=== PATIENT | male | born 1955 | race Caucasian/White ===

== ENCOUNTER → 2020-03-10 12:11 | Outpatient (CLI) | payer MEDICARE, SELFPAY ==
--- NOTE | 2020-03-10 12:17 | CT_ITS ---
STUDY: CT SCAN HIP RIGHT REASON FOR EXAM: Male, 64 years old. R/O BONE LESION, H/O ARTHRITIS RADIATION DOSAGE (If Supplied By Facility): CTDIvol = ( 36.54 ) mGy, DLP = ( 1536.13 ) mGycm. Individualized dose optimization techniques were used for this CT.? TECHNIQUE: Multiple axial tomographic images of the right hip joint were obtained. Coronal and sagittal reconstruction was obtained. 3-D reconstruction was obtained as well. COMPARISON: None. FINDINGS: There is a marked degree of a osteoarthritis involving the right hip joint with the subchondral geodes on the acetabular and femoral head regions. The largest geode is seen in the superior lateral aspect of the acetabulum measuring up 1.4 cm. A subchondral geode is seen along the superior lateral aspect of the femoral head measuring 1.[address]/Extremity Lower without Contra IMPRESSION: Marked degree of osteoarthritis of the right hip joint with the subchondral geodes in the acetabulum as well as in the femoral head. Electronically Signed: Shekhar Mccall, at 13:08 EDT , Service support ,
== END ==
LOC: CT 12:15
PROVIDERS: PCP Internal Medicine; Referring Provider Orthopaedic Surgery; Visit Provider Orthopaedic Surgery
DX: M16.11 Unilateral primary osteoarthritis, right hip (principal)
CPT/HCPCS: 73700; 76377

== ENCOUNTER 2022-12-03 11:32 | Inpatient (IN) | payer MEDICARE, SELFPAY ==
[2022-12-03] VITALS (8 sets, daily range): BP systolic 110–124; BP diastolic 67–79; PULSE 75–91; RESP 16–18; TEMP 36.4; O2SAT 92–96; BMI 38.4; BMI 38.1
--- NOTE | 2022-12-03 11:48 | EKG12_ITS ---
Test Reason : SOB Blood Pressure : / mmHG Vent. Rate : 084 BPM Atrial Rate : 000 BPM P-R Int : 000 ms QRS Dur : 154 ms QT Int : 430 ms P-R-T Axes : 000 133 -24 degrees QTc Int : 508 ms Atrial fibrillation Right bundle branch block Abnormal ECG Confirmed by DENAE LUCERO, LINETTE ([id number]), rewrite editor NOEL NAVAS ([id number]) on 12/04/2022 2:02:29 PM Referred By: Confirmed By:LINETTE PHILIPPE MD
--- NOTE | 2022-12-03 11:54 | NURSING ---
NO OLD EKGS
[2022-12-03 12:08] LABS: Absolute Lymphocyte Count 0.47 X10^3/uL (0.83-4.51); Basophil# 0.02 X10^3/uL; Basophil% 0.5 % (0-1); Eosinophils% 2.5 % (0-5); Hemoglobin 8.9 g/dL (13.0-16.5); Lymphocyte # 0.47 X10^3/ul (0.83-4.51); Lymphocyte % 11.9 % (19-41); Mean Corp Hgb Conc 28.7 g/dL (32-36); Mean Corpuscular Hgb 24.8 pg (27.0-32.0); Mean Corpuscular Volume 86.4 fL (80-94); Monocyte# 0.37 X10^3/uL; Monocyte% 9.3 % (0-10); NRBC Flagged by Analyzer 0 % (0-5); Neutrophil # 2.99 X10^3/uL (2.7-7.7); Neutrophil % 75.5 % (47-70); POSITIVE DIFFERENTIAL YES; POSITIVE MORPHOLOGY YES; Platelet Count 118 K/mm3 (150-450); RBC Distribution Width CV 24.4 % (11.6-14.6); RBC Distribution Width SD 76.5 fl (35.1-43.9); Red Blood Count 3.59 M/mm3 (4.6-6.2)
--- NOTE | 2022-12-03 12:11 | RAD_ITS ---
STUDY: X-RAY CHEST REASON FOR EXAM: Male, 67 years old. Worsening dyspnea and fluid retention. TECHNIQUE: PA and lateral views of the chest. COMPARISON: None. FINDINGS: EKG electrode are seen. Vascular congestion and mild degree of CHF. Small left pleural effusion with left basilar atelectasis and/or infiltrate. Sternal cerclage wires are present from a prior sternotomy. Metallic atrial clip is seen on the left side. A left-sided unipolar pacemaker is present. Normal mediastinum and lorena. Normal visualized pulmonary arteries. Normal visualized aortic arch and descending thoracic aorta. There are degenerative changes of the visualized thoracic spine. Normal visualized ribs, clavicles, and shoulders. There is no demonstrated abnormality of the visualized soft tissue structures of the upper abdomen. RAD/Chest PA and Lateral IMPRESSION: Vessel congestion with small left pleural effusion and left basilar atelectasis and/or infiltrate. Cardiomegaly. Electronically Signed: Shekhar Mccall MD at 12:41 EST ,
[2022-12-03 12:14] LABS: Differential Indicated SCAN CRITERIA MET
[2022-12-03 12:17] LABS: International Normalized Ratio 2.7; Prothrombin Time (Protime)PT. 28.6 SECONDS (11.7-14.9)
[2022-12-03 12:21] LABS: Anion Gap 7 (5-15); BUN 54 mg/dL (7-18); BUN/Creat Ratio 22.2 RATIO (10-20); Calcium,Total 8.8 mg/dL (8.5-10.1); Chloride 106 mmol/L (98-107); Creatinine, Serum 2.43 mg/dL (0.70-1.30); EST Glomerular Filtration Rate 28 mL/min (>60); Est Glom Filt Rate - Afr Amer 34 mL/min (>60); Estimated Creatinine Clearance 29.09 ml/min; Glucose 139 mg/dL (74-106); Potassium 4.3 mmol/L (3.5-5.1); Sodium Level 141 mmol/L (136-145)
[2022-12-03 12:27] LABS: Anisocytosis 1+
[2022-12-03 12:30] LABS: BNP,B-Type NATRIURETIC PEPTIDE 588.2 pg/mL (0-100)
[2022-12-03] MEDS: Furosemide 40 MG/4 ML Vial IV ×2 (12:38→17:18)
--- NOTE | 2022-12-03 13:25 | EDS_ITS ---
HPI History of Present Illness Chief Complaint: Shortness of Breath Informant: patient Narrative Narrative: Patient is a 67-year-old male with history of coronary artery disease, heart failure with preserved ejection fraction, CABG, CKD, diabetes mellitus, chronic atrial fibrillation (on Coumadin therapy) and hypertension presenting from cardiology office for worsening heart failure. Patient was admitted to [facility] in August 2022 where he was diuresed and discharged home. He has been following up outpatient and recently switched to [facility] with Dr. Yang for second opinion because he feels like he is continuing to worsen. He does not feel that he is urinating adequately with his Lasix. He is having worsening edema is now having scrotal edema. He can even walk 5 feet without getting chest pressure and short of breath/dizzy. He does not wear home oxygen. His last INR check was a month ago and he was supposed to go a week or 2 ago but states it so hard for him to get out of the house because of his symptoms. He feels like he is drowning if he tries to lay flat and has been sleeping in the recliner for the past few months. He currently denies any chest pain. He did run out of his metoprolol about a month ago. He saw cardiology today and was recommended come to the ER for admission for IV diuresis secondary to his poor kidney function and functional class IV congestive heart failure. Patient does note for the past month he has been having dark bowel movements but thought it might be from his iron. Denies any known history of GI bleeding. [facility] Medical History (Updated 12/03/22 @ 17:[address] Isabelle Antonio, ) (HFpEF) heart failure with preserved ejection fraction Anxiety Atherosclerosis of coronary artery bypass graft of [place] heart without angina pectoris Atherosclerosis of coronary artery of [place] heart without angina pectoris BPH with obstruction/lower urinary tract symptoms Chronic anemia Chronic atrial fibrillation Chronic GERD Chronic shortness of breath CKD (chronic kidney disease) Dysphagia Essential (primary) hypertension Insomnia Long-term (current) use of anticoagulants, INR goal 2.0-3.0 Lung nodule, solitary RODRIGUEZ (nonalcoholic steatohepatitis) Pulmonary hypertension Type 2 diabetes mellitus with other diabetic kidney complication Home Medications allopurinol 100 mg tablet 100 mg PO DAILY 11/29/22 [History Last Taken 12/03/22] aspirin 81 mg tablet,delayed release 81 mg PO DAILY 11/29/22 [History Last Taken 12/03/22] atorvastatin 40 mg tablet 40 mg PO QHS 11/29/22 [History Last Taken 12/02/22] ferrous gluconate 324 mg (38 mg iron) tablet 324 mg PO DAILY 11/29/22 [History Last Taken 12/03/22] gabapentin 100 mg capsule 100 mg PO QHS 11/29/22 [History Last Taken 12/01/22] glipizide 5 mg tablet, extended release 24 hr 10 mg PO BID 11/29/22 [History Last Taken 12/03/22] nitroglycerin 0.4 mg sublingual tablet 0.4 mg sublingual Q5-15M PRN Chest Pain 11/29/22 [History Last Taken Unknown] tamsulosin 0.4 mg capsule 0.4 mg PO QHS 11/29/22 [History Last Taken 12/02/22] trazodone 50 mg tablet 50 mg PO QHS PRN Insomnia 11/29/22 [History Last Taken 12/01/22] warfarin 2.5 mg tablet 2.5 mg PO SUTH 11/29/22 [History Last Taken 12/01/22] warfarin 5 mg tablet 5 mg PO MOTUWEFRSA Check with primary doctor 11/29/22 [History Last Taken 12/02/22] albuterol sulfate 90 mcg/actuation aerosol inhaler (Ventolin HFA) 2 puff inhalation Q6H PRN Wheezing 12/03/22 [History Last Taken 12/03/22] amlodipine 2.5 mg tablet 2.5 mg PO DAILY 12/03/22 [History Last Taken 12/03/22] bumetanide 2 mg tablet 2 mg PO DAILY FLUID 12/03/22 [History Last Taken 12/03/22] omeprazole 20 mg capsule,delayed release 20 mg PO DAILY GERD 12/03/22 [History Last Taken 12/03/22] pantoprazole 40 mg tablet,delayed release 40 mg PO DAILY GERD 12/03/22 [History Last Taken 12/03/22] Allergy/AdvReac Type Severity Reaction Status Date / Time hydromorphone [From Dilaudid] Allergy Intermediate Vomiting Verified 12/03/22 10:33 metformin AdvReac Intermediate Other Verified 12/03/22 10:33 Family History Mother CHF (congestive heart failure) Surgical History History of bilateral knee replacement History of coronary artery stent placement (~12/10/10) Hx of bilateral hip replacements Hx of cardiac catheterization (~12/04/21) Hx of cardiac pacemaker (~06/30/19) Hx of gastric bypass (~2011) Hx of shoulder surgery S/P CABG x 3 (~12/23/18) Social History Smoking Status: Never smoker alcohol intake: never substance use type: does not use caffeine: Yes (2/wk) Type: coffee ROS ROS ED Constitutional Constitutional ED: Denies chills or fever(s) Eyes Eyes: Denies change in vision ENT ENT ED: Denies sore throat Cardiovascular Cardiovascular: Reports orthopnea and paroxysmal nocturnal dyspnea; Denies chest pain or palpitations Respiratory/Chest Respiratory/Chest: Reports dyspnea, dyspnea on exertion, orthopnea and paroxysmal nocturnal dyspnea; Denies cough Gastrointestinal Gastrointestinal: Reports melena; Denies abdominal pain, nausea or vomiting Genitourinary Genitourinary ED: Reports other Details: Scrotal swelling ; Denies dysuria or urinary frequency Musculoskeletal Musculoskeletal: Denies arthralgias or myalgias Integumentary Denies rash Neurologic Neurologic: Reports weakness; Denies headache(s) Psychiatric Psychiatric: Denies anxiety Hematologic/Lymphatic Hematologic/Lymphatic: Reports easy bleeding and easy bruising EXAM Physical Exam Const Vital Signs: 12/03/22 11:33 12/03/22 12:04 12/03/22 12:43 Temperature 97.6 F L Temperature Source Temporal Pulse Rate 81 78 Respiratory Rate 18 18 Respiratory Effort Normal Non-Labored Respiratory Depth Normal Respiratory Pattern Normal Blood Pressure 118/67 110/69 Blood Pressure Mean 84 82 Pulse Ox 92 93 Oxygen Delivery Method Room Air Room Air Positive well nourished and well developed Constitutional Narrative: Chronically ill-appearing General Appearance ED: well developed and pallor HEENT Reports moist mucous membranes atraumatic Eyes PERRL and EOMs intact bilaterally General Eye ED: Yes pale conjunctiva Neck supple Neck Narrative: Positive JVD Resp Resp Narrative: Diminished breath sounds at the bases, left worse than right. Mild conversational dyspnea present Auscultation: Negative for rhonchi or wheezes Cardio regular rate Rhythm: abnormal rhythm irregularly irregular GI non-tender and non-distended Narrative: Significant scrotal edema present Back/Spine no CVA tenderness Extremity Extremity Narrative: 2+ pitting edema up to the proximal thighs, some seeping on the left martines p resent General Extremety ED: Yes edema General Extremity: edema Neuro oriented x3 Sensorium / Orientation: alert Motor Exam: general weakness Psych mental status grossly normal Skin General Skin Exam: pallor Lesions: no lesions Rashes: no rashes MDM MDM MDM Narrative Medical decision making narrative: Patient is evaluated for increased exertional edema. He was evaluated earlier today by cardiology who thought that he would benefit from admission for close fluid and electrolyte monitoring associate with diuresing. Clinically patient appears to be decompensated, symptomatic fluid overload. Patient is able in the ER and desaturates to 87%. His INR is therapeutic. He had reported having black stools intermittently for the past month and his hemoglobin is 8.9 however do not have a comparison. He does not have a significantly elevated BUN compared to his creatinine and has a chronically elevated creatinine with no acute change today. Of his occult stool is positive and its possible he could have an occult GI bleed. Patient's hemoglobin can be monitored in case he is symptomatic anemia which is exacerbating his heart failure. He is given a dose of IV Lasix in the ER. He does have an elevated BNP. He will be admitted for further diuresis and is agreeable this plan of care Lab Data Attestation: I reviewed the patient's lab results. Labs: Laboratory Results - last 24 hr 12/03/22 12/03/22 12/03/22 12:00 12:00 12:00 WBC 4.0 L RBC 3.59 L Hgb 8.9 L Hct 31.0 L MCV 86.4 MCH 24.8 L MCHC 28.7 L RDW Std Deviation 76.5 H RDW Coeff of Anders 24.4 H Plt Count 118 L MPV 10.0 Immature Gran % (Auto) 0.300 Neut % (Auto) 75.5 H Lymph % (Auto) 11.9 L Bacon % (Auto) 9.3 Eos % (Auto) 2.5 Baso % (Auto) 0.5 Absolute Neuts (auto) 3.0 Absolute Lymphs (auto) 0.47 L Nucleated RBC % 0 Differential Comment COMMENT Diff Path Review May foll Anisocytosis 1+ PT 28.6 H INR 2.7 Sodium 141 Potassium 4.3 Chloride 106 Carbon Dioxide 28.0 Anion Gap 7 BUN 54 H Creatinine 2.43 H Estim Creat Clear Calc 29.09 Est GFR (MDRD) Af Amer 34 L Est GFR (MDRD) Non-Af 28 L BUN/Creatinine Ratio 22.2 H Glucose 139 H Calcium 8.8 Troponin I High Sens B-Natriuretic Peptide 12/03/22 12/03/22 12:00 12:00 WBC RBC Hgb Hct MCV MCH MCHC RDW Std Deviation RDW Coeff of Anders Plt Count MPV Immature Gran % (Auto) Neut % (Auto) Lymph % (Auto) Bacon % (Auto) Eos % (Auto) Baso % (Auto) Absolute Neuts (auto) Absolute Lymphs (auto) Nucleated RBC % Differential Comment Diff Path Review Anisocytosis PT INR Sodium Potassium Chloride Carbon Dioxide Anion Gap BUN Creatinine Estim Creat Clear Calc Est GFR (MDRD) Af Amer Est GFR (MDRD) Non-Af BUN/Creatinine Ratio Glucose Calcium Troponin I High Sens 16 B-Natriuretic Peptide 588.2 H Radiography Chest X-Ray - ED: 2 View, Read by ED Physician, Read by Radiologist, CHF and Left Effusion Diagnostic Testing: Clinical Impression(s) from Imaging Studies Chest X-Ray 12/03/22 12:11 IMPRESSION: Vessel congestion with small left pleural effusion and left basilar atelectasis and/or infiltrate. Cardiomegaly. Electronically Signed: Shekhar Mccall MD at 12:41 EST Reading Location ID and State: [facility] / [place] , Service support , Rhythm Strip Rhythm Strip: A-fib Rate: 84 Ectopy: None EKG Initial EKG: Attestation: I personally reviewed and interpreted this EKG as follows: Interpretation: Atrial Fibrillation Comments: Atrial fibrillation with rate of 84 bpm Right axis deviation Right bundle branch block Nonspecific T wave changes No prior EKG available for comparison Discharge Plan Dx/Rx/DC Orders Clinical Impression: (HFpEF) heart failure with preserved ejection fraction, Long-term (current) use of anticoagulants, INR goal 2.0-3.0, SOB (shortness of breath), Coronary artery disease, Chronic kidney disease (CKD), Debility, Anemia Disposition Disposition: Acute Care Hospital [facility] Discharge Date/Time: 12/03/22 15:09
--- NOTE | 2022-12-03 14:15 | PCM.HP.STD ---
[facility] - General General Date of Service: 12/03/22 Chief Complaint: dyspnea. edema HPI Narrative LINDA CARLOS, is a 67 M who presents to [facility] with increased lower extremity edema despite taking Bumex, 40 pound weight gain over the past 4 months and dyspnea on exertion. Patient was seen by Dr. Yang and sent to the emergency room. Chest x-ray showed pulmonary vascular congestion. Patient received 40 mg of IV furosemide. The Hospital service was contacted for admission. Patient has never had a situation such as this in the past. [facility] Medical History (Updated 12/03/22 @ 14:[address] Arnold Saini, DO) (HFpEF) heart failure with preserved ejection fraction Anxiety Atherosclerosis of coronary artery bypass graft of [place] heart without angina pectoris Atherosclerosis of coronary artery of [place] heart without angina pectoris BPH with obstruction/lower urinary tract symptoms Chronic anemia Chronic atrial fibrillation Chronic GERD Chronic shortness of breath CKD (chronic kidney disease) Dysphagia Essential (primary) hypertension Insomnia Long-term (current) use of anticoagulants, INR goal 2.0-3.0 Lung nodule, solitary RODRIGUEZ (nonalcoholic steatohepatitis) Pulmonary hypertension Type 2 diabetes mellitus with other diabetic kidney complication Home Medications allopurinol 100 mg tablet 100 mg PO DAILY 11/29/22 [History Last Taken 12/03/22] aspirin 81 mg tablet,delayed release 81 mg PO DAILY 11/29/22 [History Last Taken 12/03/22] atorvastatin 40 mg tablet 40 mg PO QHS 11/29/22 [History Last Taken 12/02/22] ferrous gluconate 324 mg (38 mg iron) tablet 324 mg PO DAILY 11/29/22 [History Last Taken 12/03/22] gabapentin 100 mg capsule 100 mg PO QHS 11/29/22 [History Last Taken 12/01/22] glipizide 5 mg tablet, extended release 24 hr 10 mg PO BID 11/29/22 [History Last Taken 12/03/22] nitroglycerin 0.4 mg sublingual tablet 0.4 mg sublingual Q5-15M PRN Chest Pain 11/29/22 [History Last Taken Unknown] tamsulosin 0.4 mg capsule 0.4 mg PO QHS 11/29/22 [History Last Taken 12/02/22] trazodone 50 mg tablet 50 mg PO QHS PRN Insomnia 11/29/22 [History Last Taken 12/01/22] warfarin 2.5 mg tablet 2.5 mg PO SUTH 11/29/22 [History Last Taken 12/01/22] warfarin 5 mg tablet 5 mg PO MOTUWEFRSA 11/29/22 [History Last Taken 12/02/22] albuterol sulfate 90 mcg/actuation aerosol inhaler (Ventolin HFA) 2 puff inhalation Q6H PRN Wheezing 12/03/22 [History Last Taken 12/03/22] amlodipine 2.5 mg tablet 2.5 mg PO DAILY 12/03/22 [History Last Taken 12/03/22] bumetanide 2 mg tablet 2 mg PO DAILY FLUID 12/03/22 [History Last Taken 12/03/22] omeprazole 20 mg capsule,delayed release 20 mg PO DAILY GERD 12/03/22 [History Last Taken 12/03/22] pantoprazole 40 mg tablet,delayed release 40 mg PO DAILY GERD 12/03/22 [History Last Taken 12/03/22] Allergy/AdvReac Type Severity Reaction Status Date / Time hydromorphone [From Dilaudid] Allergy Intermediate Vomiting Verified 12/03/22 10:33 metformin AdvReac Intermediate Other Verified 12/03/22 10:33 Family History Mother CHF (congestive heart failure) Surgical History History of bilateral knee replacement History of coronary artery stent placement (~12/10/10) Hx of bilateral hip replacements Hx of cardiac catheterization (~12/04/21) Hx of cardiac pacemaker (~06/30/19) Hx of gastric bypass (~2011) Hx of shoulder surgery S/P CABG x 3 (~12/23/18) Social History Smoking Status: Never smoker alcohol intake: never substance use type: does not use caffeine: Yes (2/wk) Type: coffee ROS ROS Narrative Does have difficulty swallowing and occasionally has to vomit up food that he cannot swallow down. Patient has had an EGD and colonoscopy that have been ported as normal. Those were performed at [facility]. When asked specifically about that he denies that he had any kind of strictures or endocrine abnormalities in his esophagus. Patient does have difficulty negotiating stairs but also does drop things at times. All review of systems were negative except as mentioned above in the history of present illness and the other review of systems. Vital Signs Vital Signs Vital Signs: 12/03/22 11:33 12/03/22 12:04 12/03/22 12:43 Temperature 36.4 C L Temperature Source Temporal Pulse Rate 81 78 Respiratory Rate 18 18 Respiratory Effort Normal Non-Labored Respiratory Depth Normal Respiratory Pattern Normal Blood Pressure 118/67 110/69 Blood Pressure Mean 84 82 Pulse Ox 92 93 Oxygen Delivery Method Room Air Room Air 12/03/22 14:09 Temperature Temperature Source Pulse Rate 89 Respiratory Rate 18 Respiratory Effort Respiratory Depth Respiratory Pattern Blood Pressure 117/72 Blood Pressure Mean 87 Pulse Ox 93 Oxygen Delivery Method Room Air Weight Weight: 117.934 kg Body Mass Index (BMI) 38.4 Physical Exam Const alert and no apparent distress HEENT normocephalic and head/scalp atraumatic Eyes EOMs intact bilaterally Eyes Narrative: No icterus Neck no lymphadenopathy and no JVD Resp normal respiratory effort, no retractions, no use of accessory muscles and clear to auscultation bilaterally Cardio regular rate, regular rhythm, S1 normal heart sound and S2 normal heart sound GI normal to inspection, nondistended, normoactive bowel sounds, soft to palpation, non-tender and non-distended Extremity Extremity Narrative: Bilateral tot lower extremity edema Skin Skin Narrative: Venous stasis changes to the lower extremities bilaterally Neuro moves all extremities and no focal motor deficits Sensorium / Orientation: awake and alert Psych affect normal Results Lab / Micro Data Attestation: I reviewed the patient's lab results. Result Diagrams: 12/03/22 12:00 12/03/22 12:00 Labs: Laboratory Results - last 24 hr 12/03/22 12:00: WBC 4.0 L, RBC 3.59 L, Hgb 8.9 L, Hct 31.0 L, MCV 86.4, MCH 24.8 L, MCHC 28.7 L, RDW Std Deviation 76.5 H, RDW Coeff of Anders 24.4 H, Plt Count 118 L, MPV 10.0, Immature Gran % (Auto) 0.300, Neut % (Auto) 75.5 H, Lymph % (Auto) 11.9 L, [place] % (Auto) 9.3, Eos % (Auto) 2.5, Baso % (Auto) 0.5, Absolute Neuts (auto) 3.0, Absolute Lymphs (auto) 0.47 L, Nucleated RBC % 0, Differential Comment COMMENT, Diff Path Review May foll, Anisocytosis 1+ 12/03/22 12:00: PT 28.6 H, INR 2.7 12/03/22 12:00: Sodium 141, Potassium 4.3, Chloride 106, Carbon Dioxide 28.0, Anion Gap 7, BUN 54 H, Creatinine 2.43 H, Estim Creat Clear Calc 29.09, Est GFR (MDRD) Af Amer 34 L, Est GFR (MDRD) Non-Af 28 L, BUN/Creatinine Ratio 22.2 H, Glucose 139 H, Calcium 8.8 12/03/22 12:00: B-Natriuretic Peptide 588.2 H Micro: Microbiology 12/03/22 12:45 Stool Stool Occult Blood (SARIAH) - Final Occult Blood Positive Rhythm Strip Rhythm Strip: A-fib Rate: 84 Ectopy: None EKG Initial EKG: Attestation: I personally reviewed and interpreted this EKG as follows: Prior EKG tracings: available for review EKG Rhythm Intrepretation: Atrial Fibrillation (Right bundle branch block) Radiology Impression Chest X-Ray 12/03/22 12:11 IMPRESSION: Vessel congestion with small left pleural effusion and left basilar atelectasis and/or infiltrate. Cardiomegaly. Electronically Signed: Shekhar Mccall MD at 12:41 EST , Assessment & Plan Assessment/Plan (1) (HFpEF) heart failure with preserved ejection fraction: PLAN: Presumed No baseline echo in our EMR Patient received IV furosemide 40 mg in the emergency room and will continue with 40 mg twice daily. No KOSTA inhibitor is given the patient's CKD Check echocardiogram (2) Dysphagia: PLAN: Chronic patient has had an EGD performed [facility], we will request records Consult speech therapy (3) Debility: PLAN: PTOT evaluate and treat Concern patient has some underlying neurologic disorder. Unclear what that may be but this is chronic process and I would recommend outpatient neurology follow-up (4) Chronic kidney disease (CKD): QUALIFIERS: Chronic kidney disease stage: stage 4 (severe) Qualified Code(s): N18.4 - Chronic kidney disease, stage 4 (severe) PLAN: Monitor closely We will hold off on nephrology consultation at this time but it does get worse considerably, may need to consult Patient will certainly need nephrology follow-up on an outpatient. PLAN: Plan Chronic condition Chronic A. fib: Continue with warfarin Diabetes mellitus type 2: Continuous in his home meds plus sliding scale Coronary artery disease: Status post CABG. Continue with aspirin Hypertension: Hold amlodipine given his low normal blood pressure at this time Anemia: Probably stable. Monitor for now. Continue with ferrous gluconate VTE prophylaxis: Not indicated as patient is already anticoagulated CODE STATUS: Dressed with the patient. Patient wished to be full code. Charges/Coding Visit Charges Inpatient E&M: 76823 Init Hosp L3
--- NOTE | 2022-12-03 14:36 | NURSING ---
MICHELLE PARKER CHF EXAC, HYPOXIA
[2022-12-03 16:02] LABS: Troponin-I HS 16 pg/mL (3.0-78.0)
[2022-12-03 16:34] LABS: Troponin-I HS 18 pg/mL (3.0-78.0)
--- NOTE | 2022-12-03 16:42 | EKG12_ITS ---
Test Reason : CP Blood Pressure : / mmHG Vent. Rate : 083 BPM Atrial Rate : 000 BPM P-R Int : 000 ms QRS Dur : 154 ms QT Int : 440 ms P-R-T Axes : 000 133 -05 degrees QTc Int : 517 ms Atrial fibrillation Right bundle branch block Abnormal ECG When compared with ECG of 03-DEC-2022 12:01, MANUAL COMPARISON REQUIRED, DATA IS UNCONFIRMED Confirmed by VAUGHN LUCERO, FRANCISCO ([id number]), international editorial producer BEVERLEY CHIN ([id number]) on 12/06/2022 9:05:45 AM Referred By: KEITH Confirmed By:CL MENDES MD
[2022-12-03] MEDS: glipiZIDE XL 5 MG Tablet 10 MG PO (17:18)
[2022-12-03] MEDS: 0.9% Saline Lock 10 ML Syringe IV (17:21)
[2022-12-03] MEDS: Insulin Lispro 100 UNIT/ML INSULN.PEN SC (17:25)
[2022-12-03 17:50] LABS: Bedside Glucose 253 mg/dL (74-106)
--- NOTE | 2022-12-03 19:00 | NURSING ---
emergency documentation effective now 12/03/2022, 1900
[2022-12-03 19:47] LABS: Troponin-I HS 16 pg/mL (3.0-78.0)
[2022-12-03] MEDS: traZODone 50 MG Tablet PO (22:06)
[2022-12-03] MEDS: Tamsulosin HCl 0.4 MG Capsule PO (22:07)
[2022-12-03] MEDS: Atorvastatin Calcium 40 MG Tablet PO (22:07)
[2022-12-03] MEDS: Gabapentin 100 MG Capsule PO (22:07)
[2022-12-04] VITALS (11 sets, daily range): BP systolic 91–104; BP diastolic 62–82; PULSE 79–87; RESP 16–25; TEMP 36.5–36.8; O2SAT 86–100
[2022-12-04 01:16] LABS: Bedside Glucose 108 mg/dL (74-106)
[2022-12-04 04:52] LABS: Absolute Lymphocyte Count 0.47 X10^3/uL (0.83-4.51); Absolute Neutrophil Count 2.2 X10^3/uL (2.0-7.7); Basophil# 0.03 X10^3/uL; Basophil% 0.9 % (0-1); Eosinophil# 0.12 X10^3/uL; Eosinophils% 3.8 % (0-5); Hemoglobin 8.3 g/dL (13.0-16.5); Lymphocyte # 0.47 X10^3/ul (0.83-4.51); Lymphocyte % 14.7 % (19-41); Mean Corp Hgb Conc 28.6 g/dL (32-36); Mean Corpuscular Hgb 24.9 pg (27.0-32.0); Mean Corpuscular Volume 87.1 fL (80-94); Mean Platelet Vol. 10.9 fl (6.2-12.0); Monocyte# 0.41 X10^3/uL; Monocyte% 12.8 % (0-10); NRBC Flagged by Analyzer 0 % (0-5); Neutrophil # 2.16 X10^3/uL (2.7-7.7); Neutrophil % 67.5 % (47-70); POSITIVE DIFFERENTIAL YES; POSITIVE MORPHOLOGY YES; Platelet Count 104 K/mm3 (150-450); RBC Distribution Width CV 24.4 % (11.6-14.6); Red Blood Count 3.33 M/mm3 (4.6-6.2); White Blood Count 3.2 K/mm3 (4.4-11.0)
[2022-12-04 04:57] LABS: Differential Indicated SCAN CRITERIA MET
[2022-12-04 04:58] LABS: International Normalized Ratio 2.8; Prothrombin Time (Protime)PT. 29.4 SECONDS (11.7-14.9)
[2022-12-04 05:26] LABS: Anion Gap 6 (5-15); BUN 57 mg/dL (7-18); BUN/Creat Ratio 21.5 RATIO (10-20); Calcium,Total 8.2 mg/dL (8.5-10.1); Chloride 104 mmol/L (98-107); Cholesterol 70 mg/dL (200); Creatinine, Serum 2.65 mg/dL (0.70-1.30); EST Glomerular Filtration Rate 26 mL/min (>60); Est Glom Filt Rate - Afr Amer 31 mL/min (>60); Estimated Creatinine Clearance 26.68 ml/min; Glucose 62 mg/dL (74-106); High Density Lipoprotein 59 mg/dL; Potassium 4.4 mmol/L (3.5-5.1); Sodium Level 140 mmol/L (136-145); Thyroid Stim Hormone (TSH) 5.32 uIU/mL (0.358-3.74); Triglycerides 29 mg/dL; Very Low Density Lipoprotein 6 mg/dL (5-40)
[2022-12-04 05:52] LABS: Anisocytosis 1+; Differential Comment SCANNED; Hypochromasia 1+; Microcytosis 1+
[2022-12-04 07:20] LABS: Bedside Glucose 59 mg/dL (74-106)
[2022-12-04 07:50] LABS: Bedside Glucose 107 mg/dL (74-106)
[2022-12-04 08:11] LABS: Hemoglobin A1c 6.6 % (3.8-5.6)
[2022-12-04] MEDS: glipiZIDE XL 5 MG Tablet 10 MG PO ×2 (09:18→15:47)
[2022-12-04] MEDS: Aspirin E.C. 81 MG Tablet PO (09:18)
[2022-12-04] MEDS: Allopurinol 100 MG Tablet PO (09:18)
[2022-12-04] MEDS: Pantoprazole Sodium 40 MG Tablet PO (09:18)
[2022-12-04] MEDS: Furosemide 40 MG/4 ML Vial IV (09:18)
[2022-12-04 09:26] LABS: Bedside Glucose 114 mg/dL (74-106)
[2022-12-04] MEDS: Ferrous Gluconate 324 MG Tablet PO (11:06)
[2022-12-04 11:35] LABS: Bedside Glucose 106 mg/dL (74-106)
--- NOTE | 2022-12-04 11:35 | CASEMGMT ---
Addendum entered by Almiat Keith 12/04/22 16:35: Pt qualifies for a Palliative referral per the [facility] palliative screening tool at this time. ?? Asmita made aware and that is agreeable to referral. Order received. ??Palliative updated at this time via e-mail. ? Original Note: RN?CM?COMMUNITY SERVICES MANAGER?CM?to room to meet with patient for initial transition planning/care coordination?assessment.? @ bedside. RN?CM?introduced self and role at [facility].?Pt resting in bed in no distress at this time, sleeping. He did open his eyes briefly, but then fell back asleep right away. Care providers, pharmacy, and demographics verified with at this time. PCP: Dr Mely Lazar Specialists: Dr Cheema. Pt was going to [facility] for cardiology, nephrology, and pulmonology, but they want to switch to local specialists. provided w/local physician directory. Palliative: discussed palliative care w/ and she is agreeable to a referral. Preferred Pharmacy: [facility] Retail Insurance: [employer] Prescription Benefit:?Yes LNOK: Mery Living Arrangements: Lives w/ in one-story home w/3 steps to enter w/railing on one side. Pt able to navigate the stairs but goes very slowly. Pt able to bath and dress self and manages his own medications. does home mgt tasks. states pt sleeps for a large part of the day and is more awake at night. She states he can barely walk 5 ft w/out feeling he is going to pass out. She states he has not left his house since . Transportation:? does most of the driving. DME: ?States has the following DME:?built-in shower seat, nebulizer, RTS, pulse ox, and glucometer ( does he does not use it, though). Pt does not use DME to ambulate, but does have a cane and walker. Also has a BSC. Pt does not have home O2. Verbal review of local DME co's and made aware [facility] is affiliated w/[facility]. She chooses [employer], should pt qualify for Home O2. Discussed home O2 set-up process and questions answered. states no need for further DME at this time.? HHC/SNF: No hx of SNF. thinks pt had HHC after either hip or knee surgery. Discussed discharge planning. states, if therapy recommends SNF, she would be agreeable and thinks pt would be also. If pt able to return home, then she thinks he would be agreeable to HHC as well. PT/OT evals pending. ?CM?to follow for home oxygen needs and any further discharge planning/needs.? voices no further concerns/needs at this time.? Advised her to ask for?CM?if any further questions/concerns/needs arise.? She voices understanding. PLAN:??TBD. SNF vs Home w/HHC. If discharges home, follow for possible home O2. Anthony BSN?RN?CM
--- NOTE | 2022-12-04 11:42 | ST.MBS ---
Modified Barium Swallow - Patient Information Study Date: 12/04/22 Study Time: 12:00 Direct Billable Minutes: 81 Total Minutes procedure & reportin Diagnosis: Dysphagia, unspecified (R13.10) Referring Physician: Tate Díaz Reason for Referral: Objectively assess swallow function, assess risk for aspiration, and determine recommendations for least restrictive diet textures and compensatory strategies to improve safety of swallow. Medical History: Emeka Parikh is a 67 M who [facility] with increased lower extremity edema despite taking Bumex, 40 pound weight gain over the past 4 months and dyspnea on exertion. Patient was seen by Dr. Yang and sent to the emergency room. Chest x-ray showed pulmonary vascular congestion. Pt was admitted to PCU. PMH includes: HFpEF, anxiety, chronic atrial fibrillation, chronic GERD, chronic SOB, CKD, dysphagia, HTN, pulmonary hypertension, Type 2 diabetes mellitus with other diabetic kidney complication (SEE H&P for full PMH). He was referred for ST consult for concerns for swallowing difficulty. During BSE, pt felt frequent sensation of pharyngeal retention, especially with applesauce. He also reported retention and sensation of water coming back up into throat prior to clearing. In addition, pt experienced intermittent s/s of aspiration with trials. He was recommended Regular textures / Thin liquids and referred for MBSS to objectively assess concerns for pharyngeal retention, retrograde flow of liquids, and aspiration risk. Current Diet Ordered: Regular textures / Thin liquids Dentition: Natural Teeth Mental Status: WNL Respiratory Status: Oxygenating on 2L/M nasal cannula - Penetration-Aspiration Scale Penetration-Aspiration Scale: OBJECTIVE ASSESSMENT OF SWALLOW FUNCTION (QUANTITATIVE ? PER TRIAL): PENETRATION / ASPIRATION SCALE (RAYA): 1 = does not enter airway 2 = enters airway/above vocal folds/ejected 3 = enters airway/above vocal folds/not ejected 4 = enters airway/contacts vocal folds/ejected 5 = enters airway/contacts vocal folds/not ejected 6 = enters airway/below vocal folds/ejected 7 = enters airway/below vocal folds/not ejected despite effort 8 = enters airway/below vocal folds/no effort VIDEOFLOROSCOPIC SCALE SCORE (RAYA): Grade I = aspiration of material that has penetrated into the laryngeal vestibule, intact cough reflex Grade II = aspiration < 10 % of the bolus, intact cough reflex Grade III = aspiration of < 10 % of the bolus, reduced cough reflex or aspiration of > 10 % of the bolus, intact cough reflex Grade IV = aspiration of > 10 % of the bolus, reduced cough reflex - Penetration-Aspiration Scale Score Thin Liquid via teaspoon Result: 1= does not enter airway Thin Liquid via teaspoon Trial 2 Result: 1= does not enter airway Thin Liquid via small single sip from cup Result: 1= does not enter airway [place] Thick Liquid via small single sip from cup Result: 2= enter airway/above vocal folds/ejected Pudding via teaspoon esophageal screen Result: 1= does not enter airway 1/2 Cookie Result: 1= does not enter airway Thin Liquid via large single sip from cup Result: 2= enter airway/above vocal folds/ejected Thin Liquid via small single sip from cup Trial 2 Result: 2= enter airway/above vocal folds/ejected Thin Liquid via sequential sips from straw Result: 3= enters airways/above vocal folds/not ejected - Oral Phase Labial Seal: Interlabial escape, no progression to anterior lip Tongue Control During Bolus Hold: Posterior escape of greater than half of bolus Bolus Preparation/Mastication: Slow prolonged chewing/mashing with complete recollection Bolus Transport/Lingual Motion: Delayed initiation of tongue motion Oral Residue: Residue collection on oral structures - Pharyngeal Phase Initiation of Pharyngeal Swallow: Bolus head in pyriforms Soft Palate Elevation: No bolus between soft palate and pharyngeal wall Laryngeal Elevation: Partial superior movement thyroid cart/partial apprx aryt-epig petiole Anterior Hyoid Excursion: Partial anterior movement Epiglottic Movement: Partial inversion Laryngeal Vestibule Closure at Height of Swallow: Incomplete; narrow column of air/contrast in laryngeal vestibule Pharyngeal Stripping Wave: Present - diminished Pharyngoesophageal Segment Opening: Parital distension and partial duration; parital obstruction of flow Tongue Base Retraction: Narrow column of contrast between tongue base & post. pharyngeal wall Pharyngeal Residue: Collection of residue within or on pharyngeal structures - Esophageal Phase Esophageal Clearance: Esophageal retention w/ retrograde flow below pharyngoesophageal seg. - Diagnosis/Impression Diagnosis: Mild oropharyngeal phase dysphagia (R13.12) Impression: The oral phase is primarily marked by... -Decreased bolus control with >1/2 of the bolus spilling posteriorly to the pharynx prior to swallow onset observed with thin liquids and pudding especially. -Mild oral residue after the swallow with large sips. -Prolonged, but adequate mastication of cookie trial. The pharyngeal phase is primarily marked by... -Decreased airway closure during the swallow due to mildly decreased anterior hyoid excursion, partial epiglottic inversion at times, and mildly decreased laryngeal elevation. -Mildly-moderately decreased tongue base retraction, mildly decreased UES opening/duration, and mildly decreased pharyngeal stripping wave with resulting mild-moderate pharyngeal residues after the swallow. -No aspiration observed during the study. Laryngeal penetration with large thin by cup, sequential thin by straw, and nectar thick liquid by cup consistencies. Sequential thin liquid trial did not fully eject from the laryngeal vestibule after the swallow with trace residues remaining. - Recommendations Diet: Regular Textures, Thin Liquids Compensatory Strategies: Small Bites, Small Sips, Slow Rate - sips one at a time, Alternate bites/solids and sips/liquids, Sitting upright, Remain sitting upright for 30 minutes after PO intake Supervision: Distant Supervision Recommend Repeat Modified Barium Swallow: No Need for Skilled Speech Therapy Services: Yes Comment: Will recommend the patient for continued dysphagia therapy to address mild deficits in oropharyngeal swallow function. Will recommend the patient for oropharyngeal strengthening to improve lingual control, hyolaryngeal elevation/excursion, pharyngeal contraction, and tongue base retraction ([place], [place], effortful, and lingual resistance). The patient would benefit from thorough education regarding diet recommendations and recommended compensatory strategies. Education Completed: 1. Described result of evaluation., 2. Pt understands evaluation & agrees with goals and treatment plan., 4. Family/caregivers understand evaluation & agree w/ goals & tx plan. - Status Active ST Patient: Active - Contact Information [facility] Speech Therapy:: Alina Beckwith M.A. [facility]-[employer] EXTENSION WORKER Speech-Language Pathologist [facility] [address] [place] [address] [email or web address] [phone] 12/04/22 11:48
[2022-12-04 12:30] LABS: Pathologist Review Reviewed
[2022-12-04 12:30] LABS: Pathologist Review Reviewed
--- NOTE | 2022-12-04 14:22 | PCM.PN.HOSP ---
Subjective Subjective Patient was seen and examined today, I obtained a copy of his echocardiogram that was done last September and he has a normal EF with severe pulmonary hypertension. Patient went down for swallowing eval and he was cleared to eat a regular diet with supervision. Objective Data Objective Data Vital Signs: Vital Signs Temp Pulse Resp BP Pulse Ox O2 Del Method O2 Flow Rate 97.9 F 81 18 104/74 100 Nasal Cannula 2 12/04/22 11:09 12/04/22 11:09 12/04/22 11:09 12/04/22 11:09 12/04/22 11:09 12/04/22 13:00 12/04/22 13:00 Oxygen Flow Rate (L/min) 2 Oxygen Delivery Method Nasal Cannula Weight: 117.2 kg Body Mass Index (BMI) 38.1 Intake & Output: Intake and Output for Last 24 Hours 12/02/22 12/03/22 12/04/22 23:59 23:59 23:59 Intake Total 460 / 460 360 / 360 Output Total 1450 / 1450 1050 / 1050 Balance -990 / -990 -690 / -690 Lab / Micro Data Result Diagrams: 12/04/22 04:05 12/04/22 04:05 Labs: Laboratory Results - last 24 hr 12/03/22 12:00: Diff Path Review Reviewed 12/03/22 12:00: Troponin I High Sens 16 12/03/22 15:30: Troponin I High Sens 18 12/03/22 17:25: POC Glucose 253 H 12/03/22 18:10: Troponin I High Sens 16 12/03/22 22:05: POC Glucose 108 H 12/04/22 04:05: WBC 3.2 L, RBC 3.33 L, Hgb 8.3 L, Hct 29.0 L, MCV 87.1, MCH 24.9 L, MCHC 28.6 L, RDW Std Deviation 77.0 H, RDW Coeff of Anders 24.4 H, Plt Count 104 L, MPV 10.9, Immature Gran % (Auto) 0.300, Neut % (Auto) 67.5, Lymph % (Auto) 14.7 L, [place] % (Auto) 12.8 H, Eos % (Auto) 3.8, Baso % (Auto) 0.9, Absolute Neuts (auto) 2.2, Absolute Lymphs (auto) 0.47 L, Nucleated RBC % 0, Differential Comment SCANNED, Diff Path Review Reviewed, Hypochromasia 1+, Anisocytosis 1+, Microcytosis 1+ 12/04/22 04:05: PT 29.4 H, INR 2.8 12/04/22 04:05: Sodium 140, Potassium 4.4, Chloride 104, Carbon Dioxide 30.0, Anion Gap 6, BUN 57 H, Creatinine 2.65 H, Estim Creat Clear Calc 26.68, Est GFR (MDRD) Af Amer 31 L, Est GFR (MDRD) Non-Af 26 L, BUN/Creatinine Ratio 21.5 H, Glucose 62 L, Calcium 8.2 L, Triglycerides 29, Cholesterol 70, LDL Cholesterol 5, VLDL Cholesterol 6, HDL Cholesterol 59, TSH 5.32 H 12/04/22 04:05: Hemoglobin A1c 6.6 H 12/04/22 06:46: POC Glucose 59 L 12/04/22 07:31: POC Glucose 107 H 12/04/22 09:06: POC Glucose 114 H 12/04/22 10:54: POC Glucose 106 Micro: Microbiology 12/03/22 12:45 Stool Stool Occult Blood (SARIAH) - Final Occult Blood Positive Rhythm Strip Rhythm Strip: A-fib Rate: 84 Ectopy: None Physical Exam Const alert, oriented x3 and no apparent distress Constitutional Narrative: Patient appears older than his stated age General Appearance: cooperative and well developed Orientation / Consciousness: awake, oriented to person, oriented to place and oriented to time HEENT normocephalic and moist oral mucous membranes Eyes PERRL, EOMs intact bilaterally and conjunctivae normal Neck supple, no JVD, thyroid normal and no carotid bruits General: trachea midline Resp normal respiratory effort, no retractions, no use of accessory muscles and clear to auscultation bilaterally Auscultation: Negative for rales, rhonchi or wheezes Cardio S1 normal heart sound, S2 normal heart sound, no murmurs, no rub and no gallops Cardio Narrative: Heart rate and rhythm is irregular GI normal to inspection, nondistended, normoactive bowel sounds, soft to palpation, non-tender and non-distended Extremity Extremity Narrative: Lower leg edema is noted bilaterally Skin no rashes or lesions noted General Skin Exam: no breakdown Neuro oriented x3, CN's II-XII intact bilaterally, moves all extremities, no focal motor deficits and no sensory deficits noted Sensorium / Orientation: awake, alert, oriented to person, oriented to place and oriented to time Speech: speech normal Psych affect normal Assessment & Plan Assessment/Plan (1) (HFpEF) heart failure with preserved ejection fraction: PLAN: Plan 1. Acute on chronic congestive heart failure with preserved ejection fraction-I have decided to switch the patient to an IV Lasix drip, weight and urine output will be monitored #2 severe pulmonary hypertension-complicates care, medical course, recovery, and prognosis #3 coronary artery disease-patient will remain on his present medications, patient was seen by a hand former (Dr. William) in [place] #4 chronic atrial fibrillation-patient is on warfarin, INR will be monitored #5 hypercoagulable state secondary to chronic atrial fibrillation-patient is on warfarin #6 essential hypertension-patient will remain on his present medications #7 type 2 diabetes-patient's blood sugars will be monitored, sliding scale insulin will be administered as needed #8 chronic kidney disease stage IV-secondary to type 2 diabetes, labs will be monitored, I spoke to his PCPs office and his creatinine in September of last year was 2.43, he does see a cylinder block hole reliner and I will be receiving records via fax from the cylinder block hole reliner through his PCPs office. Total clinical time spent by myself addressing the patient's medical problems, reviewing all of his data, and collaborating with patient's care team: 50-minutes Charges/Coding Visit Charges Inpatient E&M: 12025 Subs Hosp L2
[2022-12-04 15:00] LABS: T4 Total, Thyroxin 6.9 ug/dL (4.5-12.1)
[2022-12-04 15:27] LABS: T3 Total - Triiodothyronine 0.61 ng/mL (0.6-1.81)
[2022-12-04] MEDS: Furosemide 500 MG in Empty Viaflex 50 mL 1 EACH CONT INF (15:41)
[2022-12-04 16:06] LABS: Bedside Glucose 134 mg/dL (74-106)
[2022-12-04] MEDS: Tamsulosin HCl 0.4 MG Capsule PO (21:07)
[2022-12-04] MEDS: Atorvastatin Calcium 40 MG Tablet PO (21:07)
[2022-12-04] MEDS: Gabapentin 100 MG Capsule PO (21:07)
[2022-12-04 23:55] LABS: Bedside Glucose 118 mg/dL (74-106)
[2022-12-05] VITALS (12 sets, daily range): BP systolic 91–107; BP diastolic 55–70; PULSE 71–87; RESP 16–18; TEMP 36.4–36.8; O2SAT 87–100
[2022-12-05] MEDS: traZODone 50 MG Tablet PO (01:50)
[2022-12-05 05:15] LABS: Absolute Neutrophil Count 2.8 X10^3/uL (2.0-7.7); Basophil# 0.02 X10^3/uL; Basophil% 0.5 % (0-1); Eosinophil# 0.13 X10^3/uL; Eosinophils% 3.3 % (0-5); Hematocrit 28.7 % (40-54); Hemoglobin 8.2 g/dL (13.0-16.5); Lymphocyte % 15.2 % (19-41); Mean Corp Hgb Conc 28.6 g/dL (32-36); Mean Corpuscular Volume 87.5 fL (80-94); Mean Platelet Vol. 10.7 fl (6.2-12.0); Monocyte% 10.2 % (0-10); NRBC Flagged by Analyzer 0 % (0-5); Neutrophil # 2.78 X10^3/uL (2.7-7.7); Neutrophil % 70.5 % (47-70); POSITIVE DIFFERENTIAL YES; POSITIVE MORPHOLOGY YES; Platelet Count 105 K/mm3 (150-450); RBC Distribution Width CV 24.3 % (11.6-14.6); Red Blood Count 3.28 M/mm3 (4.6-6.2); White Blood Count 3.9 K/mm3 (4.4-11.0)
[2022-12-05 05:16] LABS: Differential Indicated SCAN CRITERIA MET
--- NOTE | 2022-12-05 05:55 | RAD_ITS ---
STUDY: X-RAY CHEST REASON FOR EXAM: Male, 67 years old. CHF TECHNIQUE: AP and lateral views of the chest. COMPARISON: Comparison is made with prior study dated 12/03/2022. FINDINGS: EKG electrodes are seen. The CHF has improved. Residual pleural parenchymal changes at the left lung base although there has been improvement. Sternal cerclage wires are present from a prior sternotomy. Metallic intraocular clip is seen on the left side of the heart. A left-sided unipolar pacemaker is present. Moderate cardiomegaly. Normal mediastinum and lorena. Normal visualized pulmonary arteries. Normal visualized aortic arch and descending thoracic aorta. Normal visualized thoracic spine. Normal visualized ribs, clavicles, and shoulders. There is no demonstrated abnormality of the visualized soft tissue structures of the upper abdomen. RAD/Chest PA and Lateral IMPRESSION: Improvement in the CHF with residual pleural parenchymal changes at the left lung base. Cardiomegaly. Electronically Signed: Shekhar Mccall MD at 15:18 EST ,
[2022-12-05 05:58] LABS: Anion Gap 6 (5-15); BUN 61 mg/dL (7-18); BUN/Creat Ratio 21.4 RATIO (10-20); Calcium,Total 8.3 mg/dL (8.5-10.1); Chloride 105 mmol/L (98-107); Creatinine, Serum 2.85 mg/dL (0.70-1.30); EST Glomerular Filtration Rate 24 mL/min (>60); Est Glom Filt Rate - Afr Amer 29 mL/min (>60); Estimated Creatinine Clearance 24.81 ml/min; Glucose 116 mg/dL (74-106); Potassium 4.9 mmol/L (3.5-5.1); Sodium Level 140 mmol/L (136-145)
[2022-12-05 06:09] LABS: Anisocytosis 1+; Differential Comment SCANNED; Hypochromasia 1+; Microcytosis 1+
[2022-12-05 07:05] LABS: Bedside Glucose 134 mg/dL (74-106)
[2022-12-05] MEDS: glipiZIDE XL 5 MG Tablet 10 MG PO ×2 (09:58→16:08)
[2022-12-05] MEDS: Allopurinol 100 MG Tablet PO (09:58)
[2022-12-05] MEDS: Aspirin E.C. 81 MG Tablet PO (09:58)
[2022-12-05] MEDS: Pantoprazole Sodium 40 MG Tablet PO (09:58)
[2022-12-05] MEDS: Ferrous Gluconate 324 MG Tablet PO (11:37)
[2022-12-05] MEDS: Insulin Lispro 100 UNIT/ML INSULN.PEN SC (11:37)
[2022-12-05 11:41] LABS: Bedside Glucose 199 mg/dL (74-106)
--- NOTE | 2022-12-05 16:17 | PN.HOSP_ITS ---
Subjective Subjective Was seen and examined today, his blood pressures been running slightly low, complained that at times he appears tremorous-I have not seen this however on my examination. Creatinine is slightly increased today. Patient still remains on supplemental oxygen although he does not complain of any shortness of breath or chest discomfort. Objective Data Objective Data Vital Signs: Vital Signs Temp Pulse Resp BP Pulse Ox O2 Del Method O2 Flow Rate 97.6 F L 71 16 94/66 99 Nasal Cannula 2 12/05/22 14:47 12/05/22 14:47 12/05/22 14:47 12/05/22 14:47 12/05/22 14:47 12/05/22 14:47 12/05/22 14:47 Oxygen Flow Rate (L/min) 2 Oxygen Delivery Method Nasal Cannula Weight: 118.5 kg Body Mass Index (BMI) 38.1 Intake & Output: Intake and Output for Last 24 Hours 12/03/22 12/04/22 12/05/22 23:59 23:59 23:59 Intake Total 460 / 460 820 / 820 560 / 560 Output Total 1450 / 1450 1950 / 1950 1450 / 1450 Balance -990 / -990 -1130 / -1130 -890 / -890 Lab / Micro Data Result Diagrams: 12/05/22 04:28 12/05/22 04:28 Labs: Laboratory Results - last 24 hr 12/04/22 21:04: POC Glucose 118 H 12/05/22 04:28: WBC 3.9 L, RBC 3.28 L, Hgb 8.2 L, Hct 28.7 L, MCV 87.5, MCH 25.0 L, MCHC 28.6 L, RDW Std Deviation 77.0 H, RDW Coeff of Anders 24.3 H, Plt Count 105 L, MPV 10.7, Immature Gran % (Auto) 0.300, Neut % (Auto) 70.5 H, Lymph % (Auto) 15.2 L, [place] % (Auto) 10.2 H, Eos % (Auto) 3.3, Baso % (Auto) 0.5, Absolute Neuts (auto) 2.8, Absolute Lymphs (auto) 0.60 L, Nucleated RBC % 0, Differential Comment SCANNED, Diff Path Review May foll, Hypochromasia 1+, Anisocytosis 1+, Microcytosis 1+ 02/02/23 04:28: Sodium 140, Potassium 4.9, Chloride 105, Carbon Dioxide 29.0, Anion Gap 6, BUN 61 H, Creatinine 2.85 H, Estim Creat Clear Calc 24.81, Est GFR (MDRD) Af Amer 29 L, Est GFR (MDRD) Non-Af 24 L, BUN/Creatinine Ratio 21.4 H, Glucose 116 H, Calcium 8.3 L 12/05/22 06:17: POC Glucose 134 H 12/05/22 11:20: POC Glucose 199 H Micro: Microbiology 12/03/22 12:45 Stool Stool Occult Blood (SARIAH) - Final Occult Blood Positive Radiography Diagnostic Testing: Radiology Impression Chest X-Ray 12/05/22 05:55 IMPRESSION: Improvement in the CHF with residual pleural parenchymal changes at the left lung base. Cardiomegaly. Electronically Signed: Shekhar Mccall MD at 15:18 EST , Rhythm Strip Rhythm Strip: A-fib Rate: 84 Ectopy: None Physical Exam Const alert, oriented x3, no apparent distress and healthy appearing General Appearance: cooperative, well kempt and well developed Orientation / Consciousness: awake, oriented to person, oriented to place and oriented to time HEENT normocephalic, head/scalp atraumatic and moist oral mucous membranes Eyes PERRL, EOMs intact bilaterally and conjunctivae normal Neck supple, no JVD, thyroid normal and no carotid bruits General: trachea midline Resp normal respiratory effort, no retractions, no use of accessory muscles and clear to auscultation bilaterally Auscultation: Negative for rales, rhonchi or wheezes Cardio S1 normal heart sound, S2 normal heart sound, no murmurs, no rub and no gallops Cardio Narrative: Heart rate and rhythm is irregular GI normal to inspection, nondistended, normoactive bowel sounds, soft to palpation, non-tender and non-distended Extremity Extremity Narrative: There is noted to be +2 mm pitting edema with stasis changes of the skin over both lower legs Skin no rashes or lesions noted General Skin Exam: no breakdown Neuro oriented x3, CN's II-XII intact bilaterally, moves all extremities, no focal motor deficits and no sensory deficits noted Sensorium / Orientation: awake, alert, oriented to person, oriented to place and oriented to time Speech: speech normal Psych affect normal Assessment & Plan Assessment/Plan (1) (HFpEF) heart failure with preserved ejection fraction: PLAN: Plan 1. Acute on chronic congestive heart failure with preserved ejection fraction- patient remains on IV Lasix drip #2 severe pulmonary hypertension-complicates care, medical course, recovery, and prognosis #3 coronary artery disease-patient will remain on his present medications, patient was seen by a public welfare worker (Dr. William) in [place] #4 chronic atrial fibrillation-patient is on warfarin, INR will be monitored as needed #5 hypercoagulable state secondary to chronic atrial fibrillation-patient is on warfarin, INR will be evaluated as needed #6 essential hypertension-patient will remain on his present medications #7 type 2 diabetes-patient's blood sugars will be monitored, sliding scale insulin will be administered as needed #8 chronic kidney disease stage IV-secondary to type 2 diabetes, labs will be monitored Total clinical time spent by myself addressing the patient's medical problems, reviewing all of his data, and collaborating with patient's care team: [id number] kwaku Charges/Coding Visit Charges Inpatient E&M: 18296 Subs Hosp L2
[2022-12-05 16:40] LABS: Bedside Glucose 113 mg/dL (74-106)
[2022-12-05] MEDS: Gabapentin 100 MG Capsule PO (21:34)
[2022-12-05] MEDS: Tamsulosin HCl 0.4 MG Capsule PO (21:35)
[2022-12-05] MEDS: Atorvastatin Calcium 40 MG Tablet PO (21:35)
[2022-12-05 22:25] LABS: Bedside Glucose 128 mg/dL (74-106)
[2022-12-06] VITALS (9 sets, daily range): BP systolic 103–121; BP diastolic 64–72; PULSE 83–91; RESP 18–20; TEMP 36.4–36.6; O2SAT 85–100
[2022-12-06 05:59] LABS: Hematocrit 28.8 % (40-54); Hemoglobin 8.4 g/dL (13.0-16.5)
[2022-12-06 06:22] LABS: Anion Gap 7 (5-15); BUN 67 mg/dL (7-18); BUN/Creat Ratio 23.7 RATIO (10-20); Calcium,Total 8.4 mg/dL (8.5-10.1); Chloride 101 mmol/L (98-107); Creatinine, Serum 2.83 mg/dL (0.70-1.30); EST Glomerular Filtration Rate 24 mL/min (>60); Est Glom Filt Rate - Afr Amer 29 mL/min (>60); Estimated Creatinine Clearance 24.98 ml/min; Glucose 91 mg/dL (74-106); Potassium 4.7 mmol/L (3.5-5.1); Sodium Level 139 mmol/L (136-145)
[2022-12-06 06:46] LABS: Bedside Glucose 92 mg/dL (74-106)
[2022-12-06] MEDS: Furosemide 500 MG in Empty Viaflex 50 mL 1 EACH CONT INF (06:53)
[2022-12-06 09:57] LABS: Pathologist Review Reviewed
[2022-12-06] MEDS: Pantoprazole Sodium 40 MG Tablet PO (10:16)
[2022-12-06] MEDS: Aspirin E.C. 81 MG Tablet PO (10:16)
[2022-12-06] MEDS: Allopurinol 100 MG Tablet PO (10:16)
[2022-12-06] MEDS: glipiZIDE XL 5 MG Tablet 10 MG PO ×2 (10:16→16:50)
[2022-12-06] MEDS: Ferrous Gluconate 324 MG Tablet PO (11:57)
[2022-12-06 12:35] LABS: Bedside Glucose 129 mg/dL (74-106)
--- NOTE | 2022-12-06 15:15 | CASEMGMT ---
Social Work Consult: alf placement Referral source: [facility] This oncology social worker met with patient in room. Introduced self and oncology social worker role. Patient agreeable to speak with this oncology social worker. This oncology social worker broached conversation with patient about long term placement. Patient agreeable to long term placement. This oncology social worker provided patient with list of in-network nursing facilities that are local to patient geographical region. Patient plans to look over list and discuss with spouse. Patient request for this oncology social worker to contact patient spouse in regards to long term placement. Telephone call to patient spouse, Mery. This oncology social worker communicated above information. Mery agreeable to long term placement and request for list to be e-mailed to Mery. List generated in [employer] and e-mailed to Mery, [email or web address] Per Dr. Díaz patient will be here through the weekend. PLAN: alf placement, pending patient medical clearance and choices. Karyn NORRIS, SVEN-S
--- NOTE | 2022-12-06 16:31 | PN.HOSP_ITS ---
Subjective Subjective Patient was seen and examined today, his creatinine has risen somewhat from yesterday. Patient is still requiring 2 L of nasal cannula O2 to maintain his pulse ox. Patient is still diuresing. Objective Data Objective Data Vital Signs: Vital Signs Temp Pulse Resp BP Pulse Ox O2 Del Method O2 Flow Rate 97.9 F 83 18 105/67 100 Nasal Cannula 2 12/06/22 15:19 12/06/22 15:19 12/06/22 15:19 12/06/22 15:19 12/06/22 15:19 12/06/22 15:19 12/06/22 15:19 Oxygen Flow Rate (L/min) [At 2 REST with Oxygen] Oxygen Flow Rate (L/min) [ 4 AMBULATING with Oxygen #2] Oxygen Flow Rate (L/min) [ 2 AMBULATING with Oxygen #1] Oxygen Flow Rate (L/min) [At 0 REST on Room Air] Oxygen Flow Rate (L/min) 2 Oxygen Delivery Method Nasal Cannula Weight: 118.1 kg Body Mass Index (BMI) 38.1 Intake & Output: Intake and Output for Last 24 Hours 12/04/22 12/05/22 12/06/22 23:59 23:59 23:59 Intake Total 820 / 820 1140 / 1140 159.18 / 159.18 Output Total 1950 / 1950 2950 / 2950 1801 / 1801 Balance -1130 / -1130 -1810 / -1810 -1641.82 / -1641.82 Lab / Micro Data Result Diagrams: 12/06/22 05:25 12/06/22 05:25 Labs: Laboratory Results - last 24 hr 12/05/22 04:28: Diff Path Review Reviewed 12/05/22 16:02: POC Glucose 113 H 12/05/22 21:34: POC Glucose 128 H 12/06/22 05:25: Hgb 8.4 L, Hct 28.8 L 12/06/22 05:25: Sodium 139, Potassium 4.7, Chloride 101, Carbon Dioxide 31.0, Anion Gap 7, BUN 67 H, Creatinine 2.83 H, Estim Creat Clear Calc 24.98, Est GFR (MDRD) Af Amer 29 L, Est GFR (MDRD) Non-Af 24 L, BUN/Creatinine Ratio 23.7 H, Glucose 91, Calcium 8.4 L 12/06/22 06:20: POC Glucose 92 12/06/22 11:56: POC Glucose 129 H Micro: Microbiology 12/03/22 12:45 Stool Stool Occult Blood (SARIAH) - Final Occult Blood Positive Rhythm Strip Rhythm Strip: A-fib Rate: 84 Ectopy: None Physical Exam Narrative alert, oriented x3, no apparent distress and healthy appearing General Appearance: cooperative, well kempt and well developed Orientation / Consciousness: awake, oriented to person, oriented to place and oriented to time HEENT normocephalic, head/scalp atraumatic and moist oral mucous membranes Eyes PERRL, EOMs intact bilaterally and conjunctivae normal Neck supple, no JVD, thyroid normal and no carotid bruits General: trachea midline Resp normal respiratory effort, no retractions, no use of accessory muscles and clear to auscultation bilaterally Auscultation: Negative for rales, rhonchi or wheezes Cardio S1 normal heart sound, S2 normal heart sound, no murmurs, no rub and no gallops Cardio Narrative: Heart rate and rhythm is irregular GI normal to inspection, nondistended, normoactive bowel sounds, soft to palpation, non-tender and non-distended Extremity Extremity Narrative: There is noted to be +2 mm pitting edema with stasis changes of the skin over both lower legs Skin no rashes or lesions noted General Skin Exam: no breakdown Neuro oriented x3, CN's II-XII intact bilaterally, moves all extremities, no focal motor deficits and no sensory deficits noted Sensorium / Orientation: awake, alert, oriented to person, oriented to place and oriented to time Speech: speech normal Psych affect normal Assessment & Plan Assessment/Plan (1) History of coronary artery bypass graft x 3: (2) (HFpEF) heart failure with preserved ejection fraction: PLAN: Plan 1. Acute on chronic congestive heart failure with preserved ejection fraction- patient remains on IV Lasix drip, I have decided to repeat the patient's echocardiogram which was performed last year to see if anything is changed as far as his ejection fraction and pulmonary hypertension is concerned. #2 severe pulmonary hypertension-complicates care, medical course, recovery, and prognosis #3 coronary artery disease-patient will remain on his present medications, patient was seen by a cotton baler (Dr. William) in [place] #4 chronic atrial fibrillation-patient is on warfarin, INR will be monitored as needed-I will get another INR tomorrow #5 hypercoagulable state secondary to chronic atrial fibrillation-patient is on warfarin, INR will be evaluated as needed #6 essential hypertension-patient will remain on his present medications #7 type 2 diabetes-patient's blood sugars will be monitored, sliding scale insulin will be administered as needed #8 chronic kidney disease stage IV-secondary to type 2 diabetes, labs will be monitored Total clinical time spent by myself addressing the patient's medical problems, reviewing all of his data, and collaborating with patient's care team: 39- minutes Charges/Coding Visit Charges Inpatient E&M: 43086 Subs Hosp L2
--- NOTE | 2022-12-06 16:34 | ECHOD_ITS ---
Reason For Study: CHF Procedure This was a 2D Doppler, Color Flow transthoracic echocardiogram. Exam performed portable in patient room. Left Ventricle Normal LV size. The estimated ejection fraction is 65 %. Unable to assess diastolic dysfunction. No regional wall motion abnormalities noted. Right Ventricle Severely dilated right ventricle. There is a pacemaker lead in the right ventricle. Normal systolic function. Atria The left atrium is moderately enlarged. The right atrium is severely enlarged. ICD or pacer leads identified within the right atrium. No doppler evidence for ASD. Mitral Valve There is moderate mitral annular calcification. There is no mitral valve stenosis. Trivial mitral valve insufficiency. Tricuspid Valve There is no tricuspid stenosis. Moderate (2+) tricuspid valve insufficiency. Pulmonary artery systolic pressure is 80 mmHg. Aortic Valve Trisinus/trileaflet aortic valve. There is no aortic stenosis. Trivial aortic valve insufficiency. Pulmonic Valve There is no pulmonic valvular stenosis. Trivial pulmonic valve insufficiency. Great Vessels Mildly dilated aortic root. Pericardium/Pleural No pericardial effusion. MMode/2D Measurements & Calculations LVIDd: 4.5 cm IVSd: 1.1 cm Ao root diam: 4.1 cm LVIDs: 3.1 cm LVPWd: 1.1 cm RVDd: 5.5 cm FS: 31.7 % LAV(MOD-bp): 89.5 ml LVAd ap4: 25.0 cm2 SV(MOD-sp4): 41.2 ml LAV(MOD-bp) Indexed: 38.8 ml/m2 LVLd ap4: 7.3 cm LAV(MOD-sp2): 84.4 ml EDV(MOD-sp4): 70.7 ml LAV(MOD-sp4): 93.7 ml EDV(sp4-el): 72.3 ml LVAs ap4: 14.7 cm2 LVLs ap4: 6.3 cm ESV(MOD-sp4): 29.5 ml ESV(sp4-el): 29.1 ml EF(MOD-sp4): 58.2 % EF(sp4-el): 59.7 % SV(sp4-el): 43.2 ml LA A4 area: 26.6 cm2 LA dimension(2D): 4.9 cm RA A4 area: 24.0 cm2 Doppler Measurements & Calculations MV E max jose: 132.2 cm/sec MV V2 max: 137.8 cm/sec Ao V2 max: 121.9 cm/sec MV max P.6 mmHg Ao max P.0 mmHg MV V2 mean: 72.1 cm/sec Ao V2 mean: 85.1 cm/sec MV mean P.7 mmHg Ao mean P.2 mmHg MV V2 VTI: 29.0 cm Ao V2 VTI: 22.8 cm AI max jose: 331.4 cm/sec LV V1 max: 104.3 cm/sec PA V2 max: 85.9 cm/sec AI max P.9 mmHg LV V1 max P.4 mmHg AI dec slope: 158.0 cm/sec2 AI P1/2t: 614.2 msec PI end-d jose: 95.6 cm/sec TR max jose: 440.8 cm/sec TR max P.7 mmHg ECHO/Echo Complete Interpretation Summary The estimated ejection fraction is 65 %. Unable to assess diastolic dysfunction. Severely dilated right ventricle. The right atrium is severely enlarged. The left atrium is moderately enlarged. Trivial mitral valve insufficiency. Moderate (2+) tricuspid valve insufficiency. Trivial aortic valve insufficiency. Mildly dilated aortic root. Ordering Physician: Tate Díaz Referring Physician: Mely Lazar Performed By: Nissa Constantino, RDCS, RVT
[2022-12-06 17:20] LABS: Bedside Glucose 79 mg/dL (74-106)
[2022-12-06] MEDS: 0.9% Saline Lock 10 ML Syringe IV (21:46)
[2022-12-06] MEDS: Tamsulosin HCl 0.4 MG Capsule PO (21:46)
[2022-12-06] MEDS: Atorvastatin Calcium 40 MG Tablet PO (21:46)
[2022-12-06] MEDS: Gabapentin 100 MG Capsule PO (21:46)
[2022-12-07] VITALS (9 sets, daily range): BP systolic 110–119; BP diastolic 68–79; PULSE 80–89; RESP 12–36; TEMP 36.6–36.8; O2SAT 86–100
[2022-12-07 00:36] LABS: Bedside Glucose 120 mg/dL (74-106)
[2022-12-07 06:01] LABS: Prothrombin Time (Protime)PT. 31.1 SECONDS (11.7-14.9)
[2022-12-07 06:07] LABS: Anion Gap 7 (5-15); BUN 72 mg/dL (7-18); BUN/Creat Ratio 25.7 RATIO (10-20); Calcium,Total 8.1 mg/dL (8.5-10.1); Chloride 101 mmol/L (98-107); EST Glomerular Filtration Rate 24 mL/min (>60); Est Glom Filt Rate - Afr Amer 29 mL/min (>60); Estimated Creatinine Clearance 25.25 ml/min; Glucose 73 mg/dL (74-106); Potassium 4.3 mmol/L (3.5-5.1); Sodium Level 139 mmol/L (136-145)
[2022-12-07 07:25] LABS: Bedside Glucose 65 mg/dL (74-106)
[2022-12-07 07:25] LABS: Bedside Glucose 89 mg/dL (74-106)
--- NOTE | 2022-12-07 09:23 | PCM.PN.HOSP ---
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 He was seen by his optical engineering manager and then sent to the emergency department. Chest x-ray on admission showed pulmonary vascular congestion and he received IV Lasix in the emergency department. Patient denies any history of this. He is evidently had other hospitalizations at outside facilities however. He does have history of coronary artery disease, chronic atrial fibrillation with sick sinus syndrome and per cardiology documentation he has been having issues with recurrent congestive heart failure with recent admission to [facility]. He was not satisfied with his treatment there so he presented here. He was admitted on 12/03/2022 and started on a Lasix drip on 12/04/2022. Thus far for his hospitalization he is down approximately 8 L and approximately 3 kg. He is currently on 2 L nasal cannula with oxygen saturations at 97%. He evidently was having some difficulty swallowing and a modified barium swallow was performed and demonstrated esophageal retention with retrograde flow below the pharyngeal esophageal segment with mild oropharyngeal phase dysphagia recommending a regular diet with thin liquids. Per his swelling seems to be improving slowly. She is worried that his mental status is worse today so we did assess an ABG where he was found to be hypercapnic. He has a history of ROSSANA but they stopped his CPAP after his gastric bypass surgery. He weighed 400 pounds at that time and is down to about 250 pounds at this time. She states that he does not snore at home but he does stop breathing at times. I suspect he still has obstructive sleep apnea. No other issues at this time. Per his his quality of life has been fairly poor since about May. His swelling has significantly worsened since that point in time. She has had discussions with him both about palliative care and hospice and he is resistant to both at this time. Objective Data Objective Data Vital Signs: Vital Signs Temp Pulse Resp BP Pulse Ox O2 Del Method O2 Flow Rate 97.8 F 82 18 110/72 97 Nasal Cannula 2 12/07/22 03:18 12/07/22 03:18 12/07/22 03:18 12/07/22 03:18 12/07/22 07:49 12/07/22 08:45 12/07/22 08:45 Oxygen Flow Rate (L/min) [At 2 REST with Oxygen] Oxygen Flow Rate (L/min) [ 4 AMBULATING with Oxygen #2] Oxygen Flow Rate (L/min) [ 2 AMBULATING with Oxygen #1] Oxygen Flow Rate (L/min) [At 0 REST on Room Air] Oxygen Flow Rate (L/min) 2 Oxygen Delivery Method Nasal Cannula Weight: 116.664 kg Body Mass Index (BMI) 38.1 Intake & Output: Intake and Output for Last 24 Hours 12/05/22 12/06/22 12/07/22 23:59 23:59 23:59 Intake Total 1140 / 1140 279.18 / 279.18 258 / 258 Output Total 2950 / 2950 3501 / 3501 1000 / 1000 Balance -1810 / -1810 -3221.82 / -3221.82 -742 / -742 Lab / Micro Data Result Diagrams: 12/06/22 05:25 12/07/22 05:10 Labs: Laboratory Results - last 24 hr 12/05/22 04:28: Diff Path Review Reviewed 12/06/22 11:56: POC Glucose 129 H 12/06/22 16:47: POC Glucose 79 12/06/22 21:45: POC Glucose 120 H 12/07/22 05:10: PT 31.1 H, INR 3.0 12/07/22 05:10: Sodium 139, Potassium 4.3, Chloride 101, Carbon Dioxide 31.0, Anion Gap 7, BUN 72 H, Creatinine 2.80 H, Estim Creat Clear Calc 25.25, Est GFR (MDRD) Af Amer 29 L, Est GFR (MDRD) Non-Af 24 L, BUN/Creatinine Ratio 25.7 H, Glucose 73 L, Calcium 8.1 L 12/07/22 06:43: POC Glucose 65 L 12/07/22 07:04: POC Glucose 89 Micro: Microbiology 12/03/22 12:45 Stool Stool Occult Blood (SARIAH) - Final Occult Blood Positive Rhythm Strip Rhythm Strip: A-fib Rate: 84 Ectopy: None Physical Exam Const no apparent distress Constitutional Narrative: Obese, somnolent, upper middle-aged, white male, appears much older than stated age, at bedside, patient is very sleepy and awakens and follows commands consistently however falls right back to sleep HEENT head/scalp atraumatic and moist oral mucous membranes HEENT Narrative: Mallampati 3, no thrush Head and Scalp: normocephalic Eyes PERRL, EOMs intact bilaterally and conjunctivae normal Eyes Narrative: No scleral icterus Neck no lymphadenopathy and supple Neck Narrative: Trachea midline, no thyroid Resp no retractions and no use of accessory muscles Resp Narrative: Crackles at bases bilaterally, mild tachypnea Auscultation: crackles; Negative for rhonchi or wheezes Cardio S1 normal heart sound, S2 normal heart sound, no murmurs, no rub and no gallops Cardio Narrative: Irregular irregular rhythm with normal rate GI normal to inspection, nondistended, normoactive bowel sounds, soft to palpation, non-tender and non-distended Extremity Extremity Narrative: Marked pitting edema bilateral lower extremities up into dependent by regions of his abdomen and low back, no erythema, cyanosis, or clubbing Skin Skin Narrative: Scattered bilateral extremity wounds that appear noninfected Neuro moves all extremities and no focal motor deficits Neuro Narrative: Extremely somnolent, does spontaneously move all extremities with no focal deficits, follows commands but falls back to sleep easily Psych Psych Narrative: Difficult to assess secondary to somnolence Assessment & Plan Assessment/Plan (1) Anemia: (2) Dysphagia: (3) (HFpEF) heart failure with preserved ejection fraction: (4) Hypoxia: (5) Acute hypercapnic respiratory failure: (6) Metabolic encephalopathy: PLAN: Plan Hypoxia secondary to HFpEF/RV dysfunction-severe -Patient is diuresing well and for his stay is approximately 8 L negative -Now on 2 L nasal cannula -Trial off oxygen with home O2 eval -Echo pending -Continue IV diuretics--> but transition to Bumex at higher dose -Serum creatinine is stable -Continue fluid restricted/sodium restricted diet -Continue daily weights -BNP was markedly elevated at 588 on admission -Patient is only on 2 mg of oral Bumex at home Acute hypercapnic respiratory failure -Mental status worsened today and ABG obtained -ABG with pH 7.31/PO2 was 111 with a sat of 98% on 2 L/PCO2 was 57.7 -BiPAP initiated -Suspect this is likely related to chronic retention with obstructive sleep apnea and possible obesity hypoventilation syndrome -Patient may qualify for trilogy at discharge--> will pursue further on Friday Metabolic encephalopathy -Related to his hypercapnia -Improved once hypercapnia had resolved Dysphagia -MBS showed esophageal retention with retrograde flow below the pharyngeal esophageal segment -Check esophagram--> to be done on Friday -If esophagram is abnormal may need to consider GI consultation as I would worry about stricture -Recurrent aspiration could be the cause for his hypoxia as well despite no infiltrate on chest x-ray -Continue speech therapy -Continue strategies recommended by speech therapy with current diet of regular thin liquids CAD/HTN/HPL -CABG with BRAY to the LAD, SVG to the obtuse marginal and SVG to the right PDA in 2019 -last coronary angiography was in December 2021 which showed patent BRAY graft and a patent SVG to the right PDA, SVG graft to the obtuse marginal was noted to be totally occluded -Continue atorvastatin -Continue amlodipine 2.5 mg daily Chronic atrial fibrillation/sick sinus syndrome -Status post pacemaker -Continue Coumadin 2.5 mg on Friday and and 5 mg on the other days of the week -Current INR is 3.0 -Recheck in a.m. CKD stage IV -We will need nephrology referral at discharge -Stable with diuresis -Transition to Bumex drip as patient is still has marked anasarca -BMP in a.m. DM-2 -Hemoglobin A1c 6.6 on admission -Patient is on glipizide 10 twice daily at home--> will hold for now -May need to change with renal dysfunction as this could precipitate hypoglycemic episodes -Sliding scale insulin -Accu-Cheks as ordered -Cardiac/carb controlled diet Diabetic neuropathy -Continue gabapentin 100 mg at at bedtime Insomnia -Continue trazodone GERD -Continue Protonix Chronic anemia -Hemoglobin is stable with a baseline of 8-9 -Continue home iron supplementation History of gout -Continue home allopurinol 100 mg daily Obesity -BMI 38.0 -Complicates treatment, prognosis, outcomes DVT prophylaxis -Patient is fully anticoagulated with Coumadin and INR is therapeutic at 3.0 CODE STATUS -Full code Charges/Coding Visit Charges Inpatient E&M: 21226 Subs Hosp L3
[2022-12-07] MEDS: 0.9% Saline Lock 10 ML Syringe IV (10:20)
[2022-12-07] MEDS: Furosemide 500 MG in Empty Viaflex 50 mL 1 EACH CONT INF (10:21)
[2022-12-07] MEDS: Pantoprazole Sodium 40 MG Tablet PO (10:22)
[2022-12-07] MEDS: Aspirin E.C. 81 MG Tablet PO (10:22)
[2022-12-07] MEDS: Ondansetron 4 MG/2 ML Vial IV (10:23)
[2022-12-07] MEDS: Allopurinol 100 MG Tablet PO (10:23)
[2022-12-07] MEDS: Ferrous Gluconate 324 MG Tablet PO (11:26)
[2022-12-07 12:00] LABS: Bedside Glucose 120 mg/dL (74-106)
[2022-12-07 12:15] LABS: Base Excess 3 mmol/L (-2 to +2); Bicarbonate 29.2 mmol/L (22-26); Blood Gas Specimen Type ART; O2 Delivery Device Cannula; PO2 110 mmHG (75-100); SITE L Radial; SO2 98 % (95-99); Total Carbon Dioxide 31 mmol/L; pCO2 57.7 mmHg (35-45); pH 7.31 (7.35-7.45)
--- NOTE | 2022-12-07 16:05 | CASEMGMT ---
Social Work Note SW met with patient and introduced herself and role as [facility] [employer] Tender. Patient was laying in bed and agreed to speak with SW. SW inquired about patient's ability to review the SNF list previously provided; patient stated he didn't and was closing his eyes. SW inquired if she could contact patient's to review the list, patient provided permission. No other concerns voiced. SW contacted patient's , Mery, and introduced herself and role as [facility] Sl[employer] Control Tender. SW inquired about their SNF choices since reviewing the list. Patient's identified [facility] as their first choice and [facility] as their second choice. SW informed patient's she would reach out to [facility] admissions staff regarding patient and send referral to second choice, patient's voiced understanding. TORY contacted Sophia, [facility] admissions staff, to inquire about TCU. Sophia reports no bed availability until at least 12/10/22. TORY sent referral to [facility] via [facility]. Plan: [facility] pending acceptance and precert when medically ready Stephanie NORRIS, SVEN
[2022-12-07] MEDS: Bumetanide 25 MG in CONTAINER,EMPTY 1 BAG 4 MG CONT INF (16:15)
[2022-12-07 16:50] LABS: Bedside Glucose 102 mg/dL (74-106)
[2022-12-07] MEDS: traZODone 50 MG Tablet PO (20:41)
[2022-12-07] MEDS: Gabapentin 100 MG Capsule PO (20:41)
[2022-12-07] MEDS: Tamsulosin HCl 0.4 MG Capsule PO (20:41)
[2022-12-07] MEDS: Atorvastatin Calcium 40 MG Tablet PO (20:41)
[2022-12-07 22:15] LABS: Bedside Glucose 167 mg/dL (74-106)
[2022-12-08] VITALS (8 sets, daily range): BP systolic 103–128; BP diastolic 66–77; PULSE 77–94; RESP 12–18; TEMP 36.4–36.8; O2SAT 94–99
[2022-12-08 06:19] LABS: Absolute Lymphocyte Count 0.48 X10^3/uL (0.83-4.51); Absolute Neutrophil Count 2.5 X10^3/uL (2.0-7.7); Basophil# 0.03 X10^3/uL; Basophil% 0.8 % (0-1); Eosinophil# 0.15 X10^3/uL; Eosinophils% 4.2 % (0-5); Hematocrit 30.2 % (40-54); Hemoglobin 8.9 g/dL (13.0-16.5); Lymphocyte # 0.48 X10^3/ul (0.83-4.51); Lymphocyte % 13.4 % (19-41); Mean Corp Hgb Conc 29.5 g/dL (32-36); Mean Corpuscular Volume 88.3 fL (80-94); Monocyte# 0.38 X10^3/uL; Monocyte% 10.6 % (0-10); NRBC Flagged by Analyzer 0 % (0-5); Neutrophil # 2.54 X10^3/uL (2.7-7.7); Neutrophil % 70.7 % (47-70); POSITIVE COUNT YES; POSITIVE DIFFERENTIAL YES; POSITIVE MORPHOLOGY YES; Platelet Count 98 K/mm3 (150-450); RBC Distribution Width CV 23.9 % (11.6-14.6); RBC Distribution Width SD 77.9 fl (35.1-43.9); Red Blood Count 3.42 M/mm3 (4.6-6.2); White Blood Count 3.6 K/mm3 (4.4-11.0)
[2022-12-08 06:32] LABS: Differential Indicated SCAN CRITERIA MET
[2022-12-08 06:52] LABS: Anisocytosis 2+; Platelet Estimate MOD DEC (ADEQ)
[2022-12-08 06:53] LABS: Hypochromasia 1+
[2022-12-08 06:55] LABS: Bedside Glucose 108 mg/dL (74-106)
[2022-12-08 07:09] LABS: ALB/GLOB Ratio 0.7 RATIO (0.9-2.4); AST(SGOT) 11 U/L (15-37); Alanine Aminotransfer ALT/SGPT 13 U/L (16-61); Albumin, Serum 2.8 g/dL (3.2-5.0); Alkaline Phosphatase 208 U/L (45-117); Anion Gap 7 (5-15); BUN 76 mg/dL (7-18); BUN/Creat Ratio 24.4 RATIO (10-20); Calcium,Total 8.5 mg/dL (8.5-10.1); Chloride 101 mmol/L (98-107); Creatinine, Serum 3.11 mg/dL (0.70-1.30); EST Glomerular Filtration Rate 21 mL/min (>60); Est Glom Filt Rate - Afr Amer 26 mL/min (>60); Estimated Creatinine Clearance 22.73 ml/min; Glucose 120 mg/dL (74-106); Magnesium 2.7 mg/dL (1.6-2.6); Phosphorus 5.9 mg/dL (2.5-4.9); Potassium 4.8 mmol/L (3.5-5.1); Protein, Total 6.8 g/dL (6.4-8.2); Sodium Level 137 mmol/L (136-145)
--- NOTE | 2022-12-08 09:25 | EX.PCM.CONCC ---
Assessment & Plan Assessment/Plan (1) Acute hypercapnic respiratory failure: (2) Pulmonary hypertension: PLAN: Plan RECOMMENDATIONS: 1. Volume optimization per primary service 2. Improved compliance with supplemental oxygen 3. Eventual right heart catheterization for quantification clarification of pulmonary artery pressures 4. Potential AVAPS at discharge if possible 5. Walking oximetry prior to discharge 6. Okay to continue baseline medications IMPRESSIONS: 1. Acute hypoxic respiratory insufficiency secondary to cor pulmonale Patient reportedly significantly volume overloaded and still has signs of right-sided congestion despite 10 L of diuresis. Pulmonary artery pressures are significantly elevated. Clinical suspicion for type II and type III pulmonary hypertension. It is unclear if patient does have supplemental oxygen at home. However, with these pressures 1 would expect patient would require supplemental oxygen at least with exertion at baseline. Patient would likely benefit from BiPAP versus AVAPS with sleep. Sleep apnea will have to be explored given pulmonary artery pressures. 2. Acute hypercarbic respiratory failure Unclear etiology. Clinical suspicion for an element of ROSSANA and possible obesity hypoventilation. Will need a room air ABG to clarify obesity hypoventilation. Patient would benefit from AVAPS at discharge given CO2 retention. Low clinical suspicion for concomitant COPD as patient has never been a smoker 3. CAD/hypertension/hyperlipidemia/chronic A. fib/sick sinus syndrome Patient currently anticoagulated with appropriate INR. A. fib does complicate patient's cor pulmonale. Aggressive rate control will be necessary for optimization of right ventricular delivery. 4. Diabetes mellitus type 2/CKD stage IV/diabetic neuropathy/chronic anemia/obesity/poor compliance Complicates care, management, recovery and prognosis. Okay to continue with baseline medications. Could consider a stool guaiac with work-up as an outpatient if positive. Blood sugars appear to be relatively controlled at this time. Patient may ultimately require evaluation for dialysis for fluid optimization, but this could be completed as an outpatient HPI Consult Data Date of Consult: 12/08/22 HPI Narrative Reason for Consultation: Pulmonary hypertension HPI Narrative: LINDA CARLOS is a 67 M, with past medical history listed below, who presents to [facility] 12/03/2022 secondary to worsening heart failure. Patient reportedly had been hospitalized multiple times at an outside facility secondary to congestive heart failure. Patient reportedly had been diuresed and discharged home. Patient was on Lasix and reportedly was compliant, but was still having significant lower extremity edema. Patient did report some orthopnea. 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 In the ER, patient was afebrile, normotensive and saturating well on room air. Laboratory data at that time showed a white blood cell count of 4, hemoglobin of 8.9 and platelets of 118. INR was elevated at 2.7 and creatinine was 2.4. Bicarbonate was elevated at 28. BNP was elevated at 588 and troponin was negative. Chest x-ray showed a small left pleural effusion with atelectasis and cardiomegaly. EKG confirmed A. fib. The patient was admitted to the hospital and placed on a Lasix drip. Over the course of patient's hospitalization he has been diuresed almost 10 L of fluid. Patient reportedly had pitting edema up through his waist on presentation. Patient did have an ABG showing CO2 retention. Yesterday patient was transitioned over to Bumex to see if continued diuresis could be obtained. An ABG was obtained showing CO2 retention at 57.7 with a pH of 7.31. Echocardiogram showed a pulmonary artery pressure of 80, so pulmonary was consulted. On my evaluation, patient was essentially refusing to communicate. Patient would not tell me if he uses supplemental oxygen at home. Patient was asked if he had seen a territory development manager or had PFTs previously and he did not answer. Patient stated that he just needed to sleep. Patient reportedly used BiPAP for 2-1/2 hours overnight. Most of the history was obtained by discussing with the hospitalist. COUNT INCLUDES THE [facility] Medical History (Updated 12/08/22 @ 09:[address] Emery Story MD) (HFpEF) heart failure with preserved ejection fraction Anxiety Atherosclerosis of coronary artery bypass graft of [place] heart without angina pectoris Atherosclerosis of coronary artery of [place] heart without angina pectoris BPH with obstruction/lower urinary tract symptoms Chronic anemia Chronic atrial fibrillation Chronic GERD Chronic shortness of breath CKD (chronic kidney disease) Dysphagia Essential (primary) hypertension Insomnia Long-term (current) use of anticoagulants, INR goal 2.0-3.0 Lung nodule, solitary RODRIGUEZ (nonalcoholic steatohepatitis) Pulmonary hypertension Type 2 diabetes mellitus with other diabetic kidney complication Home Medications allopurinol 100 mg tablet 100 mg PO DAILY 11/29/22 [History Last Taken 12/03/22] aspirin 81 mg tablet,delayed release 81 mg PO DAILY 11/29/22 [History Last Taken 12/03/22] atorvastatin 40 mg tablet 40 mg PO QHS 11/29/22 [History Last Taken 12/02/22] ferrous gluconate 324 mg (38 mg iron) tablet 324 mg PO DAILY 11/29/22 [History Last Taken 12/03/22] gabapentin 100 mg capsule 100 mg PO QHS 11/29/22 [History Last Taken 12/01/22] glipizide 5 mg tablet, extended release 24 hr 10 mg PO BID 11/29/22 [History Last Taken 12/03/22] nitroglycerin 0.4 mg sublingual tablet 0.4 mg sublingual Q5-15M PRN Chest Pain 11/29/22 [History Last Taken Unknown] tamsulosin 0.4 mg capsule 0.4 mg PO QHS 11/29/22 [History Last Taken 12/02/22] trazodone 50 mg tablet 50 mg PO QHS PRN Insomnia 11/29/22 [History Last Taken 12/01/22] warfarin 2.5 mg tablet 2.5 mg PO SUTH 11/29/22 [History Last Taken 12/01/22] warfarin 5 mg tablet 5 mg PO MOTUWEFRSA Check with primary doctor 11/29/22 [History Last Taken 12/02/22] albuterol sulfate 90 mcg/actuation aerosol inhaler (Ventolin HFA) 2 puff inhalation Q6H PRN Wheezing 12/03/22 [History Last Taken 12/03/22] amlodipine 2.5 mg tablet 2.5 mg PO DAILY 12/03/22 [History Last Taken 12/03/22] bumetanide 2 mg tablet 2 mg PO DAILY FLUID 12/03/22 [History Last Taken 12/03/22] omeprazole 20 mg capsule,delayed release 20 mg PO DAILY GERD 12/03/22 [History Last Taken 12/03/22] pantoprazole 40 mg tablet,delayed release 40 mg PO DAILY GERD 12/03/22 [History Last Taken 12/03/22] Allergy/AdvReac Type Severity Reaction Status Date / Time hydromorphone [From Dilaudid] Allergy Intermediate Vomiting Verified 12/03/22 10:33 metformin AdvReac Intermediate Other Verified 12/03/22 10:33 Family History Mother CHF (congestive heart failure) Surgical History History of bilateral knee replacement History of coronary artery stent placement (~12/10/10) Hx of bilateral hip replacements Hx of cardiac catheterization (~12/04/21) Hx of cardiac pacemaker (~06/30/19) Hx of gastric bypass (~2011) Hx of shoulder surgery S/P CABG x 3 (~12/23/18) Social History Smoking Status: Never smoker alcohol intake: never substance use type: does not use caffeine: Yes (2/wk) Type: coffee ROS ROS Narrative Unable to obtain review of systems secondary to patient cooperation. Physical Exam Const no apparent distress Constitutional Narrative: Appears older than stated age. Patient tends to act like he is sleeping, but readily wakes up to voice. Not cooperative with questioning HEENT head/scalp atraumatic and moist oral mucous membranes HEENT Narrative: Mallampati 3. Head and Scalp: normocephalic Eyes PERRL, EOMs intact bilaterally, conjunctivae normal and no scleral icterus Neck full ROM, no lymphadenopathy and supple General: trachea midline Resp no retractions and no use of accessory muscles Auscultation: rales bilateral base; Negative for rhonchi or wheezes Cardio S1 normal heart sound, S2 normal heart sound, no rub and no gallops Cardio Narrative: Irregular irregular rhythm with normal rate Heart Sounds: murmur systolic II/ crescendo-decrescendo mid left sternal border GI normal to inspection, nondistended, normoactive bowel sounds, soft to palpation, non-tender and non-distended Extremity General Extremity: edema; Negative for clubbing Skin Skin Narrative: Scattered bilateral extremity wounds that appear noninfected. Stasis dermatitis noted Neuro moves all extremities and no focal motor deficits Neuro Narrative: Extremely somnolent, does spontaneously move all extremities with no focal deficits, follows commands but falls back to sleep easily Psych Psych Narrative: Difficult to assess secondary to cooperation Medical Records Data Attestation: I reviewed the patient's medical records Lab / Micro Data Attestation: I reviewed the patient's lab results. Result Diagrams: 12/08/22 04:25 12/08/22 04:25 Labs: Laboratory Results - last 24 hr 12/07/22 11:25: POC Glucose 120 H 12/07/22 16:20: POC Glucose 102 12/07/22 20:40: POC Glucose 167 H 12/08/22 04:25: WBC 3.6 L, RBC 3.42 L, Hgb 8.9 L, Hct 30.2 L, MCV 88.3, MCH 26.0 L, MCHC 29.5 L, RDW Std Deviation 77.9 H, RDW Coeff of Anders 23.9 H, Plt Count 98 L, Immature Gran % (Auto) 0.300, Neut % (Auto) 70.7 H, Lymph % (Auto) 13.4 L, [place] % (Auto) 10.6 H, Eos % (Auto) 4.2, Baso % (Auto) 0.8, Absolute Neuts (auto) 2.5, Absolute Lymphs (auto) 0.48 L, Nucleated RBC % 0, Diff Path Review March, Platelet Estimate MOD DEC, Hypochromasia 1+, Anisocytosis 2+ 12/08/22 04:25: Sodium 137, Potassium 4.8, Chloride 101, Carbon Dioxide 29.0, Anion Gap 7, BUN 76 H, Creatinine 3.11 H, Estim Creat Clear Calc 22.73, Est GFR (MDRD) Af Amer 26 L, Est GFR (MDRD) Non-Af 21 L, BUN/Creatinine Ratio 24.4 H, Glucose 120 H, Calcium 8.5, Phosphorus 5.9 H, Magnesium 2.7 H, Total Bilirubin 0.60, AST 11 L, ALT 13 L, Alkaline Phosphatase 208 H, Total Protein 6.8, Albumin 2.8 L, Globulin 4.0, Albumin/Globulin Ratio 0.7 L 12/08/22 06:17: POC Glucose 108 H ABG Data ABG results: ABG 12/07/22 12:09 Specimen Type ART Sample Site L Radial pH 7.31 L Bicarbonate Actual 29.2 H Total CO2 31 Base Excess 3 H O2 Saturation 98 ABG pCO2 57.7 H ABG pO2 110 H O2 Delivery Device Cannula Liter Flow 2.0 Attestation: I personally reviewed and interpreted this ABG as follows: (Partially compensated acute on chronic hypercarbic respiratory failure with adequate oxygenation) Rhythm Strip Rhythm Strip: A-fib Rate: 90 Ectopy: None Radiology Impression Echocardiogram 12/06/22 16:34 Interpretation Summary The estimated ejection fraction is 65 %. Unable to assess diastolic dysfunction. Severely dilated right ventricle. The right atrium is severely enlarged. The left atrium is moderately enlarged. Trivial mitral valve insufficiency. Moderate (2+) tricuspid valve insufficiency. Trivial aortic valve insufficiency. Mildly dilated aortic root. Ordering Physician: Tate Díaz Referring Physician: Mely Lazar Performed By: Nissa Constantino, CORINNA, RVT Charges/Coding Visit Charges Inpatient E&M: 40083 Init Hosp L3
[2022-12-08] MEDS: Bumetanide 1 MG/4 ML Vial 4 MG IV ×2 (10:38→16:37)
[2022-12-08] MEDS: Pantoprazole Sodium 40 MG Tablet PO (10:40)
[2022-12-08] MEDS: Aspirin E.C. 81 MG Tablet PO (10:40)
[2022-12-08] MEDS: Allopurinol 100 MG Tablet PO (10:40)
[2022-12-08] MEDS: Ferrous Gluconate 324 MG Tablet PO (10:41)
[2022-12-08] MEDS: 0.9% Saline Lock 10 ML Syringe IV ×2 (10:44→16:37)
[2022-12-08 13:50] LABS: Bedside Glucose 104 mg/dL (74-106)
--- NOTE | 2022-12-08 15:41 | PCM.PN.HOSP ---
Subjective Subjective Patient only wore his BiPAP for 2 hours overnight. He was sleepy at the time of my evaluation of this morning however he was more responsive than on the fourth. Unfortunately his was not at bedside. I discussed with him extensively that I feel that his heart failure is predominantly related to right-sided heart failure and severe pulmonary artery hypertension which would strongly benefit from his compliance with BiPAP. He did indicate that he would try to use it more frequently and was agreeable to using it temporarily until he was more awake. I told him he needed to use this with naps and at night to help decrease the stress on his right heart and he did voiced understanding and stated he would try to comply. The patient is over 10 L negative for his hospitalization. He still does show some anasarca however overall improving. I did discuss with him the need for discontinuation of his Bumex drip with a bump in his creatinine today. Objective Data Objective Data Vital Signs: Vital Signs Temp Pulse Resp BP Pulse Ox O2 Del Method O2 Flow Rate 98.3 F 88 18 113/73 95 Nasal Cannula 1 12/08/22 10:35 12/08/22 10:35 12/08/22 10:35 12/08/22 10:35 12/08/22 10:35 12/08/22 13:33 12/08/22 13:33 FiO2 35 12/07/22 23:25 Oxygen Flow Rate (L/min) [At 2 REST with Oxygen] Oxygen Flow Rate (L/min) [ 2 AMBULATING with Oxygen #2] Oxygen Flow Rate (L/min) [ 3 AMBULATING with Oxygen #1] Oxygen Flow Rate (L/min) [At 0 REST on Room Air] Oxygen Flow Rate (L/min) 1 Oxygen Delivery Method Nasal Cannula Weight: 117.1 kg Body Mass Index (BMI) 38.1 Intake & Output: Intake and Output for Last 24 Hours 12/06/22 12/07/22 12/08/22 23:59 23:59 23:59 Intake Total 279.18 / 279.18 651.37 / 651.37 184.6 / 184.6 Output Total 3501 / 3501 3100 / 3100 1200 / 1200 Balance -3221.82 / -3221.82 -2448.63 / -2448.63 -1015.4 / -1015.4 Lab / Micro Data Result Diagrams: 12/08/22 04:25 12/08/22 04:25 Labs: Laboratory Results - last 24 hr 12/07/22 16:20: POC Glucose 102 12/07/22 20:40: POC Glucose 167 H 12/08/22 04:25: WBC 3.6 L, RBC 3.42 L, Hgb 8.9 L, Hct 30.2 L, MCV 88.3, MCH 26.0 L, MCHC 29.5 L, RDW Std Deviation 77.9 H, RDW Coeff of Anders 23.9 H, Plt Count 98 L, Immature Gran % (Auto) 0.300, Neut % (Auto) 70.7 H, Lymph % (Auto) 13.4 L, Thomas % (Auto) 10.6 H, Eos % (Auto) 4.2, Baso % (Auto) 0.8, Absolute Neuts (auto) 2.5, Absolute Lymphs (auto) 0.48 L, Nucleated RBC % 0, Diff Path Review March, Platelet Estimate MOD DEC, Hypochromasia 1+, Anisocytosis 2+ 12/08/22 04:25: Sodium 137, Potassium 4.8, Chloride 101, Carbon Dioxide 29.0, Anion Gap 7, BUN 76 H, Creatinine 3.11 H, Estim Creat Clear Calc 22.73, Est GFR (MDRD) Af Amer 26 L, Est GFR (MDRD) Non-Af 21 L, BUN/Creatinine Ratio 24.4 H, Glucose 120 H, Calcium 8.5, Phosphorus 5.9 H, Magnesium 2.7 H, Total Bilirubin 0.60, AST 11 L, ALT 13 L, Alkaline Phosphatase 208 H, Total Protein 6.8, Albumin 2.8 L, Globulin 4.0, Albumin/Globulin Ratio 0.7 L 12/08/22 06:17: POC Glucose 108 H 12/08/22 12:59: POC Glucose 104 Micro: Microbiology 12/03/22 12:45 Stool Stool Occult Blood (SARIAH) - Final Occult Blood Positive Rhythm Strip Rhythm Strip: A-fib Rate: 90 Ectopy: None Physical Exam Const alert, oriented x3 and no apparent distress Constitutional Narrative: Obese, somnolent but less so than yesterday, upper middle-aged, white male, appears much older than stated age, nursing at bedside, patient is sleepy but more interactive than yesterday and awakens and follows commands consistently, was able to repeat back conversation but does not remember seeing the assistant portfolio manager this morning HEENT normocephalic, head/scalp atraumatic and moist oral mucous membranes HEENT Narrative: No thrush, Mallampati 3-4 Eyes PERRL, EOMs intact bilaterally and conjunctivae normal Eyes Narrative: No scleral icterus Neck no lymphadenopathy, supple, no JVD, thyroid normal and no carotid bruits Neck Narrative: Trachea midline, no thyroid General: trachea midline Resp normal respiratory effort, no retractions, no use of accessory muscles and clear to auscultation bilaterally Resp Narrative: Crackles at bases bilaterally Auscultation: crackles; Negative for rales, rhonchi or wheezes Cardio regular rate, S1 normal heart sound, S2 normal heart sound, no murmurs, no rub, no gallops and no clicks Cardio Narrative: Irregular irregular rhythm with normal rate GI normal to inspection, nondistended, normoactive bowel sounds, soft to palpation and non-tender GI Narrative: Large protuberant abdomen, anasarca noted in bilateral flank and dependent areas of back/buttocks with improving Extremity no clubbing, cyanosis or edema Extremity Narrative: Marked pitting edema bilateral lower extremities up into dependent by regions of his abdomen and low back, no erythema, cyanosis, or clubbing, scrotum is still enlarged and about the size of a grapefruit Skin no jaundice, no petechiae and no mottling Skin Narrative: Scattered bilateral extremity wounds that appear noninfected Neuro oriented x3, moves all extremities and no focal motor deficits Neuro Narrative: Still some point this morning but less somnolent than yesterday does spontaneously move all extremities with no focal deficits, follows commands consistently Speech: speech normal Psych affect normal Psych Narrative: Seems somewhat agitated with conversation today Assessment & Plan Assessment/Plan (1) Anemia: (2) Dysphagia: (3) (HFpEF) heart failure with preserved ejection fraction: (4) Hypoxia: (5) Acute hypercapnic respiratory failure: (6) Metabolic encephalopathy: PLAN: Plan Hypoxia secondary to HFpEF/RV dysfunction-severe -Patient is diuresing well and for his stay is approximately 8 L negative -Now on 1 L nasal cannula with oxygen saturations at 95 to 96% -Trial off oxygen with home O2 eval -Do expect patient will likely need oxygen at least with exertion at the time of discharge -Echo shows normal LV with diastolic dysfunction and severe pulmonary artery hypertension with pulmonary artery pressures at 80 mmHg -Continue IV diuretics--> but discontinue Bumex drip and start Bumex 4 mg IV push twice daily with elevating creatinine levels -Continue fluid restricted/sodium restricted diet -Continue daily weights -BNP was markedly elevated at 588 on admission -Patient is only on 2 mg of oral Bumex at home--> anticipate discharge with higher dosing Severe pulmonary hypertension -Suspect who group 2/3 -Once optimized will need outpatient right heart catheterization -Continue diuresis as able -Recommend outpatient pulmonary follow-up after discharge Acute hypercapnic respiratory failure -Mental status worsened today and ABG obtained -ABG with pH 7.31/PO2 was 111 with a sat of 98% on 2 L/PCO2 was 57.7 -Suspect this is likely related to chronic retention with obstructive sleep apnea and possible obesity hypoventilation syndrome -Will need further investigation as an outpatient -Patient may qualify for trilogy at discharge--> will pursue further on Friday -Strongly encouraged patient to continue AVAPS nocturnally and with naps as he only wore it 2 hours overnight--> patient voiced understanding and stated he would try to be more compliant Metabolic encephalopathy -Resolved Dysphagia -MBS showed esophageal retention with retrograde flow below the pharyngeal esophageal segment -Check esophagram--> to be done on Friday -If esophagram is abnormal may need to consider GI consultation as I would worry about stricture -Recurrent aspiration could be the cause for his hypoxia as well despite no infiltrate on chest x-ray -Continue speech therapy -Continue strategies recommended by speech therapy with current diet of regular thin liquids CAD/HTN/HPL -CABG with BRAY to the LAD, SVG to the obtuse marginal and SVG to the right PDA in 2019 -last coronary angiography was in December 2021 which showed patent BRAY graft and a patent SVG to the right PDA, SVG graft to the obtuse marginal was noted to be totally occluded -Continue atorvastatin -Continue amlodipine 2.5 mg daily Chronic atrial fibrillation/sick sinus syndrome -Status post pacemaker -Continue Coumadin 2.5 mg on Friday and and 5 mg on the other days of the week -Recheck in a.m. CKD stage IV -We will need nephrology referral at discharge -Slight trend up today to 3.11 -Discontinue Bumex drip and transition to IV push Bumex 4 mg twice daily -BMP in a.m. DM-2 -Hemoglobin A1c 6.6 on admission -Patient is on glipizide 10 twice daily at home--> will hold for now -May need to change with renal dysfunction as this could precipitate hypoglycemic episodes -Sliding scale insulin -Accu-Cheks as ordered -Cardiac/carb controlled diet Diabetic neuropathy -Continue gabapentin 100 mg at at bedtime Insomnia -Continue trazodone GERD -Continue Protonix Chronic anemia -Hemoglobin is stable with a baseline of 8-9 -Continue home iron supplementation History of gout -Continue home allopurinol 100 mg daily Obesity -BMI 38.0 -Complicates treatment, prognosis, outcomes DVT prophylaxis -Patient is fully anticoagulated with Coumadin CODE STATUS -Full code Charges/Coding Visit Charges Inpatient E&M: 08317 Subs Hosp L3
[2022-12-08] MEDS: Insulin Lispro 100 UNIT/ML INSULN.PEN SC (16:37)
[2022-12-08 17:30] LABS: Bedside Glucose 182 mg/dL (74-106)
[2022-12-08] MEDS: Gabapentin 100 MG Capsule PO (21:56)
[2022-12-08] MEDS: Atorvastatin Calcium 40 MG Tablet PO (21:56)
[2022-12-08] MEDS: traZODone 50 MG Tablet PO (21:56)
[2022-12-08] MEDS: Tamsulosin HCl 0.4 MG Capsule PO (21:56)
[2022-12-08 22:46] LABS: Bedside Glucose 121 mg/dL (74-106)
[2022-12-09] VITALS (8 sets, daily range): BP systolic 100–109; BP diastolic 59–71; PULSE 68–84; RESP 16–18; TEMP 36.3–36.7; O2SAT 92–100
--- NOTE | 2022-12-09 00:52 | NURSING ---
Pt took bipap off at this time. Refuses to wear it anymore. Stated I can't breathe with it on.
[2022-12-09 06:39] LABS: Absolute Lymphocyte Count 0.51 X10^3/uL (0.83-4.51); Absolute Neutrophil Count 2.5 X10^3/uL (2.0-7.7); Basophil# 0.03 X10^3/uL; Basophil% 0.8 % (0-1); Eosinophil# 0.16 X10^3/uL; Eosinophils% 4.5 % (0-5); Hematocrit 28.5 % (40-54); Hemoglobin 8.4 g/dL (13.0-16.5); Lymphocyte # 0.51 X10^3/ul (0.83-4.51); Lymphocyte % 14.4 % (19-41); Mean Corp Hgb Conc 29.5 g/dL (32-36); Mean Corpuscular Hgb 25.6 pg (27.0-32.0); Mean Corpuscular Volume 86.9 fL (80-94); Mean Platelet Vol. 10.9 fl (6.2-12.0); Monocyte# 0.35 X10^3/uL; Monocyte% 9.9 % (0-10); NRBC Flagged by Analyzer 0 % (0-5); Neutrophil # 2.48 X10^3/uL (2.7-7.7); Neutrophil % 70.1 % (47-70); POSITIVE DIFFERENTIAL YES; POSITIVE MORPHOLOGY YES; Platelet Count 106 K/mm3 (150-450); RBC Distribution Width CV 23.6 % (11.6-14.6); RBC Distribution Width SD 74.5 fl (35.1-43.9); Red Blood Count 3.28 M/mm3 (4.6-6.2); White Blood Count 3.5 K/mm3 (4.4-11.0)
[2022-12-09 06:50] LABS: Bedside Glucose 106 mg/dL (74-106)
[2022-12-09 07:24] LABS: Anion Gap 8 (5-15); BUN 80 mg/dL (7-18); BUN/Creat Ratio 26.1 RATIO (10-20); Calcium,Total 8.2 mg/dL (8.5-10.1); Chloride 100 mmol/L (98-107); Creatinine, Serum 3.06 mg/dL (0.70-1.30); EST Glomerular Filtration Rate 22 mL/min (>60); Est Glom Filt Rate - Afr Amer 26 mL/min (>60); Glucose 107 mg/dL (74-106); Potassium 4.2 mmol/L (3.5-5.1); Sodium Level 139 mmol/L (136-145)
[2022-12-09 07:30] LABS: International Normalized Ratio 3.2; Prothrombin Time (Protime)PT. 32.6 SECONDS (11.7-14.9)
[2022-12-09 07:35] LABS: Differential Indicated SCAN CRITERIA MET
[2022-12-09 07:40] LABS: Anisocytosis 3+; Platelet Estimate MOD DEC (ADEQ)
[2022-12-09 07:41] LABS: Hypochromasia 1+
--- NOTE | 2022-12-09 09:00 | RAD_ITS ---
STUDY: X-RAY - ESOPHAGUS (BARIUM SWALLOW) WITH FLUOROSCOPY REASON FOR EXAM: Male, 67 years old. Abn MBS with retrograde flow TECHNIQUE: 12 view(s) of the esophagus were obtained following swallowing of barium. FLUOROSCOPY TIME (if supplied): (62 seconds) minutes/seconds. Limited examination due to the patient''s medical condition. COMPARISON: None. FINDINGS: There is no demonstrated esophageal foreign body. There is no demonstrated stricture or mucosal abnormality. Normal gastroesophageal junction, without a demonstrated hiatal hernia. RAD/Esophagus Single Contrast IMPRESSION: Limited study. No evidence of obstruction. No evidence of gastroesophageal reflux. Electronically Signed: Shekhar Mccall MD at 13:13 EST ,
--- NOTE | 2022-12-09 13:14 | PN.CC_ITS ---
Assessment & Plan Assessment/Plan (1) Pulmonary hypertension: PLAN: Plan RECOMMENDATIONS: 1. Ongoing diuresis as tolerated by hemodynamics and renal function. 2. Wean supplemental oxygen to maintain saturations at or above 90%. 3. Continue systemic anticoagulation with Coumadin. 4. Perform walking oximetry study prior to consideration for discharge home. 5. Close outpatient pulmonary follow-up is warranted within 2 weeks. IMPRESSIONS: 1. Shortness of breath and hypoxemia Likely secondary to underlying cor pulmonale. The patient appears to be slowly improving with ongoing diuresis. The patient likely has multifactorial pulmonary hypertension contributing to his presentation. I do anticipate that the patient will require supplemental oxygen upon discharge. He would benefit from further outpatient pulmonary work-up for his secondary PH. In the interim, I agree with ongoing diuresis as tolerated by hemodynamics and renal function. Supplemental oxygen can be weaned to maintain saturations at or above 90%. Enc ourage incentive spirometer use and mobilize patient as tolerated. 2. History of coronary artery disease/chronic atrial fibrillation/chronic kidney disease/anemia/obesity Complicates care, management, recovery and prognosis. Continue home medications as indicated. Continue systemic anticoagulation and monitor INR daily. This note was generated with [employer] dictation software. It may contain incorrect words, spelling, and punctuation that were not noted in checking the note before signing. Subjective Subjective The patient was seen and examined at the bedside this morning. Events from the last 24 hours have been reviewed. The patient is currently afebrile, hemodynamically stable and maintaining appropriate oxygen saturations on 2 L/min via nasal cannula. The patient is documented to be overall net negative for the hospitalization. Creatinine is stable at 3.06. Objective Data Objective Data The patient's most recent lab work, culture data and imaging studies have all been personally reviewed. Surface echocardiogram demonstrated normal LV size and function with an ejection fraction of 65%. Pulmonary artery systolic pressure was estimated to be 80 mmHg. Vital Signs: Vital Signs Temp Pulse Resp BP Pulse Ox O2 Del Method O2 Flow Rate 97.4 F L 68 18 103/71 99 Nasal Cannula 2 12/09/22 10:45 12/09/22 10:45 12/09/22 10:45 12/09/22 10:45 12/09/22 10:45 12/09/22 10:45 12/09/22 10:45 FiO2 30 12/08/22 22:55 Oxygen Flow Rate (L/min) [At 2 REST with Oxygen] Oxygen Flow Rate (L/min) [ 2 AMBULATING with Oxygen #2] Oxygen Flow Rate (L/min) [ 3 AMBULATING with Oxygen #1] Oxygen Flow Rate (L/min) [At 0 REST on Room Air] Oxygen Flow Rate (L/min) 2 Oxygen Delivery Method Nasal Cannula Weight: 258 lb 6.108 oz Body Mass Index (BMI) 38.1 Intake & Output: Intake and Output for Last 24 Hours 12/07/22 12/08/22 12/09/22 23:59 23:59 23:59 Intake Total 651.37 / 651.37 544.6 / 544.6 120 / 120 Output Total 3100 / 3100 1999 / 1999 200 / 200 Balance -2448.63 / -2448.63 -1455.4 / -1455.4 -80 / -80 Lab / Micro Data Attestation: I reviewed the patient's lab results. Result Diagrams: 12/09/22 05:12 12/09/22 05:12 Labs: Laboratory Results - last 24 hr 12/08/22 12:59: POC Glucose 104 12/08/22 16:28: POC Glucose 182 H 12/08/22 21:59: POC Glucose 121 H 12/09/22 05:12: WBC 3.5 L, RBC 3.28 L, Hgb 8.4 L, Hct 28.5 L, MCV 86.9, MCH 25.6 L, MCHC 29.5 L, RDW Std Deviation 74.5 H, RDW Coeff of Anders 23.6 H, Plt Count 106 L, MPV 10.9, Immature Gran % (Auto) 0.300, Neut % (Auto) 70.1 H, Lymph % (Auto) 14.4 L, [place] % (Auto) 9.9, Eos % (Auto) 4.5, Baso % (Auto) 0.8, Absolute Neuts (auto) 2.5, Absolute Lymphs (auto) 0.51 L, Nucleated RBC % 0, Diff Path Review March, Platelet Estimate MOD DEC, Hypochromasia 1+, Anisocytosis 3+ 12/09/22 05:12: Sodium 139, Potassium 4.2, Chloride 100, Carbon Dioxide 31.0, Anion Gap 8, BUN 80 H, Creatinine 3.06 H, Estim Creat Clear Calc 23.10, Est GFR (MDRD) Af Amer 26 L, Est GFR (MDRD) Non-Af 22 L, BUN/Creatinine Ratio 26.1 H, Glucose 107 H, Calcium 8.2 L 12/09/22 05:12: PT 32.6 H, INR 3.2 12/09/22 06:28: POC Glucose 106 Micro: Microbiology 12/03/22 12:45 Stool Stool Occult Blood (SARIAH) - Final Occult Blood Positive Rhythm Strip Rhythm Strip: A-fib Rate: 90 Ectopy: None Physical Exam Const alert and no apparent distress Constitutional Narrative: Sitting in bedside recliner. General Appearance: cooperative HEENT normocephalic and head/scalp atraumatic Eyes PERRL, EOMs intact bilaterally and conjunctivae normal Neck supple General: trachea midline Chest inspection of chest normal Resp normal respiratory effort Resp Narrative: Faint basilar crackles. Cardio S1 normal heart sound and S2 normal heart sound Rhythm: abnormal rhythm GI normal to inspection, nondistended, normoactive bowel sounds Extremity General Extremity: edema Skin no rashes or lesions noted Neuro CN's II-XII intact bilaterally and no focal motor deficits Psych cooperative and affect normal Charges/Coding Visit Charges Inpatient E&M: 09695 Subs Hosp L2
--- NOTE | 2022-12-09 14:20 | CASEMGMT ---
Addendum entered by Anne-Marie Mcnair 12/09/22 15:40: Social Work SW spoke with pt and informed that both facilities are able to accept. Pt choosing [facility] TCU. Referral to [place] [facility] cancelled. Precert has not yet been started as pt is not medically ready. Plan: TCU, pending JANAY Millan Original Note: Social Work Per weekend SW, pt and agreeable to SNF placement with first choice [facility] and second choice [facility]. SW spoke with both facilities and they are both able to accept pt. SW met with pt and updated. Pt requesting pt make decision. VM left with pt to inquire about choice. SW will await return call. Plan: TCU vs. [place], pending JANAY Millan
[2022-12-09] MEDS: Allopurinol 100 MG Tablet PO (15:12)
[2022-12-09] MEDS: Pantoprazole Sodium 40 MG Tablet PO (15:12)
[2022-12-09] MEDS: Ferrous Gluconate 324 MG Tablet PO (15:12)
[2022-12-09] MEDS: Bumetanide 1 MG/4 ML Vial 4 MG IV ×2 (15:13→23:13)
[2022-12-09] MEDS: Aspirin E.C. 81 MG Tablet PO (15:13)
--- NOTE | 2022-12-09 15:24 | PCM.PN.HOSP ---
Subjective Subjective Patient already has BiPAP for about 3 hours last night. He is slowly uptitrating his time. I did discuss with him again today the importance of compliance and treatment of his pulmonary hypertension. is at bedside and voiced understanding and stated she would work with him on his compliance. I would like to get him at home trilogy unit but we do need to demonstrate compliance while he is in the hospital. This will not need to be ascertained prior to discharge as he will need to go to TCU prior to going home. I did discuss this with case management. No significant overnight issues or complaints. Objective Data Objective Data Vital Signs: Vital Signs Temp Pulse Resp BP Pulse Ox O2 Del Method O2 Flow Rate 97.4 F L 68 18 103/71 94 Nasal Cannula 1 12/09/22 10:45 12/09/22 10:45 12/09/22 10:45 12/09/22 10:45 12/09/22 15:00 12/09/22 15:00 12/09/22 15:00 FiO2 30 12/08/22 22:55 Oxygen Flow Rate (L/min) [At 2 REST with Oxygen] Oxygen Flow Rate (L/min) [ 2 AMBULATING with Oxygen #2] Oxygen Flow Rate (L/min) [ 3 AMBULATING with Oxygen #1] Oxygen Flow Rate (L/min) [At 0 REST on Room Air] Oxygen Flow Rate (L/min) 1 Oxygen Delivery Method Nasal Cannula Weight: 117.2 kg Body Mass Index (BMI) 38.1 Intake & Output: Intake and Output for Last 24 Hours 12/07/22 12/08/22 12/09/22 23:59 23:59 23:59 Intake Total 651.37 / 651.37 544.6 / 544.6 480 / 480 Output Total 3100 / 3100 1999 / 1999 600 / 600 Balance -2448.63 / -2448.63 -1455.4 / -1455.4 -120 / -120 Lab / Micro Data Result Diagrams: 12/09/22 05:12 12/09/22 05:12 Labs: Laboratory Results - last 24 hr 12/08/22 16:28: POC Glucose 182 H 12/08/22 21:59: POC Glucose 121 H 12/09/22 05:12: WBC 3.5 L, RBC 3.28 L, Hgb 8.4 L, Hct 28.5 L, MCV 86.9, MCH 25.6 L, MCHC 29.5 L, RDW Std Deviation 74.5 H, RDW Coeff of Anders 23.6 H, Plt Count 106 L, MPV 10.9, Immature Gran % (Auto) 0.300, Neut % (Auto) 70.1 H, Lymph % (Auto) 14.4 L, [place] % (Auto) 9.9, Eos % (Auto) 4.5, Baso % (Auto) 0.8, Absolute Neuts (auto) 2.5, Absolute Lymphs (auto) 0.51 L, Nucleated RBC % 0, Diff Path Review March, Platelet Estimate MOD DEC, Hypochromasia 1+, Anisocytosis 3+ 12/09/22 05:12: Sodium 139, Potassium 4.2, Chloride 100, Carbon Dioxide 31.0, Anion Gap 8, BUN 80 H, Creatinine 3.06 H, Estim Creat Clear Calc 23.10, Est GFR (MDRD) Af Amer 26 L, Est GFR (MDRD) Non-Af 22 L, BUN/Creatinine Ratio 26.1 H, Glucose 107 H, Calcium 8.2 L 12/09/22 05:12: PT 32.6 H, INR 3.2 12/09/22 06:28: POC Glucose 106 Micro: Microbiology 12/03/22 12:45 Stool Stool Occult Blood (SARIAH) - Final Occult Blood Positive Radiography Diagnostic Testing: Radiology Impression Barium Swallow X-Ray 12/09/22 09:00 IMPRESSION: Limited study. No evidence of obstruction. No evidence of gastroesophageal reflux. Electronically Signed: Shekhar Mccall MD at 13:13 EST , Rhythm Strip Rhythm Strip: A-fib Rate: 90 Ectopy: None Physical Exam Const alert, oriented x3, no apparent distress and healthy appearing Constitutional Narrative: Obese, upper middle-aged, white male, appears much older than stated age, at bedside, patient is awake and more alert throughout our entire conversation today, able to participate more HEENT normocephalic, head/scalp atraumatic and moist oral mucous membranes HEENT Narrative: Mallampati 3, no thrush Resp normal respiratory effort, no retractions, no use of accessory muscles and clear to auscultation bilaterally Resp Narrative: Crackles at bases bilaterally-improving Auscultation: crackles; Negative for rales, rhonchi or wheezes Cardio regular rate, regular rhythm, S1 normal heart sound, S2 normal heart sound, no murmurs, no rub, no gallops and no clicks Cardio Narrative: Irregular irregular rhythm with normal rate GI normal to inspection, nondistended, normoactive bowel sounds, soft to palpation, non-tender and non-distended GI Narrative: Large protuberant abdomen, anasarca noted in bilateral flank and dependent areas of back/buttocks but continues to improve with ongoing diuresis Extremity no clubbing, cyanosis or edema Extremity Narrative: Marked pitting edema bilateral lower extremities up into dependent by regions of his abdomen and low back, no erythema, cyanosis, or clubbing, scrotum is still enlarged and about the size of a grapefruit Neuro oriented x3, moves all extremities and no focal motor deficits Speech: speech normal Psych affect normal Psych Narrative: Pleasant today Assessment & Plan Assessment/Plan (1) Anemia: (2) Dysphagia: (3) (HFpEF) heart failure with preserved ejection fraction: (4) Hypoxia: (5) Acute hypercapnic respiratory failure: (6) Metabolic encephalopathy: PLAN: Plan Hypoxia secondary to HFpEF/RV dysfunction-severe -Patient is diuresing well and for his stay is approximately 8 L negative -Remains on 1 L nasal cannula with oxygen saturations at 94 percent at rest -Trial off oxygen with home O2 eval -Do expect patient will likely need oxygen at least with exertion at the time of discharge -Echo shows normal LV with diastolic dysfunction and severe pulmonary artery hypertension with pulmonary artery pressures at 80 mmHg -Continue Bumex 4 mg IV push twice daily -Serum creatinine is somewhat better today -Continue fluid restricted/sodium restricted diet -Continue daily weights -BNP was markedly elevated at 588 on admission -Patient is only on 2 mg of oral Bumex at home--> anticipate discharge with higher dosing Severe pulmonary hypertension -Suspect who group 2/3 -Once optimized will need outpatient right heart catheterization -Continue diuresis as able -Recommend outpatient pulmonary follow-up after discharge Acute hypercapnic respiratory failure -Mental status worsened today and ABG obtained -ABG with pH 7.31/PO2 was 111 with a sat of 98% on 2 L/PCO2 was 57.7 -Suspect this is likely related to chronic retention with obstructive sleep apnea and possible obesity hypoventilation syndrome -Will need further investigation as an outpatient -Patient may qualify for trilogy at discharge--> discussed need for trilogy when patient discharged from TCU with case management today and then will start this process -Again, strongly encouraged patient to continue AVAPS nocturnally and with naps as he only wore it 3 hours overnight--> is at bedside today and stated that she would encourage this as well Dysphagia -MBS showed esophageal retention with retrograde flow below the pharyngeal esophageal segment -Esophagram was unremarkable -Continue speech therapy -Continue strategies recommended by speech therapy with current diet of regular thin liquids -We will need ongoing speech therapy after discharge to TCU CAD/HTN/HPL -CABG with BRAY to the LAD, SVG to the obtuse marginal and SVG to the right PDA in 2018 -last coronary angiography was in December 2021 which showed patent BRAY graft and a patent SVG to the right PDA, SVG graft to the obtuse marginal was noted to be totally occluded -Continue atorvastatin -Continue amlodipine 2.5 mg daily Chronic atrial fibrillation/sick sinus syndrome -Status post pacemaker -Continue Coumadin 2.5 mg on Friday and but decreased to 4.5 mg on the other days of the week as INR was 3.2 and slightly trending up -INR 3.2 today from 3.0 on Friday -Recheck in a.m. CKD stage IV -We will need nephrology referral at discharge -Serum creatinine down today from 3.11-3.06 -Continue IV Bumex 4 mg IV push twice daily -BMP in a.m. DM-2 -Hemoglobin A1c 6.6 on admission -Patient is on glipizide 10 twice daily at home--> continue will hold for now -May need to change with renal dysfunction as this could precipitate hypoglycemic episodes -Sliding scale insulin -Accu-Cheks as ordered -Cardiac/carb controlled diet Diabetic neuropathy -Continue gabapentin 100 mg at at bedtime Insomnia -Continue trazodone we will schedule as it is currently as needed and patient is forgetting to ask for GERD -Continue Protonix Chronic anemia -Hemoglobin is stable with a baseline of 8-9 -Continue home iron supplementation History of gout -Continue home allopurinol 100 mg daily Obesity -BMI 38.0 -Complicates treatment, prognosis, outcomes DVT prophylaxis -Patient is fully anticoagulated with Coumadin and INR is therapeutic 3.2 CODE STATUS -Full code Charges/Coding Visit Charges Inpatient E&M: 24123 Subs Hosp L2 Reason for Visit Reason for Visit: Diagnoses Pulmonary hypertension, unspecified (12/03/22) Unspecified diastolic (congestive) heart failure (12/03/22) Acute respiratory failure with hypercapnia (12/03/22) Chronic kidney disease, stage 4 (severe) (12/03/22) Hypoxemia (12/03/22)
[2022-12-09] MEDS: Acetaminophen 325 MG Tablet 650 MG PO (15:47)
[2022-12-09] MEDS: Ondansetron 4 MG/2 ML Vial IV (15:48)
[2022-12-09] MEDS: 0.9% Saline Lock 10 ML Syringe IV ×2 (15:50→23:20)
[2022-12-09] MEDS: Jantoven 2 MG Tablet PO (18:15)
[2022-12-09] MEDS: Insulin Lispro 100 UNIT/ML INSULN.PEN SC (18:16)
[2022-12-09 18:40] LABS: Bedside Glucose 275 mg/dL (74-106)
[2022-12-09] MEDS: Tamsulosin HCl 0.4 MG Capsule PO (23:12)
[2022-12-09] MEDS: Atorvastatin Calcium 40 MG Tablet PO (23:13)
[2022-12-09] MEDS: traZODone 50 MG Tablet PO (23:18)
[2022-12-09] MEDS: Gabapentin 100 MG Capsule PO (23:18)
--- NOTE | 2022-12-09 23:25 | CPS ---
Pt not ready for bipap at this time.
[2022-12-10] VITALS (11 sets, daily range): BP systolic 98–117; BP diastolic 60–80; PULSE 75–94; RESP 14–18; TEMP 36.3–36.9; O2SAT 79–100
[2022-12-10 06:36] LABS: International Normalized Ratio 3.1; Prothrombin Time (Protime)PT. 31.6 SECONDS (11.7-14.9)
[2022-12-10 06:56] LABS: Anion Gap 5 (5-15); BUN 85 mg/dL (7-18); BUN/Creat Ratio 26.1 RATIO (10-20); Calcium,Total 8.6 mg/dL (8.5-10.1); Chloride 100 mmol/L (98-107); Creatinine, Serum 3.26 mg/dL (0.70-1.30); EST Glomerular Filtration Rate 20 mL/min (>60); Est Glom Filt Rate - Afr Amer 24 mL/min (>60); Estimated Creatinine Clearance 21.69 ml/min; Glucose 108 mg/dL (74-106); Potassium 4.6 mmol/L (3.5-5.1); Sodium Level 139 mmol/L (136-145)
[2022-12-10 07:15] LABS: Bedside Glucose 104 mg/dL (74-106)
[2022-12-10 09:39] LABS: Pathologist Review Reviewed
[2022-12-10] MEDS: Aspirin E.C. 81 MG Tablet PO (09:59)
[2022-12-10] MEDS: Pantoprazole Sodium 40 MG Tablet PO (09:59)
[2022-12-10] MEDS: Allopurinol 100 MG Tablet PO (10:05)
[2022-12-10] MEDS: Bumetanide 2 MG Tablet 4 MG PO ×2 (10:05→22:09)
--- NOTE | 2022-12-10 11:04 | CASEMGMT ---
Physician said pre-cert can be started. SW requested Sophia start pre-cert for patient. Plan: d/c to [facility] TCU pending pre-cert. Julee MACHUCA
[2022-12-10] MEDS: Insulin Lispro 100 UNIT/ML INSULN.PEN SC ×2 (11:51→16:00)
[2022-12-10 12:06] LABS: Pathologist Review Reviewed
[2022-12-10 12:15] LABS: Bedside Glucose 186 mg/dL (74-106)
[2022-12-10] MEDS: Ferrous Gluconate 324 MG Tablet PO (14:10)
[2022-12-10] MEDS: Jantoven 2 MG Tablet PO (16:02)
--- NOTE | 2022-12-10 17:05 | PCM.PN.HOSP ---
Reason for Visit Reason for Visit: Diagnoses Anemia, unspecified (12/03/22) Metabolic encephalopathy (12/03/22) Pulmonary hypertension, unspecified (12/03/22) Unspecified diastolic (congestive) heart failure (12/03/22) Acute respiratory failure with hypercapnia (12/03/22) Chronic kidney disease, stage 4 (severe) (12/03/22) Hypoxemia (12/03/22) Dysphagia, unspecified (12/03/22) Other malaise (12/03/22) Presence of aortocoronary bypass graft (12/03/22) Subjective Subjective Patient states he slept very well last night. He is unclear if he wore his mask last night or not. I discussed with the charge nurse on the floor that we have to get his BiPAP on him nocturnally. He does state that he feels overall much better than when he presented. Swelling has improved dramatically. He does still have scrotal edema and some anasarca however he is clinically much improved. Objective Data Objective Data Vital Signs: Vital Signs Temp Pulse Resp BP Pulse Ox O2 Del Method O2 Flow Rate 97.8 F 85 14 98/60 98 Nasal Cannula 2 12/10/22 15:34 12/10/22 15:34 12/10/22 15:34 12/10/22 15:34 12/10/22 15:34 12/10/22 15:34 12/10/22 15:34 FiO2 30 12/08/22 22:55 Oxygen Flow Rate (L/min) [ 0 AMBULATING on Room Air] Oxygen Flow Rate (L/min) [At 2 REST with Oxygen] Oxygen Flow Rate (L/min) [ 3 AMBULATING with Oxygen #2] Oxygen Flow Rate (L/min) [ 2 AMBULATING with Oxygen #1] Oxygen Flow Rate (L/min) [At 0 REST on Room Air] Oxygen Flow Rate (L/min) 2 Oxygen Delivery Method Nasal Cannula Weight: 115.5 kg Body Mass Index (BMI) 38.1 Intake & Output: Intake and Output for Last 24 Hours 12/08/22 12/09/22 12/10/22 23:59 23:59 23:59 Intake Total 544.6 / 544.6 720 / 720 120 / 120 Output Total 1999 850 / 1350 1550 / 1550 Balance -1455.4 / -1455.4 -130 / -630 -1430 / -1430 Lab / Micro Data Result Diagrams: 12/09/22 05:12 12/10/22 05:20 Labs: Laboratory Results - last 24 hr 12/08/22 04:25: Diff Path Review Reviewed 12/09/22 05:12: Diff Path Review Reviewed 12/09/22 18:11: POC Glucose 275 H 12/10/22 05:20: PT 31.6 H, INR 3.1 12/10/22 05:20: Sodium 139, Potassium 4.6, Chloride 100, Carbon Dioxide 34.0 H, Anion Gap 5, BUN 85 H, Creatinine 3.26 H, Estim Creat Clear Calc 21.69, Est GFR (MDRD) Af Amer 24 L, Est GFR (MDRD) Non-Af 20 L, BUN/Creatinine Ratio 26.1 H, Glucose 108 H, Calcium 8.6 12/10/22 06:11: POC Glucose 104 12/10/22 11:49: POC Glucose 186 H Micro: Microbiology 12/03/22 12:45 Stool Stool Occult Blood (SARIAH) - Final Occult Blood Positive Rhythm Strip Rhythm Strip: A-fib Rate: 90 Ectopy: None Physical Exam Const alert, oriented x3, no apparent distress and healthy appearing Constitutional Narrative: Obese, upper middle-aged, white male, appears much older than stated age, sitting up in a chair, appears comfortable, much more awake HEENT normocephalic, head/scalp atraumatic and moist oral mucous membranes HEENT Narrative: Mallampati 3, no thrush Resp normal respiratory effort, no retractions, no use of accessory muscles and clear to auscultation bilaterally Auscultation: Negative for crackles, rales, rhonchi or wheezes Cardio regular rate, S1 normal heart sound, S2 normal heart sound, no murmurs, no rub, no gallops and no clicks Cardio Narrative: Irregular irregular rhythm with normal rate GI normal to inspection, nondistended, normoactive bowel sounds, soft to palpation, non-tender and non-distended GI Narrative: Large protuberant abdomen, anasarca noted in bilateral flank and dependent areas of back/buttocks but continues to improve with ongoing diuresis Extremity Extremity Narrative: Still with about 1+ pitting edema bilateral lower extremities into the thighs and back, no cyanosis or clubbing, edema has significantly improved since admission Neuro oriented x3, moves all extremities, no focal motor deficits and no sensory deficits noted Neuro Narrative: Very awake, most interactive he has been since I have been following him Speech: speech normal Psych affect normal Psych Narrative: Pleasant today Assessment & Plan Assessment/Plan (1) Anemia: (2) Dysphagia: (3) (HFpEF) heart failure with preserved ejection fraction: (4) Hypoxia: (5) Acute hypercapnic respiratory failure: (6) Metabolic encephalopathy: PLAN: Plan Hypoxia secondary to HFpEF/RV dysfunction-severe -Patient is diuresing well and for his stay is approximately 12.6 L negative for his hospital stay -Remains on 1 L nasal cannula with oxygen saturations at 94 percent at rest -Trial off oxygen with home O2 eval -Do expect patient will likely need oxygen at least with exertion at the time of discharge -Echo shows normal LV with diastolic dysfunction and severe pulmonary artery hypertension with pulmonary artery pressures at 80 mmHg -Discontinue IV Bumex and transition to oral Bumex 4 mg p.o. twice daily -Continue fluid restricted/sodium restricted diet -Continue daily weights -BNP was markedly elevated at 588 on admission -Patient is only on 2 mg of oral Bumex at home--> anticipate discharge with higher dosing -Patient is getting close to readiness for discharge and will start pre-CERT today Severe pulmonary hypertension -Suspect who group 2/3 -Once optimized will need outpatient right heart catheterization -Continue diuresis as able -Recommend outpatient pulmonary follow-up after discharge Acute hypercapnic respiratory failure -Resolved -Suspect this is likely related to chronic retention with obstructive sleep apnea and possible obesity hypoventilation syndrome -Will need further investigation as an outpatient -Patient may qualify for trilogy at discharge--> discussed need for trilogy when patient discharged from TCU with case management today and then will start this process -Continue nocturnal AVAPS Dysphagia -MBS showed esophageal retention with retrograde flow below the pharyngeal esophageal segment -Esophagram was unremarkable -Continue speech therapy -Continue strategies recommended by speech therapy with current diet of regular thin liquids -We will need ongoing speech therapy after discharge to TCU CAD/HTN/HPL -CABG with BRAY to the LAD, SVG to the obtuse marginal and SVG to the right PDA in 2019 -last coronary angiography was in December 2021 which showed patent BRAY graft and a patent SVG to the right PDA, SVG graft to the obtuse marginal was noted to be totally occluded -Continue atorvastatin -Continue amlodipine 2.5 mg daily Chronic atrial fibrillation/sick sinus syndrome -Status post pacemaker -Continue Coumadin 2.5 mg on Friday and and 4.5 on other days of the week -INR 3.1 today -Recheck in a.m. CKD stage IV -We will need nephrology referral at discharge -Serum creatinine back up today at 3.26 -IV Bumex discontinued and transition to oral -BMP in a.m. DM-2 -Hemoglobin A1c 6.6 on admission -Patient is on glipizide 10 twice daily at home--> continue will hold for now -May need to change with renal dysfunction as this could precipitate hypoglycemic episodes -Sliding scale insulin -Accu-Cheks as ordered -Cardiac/carb controlled diet Diabetic neuropathy -Continue gabapentin 100 mg at at bedtime Insomnia -Continue trazodone we will schedule as it is currently as needed and patient is forgetting to ask for GERD -Continue Protonix Chronic anemia -Hemoglobin is stable with a baseline of 8-9 -Continue home iron supplementation History of gout -Continue home allopurinol 100 mg daily Obesity -BMI 38.0 -Complicates treatment, prognosis, outcomes DVT prophylaxis -Patient is fully anticoagulated with Coumadin and INR is therapeutic 3.1 CODE STATUS -Full code Charges/Coding Visit Charges Inpatient E&M: 57513 Subs Hosp L2
[2022-12-10 17:35] LABS: Bedside Glucose 167 mg/dL (74-106)
[2022-12-10] MEDS: Atorvastatin Calcium 40 MG Tablet PO (22:09)
[2022-12-10] MEDS: traZODone 50 MG Tablet PO (22:09)
[2022-12-10] MEDS: Tamsulosin HCl 0.4 MG Capsule PO (22:09)
[2022-12-10] MEDS: Gabapentin 100 MG Capsule PO (22:09)
[2022-12-10 22:40] LABS: Bedside Glucose 150 mg/dL (74-106)
[2022-12-11] VITALS (12 sets, daily range): BP systolic 105–116; BP diastolic 64–88; PULSE 80–101; RESP 12–25; TEMP 36.3–36.7; O2SAT 83–100
[2022-12-11 06:25] LABS: Absolute Lymphocyte Count 0.53 X10^3/uL (0.83-4.51); Absolute Neutrophil Count 2.9 X10^3/uL (2.0-7.7); Basophil# 0.02 X10^3/uL; Basophil% 0.5 % (0-1); Eosinophil# 0.18 X10^3/uL; Eosinophils% 4.5 % (0-5); Hematocrit 30.1 % (40-54); Hemoglobin 8.6 g/dL (13.0-16.5); Lymphocyte # 0.53 X10^3/ul (0.83-4.51); Lymphocyte % 13.4 % (19-41); Mean Corp Hgb Conc 28.6 g/dL (32-36); Mean Corpuscular Hgb 25.6 pg (27.0-32.0); Mean Corpuscular Volume 89.6 fL (80-94); Mean Platelet Vol. 10.8 fl (6.2-12.0); Monocyte# 0.35 X10^3/uL; Monocyte% 8.8 % (0-10); NRBC Flagged by Analyzer 0 % (0-5); Neutrophil # 2.87 X10^3/uL (2.7-7.7); Neutrophil % 72.5 % (47-70); POSITIVE DIFFERENTIAL YES; POSITIVE MORPHOLOGY YES; Platelet Count 101 K/mm3 (150-450); RBC Distribution Width CV 23.6 % (11.6-14.6); Red Blood Count 3.36 M/mm3 (4.6-6.2)
[2022-12-11 06:27] LABS: Differential Indicated SCAN CRITERIA MET
[2022-12-11 06:32] LABS: International Normalized Ratio 3.3; Prothrombin Time (Protime)PT. 33.4 SECONDS (11.7-14.9)
[2022-12-11 06:52] LABS: Anion Gap 4 (5-15); BUN 90 mg/dL (7-18); BUN/Creat Ratio 27.7 RATIO (10-20); Calcium,Total 8.5 mg/dL (8.5-10.1); Chloride 101 mmol/L (98-107); Creatinine, Serum 3.25 mg/dL (0.70-1.30); EST Glomerular Filtration Rate 20 mL/min (>60); Est Glom Filt Rate - Afr Amer 25 mL/min (>60); Estimated Creatinine Clearance 21.75 ml/min; Glucose 116 mg/dL (74-106); Potassium 5.1 mmol/L (3.5-5.1); Sodium Level 140 mmol/L (136-145)
[2022-12-11 07:02] LABS: Anisocytosis 2+; Platelet Estimate SLT DEC (ADEQ)
[2022-12-11 07:03] LABS: Hypochromasia 1+
[2022-12-11 07:05] LABS: Bedside Glucose 124 mg/dL (74-106)
[2022-12-11] MEDS: Allopurinol 100 MG Tablet PO (10:12)
[2022-12-11] MEDS: Pantoprazole Sodium 40 MG Tablet PO (10:12)
[2022-12-11] MEDS: Bumetanide 2 MG Tablet 4 MG PO (10:12)
[2022-12-11] MEDS: Aspirin E.C. 81 MG Tablet PO (10:12)
--- NOTE | 2022-12-11 11:33 | CASEMGMT ---
Patient was approved to go to TCU, but he is not ready today. SW notified physician and Sophia in TCU. Plan: d/c to [facility] TCU under skilled level of care. Julee MACHUCA
[2022-12-11] MEDS: Insulin Lispro 100 UNIT/ML INSULN.PEN SC (11:38)
[2022-12-11] MEDS: Ferrous Gluconate 324 MG Tablet PO (11:38)
[2022-12-11 11:50] LABS: Bedside Glucose 180 mg/dL (74-106)
[2022-12-11] MEDS: 0.9% Saline Lock 10 ML Syringe IV ×2 (16:00→22:01)
[2022-12-11] MEDS: Ondansetron 4 MG/2 ML Vial IV (16:00)
[2022-12-11] MEDS: Menthol/Lanolin/Calamine/Znox 113 GM Tube 1 APPLIC TOPICAL ×2 (16:00→22:02)
--- NOTE | 2022-12-11 16:25 | PCM.PN.HOSP ---
Reason for Visit Reason for Visit: Diagnoses Anemia, unspecified (12/03/22) Metabolic encephalopathy (12/03/22) Pulmonary hypertension, unspecified (12/03/22) Unspecified diastolic (congestive) heart failure (12/03/22) Acute respiratory failure with hypercapnia (12/03/22) Chronic kidney disease, stage 4 (severe) (12/03/22) Hypoxemia (12/03/22) Dysphagia, unspecified (12/03/22) Other malaise (12/03/22) Presence of aortocoronary bypass graft (12/03/22) Subjective Subjective Patient did not wear his BiPAP again last night. He states he slept very well however his BiPAP was not placed on him. His is evidently concerned about some twitching on his right side however I have not observed this. She also is concerned because his mood is somewhat labile when she is there. He has been fine with me and I have had no issues with any agitation. We have received pre-CERT for TCU and anticipate discharge tomorrow as long as he remains clinically stable. Objective Data Objective Data Vital Signs: Vital Signs Temp Pulse Resp BP Pulse Ox O2 Del Method O2 Flow Rate 98.0 F 88 18 105/64 97 Nasal Cannula 2 12/11/22 16:00 12/11/22 16:00 12/11/22 16:00 12/11/22 16:00 12/11/22 16:14 12/11/22 16:14 12/11/22 16:14 FiO2 30 12/08/22 22:55 Oxygen Flow Rate (L/min) [ 0 AMBULATING on Room Air] Oxygen Flow Rate (L/min) [At 2 REST with Oxygen] Oxygen Flow Rate (L/min) [ 3 AMBULATING with Oxygen #2] Oxygen Flow Rate (L/min) [ 2 AMBULATING with Oxygen #1] Oxygen Flow Rate (L/min) [At 0 REST on Room Air] Oxygen Flow Rate (L/min) 2 Oxygen Delivery Method Nasal Cannula Weight: 113.9 kg Body Mass Index (BMI) 38.1 Intake & Output: Intake and Output for Last 24 Hours 12/09/22 12/10/22 12/11/22 23:59 23:59 23:59 Intake Total 720 / 720 360 / 360 240 / 240 Output Total 850 / 1350 2650 / 2650 Balance -130 / -630 -2290 / -2290 240 / 240 Lab / Micro Data Result Diagrams: 12/11/22 05:35 12/11/22 05:35 Labs: Laboratory Results - last 24 hr 12/10/22 16:00: POC Glucose 167 H 12/10/22 22:07: POC Glucose 150 H 12/11/22 05:35: PT 33.4 H, INR 3.3 12/11/22 05:35: WBC 4.0 L, RBC 3.36 L, Hgb 8.6 L, Hct 30.1 L, MCV 89.6, MCH 25.6 L, MCHC 28.6 L, RDW Std Deviation 77.0 H, RDW Coeff of Anders 23.6 H, Plt Count 101 L, MPV 10.8, Immature Gran % (Auto) 0.300, Neut % (Auto) 72.5 H, Lymph % (Auto) 13.4 L, [place] % (Auto) 8.8, Eos % (Auto) 4.5, Baso % (Auto) 0.5, Absolute Neuts (auto) 2.9, Absolute Lymphs (auto) 0.53 L, Nucleated RBC % 0, Diff Path Review March, Platelet Estimate SLT DEC, Hypochromasia 1+, Anisocytosis 2+ 12/11/22 05:35: Sodium 140, Potassium 5.1, Chloride 101, Carbon Dioxide 35.0 H, Anion Gap 4 L, BUN 90 H, Creatinine 3.25 H, Estim Creat Clear Calc 21.75, Est GFR (MDRD) Af Amer 25 L, Est GFR (MDRD) Non-Af 20 L, BUN/Creatinine Ratio 27.7 H, Glucose 116 H, Calcium 8.5 12/11/22 06:45: POC Glucose 124 H 12/11/22 11:27: POC Glucose 180 H Micro: Microbiology 12/03/22 12:45 Stool Stool Occult Blood (SARIAH) - Final Occult Blood Positive Rhythm Strip Rhythm Strip: A-fib Rate: 90 Ectopy: None Physical Exam Const alert, oriented x3, no apparent distress and healthy appearing Constitutional Narrative: Obese, upper middle-aged, white male, appears much older than stated age, sitting up in a chair, appears comfortable, appropriately interactive, at bedside General Appearance: cooperative and well developed HEENT normocephalic, head/scalp atraumatic and moist oral mucous membranes Resp normal respiratory effort, no retractions, no use of accessory muscles and clear to auscultation bilaterally Resp Narrative: Crackles resolved Auscultation: Negative for crackles, rales, rhonchi or wheezes Cardio regular rate, S1 normal heart sound, S2 normal heart sound, no murmurs, no rub, no gallops and no clicks Cardio Narrative: Irregular irregular rhythm with normal rate GI normal to inspection, nondistended, normoactive bowel sounds, soft to palpation, non-tender and non-distended GI Narrative: Large protuberant abdomen, anasarca noted in bilateral flank and dependent areas of back/buttocks but continues to improve with ongoing diuresis Extremity no clubbing, cyanosis or edema Extremity Narrative: Still with about 1+ pitting edema bilateral lower extremities into the thighs and back, no cyanosis or clubbing, edema has significantly improved since admission Skin Skin Narrative: Scattered bilateral extremity wounds that appear noninfected Neuro oriented x3, moves all extremities and no focal motor deficits Speech: speech normal Psych affect normal Psych Narrative: Pleasant Assessment & Plan Assessment/Plan (1) Anemia: (2) Dysphagia: (3) (HFpEF) heart failure with preserved ejection fraction: (4) Hypoxia: (5) Acute hypercapnic respiratory failure: (6) Metabolic encephalopathy: PLAN: Plan Hypoxia secondary to HFpEF/RV dysfunction-severe -Patient is diuresing well and for his stay is approximately 12.6 L negative for his hospital stay -Requires 1 to 2 L of supplemental oxygen at rest -Did desat to 85 on room air -Plan will be to discharge patient on 2 L at rest and will need to assess oxygen with ambulation prior to discharge -Echo shows normal LV with diastolic dysfunction and severe pulmonary artery hypertension with pulmonary artery pressures at 80 mmHg -Continue oral Bumex -Continue fluid restricted/sodium restricted diet -Continue daily weights -BNP was markedly elevated at 588 on admission -Anticipate discharge tomorrow as long as patient remains medically stable--> TCU Severe pulmonary hypertension -Suspect who group 2/3 -Once optimized will need outpatient right heart catheterization -Continue diuresis as able -Recommend outpatient pulmonary follow-up after discharge Acute hypercapnic respiratory failure -Resolved -Suspect this is likely related to chronic retention with obstructive sleep apnea and possible obesity hypoventilation syndrome -Will need further investigation as an outpatient -Patient may qualify for trilogy at discharge--> discussed need for trilogy when patient discharged from TCU with case management today and then will start this process -Continue nocturnal AVAPS Dysphagia -MBS showed esophageal retention with retrograde flow below the pharyngeal esophageal segment -Esophagram was unremarkable -Continue speech therapy--> will need at discharge -Continue strategies recommended by speech therapy with current diet of regular thin liquids -We will need ongoing speech therapy after discharge to TCU CAD/HTN/HPL -CABG with BRAY to the LAD, SVG to the obtuse marginal and SVG to the right PDA in 2019 -last coronary angiography was in December 2021 which showed patent BRAY graft and a patent SVG to the right PDA, SVG graft to the obtuse marginal was noted to be totally occluded -Continue atorvastatin -Continue amlodipine 2.5 mg daily Chronic atrial fibrillation/sick sinus syndrome -Status post pacemaker -Continue Coumadin 2.5 mg on Friday and and decreased to 4 milligrams on other days of the week with INR 3.3 today -INR 3.3 today -Recheck in a.m. CKD stage IV -We will need nephrology referral at discharge -Serum creatinine stabilizing 3.25 -Continue oral Bumex at same dose for now -BMP in a.m. DM-2 -Hemoglobin A1c 6.6 on admission -Patient is on glipizide 10 twice daily at home--> continue will hold for now--> will likely discontinue at discharge -May need to change with renal dysfunction as this could precipitate hypoglycemic episodes -Sliding scale insulin -Accu-Cheks as ordered -Cardiac/carb controlled diet Diabetic neuropathy -Continue gabapentin 100 mg at at bedtime Insomnia -Continue trazodone we will schedule as it is currently as needed and patient is forgetting to ask for GERD -Continue Protonix Chronic anemia -Hemoglobin is stable with a baseline of 8-9 -Continue home iron supplementation Chronic thrombocytopenia -Platelet counts are stable History of gout -Continue home allopurinol 100 mg daily Obesity -BMI 38.0 -Complicates treatment, prognosis, outcomes DVT prophylaxis -Patient is fully anticoagulated with Coumadin and INR is therapeutic 3.1 CODE STATUS -Full code Charges/Coding Visit Charges Inpatient E&M: 35378 Subs Hosp L2
[2022-12-11 16:31] LABS: Bedside Glucose 131 mg/dL (74-106)
[2022-12-11 22:30] LABS: Bedside Glucose 150 mg/dL (74-106)
[2022-12-12] VITALS (10 sets, daily range): BP systolic 90–114; BP diastolic 54–92; PULSE 73–90; RESP 12–24; TEMP 36.5–36.6; O2SAT 89–100
--- NOTE | 2022-12-12 01:54 | NURSING ---
Patient non complaint with bipap keeps removing it off his face. Educated patient on the importance of wearing the bipap but patient is refusing to wear. Made nurse aware.
--- NOTE | 2022-12-12 02:22 | NURSING ---
pt ripped off bipap, refusing to keep it on. Attempted to educate pt on importance, but still refusing.
--- NOTE | 2022-12-12 04:41 | EKG12_ITS ---
Test Reason : morning EKG Blood Pressure : / mmHG Vent. Rate : 081 BPM Atrial Rate : 000 BPM P-R Int : 000 ms QRS Dur : 142 ms QT Int : 408 ms P-R-T Axes : 000 133 -25 degrees QTc Int : 473 ms Atrial fibrillation with premature ventricular or aberrantly conducted complexes Right bundle branch block Septal infarct , age undetermined Abnormal ECG When compared with ECG of 03-DEC-2022 16:31, Septal infarct is now Present Confirmed by VAUGHN LUCERO, FRANCISCO ([id number]), graphics editor BEVERLEY CHIN ([id number]) on 12/13/2022 12:56:49 P M Referred By: Yeny Confirmed By:CL MENDES MD
--- NOTE | 2022-12-12 05:21 | CPS ---
PATIENT TOOK BIPAP OFF, STATES HE DOES NOT WANT TO WEAR BIPAP ANYMORE TONIGHT.
[2022-12-12 06:41] LABS: International Normalized Ratio 3.4; Prothrombin Time (Protime)PT. 34.3 SECONDS (11.7-14.9)
[2022-12-12 06:45] LABS: Bedside Glucose 142 mg/dL (74-106)
[2022-12-12 07:03] LABS: ALB/GLOB Ratio 0.7 RATIO (0.9-2.4); AST(SGOT) 11 U/L (15-37); Alanine Aminotransfer ALT/SGPT 11 U/L (16-61); Albumin, Serum 2.8 g/dL (3.2-5.0); Alkaline Phosphatase 186 U/L (45-117); Anion Gap 5 (5-15); BUN 97 mg/dL (7-18); BUN/Creat Ratio 29.2 RATIO (10-20); Calcium,Total 8.4 mg/dL (8.5-10.1); Chloride 100 mmol/L (98-107); Creatinine, Serum 3.32 mg/dL (0.70-1.30); EST Glomerular Filtration Rate 20 mL/min (>60); Est Glom Filt Rate - Afr Amer 24 mL/min (>60); Glucose 135 mg/dL (74-106); Magnesium 2.7 mg/dL (1.6-2.6); Potassium 4.7 mmol/L (3.5-5.1); Protein, Total 6.8 g/dL (6.4-8.2); Sodium Level 139 mmol/L (136-145)
[2022-12-12] MEDS: Pantoprazole Sodium 40 MG Tablet PO (09:25)
[2022-12-12] MEDS: Bumetanide 2 MG Tablet PO (09:25)
[2022-12-12] MEDS: Aspirin E.C. 81 MG Tablet PO (09:26)
[2022-12-12] MEDS: Allopurinol 100 MG Tablet PO (09:26)
[2022-12-12] MEDS: Menthol/Lanolin/Calamine/Znox 113 GM Tube 1 APPLIC TOPICAL (09:26)
--- NOTE | 2022-12-12 10:27 | PN.CC_ITS ---
Assessment & Plan Assessment/Plan (1) Pulmonary hypertension: PLAN: Plan RECOMMENDATIONS: 1. Ongoing diuresis as tolerated by hemodynamics and renal function. 2. Wean supplemental oxygen to maintain saturations at or above 90%. 3. Continue systemic anticoagulation with Coumadin. 4. Perform walking oximetry study prior to consideration for discharge home. 5. Close outpatient pulmonary follow-up is warranted within 2 weeks. IMPRESSIONS: 1. Shortness of breath and hypoxemia Likely secondary to underlying cor pulmonale. The patient appears to be slowly improving with ongoing diuresis. The patient likely has multifactorial pulmonary hypertension contributing to his presentation. I do anticipate that the patient will require supplemental oxygen upon discharge. He would benefit from further outpatient pulmonary work-up for his secondary PH. In the interim, I agree with ongoing diuresis as tolerated by hemodynamics and renal function. Supplemental oxygen can be weaned to maintain saturations at or above 90%. Enc ourage incentive spirometer use and mobilize patient as tolerated. 2. History of coronary artery disease/chronic atrial fibrillation/chronic kidney disease/anemia/obesity Complicates care, management, recovery and prognosis. Continue home medications as indicated. Continue systemic anticoagulation and monitor INR daily. This note was generated with [employer] dictation software. It may contain incorrect words, spelling, and punctuation that were not noted in checking the note before signing. Subjective Subjective The patient was seen and examined at the bedside this morning. Events from the last 24 hours have been reviewed. The patient is currently afebrile, hemodynamically stable and maintaining appropriate oxygen saturations on 2 L/min via nasal cannula. The patient is currently documented to be overall net -13 L for the hospitalization. Creatinine is relatively stable at 3.32. Objective Data Objective Data The patient's most recent lab work, culture data and imaging studies have all been personally reviewed. Surface echocardiogram demonstrated normal LV size and function with an ejection fraction of 65%. Pulmonary artery systolic pressure was estimated to be 80 mmHg. Vital Signs: Vital Signs Temp Pulse Resp BP Pulse Ox O2 Del Method O2 Flow Rate 98 F 80 17 114/92 H 96 Nasal Cannula 2 12/12/22 09:18 12/12/22 09:18 12/12/22 09:18 12/12/22 09:18 12/12/22 09:18 12/12/22 09:18 12/12/22 09:18 FiO2 30 02/09/23 03:48 Oxygen Flow Rate (L/min) [ 0 AMBULATING on Room Air] Oxygen Flow Rate (L/min) [At 2 REST with Oxygen] Oxygen Flow Rate (L/min) [ 3 AMBULATING with Oxygen #2] Oxygen Flow Rate (L/min) [ 2 AMBULATING with Oxygen #1] Oxygen Flow Rate (L/min) [At 0 REST on Room Air] Oxygen Flow Rate (L/min) 2 Oxygen Delivery Method Nasal Cannula Weight: 249 lb 9.012 oz Body Mass Index (BMI) 38.1 Intake & Output: Intake and Output for Last 24 Hours 12/10/22 12/11/22 12/12/22 23:59 23:59 23:59 Intake Total 360 / 360 600 / 600 Output Total 2650 / 2650 800 / 800 150 / 150 Balance -2290 / -2290 -200 / -200 -150 / -150 Lab / Micro Data Attestation: I reviewed the patient's lab results. Result Diagrams: 12/11/22 05:35 12/12/22 05:27 Labs: Laboratory Results - last 24 hr 12/11/22 11:27: POC Glucose 180 H 12/11/22 15:59: POC Glucose 131 H 12/11/22 21:59: POC Glucose 150 H 12/12/22 05:27: PT 34.3 H, INR 3.4 12/12/22 05:27: Sodium 139, Potassium 4.7, Chloride 100, Carbon Dioxide 34.0 H, Anion Gap 5, BUN 97 H, Creatinine 3.32 H, Estim Creat Clear Calc 21.30, Est GFR (MDRD) Af Amer 24 L, Est GFR (MDRD) Non-Af 20 L, BUN/Creatinine Ratio 29.2 H, Glucose 135 H, Calcium 8.4 L, Phosphorus 5.0 H, Magnesium 2.7 H, Total Bilirubin 0.60, AST 11 L, ALT 11 L, Alkaline Phosphatase 186 H, Total Protein 6.8, Albumin 2.8 L, Globulin 4.0, Albumin/Globulin Ratio 0.7 L 12/12/22 06:25: POC Glucose 142 H Micro: Microbiology 12/03/22 12:45 Stool Stool Occult Blood (SARIAH) - Final Occult Blood Positive Rhythm Strip Rhythm Strip: A-fib Rate: 90 Ectopy: None Physical Exam Const alert and no apparent distress Constitutional Narrative: Sitting in bedside recliner. General Appearance: cooperative HEENT normocephalic and head/scalp atraumatic Eyes PERRL, EOMs intact bilaterally and conjunctivae normal Neck supple General: trachea midline Chest inspection of chest normal Resp normal respiratory effort Auscultation: diminished lung sounds Cardio S1 normal heart sound and S2 normal heart sound Rhythm: abnormal rhythm GI normal to inspection, nondistended, normoactive bowel sounds Extremity General Extremity: edema Skin no rashes or lesions noted Neuro CN's II-XII intact bilaterally and no focal motor deficits Psych cooperative and affect normal Charges/Coding Visit Charges Inpatient E&M: 12484 Subs Hosp L2
[2022-12-12] MEDS: Ferrous Gluconate 324 MG Tablet PO (11:39)
[2022-12-12] MEDS: Insulin Lispro 100 UNIT/ML INSULN.PEN SC (11:40)
[2022-12-12 12:01] LABS: Bedside Glucose 152 mg/dL (74-106)
--- NOTE | 2022-12-12 12:17 | TREXTCAR_ITS ---
Diet Diet Order/Speech Therapy: 12/03/22 15:10 Diet: Cardiac: Calorie-Controlled Food consistency:: Regular Liquid Consistency:: Regular/Thin Dietary Modifications:: Consistent Carbohydrate Sodium Restricted Fluid restriction:: 1500 mL Diet Comments: Distant supervision, alternate bites/sips, sips one at a time How many daily calories?: 2000 calorie Routine Orders/Code Status Suppository Frequency: Daily PRN O2 Liters per Minute: 2 O2 Frequency: Continuous Routine Lab Work: CBC (In 1 week), BMP (Repeat a.m. 12/13/2022) and INR (Daily) Code Status: Full Code Wound(s) BLE: Wound Type: scabbing Therapies Weight Bearing: Full weight bearing Physical Therapy: Eval and Treat Occupational Therapy: Eval and Treat Speech Therapy: Eval and Treat Problem/Diagnosis (1) Anemia: Status: Acute Code(s): D64.9 - Anemia, unspecified (2) Dysphagia: Status: Acute Code(s): R13.10 - Dysphagia, unspecified (3) (HFpEF) heart failure with preserved ejection fraction: Status: Chronic Code(s): I50.30 - Unspecified diastolic (congestive) heart failure (4) Hypoxia: Status: Acute Code(s): R09.02 - Hypoxemia (5) Acute hypercapnic respiratory failure: Status: Acute Code(s): J96.02 - Acute respiratory failure with hypercapnia (6) Metabolic encephalopathy: Status: Acute Code(s): G93.41 - Metabolic encephalopathy Allergies/Procedures Done in Hospital Allergies hydromorphone [From Dilaudid] Allergy (Intermediate, Verified 12/03/22 10:33) Vomiting metformin Adverse Reaction (Intermediate, Verified 12/03/22 10:33) Other Procedures: 2-D Echocardiogram, EKG and - (Chest x-ray/modified barium swallow/esophagram) Type of Care/Length of Stay Estimated LOS: Convalescent Care Less Than 30 days Type of Care Needed: Skilled Rehab Potential: Fair Prognosis: Fair Additional Orders/Day of Discharge Day of Discharge: 12/12/22 Dietary and Speech Recommendations Dietitian Recommendations/Changes: Will continue 2000 calorie/consistent carbohydrate; cardiac/sodium-restricted diet with 1500ml/day fluid restriction. Consistency/texture as per DIESEL MECH[employer]IC APPRENTICE on consult given pt's reported hx of swallowing difficulty. Eating well at meals/ONS not warranted at this time; limit ONS due to high BUN/creat and not exceeding protein needs. Follow Up Care Please follow up with your Primary Care Physician in: 2 to 4 weeks Please Follow Up With: Luis Herrera MD When: 2 to 4 weeks Please Follow Up With: Kar Kent MD When: 2 to 4 weeks Please Follow Up With: Maurice Marquez DO When: 2 to 4 weeks Discharge Plan Admission Admit Date/Time: 12/03/22 14:08 Attending Provider: Crystal Acuña Primary Care Provider: Mely Lazar Consulting Providers: Arnold Saini ; Tate Díaz ; Emery Story ; Maurice Marquez ; Domenico Alba ; Orion Patterson ; Justina Brady [employer] Discharge Orders/Prescriptions Prescriptions: No Action glipizide 5 mg tablet extended release 24hr 10 mg PO BID aspirin 81 mg tablet,delayed release (DR/EC) 81 mg PO DAILY atorvastatin 40 mg tablet 40 mg PO QHS tamsulosin 0.4 mg capsule 0.4 mg PO QHS gabapentin 100 mg capsule 100 mg PO QHS warfarin 5 mg tablet 5 mg PO MOTUWEFRSA warfarin 2.5 mg tablet 2.5 mg PO SUTH Rx Instructions: Friday and ferrous gluconate 324 mg (38 mg iron) tablet 324 mg PO DAILY allopurinol 100 mg tablet 100 mg PO DAILY trazodone 50 mg tablet 50 mg PO QHS PRN (Reason: Insomnia) nitroglycerin 0.4 mg tablet, sublingual 0.4 mg sublingual Q5-15M PRN (Reason: Chest Pain) Rx Instructions: do not exceed 3 doses per episode amlodipine 2.5 mg tablet 2.5 mg PO DAILY bumetanide 2 mg tablet 2 mg PO DAILY omeprazole 20 mg capsule,delayed release(DR/EC) 20 mg PO DAILY albuterol sulfate [Ventolin HFA] 90 mcg/actuation HFA aerosol inhaler 2 puff inhalation Q6H PRN (Reason: Wheezing) pantoprazole 40 mg tablet,delayed release (DR/EC) 40 mg PO DAILY Referrals / Follow Up: Mely Lazar MD [Primary Care Provider] -
--- NOTE | 2022-12-12 12:20 | DS.PCM_ITS ---
Providers Date of Admission: 12/03/22 Date of Discharge: 12/12/22 Primary Care Physician: Dr. 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 Routine Consulting Provider: Pulmonary Medicine beth [place] Reason for Consult: PAH Who group 3 EMERGENT Consult: No MD Notified: Yes Date Notified: 12/08/22 Time Notified: 07:44 Method of Notification: Verbal Reason For Visit: CHF Diagnosis Discharge Diagnosis (1) Anemia: Status: Acute Code(s): D64.9 - Anemia, unspecified (2) Dysphagia: Status: Acute Code(s): R13.10 - Dysphagia, unspecified (3) (HFpEF) heart failure with preserved ejection fraction: Status: Chronic Code(s): I50.30 - Unspecified diastolic (congestive) heart failure (4) Hypoxia: Status: Acute Code(s): R09.02 - Hypoxemia (5) Acute hypercapnic respiratory failure: Status: Acute Code(s): J96.02 - Acute respiratory failure with hypercapnia (6) Metabolic encephalopathy: Status: Acute Code(s): G93.41 - Metabolic encephalopathy Medications at Discharge Home Medications allopurinol 100 mg tablet 100 mg PO DAILY 11/29/22 aspirin 81 mg tablet,delayed release 81 mg PO DAILY 11/29/22 atorvastatin 40 mg tablet 40 mg PO QHS 11/29/22 ferrous gluconate 324 mg (38 mg iron) tablet 324 mg PO DAILY 11/29/22 gabapentin 100 mg capsule 100 mg PO QHS 11/29/22 nitroglycerin 0.4 mg sublingual tablet 0.4 mg sublingual Q5-15M PRN Chest Pain 11/29/22 tamsulosin 0.4 mg capsule 0.4 mg PO QHS 11/29/22 trazodone 50 mg tablet 50 mg PO QHS PRN Insomnia 11/29/22 albuterol sulfate 90 mcg/actuation aerosol inhaler (Ventolin HFA) 2 puff inhalation Q6H PRN Wheezing 12/03/22 omeprazole 20 mg capsule,delayed release 20 mg PO DAILY GERD 12/03/22 pantoprazole 40 mg tablet,delayed release 40 mg PO DAILY GERD 12/03/22 acetaminophen 325 mg tablet (Tylenol) 650 mg PO Q6H PRN PRN Pain 1-10 Or Fever >100.7 #0 tabs 12/12/22 bumetanide 2 mg tablet 2 mg PO BIDLX #0 tabs 12/12/22 insulin lispro 100 unit/mL subcutaneous pen (Humalog KwikPen (U-100) Insulin) See Protocol subcut TIDAC #0 mL 12/12/22 menthol 0.44 %-zinc oxide 20.6 % topical ointment (Calmoseptine) 1 applic topi elizabeth BID #0 grams 12/12/22 warfarin 4 mg tablet (Jantoven) 4 mg PO [id number]@1700 #0 tabs 12/12/22 Hospital Course Procedures 2-D Echocardiogram, EKG and - (Modified barium swallow/esophagram) Summary of Care Provided Minutes Spent on Discharge: 42 Hospital Course: Mr. Parikh is a 67-year-old white male who presented to his transplant registered nurse office as an outpatient with increased lower extremity edema and anasarca despite taking Bumex, 40 pound weight gain over 4 months, and dyspnea with exertion. He was sent to the emergency department at that time. Chest x-ray showed pulmonary vascular congestion and he received IV Lasix in the emergency department. Family reported he had an hospitalization for in May and August for similar issues and that he has been following in the transplant registered nurse office every month however they have really done nothing to his medications. They would like to switch transplant registered nurse after discharge. His last admission in August was at [facility] and he was not satisfied with his care there so he presented here. He was admitted on 12/03/2022 and started on a Lasix drip on 12/24/2022 after being placed on bolus Lasix initially. I transitioned him from a Lasix drip to a Bumex drip as he has significantly low albumin for ongoing diuresis. He was evidently having some difficulty swallowing as well and a modified barium swallow was performed and demonstrated some esophageal retention with retrograde flow below the pharyngeal esophageal segment with mild oropharyngeal dysphagia recommending a regular diet with thin liquids. I did obtain an esophagram with the above abnormalities and this was found to be normal. He has a history of ROSSANA but he stopped using his CPAP after gastric bypass surgery. He weighed 400 pounds previously and in May had his weight had been down to 225 pounds however he is gone back up with his significant fluid retention. For his entire hospital stay he was 13.825 L negative. My first day of service which was this past Friday he was significantly somnolent in the morning so we did obtain an ABG at which time he had a pH of 7.31/PCO2 of 57.7 and PO2 of 110 on 2 L nasal cannula. At that time we placed him on continuous BiPAP until his mental status improved which I did later in the day. His nocturnal sleep improved when she placed him on his scheduled trazodone at night and he was wearing BiPAP intermittently. Based on his blood gas and overall condition he would qualify for trilogy at home and this information has been related to TCU Case management/social work to be set up at home. He will need ongoing BiPAP at night and with naps. We have strongly encouraged him to be compliant with this as possible however compliance during his hospital course was somewhat fluctuating. We were able to transition him from IV drip to IV push Bumex on 12/08/2022 and then transition from IV push Bumex to oral Bumex on 12/11/2022. We did decrease his Bumex dose from 4 mg p.o. twice daily to 2 mg p.o. twice daily on 12/12/2022 with his increasing creatinine to 3.32 which is only slightly elevated from previous day however his baseline serum creatinine looks to be between (2.4 and 2.8). His Bumex dose prior to admission was 2 mg daily. Nephrology was consulted as he does have CKD and has never followed with nephrology before realizing he would need ongoing outpatient therapy. They evaluated him and will set up outpatient appointment after discharge. His echocardiogram showed preserved EF with a an ejection fraction of 65%, a severely dilated RV, a severely dilated RV and a moderately enlarged LV, 2+ tricuspid valve insufficiency and trivial mitral valve and aortic valve insufficiency, his aortic root was mildly dilated. We suspect his heart failure is predominantly diastolic and right heart failure related to probable chronic hypoxia, untreated ROSSANA and possibly previous obesity hypoventilation syndrome. The patient required 2 L of nasal cannula during his hospital course and will need this [id number] at discharge. He may need up titrated some with increased exertion. We did discuss palliative care and hospice with the patient and his family. His indicated she had brought this up previously however the patient is resistant and remains resistant to this. He does remain edematous despite being negative almost 14 L for his hospital course however I do not anticipate will ever be able to completely resolve his anasarca entirely. He may be a future candidate for dialysis and ultrafiltration depending on nephrology's input. On the day of discharge she complained of left breast pain and a lump that was noted about a month ago. This was not brought up until the day of discharge. I did obtain a breast ultrasound which was performed and documented as moderate suspicion for malignancy and a palpable abnormality that corresponded to a 2.2 cm x 3.4 cm x 1 cm irregularly lobulated hypoechoic mass with increased vascularity was noted under the nipple of his left breast. Patient has no family history of breast disease or any other cancers. He will need a biopsy. We did confirmed with the transitional care unit that they would be able to obtain this after discharge. We will hold his Coumadin at discharge in preparation for this. He was seen by physical and Occupational Therapy throughout his hospital course and deemed in need of ongoing therapy. Patient family preferred going to the transitional care unit at discharge and they were able to accept him with bed availability and pre-CERT being obtained on . The patient be discharged there for ongoing medical care, physical, occupational, and speech therapy. He is to follow-up with Dr. Herrera from nephrology, Dr. Kent from cardiology, Dr. Marquez from pulmonology, and his primary care physician within the next 2 to 6 weeks. I did encourage the patient's to call and make appointments after the day of discharge to get everything on the books so it was ready when he was being discharged from TCU. He is on Coumadin chronically and his INR on discharge was 3.3. I would recommend a BMP tomorrow and a CBC within the next week. Patient was discharged to TCU in stable condition on 12/12/2022. Discharge diagnoses: Acute hypoxic and hypercapnic respiratory failure Anasarca Decompensated HFpEF secondary to diastolic dysfunction and severe RV dysfunction Severe pulmonary hypertension Left breast mass--> biopsy will need to be arranged after discharge to TCU Dysphagia CKD stage IV CAD Hypertension Hyperlipidemia Chronic atrial fibrillation Sick sinus syndrome Chronic anticoagulation DM-2 Diabetic neuropathy Insomnia GERD Chronic anemia Chronic thrombocytopenia History of gout Obesity status post gastric bypass surgery in 2006 Physical Exam Const alert, oriented x3, no apparent distress and healthy appearing Constitutional Narrative: Obese, upper middle-aged, white male, appears much older than stated age, sitting up in a chair, appears comfortable, appropriately interactive, at bedside General Appearance: cooperative, comfortable, well kempt and well developed Orientation / Consciousness: awake, oriented to person, oriented to place and oriented to time Exam Limitations: no limitations Nutritional Appearance: obese HEENT normocephalic, head/scalp atraumatic and moist oral mucous membranes HEENT Narrative: Moderate hearing loss, dentures in place, Mallampati 3, no thrush Eyes PERRL and EOMs intact bilaterally Eyes Narrative: No scleral icterus, conjunctiva are mildly pale bilaterally Neck no lymphadenopathy, supple and no JVD Neck Narrative: Trachea midline, no thyroid enlargement General: trachea midline Resp normal respiratory effort, no retractions, no use of accessory muscles and clear to auscultation bilaterally Auscultation: Negative for crackles, rhonchi or wheezes Cardio regular rate, S1 normal heart sound, S2 normal heart sound, no murmurs, no rub, no gallops and no clicks Cardio Narrative: Irregular irregular rhythm with normal rate GI normal to inspection, nondistended, normoactive bowel sounds, soft to palpation and non-tender GI Narrative: Large protuberant abdomen, anasarca noted in bilateral flank and dependent areas of back/buttocks but continues to improve with ongoing diuresis Extremity no clubbing, cyanosis or edema Extremity Narrative: Still with about 1+ pitting edema bilateral lower extremities into the thighs and back, no cyanosis or clubbing, edema has significantly improved since admission Skin no rashes or lesions noted, no jaundice, no petechiae and no mottling Skin Narrative: Scattered bilateral extremity wounds that appear noninfected, scrotal edema with the scrotum being the size of General Skin Exam: no breakdown Neuro oriented x3, CN's II-XII intact bilaterally, moves all extremities, no focal motor deficits and no sensory deficits noted Sensorium / Orientation: awake, alert, oriented to person, oriented to place and oriented to time Speech: speech normal Psych affect normal Psych Narrative: Pleasant Weight / BMI Weight Weight: 113.2 kg Body Mass Index (BMI) 38.1 ABG / Lab / Microbiology Data Result Diagrams: 12/11/22 05:35 12/12/22 05:27 Laboratory: Laboratory Results - last 24 hr 02/08/23 15:59: POC Glucose 131 H 12/11/22 21:59: POC Glucose 150 H 12/12/22 05:27: PT 34.3 H, INR 3.4 12/12/22 05:27: Sodium 139, Potassium 4.7, Chloride 100, Carbon Dioxide 34.0 H, Anion Gap 5, BUN 97 H, Creatinine 3.32 H, Estim Creat Clear Calc 21.30, Est GFR (MDRD) Af Amer 24 L, Est GFR (MDRD) Non-Af 20 L, BUN/Creatinine Ratio 29.2 H, Glucose 135 H, Calcium 8.4 L, Phosphorus 5.0 H, Magnesium 2.7 H, Total Bilirubin 0.60, AST 11 L, ALT 11 L, Alkaline Phosphatase 186 H, Total Protein 6.8, Albumin 2.8 L, Globulin 4.0, Albumin/Globulin Ratio 0.7 L 12/12/22 06:25: POC Glucose 142 H 12/12/22 11:37: POC Glucose 152 H Microbiology: Microbiology 12/03/22 12:45 Stool Stool Occult Blood (SARIAH) - Final Occult Blood Positive D/C Instructions Discharge Diet: Low fat / Low cholesterol, 1800 Calorie Control Diet, 8 Cup Fluid Restriction and 2000 mg Sodium Diet Please Follow Up With: Luis Herrera MD Meaningful Use Info Meaningful Use Diagnoses (Choose all that apply): None applicable Discharge Plan Admission Admit Date/Time: 12/03/22 14:08 Primary Reason for Your Visit: Shortness of breath and swelling Attending Provider: Crystal Acuña Primary Care Provider: Mely Lazar Consulting Providers: Arnold Saini ; Tate Díaz ; Emery Story ; Maurice Marquez ; Domenico Alba ; Orion Patterson ; Justina Brady NP Discharge Orders/Prescriptions Prescriptions: New warfarin [Jantoven] 4 mg Tablet 4 mg PO MoTuWeFrSa@1700 Qty: 0 0RF menthol-zinc oxide [Calmoseptine] 0.44-20.6 % Ointment 1 applic topical BID Qty: 0 0RF Protocol: *Topical Application Instructions APPLICATION INSTRUCTIONS: Scrotum bumetanide 2 mg Tablet 2 mg PO BIDLX Qty: 0 0RF insulin lispro [Humalog KwikPen Insulin] 100 unit/mL Insulin Pen See Protocol subcut TIDAC Qty: 0 0RF Protocol: 4. Sliding Scale Insulin High-Med Dosing Condition: 150-199 mg/dl = 2 units Condition: 200-259 mg/dl = 4 units Condition: 260-324 mg/dl = 6 units Condition: 325-374 mg/dl = 8 units Condition: 375-409 mg/dl = 10 units Condition: 410-449 mg/dl = 11 units Condition: Greater than 449 call physician Protocol Text: - Use for Total Daily Dose of Insulin 56-80 units - Patient who are insulin resistant or septic HIGH MEDIUM DOSING ALGORITHM acetaminophen [Tylenol] 325 mg Tablet 650 mg PO Q6H PRN PRN (Reason: Pain 1-10 Or Fever >100.7) Qty: 0 0RF Continued aspirin 81 mg tablet,delayed release (DR/EC) 81 mg PO DAILY atorvastatin 40 mg tablet 40 mg PO QHS tamsulosin 0.4 mg capsule 0.4 mg PO QHS gabapentin 100 mg capsule 100 mg PO QHS ferrous gluconate 324 mg (38 mg iron) tablet 324 mg PO DAILY allopurinol 100 mg tablet 100 mg PO DAILY trazodone 50 mg tablet 50 mg PO QHS PRN (Reason: Insomnia) nitroglycerin 0.4 mg tablet, sublingual 0.4 mg sublingual Q5-15M PRN (Reason: Chest Pain) Rx Instructions: do not exceed 3 doses per episode omeprazole 20 mg capsule,delayed release(DR/EC) 20 mg PO DAILY albuterol sulfate [Ventolin HFA] 90 mcg/actuation HFA aerosol inhaler 2 puff inhalation Q6H PRN (Reason: Wheezing) pantoprazole 40 mg tablet,delayed release (DR/EC) 40 mg PO DAILY Discontinued glipizide 5 mg tablet extended release 24hr 10 mg PO BID warfarin 5 mg tablet 5 mg PO MOTUWEFRSA warfarin 2.5 mg tablet 2.5 mg PO SUTH Rx Instructions: Friday and amlodipine 2.5 mg tablet 2.5 mg PO DAILY bumetanide 2 mg tablet 2 mg PO DAILY Referrals / Follow Up: Maurice Marquez DO [Med Staff - Active Staff] - See Referral Note (Call tomorrow to set up an appointment to be seen in the next 2 to 4 weeks for hospital follow- up) Luis Herrera MD [Med Staff - Consulting] - Within 1 Month (Call to make appointment to be seen in the next 2 weeks for hospital follow-up) Mely Lazar MD [Primary Care Provider] - Within 1 Month Kar Kent MD [Med Staff - Active Staff] - See Referral Note (Call tomorrow to make a hospital follow-up for the next 4 to 6 weeks) Disposition Disposition (needs filled in before D/C Order can be placed): Half-Way Facility Charges/Coding Visit Charges Inpatient E&M: 61811 SNF Disch >30 Min
--- NOTE | 2022-12-12 12:49 | US_ITS ---
STUDY: ULTRASOUND BREAST - LEFT REASON FOR EXAM: Male, 67 years old. Palpable lump left breast. TECHNIQUE: Axial and longitudinal images of the LEFT breast were performed with a high resolution ultrasound transducer. # OF IMAGES: 41 COMPARISON: None. FINDINGS: LEFT Breast: The palpable abnormality corresponds to a 2.2 cm x 3.4 cm x 1 cm irregular lobulated hypoechoic mass. Increased vascularity is seen. Biopsy is recommended. US/Breast Limited Unilateral IMPRESSION: The palpable abnormality corresponds to a 2.2 cm by 3.4 cm x 1 cm irregular lobulated hypoechoic mass with increased vascularity. Biopsy recommended. ASSESSMENT CATEGORY: BIRADS Category 4B: Moderate suspicion for malignancy. A letter regarding these results will be sent to the patient by the facility within 30 days. Electronically Signed: Shekhar Mccall MD at 14:20 EST ,
--- NOTE | 2022-12-12 14:02 | CON.PCM.RE_ITS ---
Assessment & Plan Assessment/Plan (1) Chronic kidney disease (CKD): QUALIFIERS: Chronic kidney disease stage: stage 4 (severe) Qualified Code(s): N18.4 - Chronic kidney disease, stage 4 (severe) (2) (HFpEF) heart failure with preserved ejection fraction: (3) Pulmonary hypertension: (4) EVELYN (acute kidney injury): PLAN: Plan baseline cr is around 2.0 prior to admission. Came in with massive fluid overload. Was on Lasix drip. he lost about 14 kg. Breathing is better. Still has significant lower extremity edema. Echocardiogram with predominantly right- sided heart failure. Continue oral Bumex for now. HPI Consult Data Date of Consult: 12/12/22 HPI Narrative Reason for Consultation: Acute renal failure HPI Narrative: LINDA CARLOS, is a 67 M who presents to the hospital with significant edema. Nephrology on consultation due to acute on chronic renal failure. He has known history of CKD stage IIIb/IV, baseline creatinine seems to be around 2.0. He does see a practice office associate in [facility], Dr. Warren. Recently had massive fluid overload, was placed on Lasix drip. Weight is down by about 14 kg since admission. Still has significant lower extremity edema. Currently has an external urinary catheter. Breathing is better. Being transferred to TCU today. [facility] Medical History (Updated 12/12/22 @ 14:[address] Luis Herrera MD) (HFpEF) heart failure with preserved ejection fraction Anxiety Atherosclerosis of coronary artery bypass graft of [place] heart without angina pectoris Atherosclerosis of coronary artery of [place] heart without angina pectoris BPH with obstruction/lower urinary tract symptoms Chronic anemia Chronic atrial fibrillation Chronic GERD Chronic shortness of breath CKD (chronic kidney disease) Dysphagia Essential (primary) hypertension Insomnia Long-term (current) use of anticoagulants, INR goal 2.0-3.0 Lung nodule, solitary RODRIGUEZ (nonalcoholic steatohepatitis) Pulmonary hypertension Type 2 diabetes mellitus with other diabetic kidney complication Home Medications allopurinol 100 mg tablet 100 mg PO DAILY 11/29/22 [History Last Taken 12/03/22] aspirin 81 mg tablet,delayed release 81 mg PO DAILY 11/29/22 [History Last Taken 12/03/22] atorvastatin 40 mg tablet 40 mg PO QHS 11/29/22 [History Last Taken 12/02/22] ferrous gluconate 324 mg (38 mg iron) tablet 324 mg PO DAILY 11/29/22 [History Last Taken 12/03/22] gabapentin 100 mg capsule 100 mg PO QHS 11/29/22 [History Last Taken 12/01/22] nitroglycerin 0.4 mg sublingual tablet 0.4 mg sublingual Q5-15M PRN Chest Pain 11/29/22 [History Last Taken Unknown] tamsulosin 0.4 mg capsule 0.4 mg PO QHS 11/29/22 [History Last Taken 12/02/22] trazodone 50 mg tablet 50 mg PO QHS PRN Insomnia 11/29/22 [History Last Taken 12/01/22] warfarin 2.5 mg tablet 2.5 mg PO SUTH 11/29/22 [History Last Taken 12/01/22] albuterol sulfate 90 mcg/actuation aerosol inhaler (Ventolin HFA) 2 puff inhalation Q6H PRN Wheezing 12/03/22 [History Last Taken 12/03/22] omeprazole 20 mg capsule,delayed release 20 mg PO DAILY GERD 12/03/22 [History Last Taken 12/03/22] pantoprazole 40 mg tablet,delayed release 40 mg PO DAILY GERD 12/03/22 [History Last Taken 12/03/22] acetaminophen 325 mg tablet (Tylenol) 650 mg PO Q6H PRN PRN Pain 1-10 Or Fever >100.7 #0 tabs 12/12/22 [Rx Last Taken Unknown] bumetanide 2 mg tablet 2 mg PO BIDLX #0 tabs 12/12/22 [Rx Last Taken Unknown] insulin lispro 100 unit/mL subcutaneous pen (Humalog KwikPen (U-100) Insulin) See Protocol subcut TIDAC #0 mL 12/12/22 [Rx Last Taken Unknown] menthol 0.44 %-zinc oxide 20.6 % topical ointment (Calmoseptine) 1 applic topical BID #0 grams 12/12/22 [Rx Last Taken Unknown] warfarin 4 mg tablet (Jantoven) 4 mg PO MoTuWeFrSa@1700 #0 tabs 12/12/22 [Rx Last Taken Unknown] Allergy/AdvReac Type Severity Reaction Status Date / Time hydromorphone [From Dilaudid] Allergy Intermediate Vomiting Verified 12/03/22 10:33 metformin AdvReac Intermediate Other Verified 12/03/22 10:33 Family History Mother CHF (congestive heart failure) Surgical History History of bilateral knee replacement History of coronary artery stent placement (~12/10/10) Hx of bilateral hip replacements Hx of cardiac catheterization (~12/04/21) Hx of cardiac pacemaker (~06/30/19) Hx of gastric bypass (~2011) Hx of shoulder surgery S/P CABG x 3 (~12/23/18) Social History Smoking Status: Never smoker alcohol intake: never substance use type: does not use caffeine: Yes (2/wk) Type: coffee ROS ROS Narrative Negative except above Physical Exam Narrative Alert awake oriented x 3 no obvious distress no pallor no icterus no JVD s1s2 no murmurs lungs clear abdomen soft no organomegaly +++ edema no cyanosis Lab / Micro Data Result Diagrams: 12/11/22 05:35 12/12/22 05:27 Labs: Laboratory Results - last 24 hr 12/11/22 15:59: POC Glucose 131 H 12/11/22 21:59: POC Glucose 150 H 12/12/22 05:27: PT 34.3 H, INR 3.4 12/12/22 05:27: Sodium 139, Potassium 4.7, Chloride 100, Carbon Dioxide 34.0 H, Anion Gap 5, BUN 97 H, Creatinine 3.32 H, Estim Creat Clear Calc 21.30, Est GFR (MDRD) Af Amer 24 L, Est GFR (MDRD) Non-Af 20 L, BUN/Creatinine Ratio 29.2 H, Glucose 135 H, Calcium 8.4 L, Phosphorus 5.0 H, Magnesium 2.7 H, Total Bilirubin 0.60, AST 11 L, ALT 11 L, Alkaline Phosphatase 186 H, Total Protein 6.8, Albumin 2.8 L, Globulin 4.0, Albumin/Globulin Ratio 0.7 L 12/12/22 06:25: POC Glucose 142 H 12/12/22 11:37: POC Glucose 152 H Micro: Microbiology 12/12/22 12:50 Nasal Secretion SARS-CoV-2 Antigen (Rapid) - Final Rhythm Strip Rhythm Strip: A-fib Rate: 90 Ectopy: None
[2022-12-12 14:03] LABS: Pathologist Review Reviewed
--- NOTE | 2022-12-12 14:45 | CASEMGMT ---
Patient has been approved and will go to [facility] T[facility] today. SW notified physician and RN. Plan: d/c to [facility] under skilled level of care. Julee MACHUCA
== END 2022-12-12 16:10 | disposition skilled nursing facility (03) | DRG 291 ==
LOC: ED 12:15 → PCU 14:30
PROVIDERS: Internal Medicine; Emergency Provider Emergency Medicine; PCP Family Medicine; Visit Provider Internal Medicine
DX: I13.0 Hypertensive heart and chronic kidney disease with heart failure and stage 1 through stage 4 chronic kidney disease, or unspecified chronic kidney disease (principal); I50.33 Acute on chronic diastolic (congestive) heart failure; J96.01 Acute respiratory failure with hypoxia; G93.41 Metabolic encephalopathy; J96.02 Acute respiratory failure with hypercapnia; N17.9 Acute kidney failure, unspecified; D68.59 Other primary thrombophilia; E66.2 Morbid (severe) obesity with alveolar hypoventilation; N18.4 Chronic kidney disease, stage 4 (severe); I48.20 Chronic atrial fibrillation, unspecified; K92.1 Melena; I27.23 Pulmonary hypertension due to lung diseases and hypoxia; I27.81 Cor pulmonale (chronic); I49.5 Sick sinus syndrome; E11.22 Type 2 diabetes mellitus with diabetic chronic kidney disease; E11.40 Type 2 diabetes mellitus with diabetic neuropathy, unspecified; I50.813 Acute on chronic right heart failure; I25.10 Atherosclerotic heart disease of native coronary artery without angina pectoris; K21.9 Gastro-esophageal reflux disease without esophagitis; E78.5 Hyperlipidemia, unspecified; I08.3 Combined rheumatic disorders of mitral, aortic and tricuspid valves; M10.9 Gout, unspecified; G47.00 Insomnia, unspecified; R13.12 Dysphagia, oropharyngeal phase; N50.89 Other specified disorders of the male genital organs; Z79.82 Long term (current) use of aspirin; Z68.38 Body mass index [BMI] 38.0-38.9, adult; N63.20 Unspecified lump in the left breast, unspecified quadrant; N40.1 Benign prostatic hyperplasia with lower urinary tract symptoms; Z20.822 Contact with and (suspected) exposure to COVID-19; Z79.84 Long term (current) use of oral hypoglycemic drugs; Z79.01 Long term (current) use of anticoagulants; Z95.0 Presence of cardiac pacemaker; Z95.1 Presence of aortocoronary bypass graft; Z95.5 Presence of coronary angioplasty implant and graft; Z96.643 Presence of artificial hip joint, bilateral; Z96.653 Presence of artificial knee joint, bilateral; Z98.84 Bariatric surgery status
CPT/HCPCS: 36415; 36600; 71046; 74220; 74230; 76642; 80048; 80053; 80061; 82274; 82803; 82962; 83036; 83735; 83880; 84100; 84436; 84443; 84480; 84484; 85014; 85018; 85025; 85610; 87426; 92526; 92610; 92611; 93005; 93306; 94002; 94003; 94668; 94762; 97110; 97116; 97150; 97162; 97166; 97530; 97535; 97802; 99252; 99285; Q9957; A4216; G0463; J1940; J2405

== ENCOUNTER 2022-12-12 16:19 | Inpatient (IN) | payer MEDICARE, SELFPAY ==
[2022-12-12 16:24] VITALS: BP 110/64; PULSE 73; RESP 16; TEMP 36.3; O2SAT 2; BMI 36.9
[2022-12-12 17:36] LABS: Bedside Glucose 170 mg/dL (74-106)
[2022-12-12] MEDS: Insulin Lispro 100 UNIT/ML INSULN.PEN SC (17:48)
[2022-12-12] MEDS: Menthol/Lanolin/Calamine/Znox 113 GM Tube 1 APPLIC TOPICAL (17:49)
--- NOTE | 2022-12-12 19:56 | HP.PCM_ITS ---
HPI - General General Date of Admission: 12/12/22 Date of Service: 12/12/22 Chief Complaint: Here for rehabilitation. HPI Narrative 12/03/2022 LINDA CARLOS, is a 67 Male who presents to [facility] Emergency Department with shortness of breath. 12/03/2022 EKG atrial fibrillation, right bundle branch block. Referred from [facility] with worsening heart failure. Not urinating adequately with Lasix. Worsening edema, worsening scrotal edema. Walking 5 feet causes chest pain, shortness of breath, dizziness. Feels like drowning when laying flat. Pulsox 87% on RA. Elevated BUN, Elevated Creatinine, stool guaiac positive, Elevated BNP. Lasix IV gien. 12/03/2022 Admit to Hospital. Lasix 40mg IV bid, Echo, for acute on chronic diastolic congestive heart failure. Speech Therapy for dysphagia. PT/OT for debility. 12/04/2022 Lasix drip for heart failure. 12/05/2022 Blood pressure low, Creatinine up, on oxygen. Continue Lasix drip. 12/06/2022 Creatinine up, oxygen 2 liters per nasal cannula. 12/06/2022 Echo EF 65%. Severe dilated right ventricle. Right Atrium severely enlarged. Left Atrium moderately enlarged. 12/07/2022 8 Liters negative diuresis. Change Lasix drip to Bumex drip. Consider Trilogy for acute respiratory failure. Modified barium swallow showed esophageal retention, order esophagram for dysphagia. 12/08/2022 BiPAP 2 hours overnight. Bumex drip to 4mg IV bid secondary to elevated creatinine. Patient not compliant with BiPAP at home. Patient told me he stopped using BiPAP after bariatric surgery because he thought the weight loss would improve his sleep apnea symptoms. 12/09/2022 BiPAP 3 hours overnight. Creatinine 3.11 to 3.06. 12/10/2022 Slept well, feels better, swelling better. Pre-CERT for TCU. 12/11/2022 Did not wear BiPAP last night. Bumex PO. 12/12/2022 Admit to TCU with debility, here for rehabilitation, strengthening, prior to discharge home with . [facility] Medical History (HFpEF) heart failure with preserved ejection fraction Anxiety Atherosclerosis of coronary artery bypass graft of [place] heart without angina pectoris Atherosclerosis of coronary artery of [place] heart without angina pectoris BPH with obstruction/lower urinary tract symptoms Chronic anemia Chronic atrial fibrillation Chronic GERD Chronic shortness of breath CKD (chronic kidney disease) Dysphagia Essential (primary) hypertension Insomnia Long-term (current) use of anticoagulants, INR goal 2.0-3.0 Lung nodule, solitary RODRIGUEZ (nonalcoholic steatohepatitis) Pulmonary hypertension Type 2 diabetes mellitus with other diabetic kidney complication Home Medications allopurinol 100 mg tablet 100 mg PO DAILY gout 11/29/22 [History Last Taken 12/03/22] aspirin 81 mg tablet,delayed release 81 mg PO DAILY heart health 11/29/22 [History Last Taken 12/03/22] atorvastatin 40 mg tablet 40 mg PO QHS cholesterol 11/29/22 [History Last Taken 12/02/22] ferrous gluconate 324 mg (38 mg iron) tablet 324 mg PO DAILY iron supplement 11/29/22 [History Last Taken 12/03/22] gabapentin 100 mg capsule 100 mg PO QHS neuropathy 11/29/22 [History Last Taken 12/01/22] nitroglycerin 0.4 mg sublingual tablet 0.4 mg sublingual Q5-15M PRN Chest Pain 11/29/22 [History Last Taken Unknown] tamsulosin 0.4 mg capsule 0.4 mg PO QHS prostate 11/29/22 [History Last Taken 12/02/22] trazodone 50 mg tablet 50 mg PO QHS PRN Insomnia 11/29/22 [History Last Taken 12/01/22] albuterol sulfate 90 mcg/actuation aerosol inhaler (Ventolin HFA) 2 puff inhalation Q6H PRN Wheezing 12/03/22 [History Last Taken 12/03/22] omeprazole 20 mg capsule,delayed release 20 mg PO DAILY GERD 12/03/22 [History Last Taken 12/03/22] pantoprazole 40 mg tablet,delayed release 40 mg PO DAILY GERD 12/03/22 [History Last Taken 12/03/22] acetaminophen 325 mg tablet (Tylenol) 650 mg PO Q6H PRN PRN Pain 1-10 Or Fever >100.7 #0 tabs 12/12/22 [Rx Last Taken Unknown] bumetanide 2 mg tablet 2 mg PO BIDLX water pill 12/12/22 [History Last Taken Unknown] insulin lispro 100 unit/mL subcutaneous pen (Humalog KwikPen (U-100) Insulin) See Protocol subcut TIDAC diabetes 12/12/22 [History Last Taken Unknown] menthol 0.44 %-zinc oxide 20.6 % topical ointment (Calmoseptine) 1 applic topical BID skin 12/12/22 [History Last Taken Unknown] warfarin 4 mg tablet (Jantoven) 4 mg PO [id number]@1700 blood thinner 12/12/22 [History Last Taken Unknown] Allergy/AdvReac Type Severity Reaction Status Date / Time hydromorphone [From Dilaudid] Allergy Intermediate Vomiting Verified 12/03/22 10:33 metformin AdvReac Intermediate Other Verified 12/03/22 10:33 Family History Mother CHF (congestive heart failure) Surgical History History of bilateral knee replacement History of coronary artery stent placement (~12/10/10) Hx of bilateral hip replacements Hx of cardiac catheterization (~12/04/21) Hx of cardiac pacemaker (~06/30/19) Hx of gastric bypass (~2011) Hx of shoulder surgery S/P CABG x 3 (~12/23/18) Social History (Updated 12/12/22 @ 20:[address] Varinder Zamora MD) household members: spouse Smoking Status: Never smoker alcohol intake: never substance use type: does not use caffeine: Yes (2/wk) Type: coffee ROS Constitutional Constitutional: Denies chills, fever(s) or weight gain ENT HEENT: Denies headache(s), nasal congestion or nasal discharge Cardiovascular Cardiovascular: Reports dyspnea on exertion, edema and leg edema; Denies chest pain or palpitations Respiratory/Chest Respiratory/Chest: Denies cough, excessive phlegm production or shortness of breath with exertion Gastrointestinal Gastrointestinal: Denies abdominal pain, nausea or vomiting Genitourinary Genitourinary: Denies dysuria Musculoskeletal Musculoskeletal: Denies joint pain or joint swelling Integumentary Integumentary: Denies rash or wounds Neurologic Neurologic: Denies focal weakness, numbness or tingling Psychiatric Psychiatric: Denies anxiety, auditory hallucinations, depression, homicidal ideation or suicidal ideation Vital Signs Vital Signs Vital Signs: 12/12/22 16:24 12/12/22 16:40 Temperature 97.4 F L Temperature Source Temporal Pulse Rate 73 Pulse Rhythm Regular Respiratory Rate 16 Respiratory Effort Normal Non-Labored Respiratory Depth Normal Respiratory Pattern Normal Blood Pressure 110/64 Blood Pressure Mean 79 Blood Pressure Source Monitor Blood Pressure Position Semi-Fowlers Blood Pressure Location Left Arm Pulse Ox 2 Oxygen Delivery Method Room Air Nasal Cannula Oxygen Flow Rate (L/min) 2 2 Weight Weight: 113.5 kg Body Mass Index (BMI) 36.9 Physical Exam Const alert General Appearance: cooperative HEENT normocephalic Eyes PERRL and EOMs intact bilaterally Neck supple, no JVD and no carotid bruits Resp normal respiratory effort, normal air movement and clear to auscultation bilaterally Auscultation: diminished lung sounds bilateral (Bases.) Cardio regular rate and regular rhythm GI normal to inspection, nondistended, normoactive bowel sounds, non-tender and non-distended Extremity normal capillary refill General Extremity: edema bilateral Skin no rashes or lesions noted General Skin Exam: no breakdown Psych affect normal Appearance: appropriate Results Lab / Micro Data Labs: Laboratory Results - last 24 hr 12/12/22 17:15: POC Glucose 170 H Assessment & Plan Assessment/Plan (1) Debility: (2) Acute respiratory failure with hypoxia: (3) (HFpEF) heart failure with preserved ejection fraction: (4) Dysphagia: (5) Acute kidney injury: (6) Chronic kidney disease, stage 4 (severe): (7) Severe pulmonary hypertension: (8) Obstructive sleep apnea: (9) Coronary artery disease: (10) Diabetes mellitus: (11) Atrial fibrillation: (12) Hypertension: (13) Gout: (14) Hyperlipidemia: (15) Iron deficiency anemia: (16) Diabetic polyneuropathy: (17) BPH (benign prostatic hyperplasia): (18) Insomnia: (19) GERD (gastroesophageal reflux disease): PLAN: Plan 67 year old male with below past medical history hospitalized for acute respiratory failure due to acute on chronic diastolic heart failure from severe pulmonary hypertension/untreated obstructive sleep apnea, complicated by acute kidney injury, dysphagia, left breast mass, admitted to TCU with debility, here for rehabilitation, strengthening, prior to discharge home with . * Debility - PT/OT. * Dysphagia - ST. * Pain - Tylenol 1000mg q6h prn pain (1-10). * Bowel - senna/colace 1 tablet bid, Dulcolax 10mg pr daily prn, MOM 30ml po x 1 prn. * Adult immunization - Administer pneumonia vaccine, covid19 vaccine, flu vaccine as appropriate. * DVT prophylaxis - Hold, need left breast biopsy. * Shortness of breath - Albuterol 2 puffs q6h prn. * Gout - Allopurinol 100mg daily. * Coronary artery disease - Aspirin 81mg daily, NTG 0.4mg sl q5m prn. * Hyperlipidemia - Atorvastatin 40mg qhs. * Acute on chronic diastolic heart failure - Bumex 2mg bidlx. * Iron deficiency anemia - Iron 325mg daily. * Neuropathy - Gabapentin 100mg qhs. * Skin irritation - Calmoseptine topical bid. * GERD - Pantoprazole 40mg daily. * BPH - Tamsulosin 0.4mg qhs. * Insomnia - Trazodone 50mg qhs. * Left breast mass - Schedule Dr. Napier appointment for biopsy.
[2022-12-12 21:50] VITALS: PULSE 84; RESP 12; RESP 17; O2SAT 98
--- NOTE | 2022-12-12 21:52 | CPS ---
Pt. placed on AVAPS. 450VT 12RR PEEP+8 MaxP=24 MinP=12 30% FiO2
[2022-12-12 22:11] LABS: Bedside Glucose 129 mg/dL (74-106)
[2022-12-12 22:22] VITALS: O2SAT 98
[2022-12-12] MEDS: Gabapentin 100 MG Capsule PO (22:29)
[2022-12-12] MEDS: Atorvastatin Calcium 40 MG Tablet PO (22:30)
[2022-12-12] MEDS: Tamsulosin HCl 0.4 MG Capsule PO (22:30)
[2022-12-12] MEDS: traZODone 50 MG Tablet PO (22:33)
--- NOTE | 2022-12-12 23:58 | NURSING ---
Addendum entered by Marielos Wiley 12/13/22 05:01: Written communication left for Dr. Zamora regarding continued refusal of Bi-pap and patient request for stronger PRN pain medication for back pain. Original Note: Patient self removed Bi-pap despite education/encouragement to continue wearing. Patient states I tried, I can't wear it anymore, not new for patient to self remove per acute side nurse report. O2 applied via NC at 2LPM, Spo2 at 98%, continuous pulse ox in place as provided by RT. Requests PRN Tylenol at this time. Fluid restriction continues per order. Denies further requests. No distress observed or reported Call light in reach.
[2022-12-13] MEDS: Acetaminophen 500 MG Tablet 1000 MG PO ×2 (00:03→11:01)
[2022-12-13] MEDS: 0.9% Saline Lock 10 ML Syringe IV (04:50)
[2022-12-13] MEDS: Menthol/Lanolin/Calamine/Znox 113 GM Tube 1 APPLIC TOPICAL ×2 (04:57→18:02)
[2022-12-13] MEDS: Bumetanide 2 MG Tablet PO ×2 (04:57→13:11)
[2022-12-13] MEDS: Allopurinol 100 MG Tablet PO (04:58)
[2022-12-13] MEDS: Pantoprazole Sodium 40 MG Tablet PO (04:58)
[2022-12-13] MEDS: Senna/Docusate Sodium 1 Tablet PO ×2 (04:58→18:01)
[2022-12-13 06:00] LABS: Absolute Lymphocyte Count 0.54 X10^3/uL (0.83-4.51); Absolute Neutrophil Count 2.6 X10^3/uL (2.0-7.7); Basophil# 0.02 X10^3/uL; Basophil% 0.6 % (0-1); Eosinophil# 0.11 X10^3/uL; Hematocrit 27.8 % (40-54); Hemoglobin 7.9 g/dL (13.0-16.5); Lymphocyte # 0.54 X10^3/ul (0.83-4.51); Mean Corp Hgb Conc 28.4 g/dL (32-36); Mean Corpuscular Hgb 25.3 pg (27.0-32.0); Mean Corpuscular Volume 89.1 fL (80-94); Mean Platelet Vol. 11.4 fl (6.2-12.0); Monocyte# 0.34 X10^3/uL; Monocyte% 9.4 % (0-10); NRBC Flagged by Analyzer 0 % (0-5); Neutrophil # 2.59 X10^3/uL (2.7-7.7); Neutrophil % 71.7 % (47-70); POSITIVE COUNT YES; POSITIVE DIFFERENTIAL YES; POSITIVE MORPHOLOGY YES; Platelet Count 91 K/mm3 (150-450); RBC Distribution Width CV 23.8 % (11.6-14.6); RBC Distribution Width SD 76.7 fl (35.1-43.9); Red Blood Count 3.12 M/mm3 (4.6-6.2); White Blood Count 3.6 K/mm3 (4.4-11.0)
[2022-12-13 06:06] LABS: Differential Indicated SCAN CRITERIA MET
[2022-12-13 06:09] LABS: International Normalized Ratio 3.3; Prothrombin Time (Protime)PT. 33.1 SECONDS (11.7-14.9)
[2022-12-13 06:29] LABS: Anion Gap 5 (5-15); BUN 99 mg/dL (7-18); BUN/Creat Ratio 29.8 RATIO (10-20); Calcium,Total 8.6 mg/dL (8.5-10.1); Chloride 101 mmol/L (98-107); Creatinine, Serum 3.32 mg/dL (0.70-1.30); EST Glomerular Filtration Rate 20 mL/min (>60); Est Glom Filt Rate - Afr Amer 24 mL/min (>60); Glucose 118 mg/dL (74-106); Potassium 4.7 mmol/L (3.5-5.1); Sodium Level 140 mmol/L (136-145)
[2022-12-13 06:35] LABS: Anisocytosis 2+; Differential Comment SCANNED
[2022-12-13 06:36] LABS: Macrocytosis 1+; Microcytosis 1+; Ovalocyte RARE; Polychromasia RARE; Target Cells RARE
[2022-12-13 06:45] LABS: Bedside Glucose 115 mg/dL (74-106)
[2022-12-13 07:18] VITALS: O2SAT 99
--- NOTE | 2022-12-13 08:21 | PHA.CONS_ITS ---
TCU RX Drug Regimen Review Subjective: 67 YOM admitted to TCU 12/12/22 S/P hospitalization to [facility] for shortness of breath secondary to worsening CHF. Admitted to TCU for rehabilitation and strengthening prior to discharge home where he resides with his . Objective: Allergies hydromorphone [From Dilaudid] Allergy (Intermediate, Verified 12/03/22 10:33) Vomiting metformin Adverse Reaction (Intermediate, Verified 12/03/22 10:33) Other Current Medications Generic Name Dose Route Start Last Admin Trade Name Freq PRN Reason Stop Dose Admin Acetaminophen 1,000 mg 12/13/22 08:04 Acetaminophen 500 Mg Tablet PO Q6H PRN PRN Pain Score 1-3 Albuterol Sulfate 2 puff 12/12/22 16:30 Albuterol Ih (6.7 Gm) 1 Puff Inhaler INHALATION Q6H PRN Wheezing Allopurinol 100 mg 12/13/22 06:00 12/13/22 04:58 Allopurinol 100 Mg Tablet PO 100 mg DAILY AVANI Administration Ascorbic Acid 500 mg 12/13/22 08:00 Ascorbic Acid 500 Mg Tablet PO BREAKFAST AVANI Aspirin 81 mg 12/13/22 08:00 Aspirin E.C. 81 Mg Tablet PO DAILYCM AVANI Atorvastatin Calcium 40 mg 12/12/22 22:00 12/12/22 22:30 Atorvastatin Calcium 40 Mg Tablet PO 40 mg QHS AVANI Administration Bisacodyl 10 mg 12/12/22 16:39 Bisacodyl 10 Mg Suppository RC DAILY PRN PRN Constipation Bumetanide 2 mg 12/13/22 06:00 12/13/22 04:57 Bumetanide 2 Mg Tablet PO 2 mg BIDLX AVANI Administration Calamine/Phenol 1 applic 12/12/22 18:00 12/13/22 04:57 Menthol/Lanolin/Calamine/Znox 113 Gm Tube TOPICAL 1 applic BID AVANI Administration Protocol Gabapentin 100 mg 12/12/22 22:00 12/12/22 22:29 Gabapentin 100 Mg Capsule PO 100 mg QHS AVANI Administration Magnesium Hydroxide 30 ml 12/12/22 20:35 Magnesium Hydroxide 30 Ml Udc PO X1 PRN Constipation Nitroglycerin 0.4 mg 12/12/22 16:36 Nitroglycerin (Inpatient Use) 0.4 Mg Tab.Subl SL Q5M PRN CARDIAC/CHEST PAIN Pantoprazole Sodium 40 mg 12/13/22 06:00 12/13/22 04:58 Pantoprazole Sodium 40 Mg Tablet PO 40 mg DAILY AVANI Administration Polysaccharide Iron Complex 150 mg 12/13/22 10:00 Iron Polysaccharide Complex 150 Mg Capsule PO DAILY AVANI Senna/Docusate Sodium 1 tablet 12/13/22 06:00 12/13/22 04:58 Senna/Docusate Sodium 1 Tablet PO 1 tablet BID AVANI Administration Sodium Chloride 10 - 40 ml 12/12/22 16:45 12/13/22 04:50 0.9% Saline Lock 10 Ml Syringe IV 10 ml UD PRN Administration SALINE FLUSH Tamsulosin HCl 0.4 mg 12/12/22 22:00 12/12/22 22:30 Tamsulosin Hcl 0.4 Mg Capsule PO 0.4 mg QHS AVANI Administration Tramadol HCl 50 mg 12/13/22 08:04 Tramadol 50 Mg Tablet PO Q6H PRN PRN Pain Score 4-10 Trazodone HCl 50 mg 12/12/22 22:00 12/12/22 22:33 Trazodone 50 Mg Tablet PO 50 mg QHS AVANI Administration Tuberculin PPD 0.1 ml 12/13/22 10:00 Tuberculin,Purif.Prot.Deriv. 50 Tu/Ml Vial ID 12/13/22 10:01 X1 ONE Tuberculin PPD 0.1 ml 12/20/22 10:00 Tuberculin,Purif.Prot.Deriv. 50 Tu/Ml Vial ID 12/20/22 10:01 X1 ONE Problem List (Last Reviewed 12/12/22 @ 20:[address] Varinder Zamora MD) GERD (gastroesophageal reflux disease) (Acute) Insomnia (Acute) BPH (benign prostatic hyperplasia) (Acute) Diabetic polyneuropathy (Acute) Iron deficiency anemia (Acute) Hyperlipidemia (Acute) Gout (Acute) Hypertension (Chronic) Atrial fibrillation (Acute) Diabetes mellitus (Acute) Coronary artery disease (Acute) Obstructive sleep apnea (Acute) Severe pulmonary hypertension (Acute) Chronic kidney disease, stage 4 (severe) (Chronic) Acute kidney injury (Acute) Dysphagia (Acute) Acute respiratory failure with hypoxia (Acute) Debility (Acute) (HFpEF) heart failure with preserved ejection fraction (Chronic) Vital Signs Temp Pulse Resp BP Pulse Ox O2 Del Method O2 Flow Rate 97.4 F L 84 17 110/64 98 Bi-pap 2 12/12/22 16:24 12/12/22 21:50 12/12/22 21:50 12/12/22 16:24 12/12/22 22:22 12/12/22 22:22 12/12/22 16:40 FiO2 30 12/12/22 22:22 Oxygen Flow Rate (L/min) 2 Oxygen Delivery Method Bi-pap Weight: 113.5 kg Body Mass Index (BMI) 36.9 Sodium 140 mmol/L (136-145) 12/13/22 05:20 Potassium 4.7 mmol/L (3.5-5.1) 12/13/22 05:20 Chloride 101 mmol/L (98-107) 12/13/22 05:20 Carbon Dioxide 34.0 mmol/L (21.0-32.0) H 12/13/22 05:20 Anion Gap 5 (5-15) 12/13/22 05:20 BUN 99 mg/dL (7-18) H 12/13/22 05:20 Creatinine 3.32 mg/dL (0.70-1.30) H 12/13/22 05:20 Est GFR (MDRD) Af Amer 24 mL/min (>60) L 12/13/22 05:20 Est GFR (MDRD) Non-Af 20 mL/min (>60) L 12/13/22 05:20 BUN/Creatinine Ratio 29.8 RATIO (10-20) H 12/13/22 05:20 Glucose 118 mg/dL (74-106) H 12/13/22 05:20 Assessment/Plan: 1. Pain: Tylenol 1000mg PO Q6h PRN Pain 1-3, Tramadol 50mg PO Q6h PRN Pain 4-10. Please continue to monitor for increased/decreased S/S pain, PRN medication use, constipation. - To date, the patient has utilized 1 dose of Tylenol. Pre-medication pain assessment was 4/10 (Note: Dose given off old Tylenol order for pain 1-10), post-medication pain rated 0/10. It appears pain is well managed at this time. 2. CHF/ CAD/HLD: Aspirin 81mg PO Daily, Lipitor 40mg PO QHS, Bumex 2mg PO BID, Nitrostat Q5min PRN. Please continue to monitor for S/S bleeding/bruising, I/O, electrolytes (stable as of 12/12), H/H (Hgb 7.9, Hct 27.8), renal function. No lipid panel on file for patient. Please consider obtaining a lipid panel if clinically indicated, thank you. 3. Neuropathy: Gabapentin 100mg PO QHS. Please continue to monitor for medication effectiveness, oversedation with use, renal function (CrCl 21mL/min). The patient's dose is dosed correctly based on renal function. This is a Beer's Criteria medication and can increase the risk of falls. At this time, the patient does not appear to be having issues with falls. Please continue to monitor patient closely given age and risk with medication use. 4. Gout: Allopurinol 100mg PO Daily. Please continue to monitor for gout flare- ups, renal function. The patient is on an appropriate dose based on current renal function, continue to monitor. 5. GERD: Protonix 40mg PO Daily. Please continue to monitor for abdominal discomfort, GERD flare-ups. May also encourage patient to try non-pharmacologic treatments to help minimize GERD exacerbations. 6. BPH: Flomax 0.4mg PO QHS. Please continue to monitor for urinary retention, urinary flow. 7. Iron deficiency anemia: Ferrex 150mg PO Daily. Please continue to monitor H/H (Hgb low at 7.9 on 12/12, Hct 27.8 on 12/12). Please consider obtaining iron studies if clinically indicated, none available in chart. 8. SOB: Albuterol inhaler 2 puff Q6h PRN. Please continue to monitor heart rate, PRN medication usage, symptoms of recurrent SOB. 9. General Wellness: Vitamin C 500mg PO Daily. 10. Diabetes Type II: Patient is not currently on medication for disease state. Last A1c was 6/6% on 12/04/22. Continue dietary changes and monitor A1c every 3 months as clinically indicated. 11. Skin Integrity: Calmoseptine topically BID. Please continue to monitor for skin breakdown, skin irritation/redness, ulcer formation. 12. Bowel: Senna/ Docusate 1 tab PO BID, Dulcolax 10mg RC Daily PRN, MOM 30mL PO x1 PRN. Please continue to monitor for increased/decreased constipation/ diarrhea. -The patient has not had a documented bowel movement; however it has been <48hrs since admission. If the patient does not have a bowel movement in 48hrs, please consider administering PRN mediations. Assessment/Plan for indications treated with psychotropic medications: Insomnia: Trazodone 50mg PO QHS. Please consider a GDR by 06/2023 if clinically indicated. Please continue to monitor for dizziness, oversedation, headache with use. Medical chart and medication regimen reviewed. The following medication irregularities or issues were identified: 1. The patient has a diagnosis of CHF and is not being maintained on a beta angie or an KOSTA/ARB. These medications have a mortality benefit in patients with CHF. Please evaluate, if clinically indicated, if this patient can benefit from these additions to medication therapy, thank you. -Note: Last BP 110/64, Pulse range 73-84 BPM 2. Patient does not have a lipid panel on file and is on Lipitor. Please consider obtaining a lipid panel if clinically indicated, thank you. 3. Iron deficiency anemia: Ferrex 150mg PO Daily. Please continue to monitor H/H (Hgb low at 7.9 on 12/12, Hct 27.8 on 12/12). Please consider obtaining iron studies if clinically indicated, none available in chart. Date of Note:: 12/13/22
[2022-12-13] MEDS: Aspirin E.C. 81 MG Tablet PO (09:40)
[2022-12-13 12:20] LABS: Bedside Glucose 159 mg/dL (74-106)
--- NOTE | 2022-12-13 12:41 | NURSING ---
Hand Hardener Note: Activity Asset: Ashley Hendrickson is independent in his choice of daily activities. Emeka did state he would like the newspaper to read and her he fine watching tv and resting.
[2022-12-13] MEDS: Iron Polysaccharide Complex 150 MG CAPSULE PO (13:11)
[2022-12-13] MEDS: Tuberculin,Purif.prot.deriv. 50 TU/ML Vial 0.1 ML ID (13:11)
[2022-12-13] MEDS: Ascorbic Acid 500 MG Tablet PO (13:11)
[2022-12-13 13:25] LABS: Pathologist Review Reviewed
[2022-12-13] MEDS: traMADol 50 MG Tablet PO (15:00)
--- NOTE | 2022-12-13 15:05 | CHAPLAIN ---
Type of Pastoral Visit _x__ Initial Visit ___ Follow-up Visit ___ On-call Visit ___ General Patient Visit ___ Spiritual Assessment ___ Family Conference ___ Bereavement ___ Rapid Response ___ Code Blue ___ Other (describe below) Pastoral Care Referral From _x__ Patient ___ Family ___ Nurse ___ Physician ___ Caul Fat Puller ___ Emergency Room Clinician ___ Other (describe below) Sacrament/Intervention _x__ Active listening ___ Anointing ___ Rastafari ___ Bereavement ___ Communion ___ Shawanda exploration ___ ___ Life review ___ Prayer ___ Reconciliation ___ Sacrament of Sick _x__ Supportive presence ___ Wedding ___ Other (describe below) Pastoral Comments patient is welcoming and invites this prepress specialist to sit down; pt admits that he is not sure why he is in TCU and that he feels somewhat confused; pt speaks of his and that he lives in [place]; pt states that if I am not feeling better by tomorrow then I am going home; pt talks about needing the bathroom and call light is used, but pt is impatient and looks for a bag to urinate into; this prepress specialist went to find EXCELSIOR CUTTER and notify; EXCELSIOR CUTTER responded immediately
--- NOTE | 2022-12-13 15:33 | NURSING ---
Called and scheduled appt with Silvano Napier at [facility] on 12/19 @ 0815. Pt to be off blood thinners until after biopsy that day. Likely restart coumadin 12/[address] Zamora
--- NOTE | 2022-12-13 15:37 | CASEMGMT ---
Social Work Met with patient to complete initial assessment. Introduced self and role. Verified contacts. Discussed code status and MOLST form. Pt confirms full code. MOLST placed in Dr folder. Educated to [facility] insurance with [employer] 12/16 and continued stay is not guaranteed with each review. Pt's goal is to return home with at [facility]. Pt is new on O2 and bipap. SW to follow for DC planning. Brigette Jackson, PROJECT MANAGER/TEAM COACH SUPERVISOR [employer]
[2022-12-13 16:00] VITALS: BP 112/68; PULSE 69; RESP 16; TEMP 36.3; O2SAT 100
[2022-12-13 16:40] LABS: Bedside Glucose 175 mg/dL (74-106)
[2022-12-13 17:15] LABS: Bedside Glucose 167 mg/dL (74-106)
--- NOTE | 2022-12-13 20:19 | CPS ---
pt has been refusing BiPAP and refused tonight, BiPAP removed from pt rm, pt does not have ROSSANA, BiPAP ordered in hospital for fluid overload
[2022-12-13 20:45] VITALS: BP 102/64; PULSE 81; RESP 18; O2SAT 87
[2022-12-13 20:50] VITALS: O2SAT 98
[2022-12-13] MEDS: Gabapentin 100 MG Capsule PO (20:51)
[2022-12-13] MEDS: traZODone 50 MG Tablet PO (20:52)
[2022-12-13] MEDS: Atorvastatin Calcium 40 MG Tablet PO (20:53)
[2022-12-13] MEDS: Tamsulosin HCl 0.4 MG Capsule PO (20:53)
[2022-12-13 21:25] LABS: Bedside Glucose 213 mg/dL (74-106)
[2022-12-14] MEDS: Allopurinol 100 MG Tablet PO (06:17)
[2022-12-14] MEDS: Bumetanide 2 MG Tablet PO ×2 (06:17→14:15)
[2022-12-14] MEDS: Senna/Docusate Sodium 1 Tablet PO (06:17)
[2022-12-14] MEDS: Pantoprazole Sodium 40 MG Tablet PO (06:17)
[2022-12-14] MEDS: Iron Polysaccharide Complex 150 MG CAPSULE PO (06:17)
[2022-12-14] MEDS: 0.9% Saline Lock 10 ML Syringe IV (06:18)
[2022-12-14] MEDS: Menthol/Lanolin/Calamine/Znox 113 GM Tube 1 APPLIC TOPICAL (06:24)
[2022-12-14] MEDS: Nystatin Powder 15gm Bottle 1 APPLIC TOPICAL (06:24)
[2022-12-14 06:26] LABS: Bedside Glucose 153 mg/dL (74-106)
[2022-12-14 07:06] VITALS: O2SAT 98
[2022-12-14 08:32] LABS: Hematocrit 27.6 % (40-54); Hemoglobin 7.9 g/dL (13.0-16.5); POSITIVE COUNT YES
[2022-12-14] MEDS: Ascorbic Acid 500 MG Tablet PO (08:43)
[2022-12-14 09:30] LABS: International Normalized Ratio 3.1; Prothrombin Time (Protime)PT. 31.3 SECONDS (11.7-14.9)
[2022-12-14 11:55] LABS: Bedside Glucose 154 mg/dL (74-106)
[2022-12-14] MEDS: Acetaminophen 500 MG Tablet 1000 MG PO (14:14)
[2022-12-14 14:21] VITALS: BP 107/68; PULSE 86; RESP 17; TEMP 35.9; O2SAT 93
--- NOTE | 2022-12-14 14:48 | NURSING ---
1330-pt out at desk and pt over afternoon becoming more bizzare behaving. telling me that he thought i should go down over the hill there to watch them fish milagro he thought i might like that. and other weird things. pt also asking what has to do to use bathroom and unsure how to get out of here pt pox checked and was 94% on 2l. reoriented and aware of therapy at 1500 and that had been dressed by occupational this am and put in chair but pt still saying off the wall things at times. bs wnl and vitals wnl as well. last abg co2 was high and pt had been refusing to wear bipap every night . will text dr. diaz for orders. pt also c/o jett for past 2 days but has said nothing to nurse on any rounds today. pt told . what are doing with the kids when you bring them in friday? reports pt acting completely different than on friday when talked on phone
[2022-12-14 15:31] LABS: Allen Test Positive; Base Excess 9 mmol/L (-2 to +2); Bicarbonate 34.5 mmol/L (22-26); Blood Gas Specimen Type ART; O2 Delivery Device Cannula; PO2 135 mmHG (75-100); SITE R Radial; SO2 99 % (95-99); Total Carbon Dioxide 36 mmol/L; pCO2 61.5 mmHg (35-45); pH 7.36 (7.35-7.45)
--- NOTE | 2022-12-14 16:49 | NURSING ---
went to get urine speciman and pt more aphasic even now. unable to state wifes name then unable to say what his name was or age and birthdate was. pt with no unilateral deficit noted when both nurses in to assess. bs wnl. pt up with no difference in weakness. dr. diaz paged and pt ordered to go to er for evalulation. report called to yasmany charger and called and updated. pt back to bed and h&p and mar printed out.
[2022-12-14 17:10] LABS: Bedside Glucose 169 mg/dL (74-106)
--- NOTE | 2022-12-14 19:02 | DS.PCM_ITS ---
Providers Date of Admission: 12/12/22 Primary Care Physician: Dr. Mely Lazar MD Reason For Visit: CHF Diagnosis Discharge Diagnosis (1) Debility: Status: Acute Code(s): R53.81 - Other malaise (2) Acute respiratory failure with hypoxia: Status: Acute Code(s): J96.01 - Acute respiratory failure with hypoxia (3) (HFpEF) heart failure with preserved ejection fraction: Status: Chronic Code(s): I50.30 - Unspecified diastolic (congestive) heart failure (4) Dysphagia: Status: Acute Code(s): R13.10 - Dysphagia, unspecified (5) Acute kidney injury: Status: Acute Code(s): N17.9 - Acute kidney failure, unspecified (6) Chronic kidney disease, stage 4 (severe): Status: Chronic Code(s): N18.4 - Chronic kidney disease, stage 4 (severe) (7) Severe pulmonary hypertension: Status: Acute Code(s): I27.20 - Pulmonary hypertension, unspecified (8) Obstructive sleep apnea: Status: Acute Code(s): G47.33 - Obstructive sleep apnea (adult) (pediatric) (9) Coronary artery disease: Status: Acute Code(s): I25.10 - Atherosclerotic heart disease of [place] coronary artery without angina pectoris (10) Diabetes mellitus: Status: Acute Code(s): E11.9 - Type 2 diabetes mellitus without complications (11) Atrial fibrillation: Status: Acute Code(s): I48.91 - Unspecified atrial fibrillation (12) Hypertension: Status: Chronic Code(s): I10 - Essential (primary) hypertension (13) Gout: Status: Acute Code(s): M10.9 - Gout, unspecified (14) Hyperlipidemia: Status: Acute Code(s): E78.5 - Hyperlipidemia, unspecified (15) Iron deficiency anemia: Status: Acute Code(s): D50.9 - Iron deficiency anemia, unspecified (16) Diabetic polyneuropathy: Status: Acute Code(s): E11.42 - Type 2 diabetes mellitus with diabetic polyneuropathy (17) BPH (benign prostatic hyperplasia): Status: Acute Code(s): N40.0 - Benign prostatic hyperplasia without lower urinary tract symptoms (18) Insomnia: Status: Acute Code(s): G47.00 - Insomnia, unspecified (19) GERD (gastroesophageal reflux disease): Status: Acute Code(s): K21.9 - Gastro-esophageal reflux disease without esophagitis Plan 67 year old male with below past medical history hospitalized for acute respiratory failure due to acute on chronic diastolic heart failure from severe pulmonary hypertension/untreated obstructive sleep apnea, complicated by acute kidney injury, dysphagia, left breast mass, admitted to TCU with debility, here for rehabilitation, strengthening, prior to discharge home with . * Debility - PT/OT. * Dysphagia - ST. * Pain - Tylenol 1000mg q6h prn pain (1-10). * Bowel - senna/colace 1 tablet bid, Dulcolax 10mg pr daily prn, MOM 30ml po x 1 prn. * Adult immunization - Administer pneumonia vaccine, covid19 vaccine, flu vaccine as appropriate. * DVT prophylaxis - Hold, need left breast biopsy. * Shortness of breath - Albuterol 2 puffs q6h prn. * Gout - Allopurinol 100mg daily. * Coronary artery disease - Aspirin 81mg daily, NTG 0.4mg sl q5m prn. * Hyperlipidemia - Atorvastatin 40mg qhs. * Acute on chronic diastolic heart failure - Bumex 2mg bidlx. * Iron deficiency anemia - Iron 325mg daily. * Neuropathy - Gabapentin 100mg qhs. * Skin irritation - Calmoseptine topical bid. * GERD - Pantoprazole 40mg daily. * BPH - Tamsulosin 0.4mg qhs. * Insomnia - Trazodone 50mg qhs. * Left breast mass - Schedule Dr. Napier appointment for biopsy. Medications at Discharge Home Medications allopurinol 100 mg tablet 100 mg PO DAILY gout 11/29/22 aspirin 81 mg tablet,delayed release 81 mg PO DAILY heart health 11/29/22 atorvastatin 40 mg tablet 40 mg PO QHS cholesterol 11/29/22 ferrous gluconate 324 mg (38 mg iron) tablet 324 mg PO DAILY iron supplement 11/29/22 gabapentin 100 mg capsule 100 mg PO QHS neuropathy 11/29/22 nitroglycerin 0.4 mg sublingual tablet 0.4 mg sublingual Q5-15M PRN Chest Pain 11/29/22 tamsulosin 0.4 mg capsule 0.4 mg PO QHS prostate 11/29/22 trazodone 50 mg tablet 50 mg PO QHS PRN Insomnia 11/29/22 albuterol sulfate 90 mcg/actuation aerosol inhaler (Ventolin HFA) 2 puff inhalation Q6H PRN Wheezing 12/03/22 omeprazole 20 mg capsule,delayed release 20 mg PO DAILY GERD 12/03/22 pantoprazole 40 mg tablet,delayed release 40 mg PO DAILY GERD 12/03/22 acetaminophen 325 mg tablet (Tylenol) 650 mg PO Q6H PRN PRN Pain 1-10 Or Fever >100.7 #0 tabs 12/12/22 bumetanide 2 mg tablet 2 mg PO BIDLX water pill 12/12/22 insulin lispro 100 unit/mL subcutaneous pen (Humalog KwikPen (U-100) Insulin) See Protocol subcut TIDAC diabetes 12/12/22 menthol 0.44 %-zinc oxide 20.6 % topical ointment (Calmoseptine) 1 applic topical BID skin 12/12/22 warfarin 4 mg tablet (Jantoven) 4 mg PO MoTuWeFMaycola@1700 blood thinner 12/12/22 Hospital Course Operations None Procedures None Summary of Care Provided Minutes Spent on Discharge: 35 Hospital Course: 67 year old male with below past medical history hospitalized for acute respiratory failure due to acute on chronic diastolic heart failure from severe pulmonary hypertension/untreated obstructive sleep apnea, complicated by acute kidney injury, dysphagia, left breast mass, admitted to TCU with debility, here for rehabilitation, strengthening, prior to discharge home with . 12/14/2022 Resident had change in mental status, he spoke about his children with his , but he has NO children. Later, his speech was mumbled. Discharged to [facility] Emergency Department for evaluation, admission to hospital. Of note, both aspirin, and warfarin were held in preparation for left breast biopsy 12/19/2022. Weight / BMI Weight Weight: 113.597 kg Body Mass Index (BMI) 36.9 ABG / Lab / Microbiology Data Result Diagrams: 12/14/22 08:07 12/13/22 05:20 Laboratory: Laboratory Results - last 24 hr 12/13/22 20:49: POC Glucose 213 H 12/14/22 06:03: POC Glucose 153 H 12/14/22 08:07: PT 31.3 H, INR 3.1 12/14/22 08:07: Hgb 7.9 L, Hct 27.6 L 12/14/22 11:36: POC Glucose 154 H 12/14/22 16:36: POC Glucose 169 H Microbiology: Microbiology 12/14/22 05:00 Nasal Secretion SARS-CoV-2 Antigen (Rapid) - Final ABG: ABG 12/14/22 15:25 Specimen Type ART Sample Site R Radial pH 7.36 Bicarbonate Actual 34.5 H Total CO2 36 Base Excess 9 H O2 Saturation 99 ABG pCO2 61.5 H ABG pO2 135 H Nadeem Test Positive O2 Delivery Device Cannula Liter Flow 2.0 D/C Instructions Weight Bearing Status: Weight bearing as tolerated Additional Instructions: Discharged to [facility] Emergency Department for evaluation, admission to hospital. Please Follow Up With: Kar Kent MD Meaningful Use Info Meaningful Use Diagnoses (Choose all that apply): None applicable Discharge Plan Admission Admit Date/Time: 12/12/22 16:19 Primary Reason for Your Visit: Debility. Attending Provider: Varinder Zamora Chi Primary Care Provider: Mely Lazar Instructions Additional Instructions / Restrictions: Discharged to [facility] Emergency Department for evaluation, admission to hospital. Discharge Orders/Prescriptions Prescriptions: No Action aspirin 81 mg tablet,delayed release (DR/EC) 81 mg PO DAILY atorvastatin 40 mg tablet 40 mg PO QHS tamsulosin 0.4 mg capsule 0.4 mg PO QHS gabapentin 100 mg capsule 100 mg PO QHS ferrous gluconate 324 mg (38 mg iron) tablet 324 mg PO DAILY allopurinol 100 mg tablet 100 mg PO DAILY trazodone 50 mg tablet 50 mg PO QHS PRN (Reason: Insomnia) nitroglycerin 0.4 mg tablet, sublingual 0.4 mg sublingual Q5-15M PRN (Reason: Chest Pain) Rx Instructions: do not exceed 3 doses per episode omeprazole 20 mg capsule,delayed release(DR/EC) 20 mg PO DAILY albuterol sulfate [Ventolin HFA] 90 mcg/actuation HFA aerosol inhaler 2 puff inhalation Q6H PRN (Reason: Wheezing) pantoprazole 40 mg tablet,delayed release (DR/EC) 40 mg PO DAILY acetaminophen [Tylenol] 325 mg Tablet 650 mg PO Q6H PRN PRN (Reason: Pain 1-10 Or Fever >100.7) Qty: 0 0RF bumetanide 2 mg tablet 2 mg PO BIDLX warfarin [Jantoven] 4 mg tablet 4 mg PO Didi@1700 insulin lispro [Humalog KwikPen Insulin] 100 unit/mL insulin pen See Protocol subcut TIDAC Protocol: 4. Sliding Scale Insulin High-Med Dosing Condition: 150-199 mg/dl = 2 units Condition: 200-259 mg/dl = 4 units Condition: 260-324 mg/dl = 6 units Condition: 325-374 mg/dl = 8 units Condition: 375-409 mg/dl = 10 units Condition: 410-449 mg/dl = 11 units Condition: Greater than 449 call physician Protocol Text: - Use for Total Daily Dose of Insulin 56-80 units - Patient who are insulin resistant or septic HIGH MEDIUM DOSING ALGORITHM menthol-zinc oxide [Calmoseptine] 0.44-20.6 % ointment 1 applic topical BID Protocol: *Topical Application Instructions APPLICATION INSTRUCTIONS: Scrotum/buttocks Referrals / Follow Up: Mely Lazar MD [Primary Care Provider] - Disposition Disposition (needs filled in before D/C Order can be placed): Acute [facility]
--- NOTE | 2022-12-14 20:00 | NURSING ---
Received phone call from nurse in ED questioning code status for EMS. Reviewed paper and electronic chart and noted pt is a full code. Nurse informed. Nurse then informs this nurse that spouse is inquiring about the pt's belongings including an IPAD and cell phone. This nurse went back to pt's room and did not see electronics noted above in the room, nightstand drawers, closet, or locked medication box. No electronics labeled in med room for pt. Pt's , Heather, calls and spoke to this nurse to question if his cell phone and IPAD were left behind in his. Spoke w/ offender job retention specialist who report bag of belongings were taken to ED to dayshift nurse. Phone call placed to ED and spoke w/ charge nurse, Kristi, who confirmed w/ another staff member that the pt just left for [facility] and was sent w/ a bag of belongings. Phone call placed to Heather to update on conversation held w/ ED charge nurse. She verbalizes understanding and expresses appreciation for the follow-up.
--- NOTE | 2022-12-24 12:49 | MDS.RN ---
Information for the mds was obtained from review of the clinical record, interview of resident, staff, and direct observation of resident's care.
== END 2022-12-14 17:00 | disposition short-term general hospital (02) | DRG 292 ==
PROVIDERS: Admitting Provider Family Medicine Geriatric Medicine; PCP Family Medicine; Visit Provider Family Medicine Geriatric Medicine
DX: I13.0 Hypertensive heart and chronic kidney disease with heart failure and stage 1 through stage 4 chronic kidney disease, or unspecified chronic kidney disease (principal); I48.20 Chronic atrial fibrillation, unspecified; N13.8 Other obstructive and reflux uropathy; I50.32 Chronic diastolic (congestive) heart failure; N18.4 Chronic kidney disease, stage 4 (severe); I27.20 Pulmonary hypertension, unspecified; E11.22 Type 2 diabetes mellitus with diabetic chronic kidney disease; D50.9 Iron deficiency anemia, unspecified; E11.42 Type 2 diabetes mellitus with diabetic polyneuropathy; Z79.4 Long term (current) use of insulin; G47.33 Obstructive sleep apnea (adult) (pediatric); K21.9 Gastro-esophageal reflux disease without esophagitis; E78.5 Hyperlipidemia, unspecified; I25.10 Atherosclerotic heart disease of native coronary artery without angina pectoris; M10.9 Gout, unspecified; Z95.5 Presence of coronary angioplasty implant and graft; R13.10 Dysphagia, unspecified; N40.1 Benign prostatic hyperplasia with lower urinary tract symptoms; Z79.899 Other long term (current) drug therapy; Z79.82 Long term (current) use of aspirin; Z79.01 Long term (current) use of anticoagulants; Z98.84 Bariatric surgery status; N63.20 Unspecified lump in the left breast, unspecified quadrant
CPT/HCPCS: 36600; 80048; 82803; 82962; 85014; 85018; 85025; 85610; 87811; 92526; 92610; 94002; 94762; 97110; 97116; 97162; 97166; 97530; 97535; 97802; A4216

== ENCOUNTER 2022-12-14 17:01 | Emergency (ER) | payer MEDICARE, SELFPAY ==
[2022-12-14 17:03] VITALS: BP 107/71; PULSE 86; RESP 19; TEMP 36.4; O2SAT 98; BMI 38.2
[2022-12-14 17:06] VITALS: BP 107/71; PULSE 86; RESP 16; TEMP 36.4; O2SAT 100
--- NOTE | 2022-12-14 17:32 | CT_ITS ---
We are attempting to reach an attending provider to discuss findings. An addendum with communication details will be sent when the communication is complete. INDICATION: ams EXAMINATION: CT BRAIN - CT Head or Brain W/O Contrast Injection TECHNIQUE: Multiple axial images were obtained of the head without intravenous contrast. A radiation dose optimization technique was used for this scan. IV Contrast dosage and agent: None. COMPARISON: None FINDINGS: BRAIN PARENCHYMA: Acute parenchymal hematoma in the left temporal lobe, 4.0 x 2.8 x 2.7 cm. Extension of hemorrhage into the left lateral ventricle. Small amount acute subarachnoid hemorrhage at the high right vertex. Minimal adjacent edema. No intracranial mass or mass effect. Posterior fossa structures are unremarkable. CSF SPACES: Appropriate for age. No hydrocephalus. Basal cisterns are patent. CALVARIUM, SKULL BASE, PARANASAL SINUSES AND MASTOID AIR CELLS: Clear. No discrete lytic or blastic abnormalities. CT/Brain/Head without Contrast IMPRESSION: 4.0 cm acute parenchymal hematoma left temporal lobe with extension into the left lateral ventricle, trace amounts of acute hemorrhage over the high right convexity. Electronically Signed: Jesús Kaur MD at 18:19 EST ,
--- NOTE | 2022-12-14 17:32 | EKG12_ITS ---
Test Reason : AMS Blood Pressure : / mmHG Vent. Rate : 089 BPM Atrial Rate : 000 BPM P-R Int : 000 ms QRS Dur : 140 ms QT Int : 398 ms P-R-T Axes : 000 129 -29 degrees QTc Int : 484 ms Atrial fibrillation Right bundle branch block T wave abnormality, consider lateral ischemia Abnormal ECG Confirmed by DENAE LUCERO, LINETTE ([id number]), acquisition editor BEVERLEY CHIN ([id number]) on 12/16/2022 12:34:29 PM Referred By: Confirmed By:LINETTE PHILIPPE MD
[2022-12-14 17:55] LABS: Absolute Lymphocyte Count 0.33 X10^3/uL (0.83-4.51); Absolute Neutrophil Count 3.7 X10^3/uL (2.0-7.7); Basophil# 0.02 X10^3/uL; Basophil% 0.4 % (0-1); Eosinophil# 0.08 X10^3/uL; Eosinophils% 1.8 % (0-5); Hematocrit 28.4 % (40-54); Lymphocyte # 0.33 X10^3/ul (0.83-4.51); Lymphocyte % 7.4 % (19-41); Mean Corp Hgb Conc 28.2 g/dL (32-36); Mean Corpuscular Hgb 25.2 pg (27.0-32.0); Mean Corpuscular Volume 89.6 fL (80-94); Mean Platelet Vol. 11.3 fl (6.2-12.0); Monocyte% 6.7 % (0-10); NRBC Flagged by Analyzer 0 % (0-5); Neutrophil # 3.73 X10^3/uL (2.7-7.7); Neutrophil % 83.5 % (47-70); POSITIVE COUNT YES; POSITIVE DIFFERENTIAL YES; POSITIVE MORPHOLOGY YES; Platelet Count 95 K/mm3 (150-450); RBC Distribution Width CV 23.7 % (11.6-14.6); RBC Distribution Width SD 77.6 fl (35.1-43.9); Red Blood Count 3.17 M/mm3 (4.6-6.2); White Blood Count 4.5 K/mm3 (4.4-11.0)
[2022-12-14 17:56] LABS: Differential Indicated SCAN CRITERIA MET
[2022-12-14 18:04] LABS: Bacteria 0 SEEN /hpf (None Seen); Mucous, Urine 0 SEEN /hpf (<or=2+); Red Blood Cells-Urine 0 SEEN /hpf (0-5); Squamous Epithelial Cells - UA 0 SEEN /hpf (0-5)
[2022-12-14 18:06] LABS: Color, Urine Yellow (Yellow); Glucose, Dipstick Normal (Normal); Ketone-Dipstick Negative (Negative); Leukocyte Esterase-Dipstick 500 /ul (Negative); Nitrite-Dipstick Negative (Negative); Occult Blood-Urine 10 /ul (Negative); Protein-Dipstick Negative (Negative); Specific Gravity, Urine 1.015 (1.002-1.030); Urine Bilirubin Dipstick Negative (Negative); Urine Clarity Clear (Clear); Urine Urobilinogen Normal (Normal)
[2022-12-14 18:10] LABS: International Normalized Ratio 2.9; Prothrombin Time (Protime)PT. 30.2 SECONDS (11.7-14.9)
--- NOTE | 2022-12-14 18:10 | RAD_ITS ---
INDICATION: ams EXAMINATION/TECHNIQUE: X-RAY - portable upright AP chest x-ray COMPARISON: 12/05/2022 FINDINGS: LINES/DEVICES: Stable transvenous pacemaker. LUNGS: Hazy opacity left lower lung field with minimal blunting of the left costophrenic angle. No vascular congestion. MEDIASTINUM AND CARDIOVASCULAR STRUCTURES: Cardiac size stable within upper normal limits with stable CABG changes. BONES AND SOFT TISSUES: No acute changes. RAD/Chest 1 View (Portable) IMPRESSION: Infiltrate left lower lung field with possible small bilateral pleural effusions. Electronically Signed: Jesús Kaur MD at 19:23 EST ,
[2022-12-14 18:17] VITALS: BP 123/83; PULSE 94; RESP 23; O2SAT 100
[2022-12-14 18:17] LABS: White Blood Cells 5-10 SEEN /hpf (0-5)
[2022-12-14 18:21] LABS: ALB/GLOB Ratio 0.8 RATIO (0.9-2.4); AST(SGOT) 6 U/L (15-37); Alanine Aminotransfer ALT/SGPT 10 U/L (16-61); Alkaline Phosphatase 173 U/L (45-117); Anion Gap 6 (5-15); BUN 103 mg/dL (7-18); BUN/Creat Ratio 31.7 RATIO (10-20); Calcium,Total 8.6 mg/dL (8.5-10.1); Chloride 102 mmol/L (98-107); Creatinine, Serum 3.25 mg/dL (0.70-1.30); EST Glomerular Filtration Rate 20 mL/min (>60); Est Glom Filt Rate - Afr Amer 25 mL/min (>60); Estimated Creatinine Clearance 21.75 ml/min; Globulin 3.6 g/dL (2.2-4.2); Glucose 165 mg/dL (74-106); Potassium 4.7 mmol/L (3.5-5.1); Protein, Total 6.6 g/dL (6.4-8.2); Sodium Level 140 mmol/L (136-145); Troponin-I HS 20 pg/mL (3.0-78.0)
--- NOTE | 2022-12-14 18:34 | ED.VIS.STROK ---
HPI History of Present Illness Chief Complaint: Confusion Narrative Narrative: 67-year-old male presenting for evaluation from the TCU. Apparently he has been confused overnight. Is believe this is likely due to not wearing his BiPAP at night. On arrival to the ER he is awake and alert. He does not appear to be in any distress. He has normal vital signs. He does appear to be confused. He is not able to answer simple questions. He does not have any focal neurologic deficits. PFSH PFS Medical History (HFpEF) heart failure with preserved ejection fraction Anxiety Atherosclerosis of coronary artery bypass graft of [place] heart without angina pectoris Atherosclerosis of coronary artery of [place] heart without angina pectoris BPH with obstruction/lower urinary tract symptoms Chronic anemia Chronic atrial fibrillation Chronic GERD Chronic shortness of breath CKD (chronic kidney disease) Dysphagia Essential (primary) hypertension Insomnia Long-term (current) use of anticoagulants, INR goal 2.0-3.0 Lung nodule, solitary RODRIGUEZ (nonalcoholic steatohepatitis) Pulmonary hypertension Type 2 diabetes mellitus with other diabetic kidney complication Home Medications allopurinol 100 mg tablet 100 mg PO DAILY gout 11/29/22 [History Last Taken 12/03/22] aspirin 81 mg tablet,delayed release 81 mg PO DAILY heart health 11/29/22 [History Last Taken 12/03/22] atorvastatin 40 mg tablet 40 mg PO QHS cholesterol 11/29/22 [History Last Taken 12/02/22] ferrous gluconate 324 mg (38 mg iron) tablet 324 mg PO DAILY iron supplement 11/29/22 [History Last Taken 12/03/22] gabapentin 100 mg capsule 100 mg PO QHS neuropathy 11/29/22 [History Last Taken 12/01/22] nitroglycerin 0.4 mg sublingual tablet 0.4 mg sublingual Q5-15M PRN Chest Pain 11/29/22 [History Last Taken Unknown] tamsulosin 0.4 mg capsule 0.4 mg PO QHS prostate 11/29/22 [History Last Taken 12/02/22] trazodone 50 mg tablet 50 mg PO QHS PRN Insomnia 11/29/22 [History Last Taken 12/01/22] albuterol sulfate 90 mcg/actuation aerosol inhaler (Ventolin HFA) 2 puff inhalation Q6H PRN Wheezing 12/03/22 [History Last Taken 12/03/22] omeprazole 20 mg capsule,delayed release 20 mg PO DAILY GERD 12/03/22 [History Last Taken 12/03/22] pantoprazole 40 mg tablet,delayed release 40 mg PO DAILY GERD 12/03/22 [History Last Taken 12/03/22] acetaminophen 325 mg tablet (Tylenol) 650 mg PO Q6H PRN PRN Pain 1-10 Or Fever >100.7 #0 tabs 12/12/22 [Rx Last Taken Unknown] bumetanide 2 mg tablet 2 mg PO BIDLX water pill 12/12/22 [History Last Taken Unknown] insulin lispro 100 unit/mL subcutaneous pen (Humalog KwikPen (U-100) Insulin) See Protocol subcut TIDAC diabetes 12/12/22 [History Last Taken Unknown] menthol 0.44 %-zinc oxide 20.6 % topical ointment (Calmoseptine) 1 applic topical BID skin 12/12/22 [History Last Taken Unknown] warfarin 4 mg tablet (Jantoven) 4 mg PO MoTuWeFrSa@1700 blood thinner 12/12/22 [History Last Taken Unknown] Allergy/AdvReac Type Severity Reaction Status Date / Time hydromorphone [From Dilaudid] Allergy Intermediate Vomiting Verified 12/03/22 10:33 metformin AdvReac Intermediate Other Verified 12/03/22 10:33 Family History Mother CHF (congestive heart failure) Surgical History History of bilateral knee replacement History of coronary artery stent placement (~12/10/10) Hx of bilateral hip replacements Hx of cardiac catheterization (~12/04/21) Hx of cardiac pacemaker (~06/30/19) Hx of gastric bypass (~2011) Hx of shoulder surgery S/P CABG x 3 (~12/23/18) Social History household members: spouse Smoking Status: Never smoker alcohol intake: never substance use type: does not use caffeine: Yes (2/wk) Type: coffee ROS ROS ED Review of Systems ROS Unobtainable: due to mental status EXAM Physical Exam Const Vital Signs: 12/14/22 17:03 12/14/22 17:06 12/14/22 18:15 Temperature 97.5 F L 97.5 F L Temperature Source Oral Oral Pulse Rate 86 86 Respiratory Rate 19 H 16 Blood Pressure 107/71 107/71 Blood Pressure Mean 83 83 Pulse Ox 98 100 Oxygen Delivery Method Nasal Cannula Nasal Cannula Nasal Cannula Oxygen Flow Rate (L/min) 2 2 2 12/14/22 18:17 Temperature Temperature Source Pulse Rate 94 Respiratory Rate 23 H Blood Pressure 123/83 H Blood Pressure Mean 96 Pulse Ox 100 Oxygen Delivery Method Room Air Oxygen Flow Rate (L/min) Positive well nourished General Appearance ED: NAD HEENT Reports moist mucous membranes Eyes PERRL and EOMs intact bilaterally Chest Wall inspection of chest normal Resp normal respiratory effort and clear to auscultation bilaterally Auscultation: Negative for rales, rhonchi or wheezes Cardio Rate: regular rate and bradycardia GI normal to inspection, nondistended, normoactive bowel sounds Back/Spine no CVA tenderness Neuro CN's II-XII intact bilaterally and no sensory deficits noted Sensorium / Orientation: alert Psych mental status grossly normal Skin no wounds General Skin Exam: Negative for jaundice MDM MDM MDM Narrative Medical decision making narrative: Patient presenting with symptoms of delirium. He is unsure when exactly this started. He has no any focal neurologic deficits or lateralizing signs or symptoms. Patient was restarted on Coumadin while he was in the hospital. I do not see any history of trauma or any signs of trauma. Differential at this point includes but is not limited to is stroke, intracranial hemorrhage, UTI, pneumonia, hyperglycemia,. Dehydration, anemia.. CBC to assess white blood cell count, hemoglobin, differential. PT/INR added because the patient is on Coumadin and he has altered mental status. CT of the brain will be obtained as well due to the change in mental status. CMP to assess renal function, liver function, electrolytes, glucose, anion gap. Ammonia will be added as well due to confusion. Urinalysis to rule out UTI. Blood work was obtained and patient was taken down to CT. At that point I was called by the precision optics technician who stated she thought there was bleeding in his brain. I reviewed the patient's CT brain and saw that he had a intraparenchymal hemorrhage. I immediately called to transfer him to [facility]. Patient was given vitamin K and Kcentra per the hemorrhagic stroke order set. Formal NIH stroke scale score is 2 and this is because the patient cannot answer questions appropriately. He is following all commands. He has full sensorimotor throughout. To patient INR was not known at that point so I did use a low dose however the patient's INR came back at 2.9 which makes is appropriate. EKG was obtained which shows atrial fibrillation with a controlled ventricular response 89 bpm on my interpretation. There is some artifact in V4, V5, V6. Chest x-ray my interpretation shows no acute cardiopulmonary process. The radiologist represents and agrees. Liver function appears to be normal however renal function at baseline is 3.25. BUN again is elevated. Glucose 165 without anion gap. High-sensitivity troponin came back at 20. Patient reevaluated and appears to be doing well. NIH is unchanged. Patient was accepted by Dr. Lazar at [facility]. EMS states that will take 30 minutes for them to get here. Patient will be monitored. I did speak with the patient's regarding the situation. She states that she would need to be called because she is not able to drive to [facility]. I will make sure that EMS is aware. Impression: 1. Altered mental status 2. Intraparenchymal hemorrhage 3. History of CKD 4. Chronic anticoagulation 5. Hyperglycemia Lab Data Attestation: I reviewed the patient's lab results. Labs: Laboratory Results - last 24 hr 12/14/22 12/14/22 12/14/22 17:10 17:10 17:10 WBC 4.5 RBC 3.17 L Hgb 8.0 L Hct 28.4 L MCV 89.6 MCH 25.2 L MCHC 28.2 L RDW Std Deviation 77.6 H RDW Coeff of Anders 23.7 H Plt Count 95 L MPV 11.3 Immature Gran % (Auto) 0.200 Neut % (Auto) 83.5 H Lymph % (Auto) 7.4 L Stokes % (Auto) 6.7 Eos % (Auto) 1.8 Baso % (Auto) 0.4 Absolute Neuts (auto) 3.7 Absolute Lymphs (auto) 0.33 L Nucleated RBC % 0 PT 30.2 H INR 2.9 Sodium 140 Potassium 4.7 Chloride 102 Carbon Dioxide 32.0 Anion Gap 6 BUN 103 H* Creatinine 3.25 H Estim Creat Clear Calc 21.75 Est GFR (MDRD) Af Amer 25 L Est GFR (MDRD) Non-Af 20 L BUN/Creatinine Ratio 31.7 H Glucose 165 H Calcium 8.6 Total Bilirubin 0.70 AST 6 L ALT 10 L Alkaline Phosphatase 173 H Ammonia Troponin I High Sens 20 Total Protein 6.6 Albumin 3.0 L Globulin 3.6 Albumin/Globulin Ratio 0.8 L Urine Color Urine Clarity Urine pH Ur Specific [place] Urine Protein Urine Glucose (UA) Urine Ketones Urine Occult Blood Urine Nitrite Urine Bilirubin Urine Urobilinogen Ur Leukocyte Esterase Urine RBC Urine WBC Ur Squamous Epith Cells Urine Bacteria Urine Mucus 12/14/22 12/14/22 17:10 17:55 WBC RBC Hgb Hct MCV MCH MCHC RDW Std Deviation RDW Coeff of Anders Plt Count MPV Immature Gran % (Auto) Neut % (Auto) Lymph % (Auto) Stokes % (Auto) Eos % (Auto) Baso % (Auto) Absolute Neuts (auto) Absolute Lymphs (auto) Nucleated RBC % PT INR Sodium Potassium Chloride Carbon Dioxide Anion Gap BUN Creatinine Estim Creat Clear Calc Est GFR (MDRD) Af Amer Est GFR (MDRD) Non-Af BUN/Creatinine Ratio Glucose Calcium Total Bilirubin AST ALT Alkaline Phosphatase Ammonia 25.0 Troponin I High Sens Total Protein Albumin Globulin Albumin/Globulin Ratio Urine Color Yellow Urine Clarity Clear Urine pH 6.0 Ur Specific [place] 1.015 Urine Protein Negative Urine Glucose (UA) Normal Urine Ketones Negative Urine Occult Blood 10 H Urine Nitrite Negative Urine Bilirubin Negative Urine Urobilinogen Normal Ur Leukocyte Esterase 500 H Urine RBC 0 SEEN Urine WBC 5-10 SEEN Ur Squamous Epith Cells 0 SEEN Urine Bacteria 0 SEEN Urine Mucus 0 SEEN Radiography Diagnostic Testing: Clinical Impression(s) from Imaging Studies Brain CT 12/14/22 17:32 IMPRESSION: 4.0 cm acute parenchymal hematoma left temporal lobe with extension into the left lateral ventricle, trace amounts of acute hemorrhage over the high right convexity. Electronically Signed: Jesús Kaur MD at 18:19 EST , ADDENDUM: 12/14/22 1831 IMPRESSION: 4.0 cm acute parenchymal hematoma left temporal lobe with extension into the left lateral ventricle, trace amounts of acute hemorrhage over the high right convexity. N.B. : The above Results were Read Back by Jesús Kaur MD to Carlos Izquierdo MD, and understanding confirmed on 12/14/2022 18:24:26 (ET). Electronically Signed: Jesús Kaur MD at 18:19 EST Reading Location ID and State: [facility] / [place] Tel , Service support , Discharge Plan Triage Chief Complaint: Confusion ED Provider: Xavier Cantu Dx/Rx/DC Orders Prescriptions: No Action aspirin 81 mg tablet,delayed release (DR/EC) 81 mg PO DAILY atorvastatin 40 mg tablet 40 mg PO QHS tamsulosin 0.4 mg capsule 0.4 mg PO QHS gabapentin 100 mg capsule 100 mg PO QHS ferrous gluconate 324 mg (38 mg iron) tablet 324 mg PO DAILY allopurinol 100 mg tablet 100 mg PO DAILY trazodone 50 mg tablet 50 mg PO QHS PRN (Reason: Insomnia) nitroglycerin 0.4 mg tablet, sublingual 0.4 mg sublingual Q5-15M PRN (Reason: Chest Pain) Rx Instructions: do not exceed 3 doses per episode omeprazole 20 mg capsule,delayed release(DR/EC) 20 mg PO DAILY albuterol sulfate [Ventolin HFA] 90 mcg/actuation HFA aerosol inhaler 2 puff inhalation Q6H PRN (Reason: Wheezing) pantoprazole 40 mg tablet,delayed release (DR/EC) 40 mg PO DAILY acetaminophen [Tylenol] 325 mg Tablet 650 mg PO Q6H PRN PRN (Reason: Pain 1-10 Or Fever >100.7) Qty: 0 0RF bumetanide 2 mg tablet 2 mg PO BIDLX warfarin [Jantoven] 4 mg tablet 4 mg PO MoTuWeFrSa@1700 insulin lispro [Humalog KwikPen Insulin] 100 unit/mL insulin pen See Protocol subcut TIDAC Protocol: 4. Sliding Scale Insulin High-Med Dosing Condition: 150-199 mg/dl = 2 units Condition: 200-259 mg/dl = 4 units Condition: 260-324 mg/dl = 6 units Condition: 325-374 mg/dl = 8 units Condition: 375-409 mg/dl = 10 units Condition: 410-449 mg/dl = 11 units Condition: Greater than 449 call physician Protocol Text: - Use for Total Daily Dose of Insulin 56-80 units - Patient who are insulin resistant or septic HIGH MEDIUM DOSING ALGORITHM menthol-zinc oxide [Calmoseptine] 0.44-20.6 % ointment 1 applic topical BID Protocol: *Topical Application Instructions APPLICATION INSTRUCTIONS: Scrotum/buttocks Primary Care Provider: Mely Lazar Referrals: Mely Lazar MD [Primary Care Provider] -
[2022-12-14 18:42] LABS: Anisocytosis 2+; Hypochromasia 2+
[2022-12-14 18:43] LABS: Differential Comment SCANNED; Schistocytes RARE; Target Cells RARE
[2022-12-14 18:54] VITALS: BP 109/78; PULSE 74; RESP 24; O2SAT 100
[2022-12-14 19:09] VITALS: PULSE 85
[2022-12-14 19:15] VITALS: BP 99/68; PULSE 78; RESP 18; O2SAT 94
--- NOTE | 2022-12-14 19:54 | ED.RN ---
WILBERT HERE TO GET PT 192
== END 2022-12-14 19:45 | disposition short-term general hospital (02) ==
LOC: ED 17:56
PROVIDERS: Emergency Provider Student in an Organized Health Care Education/Training Program; PCP Family Medicine; Visit Provider Student in an Organized Health Care Education/Training Program
DX: R41.82 Altered mental status, unspecified (principal); I50.30 Unspecified diastolic (congestive) heart failure; I13.0 Hypertensive heart and chronic kidney disease with heart failure and stage 1 through stage 4 chronic kidney disease, or unspecified chronic kidney disease; E11.65 Type 2 diabetes mellitus with hyperglycemia; E11.22 Type 2 diabetes mellitus with diabetic chronic kidney disease; I48.91 Unspecified atrial fibrillation; N18.9 Chronic kidney disease, unspecified; Z79.01 Long term (current) use of anticoagulants; I25.10 Atherosclerotic heart disease of native coronary artery without angina pectoris
CPT/HCPCS: 96367; 96365; 70450; 71045; 80053; 81001; 82140; 84484; 85025; 85610; 93005; 99284; J7168; A4216; J3490

== ENCOUNTER 2023-01-12 17:50 | Inpatient (IN) | payer MEDICARE, SELFPAY ==
[2023-01-12 17:56] VITALS: BP 115/64; PULSE 89; RESP 17; TEMP 37.2; O2SAT 93
--- NOTE | 2023-01-12 18:00 | NURSING ---
Patient arrived to the rehab unit, pleasant and cooperative. aware via phone call of team, visiting hours, rehab routine. Due to her husbands mental decline, asked this nurse to take his cell phone and ipad from his belonging bag and she will come get it tomorrow and has been placed up at nurses station. stated, my got on his bank accounts and does not know what he did. will bring in POA and Living will papers. Patient is alert x 1-3 with varying cognition and fluctuation requiring cues.
[2023-01-12 19:50] VITALS: BMI 25.9
[2023-01-12] MEDS: Acetaminophen 325 MG Tablet 650 MG PO (19:50)
[2023-01-12] MEDS: Tamsulosin HCl 0.4 MG Capsule PO (19:51)
[2023-01-12 20:22] VITALS: BP 106/55; PULSE 82; RESP 18; TEMP 37.2; O2SAT 96
--- NOTE | 2023-01-12 22:00 | NURSING ---
This nurse attempted to put patient on 2L O2 NC for HS and patient refused. Pt stated since he has lost weight he does not need O2 at HS anymore.
[2023-01-12] MEDS: Atorvastatin Calcium 40 MG Tablet PO (22:12)
[2023-01-12] MEDS: QUEtiapine 25 MG Tablet PO (22:12)
[2023-01-12] MEDS: Menthol/Lanolin/Calamine/Znox 113 GM Tube 1 APPLIC TOPICAL (22:12)
[2023-01-12 22:35] LABS: Bedside Glucose 158 mg/dL (74-106)
[2023-01-13] MEDS: Lidocaine 5% Patch 2 PATCH TOPICAL (05:47)
[2023-01-13 05:56] LABS: Hemoglobin 9.5 g/dL (13.0-16.5); Mean Corp Hgb Conc 29.7 g/dL (32-36); Mean Corpuscular Hgb 26.6 pg (27.0-32.0); Mean Corpuscular Volume 89.6 fL (80-94); Mean Platelet Vol. 10.2 fl (6.2-12.0); POSITIVE MORPHOLOGY YES; Platelet Count 122 K/mm3 (150-450); RBC Distribution Width CV 22.1 % (11.6-14.6); RBC Distribution Width SD 72.2 fl (35.1-43.9); Red Blood Count 3.57 M/mm3 (4.6-6.2); White Blood Count 5.2 K/mm3 (4.4-11.0)
[2023-01-13 06:00] VITALS: BMI 25.9
[2023-01-13 06:15] LABS: Bedside Glucose 117 mg/dL (74-106)
[2023-01-13 06:30] LABS: ALB/GLOB Ratio 0.7 RATIO (0.9-2.4); AST(SGOT) 11 U/L (15-37); Alanine Aminotransfer ALT/SGPT 12 U/L (16-61); Albumin, Serum 2.7 g/dL (3.2-5.0); Alkaline Phosphatase 152 U/L (45-117); Anion Gap 9 (5-15); BUN 64 mg/dL (7-18); BUN/Creat Ratio 24.3 RATIO (10-20); Calcium,Total 8.8 mg/dL (8.5-10.1); Chloride 93 mmol/L (98-107); Creatinine, Serum 2.63 mg/dL (0.70-1.30); EST Glomerular Filtration Rate 26 mL/min (>60); Est Glom Filt Rate - Afr Amer 31 mL/min (>60); Estimated Creatinine Clearance 26.88 ml/min; Ferritin 91 ng/mL (26-388); Glucose 113 mg/dL (74-106); Iron 45 ug/dL (65-175); Iron Binding Capacity,Total 222 ug/dL (250-450); Magnesium 2.5 mg/dL (1.6-2.6); Phosphorus 2.2 mg/dL (2.5-4.9); Potassium 3.3 mmol/L (3.5-5.1); Protein, Total 6.7 g/dL (6.4-8.2); Sodium Level 135 mmol/L (136-145); Uric Acid 12.1 mg/dL (3.5-7.2)
[2023-01-13 06:54] LABS: Scan Indicated on CBC? Y/N YES- FLAGS NOTED
[2023-01-13 07:43] VITALS: BP 122/73; PULSE 87; RESP 16; TEMP 36.7; O2SAT 96
[2023-01-13] MEDS: Ferrous Gluconate 324 MG Tablet PO (08:55)
[2023-01-13] MEDS: Pantoprazole Sodium 40 MG Tablet PO (08:56)
[2023-01-13] MEDS: Potassium Chloride Oral Tablet 20 MEQ PO ×2 (08:56→13:21)
[2023-01-13] MEDS: FLUoxetine 20 MG Capsule PO (08:56)
[2023-01-13] MEDS: Allopurinol 100 MG Tablet PO (08:56)
[2023-01-13] MEDS: Glucerna Shake 120 ML LIQUID PO ×3 (08:58→17:33)
[2023-01-13 09:20] VITALS: O2SAT 96
[2023-01-13] MEDS: Acetaminophen 325 MG Tablet 650 MG PO (10:21)
--- NOTE | 2023-01-13 11:01 | EX.PCM.HP.RE ---
[facility] - General General Date of Admission: 01/12/23 Date of Service: 01/13/23 Chief Complaint: Debility due to a hemorrhagic CVA. HPI Narrative LINDA CARLOS, is a 67 YO M with a PMH of chronic anemia, chronic atrial fibrillation, GERD, chronic kidney disease stage IIIb, hypertension, chronic anticoagulation with warfarin, history of ROSSANA, a solitary lung nodule, severe pulmonary hypertension, RODRIGUEZ, type 2 diabetes mellitus, CAD with history of coronary artery stents and CABG x3 vessels on 12/23/2018, gastric bypass surgery in 2011, left atrial appendage ligation and implantation of a pacemaker on 06/30/2019 who was seen by Dr. Yang on 12/03/22 for c/o SOB and leg swelling. He had gained 40 lbs over the preceding 4 months. He was sent to the ED. Chest x-ray in the emergency department showed pulmonary vascular congestion. He was given 40 mg of IV Lasix in the emergency department and the hospitalist service was contacted for admission. Nephrology was consulted and participated in management of diuretics while in the hospital. Echocardiogram showed a 65% ejection fraction with a severely dilated right ventricle, severely enlarged right atrium, moderately enlarged left atrium and 2+ tricuspid valve insufficiency. A previous echocardiogram done at [facility] in September 2022 showed an estimated pulmonary artery systolic pressure of 73 consistent with severe pulmonary hypertension. He has a hx of ROSSANA but, he quit wearing CPAP after the gastric bypass. While in the hospital he required BIPAP for hypoxia with CO2 retention. He was seen by Dr. Marquez and was to follow up with Dr. Marquez post DC. Following diuresis and acute on chronic renal failure he had generalized weakness and he was evaluated by PT/OT and admission to TCU was recommended. He was admitted to TCU on 12/12/22. On 12/14/22 he had a sudden alteration in mental status. A noncontrast brain CT showed a 4 cm acute parenchymal hematoma in the left temporal lobe with extension into the left lateral ventricle and trace amounts of acute hemorrhage over the high right convexity. The patient was given Kcentra and vitamin K in the emergency department and the hemorrhagic stroke order set was initiated. The ER physician was in contact with neurosurgery at [facility] and the patient was excepted for transfer by Dr. Lazar. At [facility] he was evaluated by neurosurgery and chose to treat non-surgically. His NIHSS score at admission to [facility] was 1 for questions. CTA was negative for spot sign or AVM. While at [facility] he has decreased appetite and intake and he lost weight. His decided against a Dobbhoff feeding tube or PEG. His weight at discharge from TCU was 250 pounds and his weight at presentation to acute rehab was 175 pounds. He was further diuresed at [facility] with a Lasix drip/intermittent Metolazone and a good portion of the wt loss may be due to water wt, although he is cachectic in appearance at presentation to rehab. He was treated at [facility] for approximately 1 month. With aggressive diuresis he developed a metabolic alkalosis as well as acute on chronic kidney disease. Creatinine peaked at 5.3 but improved to 2.5 at discharge. A transthoracic echocardiogram at [facility] showed a right ventricular systolic pressure estimated at 73 mmHg with right ventricular enlargement, moderate right ventricular dysfunction and moderate tricuspid regurgitation. He is presumed to have CAA and AC is contraindicated for the rest of his life due to high risk of recurrent ICH. While at [facility] he had ST/OT/PT and he significantly improved. Aphasia is much better and he is able to hold a conversation with me with only occasional difficulty with word finding. Acute rehab was recommended at [facility]. On 01/12/23 he was transferred to the acute inpt rehab unit at [facility] for 3 hours of therapy daily to restore function as close to his baseline as possible. A CT scan of the head without contrast was done on 01/12/2023 prior to leaving [facility] and it showed a stable size of the left temporal lobe parenchymal hematoma with interval decrease of surrounding vasogenic edema and local mass effect. The cerebral hemorrhage was thought to be due to underlying cerebral amyloid angiopathy. He had IV iron prior to DC from [facility]. All documentation received from [facility] was personally reviewed. Afebrile VSS Maintaining appropriate oxygen saturation on -93 to 96% on room air. He is ordered 2 L of oxygen at night but refused to wear it last night. Oral intake is good so far. He ate 75 to 100% of his meal last night and 49 to 75% of his breakfast this morning. Discussed with nursing -nursing reports that he slept well on and off throughout the night. Reviewed the PT/OT/ST notes Medication list reviewed. Pt was transitioned from Trazodone to Seroquel last night for agitation. All lab from this AM was personally reviewed. White blood cell count is 5.2. Hemoglobin is 8.5 and platelets are mildly decreased at 122,000. Sodium is a tad low at 135 and the potassium is low at 3.3. Chloride is low at 93 and the serum bicarb is elevated at 33. The BUN is 64 and the creatinine is 2.63 which is down from 3.25 on 12/14/2022. Baseline creatinine prior to recent hospital admissions was about 2, which is consistent with stage IIIb chronic renal failure. The estimated creatinine clearance is low at 26.88 which is consistent with stage IV renal failure. Uric acid is very elevated at 12.1. He is currently taking 100 mg of allopurinol daily. Calcium is within normal limits. Phosphorus is low at 2.2. Magnesium is normal at 2.5. Serum iron is low at 45 and the TIBC is 222. The ferritin is within normal limits at 91 but is an acute phase reactant and may be falsely elevated. The percent saturation is 20% which is consistent with borderline iron deficiency. LFTs have a mild elevation in alkaline phosphatase but are otherwise unremarkable. In the past weighed as much as 400 lbs. He had gastric bypass surgery. Stopped wearing CPAP after the gastric bypass surgery. He required BIPAP while in [facility] prior to the transfer to [facility] for hypoxia and CO2 retention........somnolence improved with BIPAP. He is known to be non-compliant with CPAP. [facility] Medical History (Updated 01/15/23 @ 09:[address] Carol Gibson, ) (HFpEF) heart failure with preserved ejection fraction Anemia Anxiety Atherosclerosis of coronary artery bypass graft of [place] heart without angina pectoris BPH with obstruction/lower urinary tract symptoms Chronic anemia Chronic atrial fibrillation Chronic GERD Chronic kidney disease (CKD) Chronic shortness of breath CKD (chronic kidney disease) Coronary artery disease Diabetes mellitus, type 2 Essential (primary) hypertension Insomnia Long-term (current) use of anticoagulants, INR goal 2.0-3.0 Lung nodule, solitary RODRIGUEZ (nonalcoholic steatohepatitis) SOB (shortness of breath) Stroke/cerebrovascular accident Type 2 diabetes mellitus with other diabetic kidney complication Home Medications allopurinol 100 mg tablet 100 mg PO DAILY gout 11/29/22 [History Last Taken 12/03/22] atorvastatin 40 mg tablet 40 mg PO QHS cholesterol 11/29/22 [History Last Taken 12/02/22] ferrous gluconate 324 mg (38 mg iron) tablet 324 mg PO DAILY iron supplement 11/29/22 [History Last Taken 12/03/22] tamsulosin 0.4 mg capsule 0.4 mg PO DAILY@1730 prostate 11/29/22 [History Last Taken 12/02/22] pantoprazole 40 mg tablet,delayed release 40 mg PO DAILY GERD 12/03/22 [History Last Taken 12/03/22] acetaminophen 325 mg tablet (Tylenol) 650 mg PO Q6H PRN PRN Pain 1-10 Or Fever >100.7 #0 tabs 12/12/22 [Rx Last Taken Unknown] menthol 0.44 %-zinc oxide 20.6 % topical ointment (Calmoseptine) 1 applic topical BID@0600,2200 skin 12/12/22 [History Last Taken Unknown] fluoxetine 20 mg capsule (Prozac) 20 mg PO DAILY mood 01/12/23 [History Last Taken Unknown] lidocaine 4 % topical patch (Lidocaine Pain Relief) 2 patch topical 0600 PRN Pain 01/12/23 [History Last Taken Unknown] potassium chloride 20 mEq tablet,extended release 20 meq PO DAILY supplement 01/12/23 [History Last Taken Unknown] quetiapine 25 mg tablet (Seroquel) 25 mg PO QHS@2100 mood 01/12/23 [History Last Taken Unknown] torsemide 20 mg tablet 20 mg PO DAILY PRN sob 01/12/23 [History Last Taken Unknown] Allergy/AdvReac Type Severity Reaction Status Date / Time hydromorphone [From Dilaudid] Allergy Intermediate Vomiting Verified 12/03/22 10:33 metformin AdvReac Intermediate Other Verified 12/03/22 10:33 Family History Mother CHF (congestive heart failure) Surgical History History of bilateral knee replacement History of coronary artery bypass graft x 3 History of coronary artery stent placement (~12/10/10) Hx of bilateral hip replacements Hx of cardiac catheterization (~12/04/21) Hx of cardiac pacemaker (~06/30/19) Hx of gastric bypass (~2011) Hx of shoulder surgery S/P CABG x 3 (~12/23/18) Social History household members: spouse Smoking Status: Never smoker alcohol intake: never substance use type: does not use caffeine: Yes (2/wk) Type: coffee ROS Constitutional Constitutional: Reports weight loss; Denies anorexia, chills, fever(s) or night sweats Eyes Eyes: Denies change in vision, eye pain or loss of vision ENT HEENT: Reports other Details: He is having pain on the Left side of the skull.......this is where the hematoma is and there is still some cerebral edema on the last CT head. ; Denies abnormal hearing, dysphagia, hearing loss or sore throat Cardiovascular Cardiovascular: Reports edema, orthopnea and other Details: Has been unable to lie flat since his CABG. ; Denies chest pain, dyspnea on exertion, lightheadedness, palpitations, paroxysmal nocturnal dyspnea or syncope Respiratory/Chest Respiratory/Chest: Denies cough, dyspnea, shortness of breath at rest, shortness of breath with exertion or wheezing Gastrointestinal Gastrointestinal: Denies abdominal pain, constipation, diarrhea, dyspepsia, hematemesis, hematochezia, nausea or vomiting Genitourinary Genitourinary: Reports other Details: he tells me that he urinates frequently in small amounts. Postvoid residual on 01/13/2023 was 11 cc. ; Denies dysuria, hematuria, urinary frequency, urinary hesitancy, urinary incontinence or urinary urgency Musculoskeletal Musculoskeletal: Reports back pain and other Details: Low back pain - chronic ; Denies joint pain, joint swelling or neck pain Integumentary Integumentary: Reports dry skin; Denies jaundice, rash or wounds Neurologic Neurologic: Denies confusion, disequilibrium, dizziness, focal weakness, paresthesias, seizures or tremor(s) Psychiatric Psychiatric: Denies homicidal ideation or suicidal ideation Endocrine Endocrinology: Denies polydipsia or polyuria Hematologic/Lymphatic Hematologic/Lymphatic: Reports anemia, easy bleeding and easy bruising; Denies lymphadenopathy Allergic/Immunologic Allergic/Immunologic: Denies eczemia or asthma Vital Signs Vital Signs Vital Signs: 01/12/23 17:56 01/12/23 20:22 01/12/23 18:40 Temperature 98.9 F 98.9 F Temperature Source Temporal Oral Pulse Rate 89 82 Respiratory Rate 17 18 Respiratory Effort Normal Respiratory Depth Normal Respiratory Pattern Normal Blood Pressure 115/64 106/55 L Blood Pressure Mean 81 72 Blood Pressure Source Monitor Monitor Blood Pressure Position Sitting Sitting Blood Pressure Location Left Arm Left Arm Pulse Ox 93 96 Oxygen Delivery Method Room Air Room Air Room Air 01/12/23 22:00 01/13/23 07:43 01/13/23 09:20 Temperature 98.1 F Temperature Source Oral Pulse Rate 87 Respiratory Rate 16 Respiratory Effort Normal Non-Labored Respiratory Depth Normal Respiratory Pattern Normal Blood Pressure 122/73 H Blood Pressure Mean 89 Blood Pressure Source Monitor Blood Pressure Position Semi-Fowlers Blood Pressure Location Left Arm Pulse Ox 96 96 Oxygen Delivery Method Room Air Room Air Room Air 01/13/23 09:36 Temperature Temperature Source Pulse Rate Respiratory Rate Respiratory Effort Normal Non-Labored Respiratory Depth Normal Respiratory Pattern Normal Blood Pressure Blood Pressure Mean Blood Pressure Source Blood Pressure Position Blood Pressure Location Pulse Ox Oxygen Delivery Method Room Air Weight Weight: 175 lb 4.28 oz Body Mass Index (BMI) 25.9 Indicators for Scoring Admitted with or Primary Diagnosis of CVA/Stroke: Yes Hx of CVA/Stroke: Yes (L TEMPORAL HEMORRHAGIC (THIS ADMIT)) Modified Catalino Score MRS Score at time of Evaluation: 3-Moderate disability NIHSS NIHSS 1a. Level of Consciousness: Alert; keenly responsive 1b. LOC Questions: Answers BOTH questions correctly. 1c. LOC Commands: Performs both tasks correctly. 2. Best Gaze: Normal 3. Visual: No visual loss 4. Facial Palsy: Normal symmetrical movements 5a. Left Arm: No drift; arm holds 90 (or 45) degrees for full 10 seconds 5b. Right Arm: No drift; arm holds 90 (or 45) degrees for full 10 seconds 6a. Left Leg: No drift; leg holds 30-degree position for full 5 seconds 6b. Right Leg: No drift; leg holds 30-degree position for full 5 seconds 7. Limb Ataxia: Absent 8. Sensory: Normal; no sensory loss 9. Best Language: [id number] aphasia; (Some difficulty with word finding and could not name the hammock. He had a couple errors when reading words and sentences. ) 10. Dysarthria: Normal 11. Extinction and Inattention: No abnormality Total: 1 Stroke Questions Stroke Team Activated: No Physical Exam Const alert, oriented x3 and no apparent distress General Appearance: cooperative HEENT normocephalic, moist oral mucous membranes and oropharynx normal Eyes PERRL and EOMs intact bilaterally Neck supple General: trachea midline; Negative for lymphadenopathy Resp normal respiratory effort and clear to auscultation bilaterally Resp Narrative: Diminished in the left base but, no crackles and no wheezes. Good resp effort. Cardio regular rate, regular rhythm, no murmurs, no rub and no gallops GI normal to inspection, nondistended, normoactive bowel sounds, soft to palpation and non-tender GI Narrative: No guarding with palpation Extremity no calf tenderness Extremity Narrative: He has only a trace of edema at the ankles and he is sitting with his legs dependent when I entered the room. He has no compression stockings on. Skin General Skin Exam: no breakdown Rashes: no rashes Wounds: Negative for wounds noted Neuro CN's II-XII intact bilaterally, no focal motor deficits and no sensory deficits noted Neuro Narrative: He has generalized weakness. Had trouble with the heel martines test because he has had BL hip replacements and can not get his heel up to the knee.....he was only able to get the heel up to approximately mid tibia but had no ataxia. Coordination / Balance: [id number] test normal Speech: speech normal Psych cooperative, affect normal, denies homicidal ideation and denies suicidal ideation Psych Narrative: He is calm. Appearance: appropriate Results Lab / Micro Data Result Diagrams: 01/15/23 05:46 01/15/23 05:46 Labs: Laboratory Results - last 24 hr 01/12/23 22:10: POC Glucose 158 H 01/13/23 05:37: POC Glucose 117 H 01/13/23 05:44: WBC 5.2, RBC 3.57 L, Hgb 9.5 L, Hct 32.0 L, MCV 89.6, MCH 26.6 L, MCHC 29.7 L, RDW Std Deviation 72.2 H, RDW Coeff of Anders 22.1 H, Plt Count 122 L, MPV 10.2 01/13/23 05:44: Sodium 135 L, Potassium 3.3 L, Chloride 93 L, Carbon Dioxide 33.0 H, Anion Gap 9, BUN 64 H, Creatinine 2.63 H, Estim Creat Clear Calc 26.88, Est GFR (MDRD) Af Amer 31 L, Est GFR (MDRD) Non-Af 26 L, BUN/Creatinine Ratio 24.3 H, Glucose 113 H, Uric Acid 12.1 H, Calcium 8.8, Phosphorus 2.2 L, Magnesium 2.5, Iron 45 L, TIBC 222 L, Ferritin 91, Total Bilirubin 0.90, AST 11 L, ALT 12 L, Alkaline Phosphatase 152 H, Total Protein 6.7, Albumin 2.7 L, Globulin 4.0, Albumin/Globulin Ratio 0.7 L Assessment & Plan Assessment/Plan (1) Debility: (2) Hemorrhagic cerebrovascular accident (CVA): (3) Cerebral amyloid angiopathy: (4) Chronic atrial fibrillation: (5) Chronic kidney disease, stage 4 (severe): (6) Acute kidney injury: PLAN: Resolved (7) Diabetes mellitus, type 2: (8) (HFpEF) heart failure with preserved ejection fraction: (9) Severe pulmonary hypertension: PLAN: PA systolic at [facility] was estimated at 73 (10) Obstructive sleep apnea: PLAN: Not compliant with CPAP since gastric bypass surgery. (11) Coronary artery disease: PLAN: S/P CABG x 3 (12) Gout: PLAN: UA 12 at presentation to rehab. No active gout at present. (13) Hyperlipidemia: (14) Iron deficiency anemia: (15) Diabetic polyneuropathy: (16) BPH (benign prostatic hyperplasia): (17) Insomnia: (18) GERD (gastroesophageal reflux disease): (19) Atherosclerosis of coronary artery bypass graft of [place] heart without angina pectoris: (20) Essential (primary) hypertension: (21) Left breast mass: PLAN: Will need a bx following DC from rehab. Would like to see a surgeon at [facility]. Will refer to Dr. Casey. (22) Hypokalemia: (23) Hypophosphatemia: PLAN: Plan PLAN PT for gait stability OT for ADL's ST for evaluation Analgesics as needed Bowel protocol Fall precautions Assess for Anxiety/Depression - He was started on Prozac in Mid December at [facility] for post stroke depression. GI prophylaxis with pantoprazole DVT prophylaxis -not indicated. He is presumed to have cerebral amyloid angiopathy and anticoagulation is contraindicated for the rest of his life due to increased risk for recurrent intracerebral hemorrhage. Follow up with PCP, neurology, pulmonary medicine, cardiology and nephrology following DC from Rehab AM lab including CMP, CBC, Mag, iron studies and Phos was personally reviewed. 1. Obtain a EKG to assess the QT interval since he will now be on Seroquel rather than Trazodone for behavioral issues. 2. He received IV iron at [facility].......but is still borderline deficient. 3. Ask his how long he has been taking Allopurinol. If he has been taking this dose for at least a month will consider increasing to 150 mg daily. 4. Add a purine restriction to the current heart healthy, carb controlled diet. 5. supplement potassium and recheck a potassium level in 1-2 days. 6. Supplement phosphorous. Low dose due to stage 4 CRF. 7. Check a CBC, BMP, phosphorus and magnesium on Friday -fax to nephrology at [facility]. 8. DC lidocaine patches and transition to arthritis compounded cream 3 times daily to the low back 9. Elevate the HOB at night and have pt attempt to sleep in the bed.......sleeps in a recliner at home and this does not provide adequate elevation of his legs to control LE edema. 10. Schedule acetaminophen 1 g p.o. every 8 hours for cephalgia 11. Add vitamin C 1000 mg p.o. daily to be given with the ferrous gluconate. Charges/Coding Visit Charges Inpatient E&M: 06847 Init Hosp L3
--- NOTE | 2023-01-13 11:14 | EKG12_ITS ---
Test Reason : GENERAL Blood Pressure : / mmHG Vent. Rate : 081 BPM Atrial Rate : 069 BPM P-R Int : 000 ms QRS Dur : 160 ms QT Int : 442 ms P-R-T Axes : 000 127 -29 degrees QTc Int : 513 ms Atrial fibrillation Right bundle branch block T wave abnormality, consider inferior ischemia Abnormal ECG When compared with ECG of 14-DEC-2022 17:40, No significant change was found Confirmed by DENAE LUCERO, LINETTE ([id number]), editor greeting card BEVERLEY CHIN ([id number]) on 01/14/2023 10:16:33 AM Referred By: CONSTANCE Confirmed By:LINETTE PHILIPPE MD
[2023-01-13 11:26] LABS: Bedside Glucose 150 mg/dL (74-106)
--- NOTE | 2023-01-13 11:33 | PCM.RU.PYE ---
Admission Information Primary Diagnosis:: Debility secondary to hemorrhagic CVA. Status Changes from Prescreening?: No changes Identified Actual Problem List:: Pain, ALteration in Cmfrt, Cognitve Impr/Memory Loss, Depression, Alteration in Sleep, Alteration in Nutrition, Mobility Impaired, Self Care Deficit, Diabetes, Hyperglycemia, Alteration/ Air Exchange, Fluid Overload r/t CHF and Alteration-Leisure Activ. Potential Problem List:: DVT, Bleeding, Infection, UTI, Aspiration, Falls, Skin Integrity and Depression Risk of Complications DVT: RITA Hose and Sequential Compression Device Bleeding: Monitor Lab Values, Nursing to Teach Precautions for anti-coagulation therapy., Wound, if applicable, to be assessed every shift. and Stroke patients assessed for lethargy or change in status. Infection: Clinical Staff to Monitor for S/S of infection: and S/S of infection include fever, redness, warmth, etc. Urinary Tract Infection: Monitor for frequency, burning, discomfort, or incontinence. and Nursing will obtain urine sample for urinalysis and C&S when ordered. Aspiration: Clinical staff will monitor for coughing, drooling, congestion., Speech will evaluate swallowing and dsyphasia. and Nursing will monitor patient swallowing during meals. Falls: Patient will be evaluated for Fall Precautions and Patient will be placed on Fall Precautions as indicated per protocol. Skin Breakdown: Nursing will assess skin daily using assessment tool. and Nursing will place on Skin Breakdown Precautions as indicated. Pain: Clinical staff will assess patient's pain level per protocol., Medications will be given, if needed, and the pain level reassessed. and Other methods: Massage, distraction, decrease stimulus, etc. used PRN. Plan of Care Patient requires physician specializing in physical medicine and rehab oversight to provide close medical supervision of rehab issues including: Pain Management, Sleep Problems, Bowel and Bladder, Medical and co-morbidity Management, DVT prophylaxis, Rehabilitation Leadership and Coordination of treatment team Patient needs Physical Therapy: For a minimum of 1 hour and At least 5 out of 7 days Patient needs Physical Therapy to improve:: Mobility, Strengthening, Transfers, Stretching, ROM, Endurance, Stairs, Gait and Balance Patient needs Occupational Therapy: For a minimum of 1 hour and At least 5 out of 7 days Patient needs Occupational Therapy to improve ADL's incl.: Eating, Grooming, Bathing, Dressing, Toileting, Toilet transfers, Community Reintegration, Higher functioning activities, Household tasks, Adaptive Equipment, Splinting and Other activities as determined Patient requires speech therapy: For a minimum of 1 hour and At least 5 out of 7 days Patient requires speech therapy for: Swallowing, Cognition, Language Skills and Compensatory Strategies Patient requires 24/7 Rehabilitation Nursing for: Pain Issues, Identifying and preventing risk factors, Monitoring and reporting current medical conditions, Assisting with ambulation, transfer, and all ADL's, Teaching patients about disease process and medications, Family teaching, Providing safe environment, Bowel and Bladder Issues, Skin integrity and Medication Management Patient needs Manager Enterprise/ Case Management for: Discharge Planning, Arranging Home Equipment or Services and Family Interventions Patient needs Dietary and Nutrition Services for: Adequate Nutrition, Nutritional Supplements and Nutritional Education Goals Patient will remain: free from falls and or injury at time of discharge. Patient will perform bed mobility at: MOD I level of assist. Patient will complete transfers from bed to chair at: MOD I level of assist. Patient will ambulate: with LRD and - (500 feet with least restrictive device at mod I on various surfaces/environments) Patient will complete upper body dressing at: MOD I level of assist. Patient will complete lower body dressing at: MOD I level of assist. (With appropriate adaptive equipment) Patient will complete toileting at: MOD I level of assist. Patient will perform bathing at: MOD I level of assist. Patient will complete grooming at: MOD I level of assist. Patient will complete home management skills at: MOD I level of assist. Patient will achieve: 12 stairs (With 1 handrail at standby assist) and - (1 curb step) Patient will have pain level of: of 3 or less Patient's skin will: remain intact Patient will receive: adequate nutrition. Discharge Planning Pt Prognosis for Sig. Practical Improv. w/in Reasonable Time: Good Estimated Length of stay (days): 21 Anticipated D/C Destination: Home with Outpt Therapy Was Preadmission Assessment Accurate?: Yes
[2023-01-13] MEDS: Insulin Lispro 100 UNIT/ML INSULN.PEN SC (12:33)
[2023-01-13] MEDS: Na Biphos/Potassium Phosphate PACKET 1 PACKET PO ×2 (13:21→21:27)
--- NOTE | 2023-01-13 16:00 | CASEMGMT ---
Social Work SW spoke with [facility]. Pt has signed papers for admission into the program during previous hospital stay, but pt has not been seen yet as he has been hospitalized since discharge. SW to notify Palliative at time of discharge. JANAY Draper
[2023-01-13 16:41] LABS: Bedside Glucose 157 mg/dL (74-106)
[2023-01-13] MEDS: Tamsulosin HCl 0.4 MG Capsule PO (17:33)
[2023-01-13] MEDS: Acetaminophen 500 MG Tablet 1000 MG PO ×2 (18:07→21:26)
[2023-01-13 19:25] VITALS: BP 97/57; PULSE 75; RESP 18; TEMP 36.7; O2SAT 94
[2023-01-13 21:00] VITALS: BMI 25.9
[2023-01-13] MEDS: QUEtiapine 25 MG Tablet PO (21:24)
[2023-01-13] MEDS: Arthritis Pain Compound 60 CLICK TUBE TOPICAL (21:25)
[2023-01-13] MEDS: traZODone 50 MG Tablet PO (21:25)
[2023-01-13] MEDS: Atorvastatin Calcium 40 MG Tablet PO (21:26)
[2023-01-13] MEDS: Menthol/Lanolin/Calamine/Znox 113 GM Tube 1 APPLIC TOPICAL (21:28)
[2023-01-13 22:00] LABS: Bedside Glucose 146 mg/dL (74-106)
--- NOTE | 2023-01-14 03:55 | NURSING ---
Reviewed and agree with Elder WEISS, documentation and assessment charting.
[2023-01-14] MEDS: Acetaminophen 500 MG Tablet 1000 MG PO ×3 (06:32→21:06)
[2023-01-14 07:15] LABS: Bedside Glucose 120 mg/dL (74-106)
[2023-01-14] MEDS: Arthritis Pain Compound 60 CLICK TUBE TOPICAL ×3 (07:18→21:08)
[2023-01-14] MEDS: Menthol/Lanolin/Calamine/Znox 113 GM Tube 1 APPLIC TOPICAL ×2 (07:18→21:07)
[2023-01-14 07:21] VITALS: BP 123/68; PULSE 65; RESP 16; TEMP 36.3; O2SAT 99
[2023-01-14] MEDS: Glucerna Shake 120 ML LIQUID PO (07:52)
[2023-01-14] MEDS: Na Biphos/Potassium Phosphate PACKET 1 PACKET PO ×2 (07:52→21:07)
[2023-01-14] MEDS: Allopurinol 100 MG Tablet PO (07:52)
[2023-01-14] MEDS: FLUoxetine 20 MG Capsule PO (07:53)
[2023-01-14] MEDS: Ascorbic Acid 500 MG Tablet 1000 MG PO (07:53)
[2023-01-14] MEDS: Potassium Chloride Oral Tablet 20 MEQ PO ×2 (07:53→07:55)
[2023-01-14] MEDS: Pantoprazole Sodium 40 MG Tablet PO (07:53)
[2023-01-14] MEDS: Ferrous Gluconate 324 MG Tablet PO (07:55)
[2023-01-14 10:21] VITALS: O2SAT 95
[2023-01-14] MEDS: Insulin Lispro 100 UNIT/ML INSULN.PEN SC ×2 (11:33→21:12)
[2023-01-14 11:40] LABS: Bedside Glucose 151 mg/dL (74-106)
[2023-01-14 15:33] VITALS: BMI 25.9
--- NOTE | 2023-01-14 15:36 | CHAPLAIN ---
Type of Pastoral Visit _x__ Initial Visit ___ Follow-up Visit ___ On-call Visit ___ General Patient Visit ___ Spiritual Assessment ___ Family Conference ___ Bereavement ___ Rapid Response ___ Code Blue ___ Other (describe below) Pastoral Care Referral From _x__ Patient ___ Family ___ Nurse ___ Physician ___ Laser Operator ___ Fretted Instruments Inspector _x__ Other (describe below) Sacrament/Intervention ___ Active listening ___ Anointing ___ Yazidism ___ Bereavement ___ Communion ___ Shawanda exploration ___ ___ Life review ___ Prayer ___ Reconciliation ___ Sacrament of Sick ___ Supportive presence ___ Wedding _x__ Other (describe below) Pastoral Comments patient had asked therapist if the hospital had a wrapping machine tender; that request was communicated to this wrapping machine tender; upon arriving to see the patient the therapy team was ready to do a session; patient requested that the wrapping machine tender try again another time for the visit
[2023-01-14] MEDS: Tamsulosin HCl 0.4 MG Capsule PO (16:51)
[2023-01-14 17:21] LABS: Bedside Glucose 139 mg/dL (74-106)
[2023-01-14 19:46] VITALS: BP 113/65; PULSE 74; RESP 17; TEMP 36.3; O2SAT 98
[2023-01-14 19:54] VITALS: BMI 25.9
[2023-01-14] MEDS: QUEtiapine 25 MG Tablet PO (20:49)
[2023-01-14] MEDS: Atorvastatin Calcium 40 MG Tablet PO (21:07)
[2023-01-14] MEDS: traZODone 50 MG Tablet PO (21:07)
[2023-01-14 22:00] VITALS: PULSE 86; RESP 16
[2023-01-14 22:01] LABS: Bedside Glucose 150 mg/dL (74-106)
[2023-01-15] MEDS: Acetaminophen 500 MG Tablet 1000 MG PO ×3 (05:31→21:05)
[2023-01-15] MEDS: Menthol/Lanolin/Calamine/Znox 113 GM Tube 1 APPLIC TOPICAL ×2 (05:31→21:06)
[2023-01-15] MEDS: Arthritis Pain Compound 60 CLICK TUBE TOPICAL ×3 (05:31→21:06)
[2023-01-15 05:57] LABS: Hematocrit 30.8 % (40-54); Hemoglobin 9.2 g/dL (13.0-16.5); Mean Corp Hgb Conc 29.9 g/dL (32-36); Mean Corpuscular Hgb 26.9 pg (27.0-32.0); Mean Corpuscular Volume 90.1 fL (80-94); Mean Platelet Vol. 9.9 fl (6.2-12.0); POSITIVE MORPHOLOGY YES; Platelet Count 136 K/mm3 (150-450); RBC Distribution Width CV 22.5 % (11.6-14.6); Red Blood Count 3.42 M/mm3 (4.6-6.2); White Blood Count 3.7 K/mm3 (4.4-11.0)
[2023-01-15 06:04] LABS: Scan Indicated on CBC? Y/N YES- FLAGS NOTED
[2023-01-15 06:31] LABS: Bedside Glucose 107 mg/dL (74-106)
[2023-01-15 06:41] LABS: Anion Gap 7 (5-15); BUN 59 mg/dL (7-18); BUN/Creat Ratio 21.7 RATIO (10-20); Calcium,Total 8.8 mg/dL (8.5-10.1); Chloride 98 mmol/L (98-107); Creatinine, Serum 2.72 mg/dL (0.70-1.30); Differential Comment SCANNED; EST Glomerular Filtration Rate 25 mL/min (>60); Est Glom Filt Rate - Afr Amer 30 mL/min (>60); Estimated Creatinine Clearance 25.99 ml/min; Glucose 113 mg/dL (74-106); Magnesium 2.6 mg/dL (1.6-2.6); Phosphorus 3.1 mg/dL (2.5-4.9); Potassium 3.9 mmol/L (3.5-5.1); Sodium Level 137 mmol/L (136-145)
[2023-01-15 07:32] VITALS: BP 115/72; PULSE 69; RESP 16; TEMP 36.9; O2SAT 99
[2023-01-15] MEDS: Potassium Chloride Oral Tablet 20 MEQ PO (08:22)
[2023-01-15] MEDS: Ascorbic Acid 500 MG Tablet 1000 MG PO (08:22)
[2023-01-15] MEDS: Glucerna Shake 120 ML LIQUID PO (08:22)
[2023-01-15] MEDS: Pantoprazole Sodium 40 MG Tablet PO (08:22)
[2023-01-15] MEDS: Allopurinol 100 MG Tablet PO (08:22)
[2023-01-15] MEDS: FLUoxetine 20 MG Capsule PO (08:22)
[2023-01-15] MEDS: Ferrous Gluconate 324 MG Tablet PO (08:22)
--- NOTE | 2023-01-15 09:42 | PCM.PROGNOTE ---
Subjective Subjective Afebrile VSS-heart rate is well controlled Maintaining appropriate oxygen saturation on RA. Wearing 2 L of nasal O2 at night and anytime he is sleeping until a formal sleep study can be done. Oral intake is good for food and not so good with fluids. Fluid intake yesterday was only 700 and he had 350 out. He is -440 overnight. We have not had to give Torsemide since arrival on rehab. Blood sugar record was reviewed. Blood sugars are well controlled. He remains on a sliding insulin scale only. He has received only 3 units of insulin in coverage since arrival on rehab. Discussed with nursing - no problems that need addressed. He slept well. He is now compliant with the O2 at night. Reviewed the PT/OT/ST notes Medication list reviewed. All lab from this morning was personally reviewed. White blood cell count is decreased at 3.7 from 5.2 at admission. He is known to be pancytopenic in the past. Hemoglobin is stable at 9.2. The MCV is 90.1 the RDW standard deviation is markedly increased at 75. Platelet count is 136,000, up from 122,000 at admission. Sodium is now normal at 137 and the potassium is within normal limits now following supplementation at 3.9. Serum bicarb is high normal at 32. BUN is down to 59 from 64 at admission. Creatinine is 2.72, up from 2.63 at admission. GFR is 25 which is consistent with stage IV chronic renal failure. Calcium is within normal limits. Phosphorus is 3.1 today, up from 2.2 with supplementation. Magnesium is normal. Bear's only complaints are a Left side OJEDA associated with L forehead and left facial pain. He is also perseverating on the cutaneous horn on the left side of the face and seems to associate the left side OJEDA with the cutaneous horn. Objective Data Objective Data Vital Signs: Vital Signs Temp Pulse Resp BP Pulse Ox O2 Del Method O2 Flow Rate 98.5 F 69 16 115/72 99 Nasal Cannula 2 01/15/23 07:32 01/15/23 07:32 01/15/23 07:32 01/15/23 07:32 01/15/23 07:32 01/15/23 07:32 01/15/23 07:32 Oxygen Flow Rate (L/min) 2 Oxygen Delivery Method Nasal Cannula Weight: 179 lb 14.355 oz Body Mass Index (BMI) 25.9 Intake & Output: Intake and Output for Last 24 Hours 01/13/23 01/14/23 01/15/23 23:59 23:59 23:59 Intake Total 1020 / 1020 700 / 820 360 / 360 Output Total 1200 / 1200 350 / 600 800 / 800 Balance -180 / -180 350 / 220 -440 / -440 Lab / Micro Data Result Diagrams: 01/15/23 05:46 01/15/23 05:46 Labs: Laboratory Results - last 24 hr 01/14/23 11:12: POC Glucose 151 H 01/14/23 16:54: POC Glucose 139 H 01/14/23 21:11: POC Glucose 150 H 01/15/23 05:46: Sodium 137, Potassium 3.9, Chloride 98, Carbon Dioxide 32.0, Anion Gap 7, BUN 59 H, Creatinine 2.72 H, Estim Creat Clear Calc 25.99, Est GFR (MDRD) Af Amer 30 L, Est GFR (MDRD) Non-Af 25 L, BUN/Creatinine Ratio 21.7 H, Glucose 113 H, Calcium 8.8, Phosphorus 3.1, Magnesium 2.6 01/15/23 05:46: WBC 3.7 L, RBC 3.42 L, Hgb 9.2 L, Hct 30.8 L, MCV 90.1, MCH 26.9 L, MCHC 29.9 L, RDW Std Deviation 75.0 H, RDW Coeff of Anders 22.5 H, Plt Count 136 L, MPV 9.9, Differential Comment SCANNED 01/15/23 06:11: POC Glucose 107 H Physical Exam Const alert and oriented x3 Constitutional Narrative: He is appropriate and makes good eye contact when he talks with me. His speech is more fluent and he is having less trouble with word finding. General Appearance: cooperative HEENT moist oral mucous membranes Resp normal respiratory effort, normal air movement and clear to auscultation bilaterally Cardio Cardio Narrative: Irregular irregular rhythm with controlled ventricular response. No gallop. GI normal to inspection, nondistended, normoactive bowel sounds, soft to palpation and non-tender GI Narrative: No guarding with palpation. Extremity no calf tenderness Extremity Narrative: No peripheral edema. Skin General Skin Exam: no breakdown Rashes: no rashes Wounds: Negative for wounds noted Assessment & Plan Assessment/Plan (1) Debility: (2) Hemorrhagic cerebrovascular accident (CVA): (3) Cerebral amyloid angiopathy: (4) Chronic atrial fibrillation: (5) Chronic kidney disease, stage 4 (severe): (6) Acute kidney injury: PLAN: Resolved (7) Diabetes mellitus, type 2: (8) (HFpEF) heart failure with preserved ejection fraction: (9) Severe pulmonary hypertension: PLAN: PA systolic at [facility] was estimated at 73 (10) Obstructive sleep apnea: PLAN: Not compliant with CPAP since gastric bypass surgery. (11) Coronary artery disease: PLAN: S/P CABG x 3 (12) Gout: PLAN: UA 12 at presentation to rehab. No active gout at present. (13) Hyperlipidemia: (14) Iron deficiency anemia: (15) Diabetic polyneuropathy: (16) BPH (benign prostatic hyperplasia): (17) Insomnia: (18) GERD (gastroesophageal reflux disease): (19) Atherosclerosis of coronary artery bypass graft of [place] heart without angina pectoris: (20) Essential (primary) hypertension: (21) Left breast mass: PLAN: Will need a bx following DC from rehab. Would like to see a surgeon at [facility]. Will refer to Dr. Casey. (22) Hypokalemia: (23) Hypophosphatemia: (24) Malnutrition: PLAN: Malnutrition not diagnosed by medical office assistant instructor however, he has new temporal muscle wasting and wasting in the supraclavicular fossa. He did not lose 79 lbs just due to diuresis since the of beginning of December. His tells me that he was not eating well for a few months prior to presenting to the hospital because he was so short of breath and had a poor appetite. Will continue the supplements ordered by the medical office assistant instructor and continue to track weights and I&O. PLAN: Plan 1. Continue therapy 2. Plan to remove the cutaneous horn prior to DC. Pt understands he will likely have a scar. I offered to order a consult with Dr. Kahn following DC but, he would like to have it removed prior to DC. 3. No need for Lasix at this time. Charges/Coding Visit Charges Inpatient E&M: 21617 Subs Hosp L2
[2023-01-15] MEDS: oxyCODONE 5 MG Tablet PO ×2 (10:05→17:55)
[2023-01-15 11:30] LABS: Bedside Glucose 144 mg/dL (74-106)
--- NOTE | 2023-01-15 14:55 | CHAPLAIN ---
Type of Pastoral Visit _x__ Initial Visit ___ Follow-up Visit ___ On-call Visit ___ General Patient Visit ___ Spiritual Assessment ___ Family Conference ___ Bereavement ___ Rapid Response ___ Code Blue ___ Other (describe below) Pastoral Care Referral From _x__ Patient ___ Family ___ Nurse ___ Physician ___ Director Post ___ Cable Machine Operator ___ Other (describe below) Sacrament/Intervention __x_ Active listening ___ Anointing ___ Evangelical ___ Bereavement ___ Communion _x__ Shawanda exploration ___ _x__ Life review _x__ Prayer ___ Reconciliation ___ Sacrament of Sick _x__ Supportive presence ___ Wedding ___ Other (describe below) Pastoral Comments patient is now available for this visit; pt just had pet visit and stated he enjoyed it; pt gives some life review about work, marriages, and family; pt has many grandchildren in his blended family and looks forward to involvement in their activities; pt hs some difficulty answering or remembering as we talked; pt admits to some frustration over the changes in health and aging; pt has been both Hinduism and Anabaptism in shawanda and uses shawanda in some ways to support his life; pt asks questions of this knocker off; pt welcomes future visits of knocker off
[2023-01-15 16:56] LABS: Bedside Glucose 134 mg/dL (74-106)
[2023-01-15 17:00] VITALS: BMI 25.9
[2023-01-15] MEDS: Tamsulosin HCl 0.4 MG Capsule PO (17:55)
[2023-01-15 19:42] VITALS: BP 90/46; PULSE 88; RESP 16; TEMP 36.6; O2SAT 95
[2023-01-15 20:12] VITALS: BMI 25.9
[2023-01-15 21:00] VITALS: BP 117/83; PULSE 90
[2023-01-15] MEDS: Atorvastatin Calcium 40 MG Tablet PO (21:05)
[2023-01-15] MEDS: QUEtiapine 25 MG Tablet PO (21:05)
[2023-01-15] MEDS: traZODone 50 MG Tablet PO (21:06)
[2023-01-15] MEDS: Senna/Docusate Sodium 1 Tablet 2 TABLET PO (21:06)
[2023-01-15 22:20] LABS: Bedside Glucose 147 mg/dL (74-106)
[2023-01-16 06:19] VITALS: BMI 26.3
[2023-01-16] MEDS: Acetaminophen 500 MG Tablet 1000 MG PO ×3 (06:20→20:28)
[2023-01-16] MEDS: Arthritis Pain Compound 60 CLICK TUBE TOPICAL ×3 (06:20→20:29)
[2023-01-16] MEDS: Menthol/Lanolin/Calamine/Znox 113 GM Tube 1 APPLIC TOPICAL ×2 (06:21→20:29)
[2023-01-16 07:00] LABS: Bedside Glucose 115 mg/dL (74-106)
[2023-01-16 08:00] VITALS: BP 101/56; PULSE 74; RESP 16; TEMP 37; O2SAT 98
[2023-01-16] MEDS: Potassium Chloride Oral Tablet 20 MEQ PO (08:00)
[2023-01-16] MEDS: Allopurinol 100 MG Tablet PO (08:01)
[2023-01-16] MEDS: Ferrous Gluconate 324 MG Tablet PO (08:01)
[2023-01-16] MEDS: Ascorbic Acid 500 MG Tablet 1000 MG PO (08:01)
[2023-01-16] MEDS: Pantoprazole Sodium 40 MG Tablet PO (08:01)
[2023-01-16] MEDS: FLUoxetine 20 MG Capsule PO (08:01)
[2023-01-16] MEDS: oxyCODONE 5 MG Tablet PO (10:17)
--- NOTE | 2023-01-16 12:08 | PCM.PROGNOTE ---
Subjective Subjective Bear was seen on team rounds today. His was present in the room for rounds. Afebrile VSS - BP's have been trending on the low side. He was only 90/46 last evening at approximately 8:00. This morning the blood pressure is 101/56. Heart rate is within normal limits. Orthostatic vital signs have been ordered. Maintaining appropriate oxygen saturation on RA while awake. He is wearing oxygen at 2 L/min while sleeping. Oral intake is adequate. He took 1320 in yesterday but had 2150 out for a negative fluid balance of 830 cc. Overnight he was -300. He is not receiving any diuretic since admission. Blood sugar record was reviewed. The blood sugars are under good control with all blood sugars less than 170 and no hypoglycemia. We will continue sliding scale insulin coverage. Discussed with nursing - no problems that need addressed Reviewed the PT/OT/ST notes Medication list reviewed. Bear continues to c/o Left side OJEDA and facial pain on the left and continues to perseverate on the removal of the cutaneous horn. His is asking why he has a big divot in the left pentecostal area.......she has not seen him for the month he was at [facility]. I pointed out that he has the same muscle loss on the R temporal area and it is ikely due to malnutrition. He is eating well now. Bear denies shortness of breath, chest pain, palpitations, lightheadedness, dysuria, nausea/vomiting/abdominal pain and calf pain. He is pleased with the progress he has been making in therapy and the therapist have all reinforced that he is made much progress since the beginning of the week. The Oxycodone does not seem to be affecting/controlling the HE and facial pain at all. I suspect he may have central neuropathic pain S. Objective Data Objective Data Vital Signs: Vital Signs Temp Pulse Resp BP Pulse Ox O2 Del Method O2 Flow Rate 98.6 F 74 16 101/56 L 98 Room Air 2 01/16/23 08:00 01/16/23 08:00 01/16/23 08:00 01/16/23 08:00 01/16/23 08:00 01/16/23 08:00 01/15/23 10:30 FiO2 99 01/15/23 10:30 Oxygen Flow Rate (L/min) 2 Oxygen Delivery Method Room Air Weight: 177 lb 11.081 oz Body Mass Index (BMI) 26.3 Intake & Output: Intake and Output for Last 24 Hours 01/14/23 01/15/23 01/16/23 23:59 23:59 23:59 Intake Total 700 / 820 1320 / 1320 Output Total 350 / 600 2150 / 2150 300 / 300 Balance 350 / 220 -830 / -830 -300 / -300 Lab / Micro Data Result Diagrams: 01/15/23 05:46 01/15/23 05:46 Labs: Laboratory Results - last 24 hr 01/15/23 16:27: POC Glucose 134 H 01/15/23 21:21: POC Glucose 147 H 01/16/23 06:18: POC Glucose 115 H Physical Exam Const alert, oriented x3 and no apparent distress Constitutional Narrative: He is sitting in the recliner with his legs dependent........he sometimes elevates if he is watching TV or he is resting. Resp clear to auscultation bilaterally Cardio Cardio Narrative: Irregular irregular with a controlled VR. No gallops. GI normal to inspection, nondistended, normoactive bowel sounds, soft to palpation and non-tender Extremity no calf tenderness Extremity Narrative: No edema of the ankles or flanks Assessment & Plan Assessment/Plan (1) Debility: (2) Hemorrhagic cerebrovascular accident (CVA): (3) Cerebral amyloid angiopathy: (4) Chronic atrial fibrillation: (5) Chronic kidney disease, stage 4 (severe): (6) Diabetes mellitus, type 2: (7) (HFpEF) heart failure with preserved ejection fraction: (8) Severe pulmonary hypertension: PLAN: PA systolic at [facility] was estimated at 73 (9) Iron deficiency anemia: (10) Left breast mass: PLAN: Will need a bx following DC from rehab. Would like to see a surgeon at [facility]. Will refer to Dr. Casey. 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 Continue therapy. He is making good progress. 2. DC the Oxycodone and start Gabapentin 100mg BID. 3. Recheck lab on Friday including CBC with diff, BMP, B12 and folate.......RDW is markedly elevated and he has microcytes (due to iron deficiency) and macrocytes Possibly due to increased reticulocytes but I suspect he is malnourished and it may be secondary to B12 or folate deficiency. He is also post gastric bypass surgery and may not be able to absorb B12. He has not been taking any vitamin supplements. Charges/Coding Visit Charges Inpatient E&M: 24233 Subs Hosp L2
[2023-01-16 12:11] VITALS: BP 107/57; BP 112/58; BP 99/60; PULSE 70; PULSE 80; PULSE 81
[2023-01-16 12:40] LABS: Bedside Glucose 149 mg/dL (74-106)
--- NOTE | 2023-01-16 13:30 | CASEMGMT ---
Social Work IDT met with patient and for Team meeting. Discussed patient's progress in PT/OT/ST/SN. Educated to [facility] insurance with [employer] 01/15 and continued stay is not guaranteed with each review. Pt's goal is to return home with at [facility]. Will ReTeam weekly. SW to continue to follow for DC planning. Brigette Jackson, LUMBER PILER OPERATOR BOTTLE DEALER
[2023-01-16 14:31] VITALS: BMI 26.3
[2023-01-16] MEDS: Tamsulosin HCl 0.4 MG Capsule PO (16:52)
[2023-01-16 17:15] LABS: Bedside Glucose 131 mg/dL (74-106)
[2023-01-16 20:10] VITALS: BP 102/78; PULSE 82; RESP 16; TEMP 37.1; O2SAT 97; BMI 26.3
[2023-01-16] MEDS: traZODone 50 MG Tablet PO (20:28)
[2023-01-16] MEDS: Atorvastatin Calcium 40 MG Tablet PO (20:28)
[2023-01-16] MEDS: Senna/Docusate Sodium 1 Tablet 2 TABLET PO (20:28)
[2023-01-16] MEDS: QUEtiapine 25 MG Tablet PO (20:29)
[2023-01-16] MEDS: Gabapentin 100 MG Capsule PO (20:52)
[2023-01-16 21:16] LABS: Bedside Glucose 148 mg/dL (74-106)
[2023-01-17] MEDS: Acetaminophen 500 MG Tablet 1000 MG PO ×3 (06:29→20:55)
[2023-01-17] MEDS: Menthol/Lanolin/Calamine/Znox 113 GM Tube 1 APPLIC TOPICAL ×2 (06:30→20:57)
[2023-01-17] MEDS: Arthritis Pain Compound 60 CLICK TUBE TOPICAL ×3 (06:32→20:54)
[2023-01-17 06:55] LABS: Bedside Glucose 104 mg/dL (74-106)
[2023-01-17 07:17] VITALS: BP 120/68; PULSE 71; RESP 15; TEMP 36.2; O2SAT 94
[2023-01-17 07:23] VITALS: O2SAT 97
[2023-01-17] MEDS: Ascorbic Acid 500 MG Tablet 1000 MG PO (09:05)
[2023-01-17] MEDS: Allopurinol 100 MG Tablet PO (09:05)
[2023-01-17] MEDS: Potassium Chloride Oral Tablet 20 MEQ PO (09:05)
[2023-01-17] MEDS: Pantoprazole Sodium 40 MG Tablet PO (09:05)
[2023-01-17] MEDS: FLUoxetine 20 MG Capsule PO (09:05)
[2023-01-17] MEDS: Ferrous Gluconate 324 MG Tablet PO (09:06)
[2023-01-17] MEDS: Gabapentin 100 MG Capsule PO ×2 (09:12→16:13)
[2023-01-17] MEDS: Insulin Lispro 100 UNIT/ML INSULN.PEN SC (11:55)
[2023-01-17 12:10] LABS: Bedside Glucose 152 mg/dL (74-106)
[2023-01-17 13:01] VITALS: BMI 26.3
[2023-01-17] MEDS: Tamsulosin HCl 0.4 MG Capsule PO (16:12)
[2023-01-17 17:40] LABS: Bedside Glucose 110 mg/dL (74-106)
[2023-01-17 20:05] VITALS: O2SAT 97
[2023-01-17 20:50] VITALS: BP 105/62; PULSE 75; RESP 16; TEMP 36.3; O2SAT 97
[2023-01-17] MEDS: Atorvastatin Calcium 40 MG Tablet PO (20:55)
[2023-01-17] MEDS: QUEtiapine 25 MG Tablet PO (20:55)
[2023-01-17] MEDS: Senna/Docusate Sodium 1 Tablet 2 TABLET PO (20:55)
[2023-01-17] MEDS: traZODone 50 MG Tablet PO (20:55)
[2023-01-17 22:10] LABS: Bedside Glucose 119 mg/dL (74-106)
[2023-01-18] MEDS: Arthritis Pain Compound 60 CLICK TUBE TOPICAL ×3 (05:52→20:50)
[2023-01-18] MEDS: Acetaminophen 500 MG Tablet 1000 MG PO ×3 (05:53→20:55)
[2023-01-18] MEDS: Menthol/Lanolin/Calamine/Znox 113 GM Tube 1 APPLIC TOPICAL ×2 (05:53→20:59)
[2023-01-18 06:31] LABS: Bedside Glucose 97 mg/dL (74-106)
[2023-01-18] MEDS: Gabapentin 100 MG Capsule PO ×2 (08:01→16:44)
[2023-01-18] MEDS: Ferrous Gluconate 324 MG Tablet PO (08:02)
[2023-01-18] MEDS: Ascorbic Acid 500 MG Tablet 1000 MG PO (08:02)
[2023-01-18] MEDS: Glucerna Shake 120 ML LIQUID PO ×3 (08:05→16:45)
[2023-01-18 08:20] VITALS: BP 108/66; PULSE 67; RESP 16; TEMP 36.4; O2SAT 100
[2023-01-18] MEDS: Potassium Chloride Oral Tablet 20 MEQ PO (09:54)
[2023-01-18] MEDS: FLUoxetine 20 MG Capsule PO (09:55)
[2023-01-18] MEDS: Pantoprazole Sodium 40 MG Tablet PO (09:55)
[2023-01-18] MEDS: Allopurinol 100 MG Tablet PO (09:56)
[2023-01-18 11:35] LABS: Bedside Glucose 107 mg/dL (74-106)
[2023-01-18 12:58] VITALS: BMI 26.3
[2023-01-18 16:41] LABS: Bedside Glucose 112 mg/dL (74-106)
[2023-01-18] MEDS: Tamsulosin HCl 0.4 MG Capsule PO (16:44)
[2023-01-18 19:42] VITALS: BP 92/57; PULSE 75; RESP 16; TEMP 36.7; O2SAT 98
[2023-01-18] MEDS: QUEtiapine 25 MG Tablet PO (20:36)
[2023-01-18 20:45] VITALS: BMI 26.3
[2023-01-18 20:46] VITALS: O2SAT 96
[2023-01-18] MEDS: traZODone 50 MG Tablet PO (20:50)
[2023-01-18] MEDS: Atorvastatin Calcium 40 MG Tablet PO (20:51)
[2023-01-18] MEDS: Senna/Docusate Sodium 1 Tablet 2 TABLET PO (20:55)
[2023-01-18 21:25] LABS: Bedside Glucose 142 mg/dL (74-106)
[2023-01-19 06:00] VITALS: BMI 26.7
[2023-01-19] MEDS: Acetaminophen 500 MG Tablet 1000 MG PO ×3 (06:31→20:53)
[2023-01-19] MEDS: Menthol/Lanolin/Calamine/Znox 113 GM Tube 1 APPLIC TOPICAL ×2 (06:35→20:53)
[2023-01-19] MEDS: Arthritis Pain Compound 60 CLICK TUBE TOPICAL ×3 (06:35→20:51)
[2023-01-19 06:45] LABS: Bedside Glucose 111 mg/dL (74-106)
[2023-01-19] MEDS: Ferrous Gluconate 324 MG Tablet PO (08:32)
[2023-01-19] MEDS: Ascorbic Acid 500 MG Tablet 1000 MG PO (08:32)
[2023-01-19] MEDS: Gabapentin 100 MG Capsule PO ×2 (08:35→16:51)
[2023-01-19 08:36] VITALS: BP 108/70; PULSE 69; RESP 18; TEMP 36.4; O2SAT 97
[2023-01-19] MEDS: Potassium Chloride Oral Tablet 20 MEQ PO (10:27)
[2023-01-19] MEDS: Pantoprazole Sodium 40 MG Tablet PO (10:28)
[2023-01-19] MEDS: FLUoxetine 20 MG Capsule PO (10:28)
[2023-01-19] MEDS: Allopurinol 100 MG Tablet PO (10:29)
[2023-01-19] MEDS: Senna/Docusate Sodium 1 Tablet 2 TABLET PO ×2 (10:29→20:52)
[2023-01-19 11:50] LABS: Bedside Glucose 112 mg/dL (74-106)
[2023-01-19] MEDS: Furosemide 40 MG Tablet PO (13:07)
[2023-01-19] MEDS: Glucerna Shake 120 ML LIQUID PO ×2 (13:08→16:53)
[2023-01-19] MEDS: 0.9% Saline Lock 10 ML Syringe IV ×2 (13:48→21:03)
[2023-01-19 14:33] VITALS: BMI 26.7
[2023-01-19 16:36] LABS: Bedside Glucose 110 mg/dL (74-106)
[2023-01-19] MEDS: Tamsulosin HCl 0.4 MG Capsule PO (16:51)
[2023-01-19 19:14] VITALS: BP 93/62; PULSE 75; RESP 18; TEMP 36.8; O2SAT 98
[2023-01-19 19:37] VITALS: BMI 26.7
[2023-01-19] MEDS: traZODone 50 MG Tablet PO (20:52)
[2023-01-19] MEDS: Atorvastatin Calcium 40 MG Tablet PO (20:52)
[2023-01-19] MEDS: QUEtiapine 25 MG Tablet PO (20:53)
[2023-01-19 21:10] VITALS: RESP 16
[2023-01-19 21:36] LABS: Bedside Glucose 132 mg/dL (74-106)
[2023-01-20 05:36] LABS: Absolute Lymphocyte Count 0.68 X10^3/uL (0.83-4.51); Absolute Neutrophil Count 2.5 X10^3/uL (2.0-7.7); Basophil# 0.03 X10^3/uL; Basophil% 0.8 % (0-1); Eosinophil# 0.13 X10^3/uL; Eosinophils% 3.5 % (0-5); Hematocrit 28.2 % (40-54); Hemoglobin 8.3 g/dL (13.0-16.5); Lymphocyte # 0.68 X10^3/ul (0.83-4.51); Lymphocyte % 18.5 % (19-41); Mean Corp Hgb Conc 29.4 g/dL (32-36); Mean Corpuscular Hgb 27.1 pg (27.0-32.0); Mean Corpuscular Volume 92.2 fL (80-94); Mean Platelet Vol. 10.7 fl (6.2-12.0); Monocyte# 0.31 X10^3/uL; Monocyte% 8.4 % (0-10); NRBC Flagged by Analyzer 0 % (0-5); POSITIVE MORPHOLOGY YES; Platelet Count 136 K/mm3 (150-450); RBC Distribution Width SD 78.2 fl (35.1-43.9); Red Blood Count 3.06 M/mm3 (4.6-6.2); White Blood Count 3.7 K/mm3 (4.4-11.0)
[2023-01-20 06:00] LABS: Differential Indicated SCAN CRITERIA MET
[2023-01-20] MEDS: Arthritis Pain Compound 60 CLICK TUBE TOPICAL ×3 (06:02→20:57)
[2023-01-20] MEDS: Menthol/Lanolin/Calamine/Znox 113 GM Tube 1 APPLIC TOPICAL ×2 (06:02→20:57)
[2023-01-20] MEDS: Acetaminophen 500 MG Tablet 1000 MG PO ×3 (06:03→20:45)
[2023-01-20 06:09] LABS: Anion Gap 5 (5-15); BUN 57 mg/dL (7-18); BUN/Creat Ratio 21.8 RATIO (10-20); Calcium,Total 8.3 mg/dL (8.5-10.1); Chloride 102 mmol/L (98-107); Creatinine, Serum 2.61 mg/dL (0.70-1.30); EST Glomerular Filtration Rate 26 mL/min (>60); Est Glom Filt Rate - Afr Amer 32 mL/min (>60); Estimated Creatinine Clearance 27.09 ml/min; Glucose 93 mg/dL (74-106); Phosphorus 3.8 mg/dL (2.5-4.9); Potassium 4.9 mmol/L (3.5-5.1); Sodium Level 135 mmol/L (136-145)
[2023-01-20 06:19] LABS: Anisocytosis 2+
[2023-01-20 06:31] LABS: Bedside Glucose 92 mg/dL (74-106)
[2023-01-20 07:34] VITALS: BP 112/71; PULSE 71; RESP 16; TEMP 36.3; O2SAT 98
[2023-01-20] MEDS: Gabapentin 100 MG Capsule PO ×2 (08:14→18:17)
[2023-01-20] MEDS: Ferrous Gluconate 324 MG Tablet PO (08:14)
[2023-01-20] MEDS: Ascorbic Acid 500 MG Tablet 1000 MG PO (08:14)
[2023-01-20] MEDS: Potassium Chloride Oral Tablet 20 MEQ PO (08:14)
[2023-01-20] MEDS: Pantoprazole Sodium 40 MG Tablet PO (08:14)
[2023-01-20] MEDS: FLUoxetine 20 MG Capsule PO (08:14)
[2023-01-20] MEDS: Allopurinol 100 MG Tablet PO (08:15)
[2023-01-20] MEDS: 0.9% Saline Lock 10 ML Syringe IV (08:15)
[2023-01-20] MEDS: Glucerna Shake 120 ML LIQUID PO ×3 (08:16→18:07)
[2023-01-20] MEDS: Senna/Docusate Sodium 1 Tablet 2 TABLET PO (08:19)
[2023-01-20 08:27] LABS: Vitamin B12 629 pg/mL (211-911)
[2023-01-20 11:50] LABS: Bedside Glucose 108 mg/dL (74-106)
[2023-01-20 14:16] VITALS: BMI 26.7
--- NOTE | 2023-01-20 16:26 | PN_ITS ---
Subjective Subjective Afebrile VSS Maintaining appropriate oxygen saturation on RA Oral intake is good Blood sugars are well controlled with no hypoglycemia. Discussed with nursing - no problems that need addressed. He tells me he is sle eping very well at night. Reviewed the PT/OT/ST notes Medication list reviewed. All lab from today was personally reviewed. He remains pancytopenic with a WBC count of 3.7, hemoglobin of 8.3 and a platelet count of 136,000. Differential shows the lymphocytes to be mildly decreased. Sodium is mildly decreased at 135. The BUN is 57 and the creatinine is stable at 2.61. Potassium is 4.9. B12 and folate are within normal limits. Calcium corrected for hypoalbuminemia is within normal limits. Phosphorus is also within normal limits. Bear denies lightheadedness, vertigo, CP, SOB at rest, cough, nausea, vomiting, abd pain, diarrhea, constipation, dysuria, calf pain and ankle swelling. He continues to complain that he has left facial pain but it is concentrated at the site of the cutaneous horn. He is no longer complaining of a headache. He is doing well in physical therapy and is very motivated to get better and go home. Objective Data Objective Data Vital Signs: Vital Signs Temp Pulse Resp BP Pulse Ox O2 Del Method O2 Flow Rate 97.4 F L 71 16 112/71 98 Room Air 2 01/20/23 07:34 01/20/23 07:34 01/20/23 07:34 01/20/23 07:34 01/20/23 07:34 01/20/23 07:34 01/18/23 08:20 FiO2 99 01/15/23 10:30 Oxygen Flow Rate (L/min) 2 Oxygen Delivery Method Room Air Weight: 181 lb 3.52 oz Body Mass Index (BMI) 26.7 Intake & Output: Intake and Output for Last 24 Hours 01/18/23 01/19/23 01/20/23 23:59 23:59 23:59 Intake Total 1640 / 1640 2040 / 2040 560 / 560 Output Total 1850 / 1850 1700 / 1700 650 / 650 Balance -210 / -210 340 / 340 -90 / -90 Lab / Micro Data Result Diagrams: 01/20/23 05:22 01/24/23 07:53 Labs: Laboratory Results - last 24 hr 01/19/23 16:15: POC Glucose 110 H 01/19/23 20:56: POC Glucose 132 H 01/20/23 05:22: WBC 3.7 L, RBC 3.06 L, Hgb 8.3 L, Hct 28.2 L, MCV 92.2, MCH 27.1, MCHC 29.4 L, RDW Std Deviation 78.2 H, RDW Coeff of Anders 23.0 H, Plt Count 136 L, MPV 10.7, Immature Gran % (Auto) 0.800, Neut % (Auto) 68.0, Lymph % (Auto) 18.5 L, Cloud % (Auto) 8.4, Eos % (Auto) 3.5, Baso % (Auto) 0.8, Absolute Neuts (auto) 2.5, Absolute Lymphs (auto) 0.68 L, Nucleated RBC % 0, Atypical Lymphocytes Not Reportable, Reactive Lymphocytes Not Reportable, Toxic Granulation Not Reportable, Anisocytosis 2+ 01/20/23 05:22: Sodium 135 L, Potassium 4.9, Chloride 102, Carbon Dioxide 28.0, Anion Gap 5, BUN 57 H, Creatinine 2.61 H, Estim Creat Clear Calc 27.09, Est GFR (MDRD) Af Amer 32 L, Est GFR (MDRD) Non-Af 26 L, BUN/Creatinine Ratio 21.8 H, Glucose 93, Calcium 8.3 L, Phosphorus 3.8, Folate 5.70 01/20/23 05:22: Vitamin B12 629 01/20/23 06:02: POC Glucose 92 01/20/23 11:27: POC Glucose 108 H Physical Exam Const alert, oriented x3 and no apparent distress Constitutional Narrative: He is cooperative, calm, makes good eye contact, asks appropriate questions and is well-kempt. Resp clear to auscultation bilaterally Cardio Cardio Narrative: Irregular irregular with controlled ventricular response. No gallop. 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 (13) Pancytopenia: PLAN: This my be due to medication. (14) Hyperkalemia: PLAN: Add a potassium restriction to his diet. Health/Safety Job Titles will teach bear and his about potassium restriction. Give 40 mg Lasix today and recheck the potassium. 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 An appt with Dr. Kahn has been scheduled for bear for removel of the lesion. PLAN: Plan 1. Continue therapy 2. Increase gabapentin to 100 mg 3 times daily to see if the pain around the cutaneous horn resolves. If no change will decrease back to twice daily since his headaches are controlled with gabapentin 100 mg twice daily. 3. Lasix 100 mg p.o. today to bring the potassium down. 4. I talked with the dietitian who will instruct Bear and his and a potassium restricted diet prior to discharge. Recheck potassium on Friday. Charges/Coding Visit Charges Inpatient E&M: 95810 Subs Hosp L2
[2023-01-20 16:56] LABS: Bedside Glucose 134 mg/dL (74-106)
[2023-01-20] MEDS: Tamsulosin HCl 0.4 MG Capsule PO (18:08)
[2023-01-20 19:22] VITALS: BP 103/57; PULSE 70; RESP 14; TEMP 36.9; O2SAT 97
[2023-01-20] MEDS: Oxymetazoline 0.05% 1 SPRAY SPRAY.BTL 2 SPRAY NASAL (20:41)
[2023-01-20] MEDS: Atorvastatin Calcium 40 MG Tablet PO (20:42)
[2023-01-20] MEDS: QUEtiapine 25 MG Tablet PO (20:43)
[2023-01-20 20:50] VITALS: PULSE 72; RESP 14; O2SAT 97
[2023-01-20] MEDS: traZODone 50 MG Tablet PO (20:57)
[2023-01-20 21:54] VITALS: BMI 26.7
[2023-01-20 21:56] LABS: Bedside Glucose 105 mg/dL (74-106)
[2023-01-21] MEDS: Menthol/Lanolin/Calamine/Znox 113 GM Tube 1 APPLIC TOPICAL ×2 (06:31→21:12)
[2023-01-21] MEDS: Arthritis Pain Compound 60 CLICK TUBE TOPICAL ×3 (06:31→21:08)
[2023-01-21] MEDS: Acetaminophen 500 MG Tablet 1000 MG PO ×3 (06:31→21:11)
[2023-01-21 06:42] VITALS: BMI 27.3
[2023-01-21 07:45] LABS: Bedside Glucose 108 mg/dL (74-106)
[2023-01-21] MEDS: Ascorbic Acid 500 MG Tablet 1000 MG PO (07:52)
[2023-01-21] MEDS: FLUoxetine 20 MG Capsule PO (07:53)
[2023-01-21] MEDS: Pantoprazole Sodium 40 MG Tablet PO (07:53)
[2023-01-21] MEDS: Ferrous Gluconate 324 MG Tablet PO (07:53)
[2023-01-21] MEDS: Allopurinol 100 MG Tablet PO (07:53)
[2023-01-21] MEDS: Gabapentin 100 MG Capsule PO ×3 (07:57→17:13)
[2023-01-21] MEDS: Glucerna Shake 120 ML LIQUID PO ×3 (07:57→17:15)
[2023-01-21] MEDS: Oxymetazoline 0.05% 1 SPRAY SPRAY.BTL 2 SPRAY NASAL ×3 (07:57→21:10)
[2023-01-21 09:22] VITALS: BP 109/69; PULSE 59; RESP 18; TEMP 36.4; O2SAT 100
[2023-01-21 09:24] VITALS: PULSE 59; RESP 18; O2SAT 100
[2023-01-21 13:00] LABS: Bedside Glucose 183 mg/dL (74-106)
--- NOTE | 2023-01-21 16:08 | NURSING ---
Addendum entered by Alondra Odom 01/21/23 16:16: Appts made for Dr Gong and Dr. Kahn per Dr. Gibson's request Original Note: L.M. for Dr Gong's office to schedule appt for left breast mass.
[2023-01-21 16:21] LABS: Bedside Glucose 97 mg/dL (74-106)
[2023-01-21] MEDS: Tamsulosin HCl 0.4 MG Capsule PO (17:13)
[2023-01-21 21:01] VITALS: BP 101/59; PULSE 72; RESP 18; TEMP 36.8; O2SAT 98
[2023-01-21 21:10] VITALS: O2SAT 98
[2023-01-21] MEDS: Senna/Docusate Sodium 1 Tablet 2 TABLET PO (21:11)
[2023-01-21] MEDS: traZODone 50 MG Tablet PO (21:11)
[2023-01-21] MEDS: QUEtiapine 25 MG Tablet PO (21:11)
[2023-01-21] MEDS: Atorvastatin Calcium 40 MG Tablet PO (21:11)
--- NOTE | 2023-01-21 21:20 | NURSING ---
Blood sugar at this time 272, pt states he ate dinner late and requested that it be rechecked in an hour before giving him insulin, will wait and recheck.
[2023-01-21 22:20] LABS: Bedside Glucose 272 mg/dL (74-106)
[2023-01-21 22:51] LABS: Bedside Glucose 195 mg/dL (74-106)
[2023-01-22] MEDS: Menthol/Lanolin/Calamine/Znox 113 GM Tube 1 APPLIC TOPICAL ×2 (06:25→20:50)
[2023-01-22] MEDS: Arthritis Pain Compound 60 CLICK TUBE TOPICAL ×3 (06:25→20:49)
[2023-01-22] MEDS: Acetaminophen 500 MG Tablet 1000 MG PO ×3 (06:30→20:50)
[2023-01-22 06:56] LABS: Bedside Glucose 119 mg/dL (74-106)
[2023-01-22 07:39] VITALS: BP 91/56; PULSE 58; RESP 16; TEMP 36.2; O2SAT 96
[2023-01-22] MEDS: Allopurinol 100 MG Tablet PO (08:08)
[2023-01-22] MEDS: Ferrous Gluconate 324 MG Tablet PO (08:09)
[2023-01-22] MEDS: FLUoxetine 20 MG Capsule PO (08:09)
[2023-01-22] MEDS: Pantoprazole Sodium 40 MG Tablet PO (08:09)
[2023-01-22] MEDS: Ascorbic Acid 500 MG Tablet 1000 MG PO (08:09)
[2023-01-22] MEDS: Oxymetazoline 0.05% 1 SPRAY SPRAY.BTL 2 SPRAY NASAL ×2 (08:09→20:49)
[2023-01-22] MEDS: Gabapentin 100 MG Capsule PO ×3 (08:11→15:47)
[2023-01-22] MEDS: 0.9% Saline Lock 10 ML Syringe IV ×2 (13:27→20:48)
[2023-01-22 13:35] VITALS: BMI 27.3
[2023-01-22] MEDS: Tamsulosin HCl 0.4 MG Capsule PO (15:48)
[2023-01-22 16:26] LABS: Bedside Glucose 142 mg/dL (74-106)
[2023-01-22 19:21] VITALS: BP 97/57; PULSE 72; RESP 16; TEMP 36.9; O2SAT 98
[2023-01-22] MEDS: QUEtiapine 25 MG Tablet PO (20:49)
[2023-01-22] MEDS: traZODone 50 MG Tablet PO (20:49)
[2023-01-22] MEDS: Senna/Docusate Sodium 1 Tablet 2 TABLET PO (20:50)
[2023-01-22] MEDS: Atorvastatin Calcium 40 MG Tablet PO (20:50)
[2023-01-23] MEDS: Arthritis Pain Compound 60 CLICK TUBE TOPICAL ×3 (06:02→20:10)
[2023-01-23] MEDS: Acetaminophen 500 MG Tablet 1000 MG PO ×3 (06:03→21:12)
[2023-01-23] MEDS: Menthol/Lanolin/Calamine/Znox 113 GM Tube 1 APPLIC TOPICAL ×2 (06:03→20:10)
[2023-01-23 06:10] VITALS: BMI 27.6
[2023-01-23 06:36] LABS: Anion Gap 2 (5-15); BUN 65 mg/dL (7-18); BUN/Creat Ratio 25.3 RATIO (10-20); Calcium,Total 8.4 mg/dL (8.5-10.1); Chloride 104 mmol/L (98-107); Creatinine, Serum 2.57 mg/dL (0.70-1.30); EST Glomerular Filtration Rate 27 mL/min (>60); Est Glom Filt Rate - Afr Amer 32 mL/min (>60); Estimated Creatinine Clearance 27.51 ml/min; Glucose 126 mg/dL (74-106); Potassium 5.7 mmol/L (3.5-5.1); Sodium Level 134 mmol/L (136-145)
[2023-01-23 06:45] LABS: Bedside Glucose 118 mg/dL (74-106)
[2023-01-23 07:36] VITALS: BP 102/65; PULSE 78; RESP 16; TEMP 36.4; O2SAT 98
[2023-01-23] MEDS: Oxymetazoline 0.05% 1 SPRAY SPRAY.BTL 2 SPRAY NASAL (09:06)
[2023-01-23] MEDS: Gabapentin 100 MG Capsule PO ×3 (09:07→17:01)
[2023-01-23] MEDS: Ferrous Gluconate 324 MG Tablet PO (09:08)
[2023-01-23] MEDS: Ascorbic Acid 500 MG Tablet 1000 MG PO (09:08)
[2023-01-23] MEDS: Pantoprazole Sodium 40 MG Tablet PO (09:08)
[2023-01-23] MEDS: Allopurinol 100 MG Tablet PO (09:08)
[2023-01-23] MEDS: FLUoxetine 20 MG Capsule PO (09:08)
--- NOTE | 2023-01-23 12:28 | PN_ITS ---
Subjective Subjective Afebrile VSS Maintaining appropriate oxygen saturation on RA Oral intake is good The blood sugar record was reviewed and the blood sugars are in excellent control. Discussed with nursing - no problems that need addressed Reviewed the PT/OT/ST notes Medication list reviewed. All lab from today was personally reviewed. Sodium is mildly decreased at 134 and the potassium is elevated at 5.7, up from 4.9 on 01/20/2023. Serum bicarb is normal at 28. The BUN is increased to 65 from 57. Creatinine is stable at 2.57 with an estimated creatinine clearance of 27. He had some shortness of breath after walking 200 feet today but it resolved quickly when he sat down. He denies chest pain, lightheadedness, nausea /vomiting, calf pain, dysuria and palpitations. Objective Data Objective Data Vital Signs: Vital Signs Temp Pulse Resp BP Pulse Ox O2 Del Method O2 Flow Rate 97.5 F L 78 16 102/65 98 Room Air 2 01/23/23 07:36 01/23/23 07:36 01/23/23 07:36 01/23/23 07:36 01/23/23 07:36 01/23/23 07:36 01/21/23 09:24 FiO2 99 01/15/23 10:30 Oxygen Flow Rate (L/min) 2 Oxygen Delivery Method Room Air Weight: 186 lb 11.704 oz Body Mass Index (BMI) 27.6 Intake & Output: Intake and Output for Last 24 Hours 01/21/23 01/22/23 01/23/23 23:59 23:59 23:59 Intake Total 1440 / 1440 1210 / 1210 460 / 460 Output Total 925 / 925 900 / 900 500 / 500 Balance 515 / 515 310 / 310 -40 / -40 Lab / Micro Data Result Diagrams: 01/20/23 05:22 01/24/23 07:53 Labs: Laboratory Results - last 24 hr 01/22/23 15:56: POC Glucose 142 H 01/23/23 05:45: Sodium 134 L, Potassium 5.7 H, Chloride 104, Carbon Dioxide 28.0, Anion Gap 2 L, BUN 65 H, Creatinine 2.57 H, Estim Creat Clear Calc 27.51, Est GFR (MDRD) Af Amer 32 L, Est GFR (MDRD) Non-Af 27 L, BUN/Creatinine Ratio 25.3 H, Glucose 126 H, Calcium 8.4 L 01/23/23 06:04: POC Glucose 118 H Physical Exam Const alert and oriented x3 Constitutional Narrative: He is sitting in the recliner with his legs dependent........he sometimes elevates if he is watching TV or he is resting. General Appearance: cooperative Orientation / Consciousness: Negative for confused HEENT normocephalic, moist oral mucous membranes and oropharynx normal Eyes PERRL and EOMs intact bilaterally Neck supple General: trachea midline; Negative for lymphadenopathy Resp normal air movement and clear to auscultation bilaterally Resp Narrative: Diminished in the left base but, no crackles and no wheezes. Good resp effort. Effort and Inspection: Negative for tachypneic or respiratory distress Cardio no rub and no gallops Cardio Narrative: Irregular irregular with controlled ventricular response. GI normal to inspection, nondistended, normoactive bowel sounds, soft to palpation and non-tender GI Narrative: No guarding with palpation. Extremity Negative for no calf tenderness Extremity Narrative: No edema of the ankles or flanks General Extremity: Negative for edema Skin General Skin Exam: no breakdown Rashes: no rashes Wounds: Negative for wounds noted Neuro CN's II-XII intact bilaterally, no focal motor deficits and no sensory deficits noted Neuro Narrative: He has generalized weakness. Had trouble with the heel martines test because he has had BL hip replacements and can not get his heel up to the knee.....he was only able to get the heel up to approximately mid tibia but had no ataxia. Coordination / Balance: [id number] test normal Speech: speech normal Psych cooperative, affect normal, denies homicidal ideation and denies suicidal ideation Psych Narrative: He is calm. 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 Continue therapy 2. Encouraged him to increase his fluid intake today. 3. Add a potassium restriction to his current diet and have the dietitian instruct Bear and his on proper diet for him. 4. Plan is to discharge home in 1 week....next Friday. 5. Will need to follow up with Dr. Herrera post [place]. 6. Recheck a BMP in the a.m. 7. His mood is euthymic now and will continue Prozac at discharge. 8. The pain in his left face has improved with gabapentin 100 mg 3 times daily. 9. Consider discontinuing the Pantoprazole to see if the thrombocytopenia and the Leukopenia improve. Pepcid can also cause thrombocytopenia. Charges/Coding Visit Charges Inpatient E&M: 77242 Subs Hosp L2
--- NOTE | 2023-01-23 13:28 | CASEMGMT ---
Social Work IDT met with patient and for Team meeting. Discussed patient's progress in PT/OT/ST/SN. Educated [employer] insurance with NRD 01/29 and continued stay is not guaranteed. However, pt is progressing well and IDT offered to set DC date. requesting DC 01/31. Pt and IDT agreeable. Offered HHC vs OP. Pt/ choosing HHC. SW provided printed list of skilled HHC agencies with quality and resource data via [facility]. Dr and pt/ discussed therapy after DC. Pt agreeable. SW provided list of mental health resources. Pt uses O2 at night. SW to refer to [facility]. Nursing to schedule sleep study. can transport. Plan: DC home with 01/31, HHC PT/OT/ST/SN, night O2 MYRNA FariaW
[2023-01-23 14:02] VITALS: BMI 27.6
[2023-01-23 16:50] LABS: Bedside Glucose 99 mg/dL (74-106)
[2023-01-23] MEDS: Tamsulosin HCl 0.4 MG Capsule PO (17:01)
[2023-01-23 19:24] VITALS: BP 105/58; PULSE 68; RESP 18; TEMP 36.8; O2SAT 98
[2023-01-23 19:56] VITALS: BMI 27.6
[2023-01-23 19:57] VITALS: PULSE 63; RESP 18
[2023-01-23] MEDS: traZODone 50 MG Tablet PO (20:09)
[2023-01-23] MEDS: QUEtiapine 25 MG Tablet PO (20:09)
[2023-01-23] MEDS: Atorvastatin Calcium 40 MG Tablet PO (20:11)
[2023-01-23] MEDS: Senna/Docusate Sodium 1 Tablet 2 TABLET PO (20:11)
[2023-01-23 20:32] VITALS: O2SAT 100
--- NOTE | 2023-01-23 20:33 | CPS ---
overnight pulse ox started
[2023-01-23] MEDS: 0.9% Saline Lock 10 ML Syringe IV (21:12)
[2023-01-24 06:00] VITALS: BMI 27.8
[2023-01-24] MEDS: Acetaminophen 500 MG Tablet 1000 MG PO ×3 (06:03→20:35)
[2023-01-24] MEDS: Arthritis Pain Compound 60 CLICK TUBE TOPICAL ×3 (06:10→20:34)
[2023-01-24] MEDS: Menthol/Lanolin/Calamine/Znox 113 GM Tube 1 APPLIC TOPICAL ×2 (06:12→20:35)
[2023-01-24 07:05] LABS: Bedside Glucose 103 mg/dL (74-106)
[2023-01-24 07:25] VITALS: BP 103/68; PULSE 64; RESP 16; TEMP 36.6; O2SAT 98
[2023-01-24] MEDS: FLUoxetine 20 MG Capsule PO (07:47)
[2023-01-24] MEDS: Pantoprazole Sodium 40 MG Tablet PO (07:47)
[2023-01-24] MEDS: Ferrous Gluconate 324 MG Tablet PO (07:47)
[2023-01-24] MEDS: Senna/Docusate Sodium 1 Tablet 2 TABLET PO ×2 (07:47→20:36)
[2023-01-24] MEDS: Gabapentin 100 MG Capsule PO ×3 (07:47→17:31)
[2023-01-24] MEDS: Allopurinol 100 MG Tablet PO (07:47)
[2023-01-24] MEDS: Ascorbic Acid 500 MG Tablet 1000 MG PO (07:47)
[2023-01-24] MEDS: 0.9% Saline Lock 10 ML Syringe IV (07:49)
[2023-01-24 08:27] LABS: ALB/GLOB Ratio 0.7 RATIO (0.9-2.4); AST(SGOT) 22 U/L (15-37); Alanine Aminotransfer ALT/SGPT 19 U/L (16-61); Albumin, Serum 2.9 g/dL (3.2-5.0); Alkaline Phosphatase 221 U/L (45-117); Anion Gap 7 (5-15); BUN 64 mg/dL (7-18); BUN/Creat Ratio 25.1 RATIO (10-20); Calcium,Total 8.5 mg/dL (8.5-10.1); Chloride 104 mmol/L (98-107); Creatinine, Serum 2.55 mg/dL (0.70-1.30); EST Glomerular Filtration Rate 27 mL/min (>60); Est Glom Filt Rate - Afr Amer 32 mL/min (>60); Estimated Creatinine Clearance 27.73 ml/min; Glucose 213 mg/dL (74-106); Potassium 5.2 mmol/L (3.5-5.1); Protein, Total 6.9 g/dL (6.4-8.2); Sodium Level 135 mmol/L (136-145)
[2023-01-24] MEDS: Furosemide 40 MG Tablet PO (10:04)
--- NOTE | 2023-01-24 14:46 | NS ---
Called Mery- dietitian will meet w/ and pt on Sunday 01/28 at lunchtime for nutrition education prior to discharge. Reji Andrade MS, RDN, LD
[2023-01-24 16:27] VITALS: BMI 27.8
[2023-01-24] MEDS: Tamsulosin HCl 0.4 MG Capsule PO (17:31)
[2023-01-24 17:35] LABS: Bedside Glucose 92 mg/dL (74-106)
[2023-01-24] MEDS: QUEtiapine 25 MG Tablet PO (20:34)
[2023-01-24] MEDS: Atorvastatin Calcium 40 MG Tablet PO (20:35)
[2023-01-24] MEDS: traZODone 50 MG Tablet PO (20:36)
[2023-01-24 22:00] VITALS: BP 97/55; PULSE 69; RESP 16; TEMP 37.1; O2SAT 97
[2023-01-25 05:00] VITALS: BMI 27.8
[2023-01-25 06:00] VITALS: BMI 27.6
[2023-01-25] MEDS: Arthritis Pain Compound 60 CLICK TUBE TOPICAL ×3 (06:44→20:23)
[2023-01-25] MEDS: Menthol/Lanolin/Calamine/Znox 113 GM Tube 1 APPLIC TOPICAL ×2 (06:44→20:25)
[2023-01-25] MEDS: Acetaminophen 500 MG Tablet 1000 MG PO ×3 (06:44→20:24)
--- NOTE | 2023-01-25 07:03 | NURSING ---
pt refusing to get up and ready this am. am meds given
[2023-01-25 07:21] LABS: Bedside Glucose 93 mg/dL (74-106)
[2023-01-25 08:00] VITALS: BP 91/58; PULSE 66; RESP 16; TEMP 37; O2SAT 100
[2023-01-25] MEDS: Gabapentin 100 MG Capsule PO ×3 (08:12→16:57)
[2023-01-25] MEDS: Ferrous Gluconate 324 MG Tablet PO (08:12)
[2023-01-25] MEDS: FLUoxetine 20 MG Capsule PO (08:13)
[2023-01-25] MEDS: Allopurinol 100 MG Tablet PO (08:13)
[2023-01-25] MEDS: Ascorbic Acid 500 MG Tablet 1000 MG PO (08:13)
[2023-01-25] MEDS: Senna/Docusate Sodium 1 Tablet 2 TABLET PO (08:13)
[2023-01-25] MEDS: Pantoprazole Sodium 40 MG Tablet PO (08:13)
[2023-01-25] MEDS: 0.9% Saline Lock 10 ML Syringe IV (11:35)
[2023-01-25 14:24] VITALS: BMI 27.6
[2023-01-25 16:30] LABS: Bedside Glucose 108 mg/dL (74-106)
[2023-01-25] MEDS: Tamsulosin HCl 0.4 MG Capsule PO (16:57)
[2023-01-25 20:02] VITALS: BP 93/57; RESP 16; TEMP 36.9; O2SAT 98
[2023-01-25] MEDS: QUEtiapine 25 MG Tablet PO (20:22)
[2023-01-25] MEDS: Atorvastatin Calcium 40 MG Tablet PO (20:23)
[2023-01-25] MEDS: traZODone 50 MG Tablet PO (20:23)
[2023-01-26 05:00] VITALS: BMI 27.6
[2023-01-26 05:06] VITALS: BMI 27.5
[2023-01-26] MEDS: Arthritis Pain Compound 60 CLICK TUBE TOPICAL ×3 (06:23→20:27)
[2023-01-26] MEDS: Acetaminophen 500 MG Tablet 1000 MG PO ×3 (06:23→20:29)
[2023-01-26] MEDS: Menthol/Lanolin/Calamine/Znox 113 GM Tube 1 APPLIC TOPICAL ×2 (06:26→20:29)
[2023-01-26 06:55] LABS: Bedside Glucose 88 mg/dL (74-106)
[2023-01-26 07:35] VITALS: BP 96/53; PULSE 59; RESP 16; TEMP 36.4; O2SAT 100
[2023-01-26] MEDS: Ferrous Gluconate 324 MG Tablet PO (08:12)
[2023-01-26] MEDS: Allopurinol 100 MG Tablet PO (08:12)
[2023-01-26] MEDS: FLUoxetine 20 MG Capsule PO (08:12)
[2023-01-26] MEDS: Pantoprazole Sodium 40 MG Tablet PO (08:12)
[2023-01-26] MEDS: Senna/Docusate Sodium 1 Tablet 2 TABLET PO (08:12)
[2023-01-26] MEDS: Ascorbic Acid 500 MG Tablet 1000 MG PO (08:12)
[2023-01-26] MEDS: Gabapentin 100 MG Capsule PO ×3 (08:15→16:30)
--- NOTE | 2023-01-26 10:59 | PCM.PN.BLA ---
Progress Note AF BP is on the low side........I suspect due to volume depletion. HR is well controlled and he is on no medication to control HR in AF......more likely than not has sinus node dysfunction. BS's are all good on no medication......likely due to stage 4 CRF with a creat clearance in the 20's. He has gained about 9 lbs since admission but, Lungs are CTA with excellent air exchange and he has no edema. He has mild EAST after walking about 200 ft but, this is to be expected with a PA systolic estimated at 80. No SOB at rest and no orthopnea or PND. Will not need Lasix today. Recheck a renal profile in the AM and also a CBC. Hold the pantoprazole to see if the pancytopenia resolves.
--- NOTE | 2023-01-26 12:27 | NURSING ---
pt had family to visit this am. pt's spouse became upset and told nursing that she wanted security called. This nurse entered room and asked to speak with visiting family privately. They stated that the patient's spouse was aware of the visit and they had drove an hour to visit. This nurse then asked the family to step out and spoke with the pt privately. He stated he wanted to visit with them but didn't want to make his angry. We agreed that the visiting family would visit for 1 hour then leave. They were agreeable to this, however, the pt's spouse became angry when I explained this to her and entered the room and began yelling at the family members. This nurse called for security. Family members left room and apologized and said they would leave and did not want to cause a problem. Then pt's spouse then entered the pt's room and began yelling at him. Security arrived to unit and went to speak with spouse.
[2023-01-26 14:34] VITALS: BMI 27.5
[2023-01-26] MEDS: Tamsulosin HCl 0.4 MG Capsule PO (16:30)
[2023-01-26 16:55] LABS: Bedside Glucose 161 mg/dL (74-106)
[2023-01-26 19:59] VITALS: BP 110/56; PULSE 69; RESP 16; TEMP 36.9; O2SAT 100
[2023-01-26] MEDS: QUEtiapine 25 MG Tablet PO (20:27)
[2023-01-26] MEDS: traZODone 50 MG Tablet PO ×2 (20:28→20:29)
[2023-01-26] MEDS: Atorvastatin Calcium 40 MG Tablet PO (20:28)
[2023-01-27 05:02] VITALS: BMI 27.5
[2023-01-27 05:04] VITALS: BMI 27.6
[2023-01-27 05:52] LABS: Absolute Lymphocyte Count 0.59 X10^3/uL (0.83-4.51); Absolute Neutrophil Count 2.1 X10^3/uL (2.0-7.7); Basophil# 0.02 X10^3/uL; Basophil% 0.7 % (0-1); Eosinophil# 0.08 X10^3/uL; Eosinophils% 2.6 % (0-5); Hematocrit 27.8 % (40-54); Hemoglobin 8.2 g/dL (13.0-16.5); Lymphocyte # 0.59 X10^3/ul (0.83-4.51); Lymphocyte % 19.5 % (19-41); Mean Corp Hgb Conc 29.5 g/dL (32-36); Mean Corpuscular Hgb 27.7 pg (27.0-32.0); Mean Corpuscular Volume 93.9 fL (80-94); Mean Platelet Vol. 11.4 fl (6.2-12.0); Monocyte# 0.24 X10^3/uL; Monocyte% 7.9 % (0-10); NRBC Flagged by Analyzer 0 % (0-5); Neutrophil # 2.08 X10^3/uL (2.7-7.7); POSITIVE DIFFERENTIAL YES; POSITIVE MORPHOLOGY YES; Platelet Count 116 K/mm3 (150-450); RBC Distribution Width CV 23.7 % (11.6-14.6); RBC Distribution Width SD 81.1 fl (35.1-43.9); Red Blood Count 2.96 M/mm3 (4.6-6.2)
[2023-01-27 06:05] LABS: Differential Indicated SCAN CRITERIA MET
[2023-01-27] MEDS: Arthritis Pain Compound 60 CLICK TUBE TOPICAL ×3 (06:23→20:38)
[2023-01-27] MEDS: Acetaminophen 500 MG Tablet 1000 MG PO ×3 (06:23→20:40)
[2023-01-27] MEDS: Menthol/Lanolin/Calamine/Znox 113 GM Tube 1 APPLIC TOPICAL ×2 (06:25→20:39)
[2023-01-27 06:34] VITALS: BP 93/58; BP 96/65; BP 98/63; PULSE 66; PULSE 68; PULSE 74
[2023-01-27 06:35] LABS: Albumin, Serum 2.7 g/dL (3.2-5.0); BUN 70 mg/dL (7-18); BUN/Creat Ratio 25.9 RATIO (10-20); Calcium,Total 8.3 mg/dL (8.5-10.1); Chloride 106 mmol/L (98-107); EST Glomerular Filtration Rate 25 mL/min (>60); Est Glom Filt Rate - Afr Amer 30 mL/min (>60); Estimated Creatinine Clearance 26.19 ml/min; Glucose 106 mg/dL (74-106); Potassium 4.8 mmol/L (3.5-5.1); Sodium Level 135 mmol/L (136-145)
[2023-01-27 07:08] VITALS: BP 96/65; PULSE 66; RESP 16; TEMP 36.7
[2023-01-27 07:10] LABS: Bedside Glucose 102 mg/dL (74-106)
[2023-01-27 07:11] LABS: Anisocytosis 2+
[2023-01-27] MEDS: Senna/Docusate Sodium 1 Tablet 2 TABLET PO (07:50)
[2023-01-27] MEDS: Ascorbic Acid 500 MG Tablet 1000 MG PO (07:50)
[2023-01-27] MEDS: FLUoxetine 20 MG Capsule PO (07:50)
[2023-01-27] MEDS: Gabapentin 100 MG Capsule PO ×3 (07:50→17:22)
[2023-01-27] MEDS: Ferrous Gluconate 324 MG Tablet PO (07:51)
[2023-01-27] MEDS: Allopurinol 100 MG Tablet PO (07:51)
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
[2023-01-27] MEDS: 0.9% Saline Lock 10 ML Syringe IV (15:14)
[2023-01-27] MEDS: 0.9% Normal Saline 1,000 ML 166 ML IV (15:15)
[2023-01-27 15:36] VITALS: BMI 27.6
[2023-01-27 17:16] LABS: Bedside Glucose 106 mg/dL (74-106)
[2023-01-27] MEDS: Tamsulosin HCl 0.4 MG Capsule PO (17:22)
[2023-01-27 19:29] VITALS: BP 95/55; PULSE 71; RESP 14; TEMP 36.8; O2SAT 98
[2023-01-27 19:40] VITALS: PULSE 76; RESP 16; O2SAT 97
[2023-01-27 20:22] VITALS: BMI 27.6
[2023-01-27] MEDS: QUEtiapine 25 MG Tablet PO (20:24)
[2023-01-27] MEDS: Atorvastatin Calcium 40 MG Tablet PO (20:38)
[2023-01-27] MEDS: 0.9% Normal Saline 1,000 ML 75 ML IV (21:42)
[2023-01-28 06:00] VITALS: BMI 27.8
[2023-01-28] MEDS: Menthol/Lanolin/Calamine/Znox 113 GM Tube 1 APPLIC TOPICAL ×2 (06:05→21:56)
[2023-01-28] MEDS: Arthritis Pain Compound 60 CLICK TUBE TOPICAL ×3 (06:05→21:53)
[2023-01-28] MEDS: Acetaminophen 500 MG Tablet 1000 MG PO ×3 (06:05→21:52)
[2023-01-28 07:25] LABS: Bedside Glucose 91 mg/dL (74-106)
[2023-01-28 08:11] VITALS: BP 103/62; PULSE 68; RESP 16; TEMP 36.2; O2SAT 96
[2023-01-28] MEDS: FLUoxetine 20 MG Capsule PO (08:36)
[2023-01-28] MEDS: Ascorbic Acid 500 MG Tablet 1000 MG PO (08:36)
[2023-01-28] MEDS: Ferrous Gluconate 324 MG Tablet PO (08:36)
[2023-01-28] MEDS: Gabapentin 100 MG Capsule PO ×3 (08:36→17:23)
[2023-01-28] MEDS: Allopurinol 100 MG Tablet PO (08:37)
--- NOTE | 2023-01-28 10:15 | CASEMGMT ---
Addendum entered by Brigette Jackson 01/31/23 11:07: Received a call from Lynnette at [facility] who spoke with 3 different Drs and none are able to follow HHC orders, until pt is seen by new PCP on 02/18. Lynnette stated she spoke with the to update her. Pt will not have HHC until after 02/18. Addendum entered by Brigette Jackson 01/28/23 14:17: Plan: DC home 01/31, [facility] PT/OT/ST/SN/OJEDA/SW Addendum entered by Brigette Jackson 01/28/23 14:14: [facility] is out of service area. [facility] can accept. Original Note: Social Work Spoke with to follow up on HHC choices. chose [facility] and [facility]. [facility] SW also notified via email [facility] of pt's DC date. MYRNA FariaW
--- NOTE | 2023-01-28 10:26 | PN_ITS ---
Progress Note Afebrile VSS-blood pressure this morning is a little better at 103/62. Heart rate is well controlled. Maintaining appropriate oxygen saturation on RA Oral food intake is good but, he does not take in enough fluid. He was able to increase his oral intake to 1780 yesterday after me reminding him he needs to take at least 1500 cc a day. The I/O for yesterday was 20 780/1325 for a positive fluid balance of 1455. Weight today is 188.7, up from 187.4 yesterday. Discussed with nursing - no problems that need addressed Reviewed the PT/OT/ST notes Medication list reviewed. Bear denies shortness of breath, cough, orthopnea, PND, abdominal pain, dysuria and calf pain. Apparently one of his children who is drug/alcohol dependence keeps calling him and this upsets Bear quite a bit. He was crying on the phone to his last night. Did not sleep well. Bear and his would like visitation restricted and have given us a list of who can visit. They also want to restrict phone calls. Physical Exam Const Constitutional Narrative: appears fatigued today. No apparent distress. Currently having speech therapy and cooperating. Resp clear to auscultation bilaterally Resp Narrative: Diminished in the left base likely with no crackles or wheezing. Excellent air exchange in the right base and it is clear. He is not tachypneic and respirations are not labored. Cardio Cardio Narrative: Irregular irregular rhythm with controlled ventricular response. No gallop. No rub. GI normal to inspection, nondistended, normoactive bowel sounds, soft to palpation and non-tender Extremity no calf tenderness and no pedal edema Skin no wounds Skin Narrative: No rashes and no skin breakdown. 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 (13) Pancytopenia: PLAN: This my be due to medication. Or he could have a malignancy in the left breast and have bone involvement. Will need to follow up with hematology post DC. Pantoprazole was recently discontinued because it is known to cause leukopenia and thrombocytopenia. (14) Hyperkalemia: PLAN: Add a potassium restriction to his diet. Molecular Pathologist will teach bear and his about potassium restriction. Give 40 mg Lasix today and recheck the potassium. 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 An appt with Dr. Kahn has been scheduled for bear for removel of the lesion. (16) Hypoxia: (17) Obstructive sleep apnea: PLAN: He was diagnosed with this is the past and wore CPAP but, he had gastric bypass surgery and quit wearing it. He desaturates at night and is wearing O2 at 2 LPM while sleeping. He will be scheduled for an OP sleep study and then F/U with pulmonary medicine. (18) Dehydration: PLAN: Plan 1. Continue therapy 2. Restrict visitation and phone calls. 3. Recheck a BMP in the AM. 4. His is here today and will ensure that he drinks fluids today. I reiterated to Bear and his that he must drink 1500 cc/day to keep hydrated and prevent acute on chronic renal failure. He is already stage IV renal failure. 5. DC the IV fluids after 2 Liters and allow him to increase fluid intake. His will keep after him to drink. 6. HGB is stable and so are the platelets. Will schedule him an appt to follow up with hematology. 7. May need to DC the allopurinol because of the pancytopenia. The UA is 12.1 on allopurinol. Will defer this decision to hematology. Visit Charges Inpatient E&M: 94595 Subs Hosp L2
[2023-01-28] MEDS: 0.9% Saline Lock 10 ML Syringe IV (15:05)
[2023-01-28 15:11] VITALS: BMI 27.8
[2023-01-28 17:10] LABS: Bedside Glucose 113 mg/dL (74-106)
[2023-01-28] MEDS: Tamsulosin HCl 0.4 MG Capsule PO (17:21)
[2023-01-28 20:00] VITALS: BP 100/65; PULSE 72; RESP 17; TEMP 37; O2SAT 99
[2023-01-28] MEDS: Atorvastatin Calcium 40 MG Tablet PO (21:52)
[2023-01-28] MEDS: traZODone 50 MG Tablet PO (21:52)
[2023-01-28] MEDS: QUEtiapine 25 MG Tablet PO (21:53)
[2023-01-28 22:00] VITALS: PULSE 72; RESP 16
[2023-01-29 00:25] VITALS: BMI 27.8
[2023-01-29] MEDS: Acetaminophen 500 MG Tablet 1000 MG PO ×3 (05:47→20:15)
[2023-01-29 06:00] VITALS: BMI 28.0
[2023-01-29 06:08] LABS: Anion Gap 4 (5-15); BUN 62 mg/dL (7-18); BUN/Creat Ratio 25.5 RATIO (10-20); Calcium,Total 8.5 mg/dL (8.5-10.1); Chloride 110 mmol/L (98-107); Creatinine, Serum 2.43 mg/dL (0.70-1.30); EST Glomerular Filtration Rate 28 mL/min (>60); Est Glom Filt Rate - Afr Amer 34 mL/min (>60); Estimated Creatinine Clearance 29.09 ml/min; Glucose 89 mg/dL (74-106); Potassium 5.3 mmol/L (3.5-5.1); Sodium Level 138 mmol/L (136-145)
[2023-01-29] MEDS: Menthol/Lanolin/Calamine/Znox 113 GM Tube 1 APPLIC TOPICAL ×2 (06:40→20:17)
[2023-01-29] MEDS: Arthritis Pain Compound 60 CLICK TUBE TOPICAL ×3 (06:41→20:14)
[2023-01-29 07:06] LABS: Bedside Glucose 85 mg/dL (74-106)
[2023-01-29 07:42] VITALS: BP 113/66; PULSE 73; RESP 16; TEMP 36.3; O2SAT 100
[2023-01-29] MEDS: Gabapentin 100 MG Capsule PO ×3 (08:41→17:20)
[2023-01-29] MEDS: Ferrous Gluconate 324 MG Tablet PO (08:41)
[2023-01-29] MEDS: FLUoxetine 20 MG Capsule PO (08:41)
[2023-01-29] MEDS: Ascorbic Acid 500 MG Tablet 1000 MG PO (08:42)
[2023-01-29] MEDS: Allopurinol 100 MG Tablet PO (08:42)
[2023-01-29 09:46] LABS: Pathologist Review Reviewed
[2023-01-29 12:44] VITALS: BMI 28.0
--- NOTE | 2023-01-29 15:47 | CHAPLAIN ---
Type of Pastoral Visit ___ Initial Visit _x__ Follow-up Visit ___ On-call Visit ___ General Patient Visit ___ Spiritual Assessment ___ Family Conference ___ Bereavement ___ Rapid Response ___ Code Blue ___ Other (describe below) Pastoral Care Referral From _x__ Patient ___ Family ___ Nurse ___ Physician ___ Unix Analyst ___ Document Management Specialist ___ Other (describe below) Sacrament/Intervention _x__ Active listening ___ Anointing ___ Jain ___ Bereavement ___ Communion ___ Shawanda exploration ___ ___ Life review _x__ Prayer ___ Reconciliation ___ Sacrament of Sick _x__ Supportive presence ___ Wedding ___ Other (describe below) Pastoral Comments
[2023-01-29] MEDS: Tamsulosin HCl 0.4 MG Capsule PO (17:20)
[2023-01-29 17:25] LABS: Bedside Glucose 89 mg/dL (74-106)
[2023-01-29] MEDS: 0.9% Saline Lock 10 ML Syringe IV ×2 (17:39→20:14)
[2023-01-29] MEDS: QUEtiapine 25 MG Tablet PO (20:14)
[2023-01-29] MEDS: traZODone 50 MG Tablet PO (20:15)
[2023-01-29] MEDS: Atorvastatin Calcium 40 MG Tablet PO (20:15)
[2023-01-29 20:19] VITALS: BP 101/67; PULSE 70; RESP 16; TEMP 36.3; O2SAT 98
[2023-01-29 20:40] VITALS: BMI 28.0
[2023-01-29 22:00] VITALS: PULSE 70; RESP 16
[2023-01-30 06:00] VITALS: BMI 29.1
[2023-01-30] MEDS: Acetaminophen 500 MG Tablet 1000 MG PO ×3 (06:28→20:44)
[2023-01-30] MEDS: Menthol/Lanolin/Calamine/Znox 113 GM Tube 1 APPLIC TOPICAL ×2 (06:29→20:45)
[2023-01-30] MEDS: Arthritis Pain Compound 60 CLICK TUBE TOPICAL ×3 (06:29→20:44)
[2023-01-30 07:00] LABS: Bedside Glucose 82 mg/dL (74-106)
[2023-01-30 08:03] VITALS: BP 115/63; PULSE 72; RESP 18; TEMP 36.3; O2SAT 100
[2023-01-30] MEDS: Allopurinol 100 MG Tablet PO (08:24)
[2023-01-30] MEDS: Ascorbic Acid 500 MG Tablet 1000 MG PO (08:24)
[2023-01-30] MEDS: FLUoxetine 20 MG Capsule PO (08:24)
[2023-01-30] MEDS: Ferrous Gluconate 324 MG Tablet PO (08:24)
[2023-01-30] MEDS: Gabapentin 100 MG Capsule PO ×3 (08:24→17:10)
[2023-01-30 09:44] VITALS: BMI 28.0
[2023-01-30] MEDS: Furosemide 40 MG Tablet PO (09:47)
[2023-01-30] MEDS: 0.9% Saline Lock 10 ML Syringe IV (09:47)
[2023-01-30 16:25] LABS: Bedside Glucose 98 mg/dL (74-106)
[2023-01-30] MEDS: Tamsulosin HCl 0.4 MG Capsule PO (17:10)
[2023-01-30 19:18] VITALS: BP 94/61; PULSE 82; RESP 14; TEMP 36.9; O2SAT 100
[2023-01-30] MEDS: QUEtiapine 25 MG Tablet PO (20:44)
[2023-01-30] MEDS: traZODone 50 MG Tablet PO (20:44)
[2023-01-30] MEDS: Atorvastatin Calcium 40 MG Tablet PO (20:44)
[2023-01-31] MEDS: Acetaminophen 500 MG Tablet 1000 MG PO ×3 (05:35→19:40)
[2023-01-31 06:16] VITALS: BMI 29.1
[2023-01-31 06:45] LABS: Bedside Glucose 86 mg/dL (74-106)
[2023-01-31 07:45] VITALS: BP 97/53; PULSE 69; RESP 15; TEMP 36.2; O2SAT 100
[2023-01-31] MEDS: Ferrous Gluconate 324 MG Tablet PO (07:59)
[2023-01-31] MEDS: Ascorbic Acid 500 MG Tablet 1000 MG PO (07:59)
[2023-01-31] MEDS: FLUoxetine 20 MG Capsule PO (08:00)
[2023-01-31] MEDS: Allopurinol 100 MG Tablet PO (08:00)
[2023-01-31] MEDS: Gabapentin 100 MG Capsule PO ×3 (08:02→17:06)
--- NOTE | 2023-01-31 10:02 | DCINST_ITS ---
Discharge Instructions Diet Discharge Diet: - (carbohydrate controlled, low fat, low in potassium and purine restricted. A diet with a lot of purines in it can cause gout and kidney stones. ) Activity Discharge Activity: May Not Drive, May Shower and Use Walker (or a cane, janny when ambulating on uneven surfaces (like outdoors) and when walking a long distance. ) Weight Bearing Status: Full weight bearing Keep extremity elevated above heart level: Legs (Keep your legs elevated anytime you are sitting in a chair........it will help prevent/control swelling. ) Additional Activity Instructions:: Weigh yourself every morning after urinating with no clothes on and keep a record. Dressing / Incision Call your doctor if you observe: Fever of 101 or Higher, Inability to urinate, Inability to have a bowel movement, Shortness of breath, Dizziness, Fainting spells, Swelling in the ankles, Chest pain, Increased palpitations (irregular heartbeat), Calf discomfort, Uncontrolled pain and - (weight gain of 5 lbs in 1 week or 3 lbs in 1 day. ) Follow Up Care Please Follow Up With: Alina Concepcion DO When: 02/18/23 at 2:20 PM. You have many other appts that will be listed at the end of the discharge instructions. Test Results: Test results from this visit will be discussed in further detail at your follow- up appointment, if applicable. Discharge Plan Admission Admit Date/Time: 01/12/23 17:50 Primary Reason for Your Visit: Post stroke debility. Attending Provider: Carol Gibson Primary Care Provider: Mely Lazar Instructions Patient Instructions: Potassium, Hemorrhagic Stroke ..., Symptoms of Stroke, Coping with Kidney Failure, Kidney Disease Fluid Intake, Biopsy Breast Surg, Needle Breast Biopsy, CKD Dc, Hyperkalemia Dc, Discharge Instructions for Stroke, Low Potassium Diet Dc, Stroke Prevention Activity, Pulmonary Hypertension Additional Instructions / Restrictions: 1. Bear, you have a lot of health issues going on and many need to be addressed sooner rather than later. a. You have a mass in the left breast and this needs to be biopsied. You have an appt with Dr. Casey on Friday. She will discuss the best approach with you. The tissue will be sent to the lab and the pathologist will look at it and decide if it is cancerous or if it is benign (non-cancerous). If it is cancerous Dr. Casey (surgeon) and Dr. Fournier (oncology) will decide what will be the proper treatment and they will discuss with you and Heather. b. You have a cutaneous horn on your left cheek. These can be benign (non-cancerous) or they can be caused by a skin cancer. Dr. Kahn will remove the horn and sent it to the lab for pathology. If it it a skin cancer then you may have to have additional treatment. c. You have chronic kidney disease. There are 5 stage of chronic kidney failure, 5 being the worst. You are currently in stage 4 and we want to prevent you from going into stage 5 kidney failure because then we would have to start talking about dialysis, Dr. Herrera will be you kidney doctor (referral manager). You will like him......he is not only a good doctor he is a good quang and will explain things to you. Some people with chronic kidney disease start to retain potassium in their blood. You are retaining potassium. When the potassium is too high it can cause problems with the rhythm of the heart, fatigue, numbness, weakness and nausea so it is very important we keep the potassium at 5 or below. The agronomy advisor has educated you and Heather about foods to avoid and how to read labels.....this is a lot to learn in 1 session and it would be a good idea to follow up with the dieticians as an OP to get further education. I am giving you some instructions to read (you may have to read more than once) that discusses what foods to avoid to keep you potassium from getting too high. d. You have pancytopenia. The bone marrow makes 3 different types of blood cells. White blood cells that fight infection, Red blood cells that carry oxygen and platelets that help clot your blood if you have a cut. All 3 of these cells are low in your blood. There can be many reasons for this.......I suspect that the Allopurinol you take for the high uric acid in your blood is contributing to the pancytopenia. You have an appt with Dr. Fournier next week to find out why your bone marrow is not making enough WBC's, RBC's and platelets. I am going to discontinue the Allopurinol to see if things improve at all. Low white blood cells make it easier for you to get infections so STAY AWAY FROM PEOPLE WHO ARE SICK. e. You have high blood pressure in your lungs and this is called pulmonary hypertension. This contributes greatly to the swelling in your legs. This likely came from the sleep apnea but, sometimes it is due to something else. You are going to have a sleep study and then see the lung doctor. The lung doctor will prescribe CPAP or BIPAP if you need it and will also discuss treatment of the severe pulmonary hypertension with you.......there are drugs that can help to decrease the BP in the lungs. f. Your kidney function actually improved since we gave you the Lasix yesterday. The Potassium also came down to 5. I am going to start you on Lasix 40 mg every other day. I want you to drink between 1,200 and 1,500 cc's of fluid a day. I think between the potassium restricted diet and the Lasix you will be able to maintain a normal potassium. I am going to give you a lab slip to have a potassium checked next Friday when you are at the hospital to see Dr. Fournier and I want you to call me on for the results. 2. Because you have both heart failure and kidney failure it is VERY important for you to keep track of how much fluid you are taking in and how much you are peeing out. I want you to weigh your self Friday morning and then start weighing yourself every morning naked after you pee and I want you to keep a record of the results. Take the urinal home so that you can keep track of your urine output. Take that record to your appt with Dr. Herrera. One of the first signs you are retaining fluid is your weight will start increasing. Before you ever notice swelling in the legs your weight will have increased about 4 and 1/2 pounds. If this is addressed early then you can prevent admissions to the hospital for congestive heart failure. Buy a good digital scale. Weigh yourself daily in the AM after urinating with no clothes on and keep a record. If your weight increases by 5 pounds or more in 1 week or increases by 3 lbs in 1 day then you are retaining fluid . Cut back on salt intake and fluids and increase the Lasix to 2 times a day until your weight is back to baseline. If your weight continues to increase call your PCP or photographic lithographer or Dr. Herrera for instructions. 3. I have given you a lot of information/instructions and you will more likely than not have questions after you go home. I am going to give you my contact numbers and please do not be afraid to call me with questions. 4. You have a lot of appts to keep post Discharge. If you have to miss an appt please give the physician's office a call at least 24-48H prior to the appt that you are going to need to cancel and they can get you another appt. Please try not to miss any appts because you have a lot going on and it is pretty important to get the ball rolling. 5. It has been a pleasure getting to know you and Heather. You have made a lot of progress since you first came to rehab. Office: [phone] CELL: [phone] PS: Make sure to continue to wear the oxygen anytime you are sleeping. You are much more alert and sharp when you wear the oxygen at night and your thought processes are significantly better. Since you are sleeping so much better on the low dose Seroquel and Trazodone I am giving you prescriptions for both. You family doc may want to consider el iminating one or the other in the future to see if you continue to sleep well. If you start having problems again I would go up on the dose of the medication you are taking......you are on very low doses of both medications at this time. Discharge Orders/Prescriptions Prescriptions: New Arthritis Pain Compound 4 click topical TID Qty: 2 3RF Rx Instructions: apply to the low back 2-3 times a day for low back pain. furosemide 40 mg Tablet 40 mg PO Q48H Qty: 30 0RF ascorbic acid (vitamin C) 500 mg Tablet 1,000 mg PO BREAKFAST Qty: 60 0RF Rx Instructions: Take this medication with a meal and with the ferrous sulfate trazodone 50 mg Tablet 50 mg PO QHS Qty: 30 0RF gabapentin 100 mg Capsule 100 mg PO TIDCM Qty: 90 0RF Rx Instructions: this med is for the back pain and the pain in the left face Continued ferrous gluconate 324 mg (38 mg iron) tablet 324 mg PO DAILY acetaminophen [Tylenol] 325 mg Tablet 650 mg PO Q6H PRN PRN (Reason: Pain 1-10 Or Fever >100.7) Qty: 0 0RF quetiapine [Seroquel] 25 mg Tablet 25 mg PO QHS@2100 Qty: 30 0RF atorvastatin 40 mg tablet 40 mg PO QHS Qty: 30 0RF tamsulosin 0.4 mg capsule 0.4 mg PO DAILY@1730 Qty: 30 0RF pantoprazole 40 mg tablet,delayed release (DR/EC) 40 mg PO DAILY Qty: 30 0RF fluoxetine [Prozac] 20 mg Capsule 20 mg PO DAILY Qty: 30 0RF Discontinued allopurinol 100 mg tablet 100 mg PO DAILY menthol-zinc oxide [Calmoseptine] 0.44-20.6 % ointment 1 applic topical BID@0600,220 Protocol: *Topical Application Instructions APPLICATION INSTRUCTIONS: Scrotum/buttocks torsemide 20 mg Tablet 20 mg PO DAILY PRN (Reason: sob) lidocaine [Lidocaine Pain Relief] 4 % Adhesive Patch,Medicated 2 patch TOPICAL 599 PRN (Reason: Pain) potassium chloride 20 mEq Tablet Extended Release 20 meq PO DAILY Other Ambulatory Orders: Basic Metabolic Profile (BMP) (Routine) Timeframe: 20230206 Facility: [facility] - Location: Laboratory Ordered By: Dr. Carol Gibson Uric Acid (Routine) Timeframe: 20230206 Facility: [facility] - Location: Laboratory Ordered By: Dr. Carol Gibson Referrals / Follow Up: Luis Herrera MD [Med Staff - Consulting] - 02/27/23 9:30 am Eriberto Fournier MD [Med Staff - Active Staff] - 02/06/23 11:00 am Byron Kahn MD [Med Staff - Active Staff] - 02/13/23 11:00 am Alina Concepcion DO [Non-Staff] - 02/18/23 2:20 pm Francisco Shannon MD [Non-Staff -Ordering Privileges] - 05/19/23 9:00 am Tierney Casey MD [Med Staff - Active Staff] - 02/04/23 9:00 am () Disposition Disposition (needs filled in before D/C Order can be placed): Home Health Service
[2023-01-31 10:43] LABS: Anion Gap 4 (5-15); BUN 59 mg/dL (7-18); BUN/Creat Ratio 25.4 RATIO (10-20); Calcium,Total 8.6 mg/dL (8.5-10.1); Chloride 111 mmol/L (98-107); Creatinine, Serum 2.32 mg/dL (0.70-1.30); EST Glomerular Filtration Rate 30 mL/min (>60); Est Glom Filt Rate - Afr Amer 36 mL/min (>60); Estimated Creatinine Clearance 30.47 ml/min; Glucose 115 mg/dL (74-106); Sodium Level 137 mmol/L (136-145)
[2023-01-31 11:30] VITALS: BP 102/60
[2023-01-31] MEDS: Furosemide 40 MG Tablet PO (11:32)
--- NOTE | 2023-01-31 11:38 | PCM.DC.SUM ---
Providers Date of Admission: 01/12/23 Date of Discharge: 01/31/23 Primary Care Physician: Dr. Alina Concepcion DO None Reason For Visit: CVA Diagnosis Discharge Diagnosis (1) Debility: Status: Acute Code(s): R53.81 - Other malaise (2) Hemorrhagic cerebrovascular accident (CVA): Status: Inactive Code(s): I61.9 - Nontraumatic intracerebral hemorrhage, unspecified (3) Cerebral amyloid angiopathy: Status: Suspected Code(s): E85.4 - Organ-limited amyloidosis; I68.0 - Cerebral amyloid angiopathy Plan: This puts him at great risk for future intracerebral bleeds and he should NOT be anticoagulated for AF. (4) Chronic atrial fibrillation: Status: Inactive Code(s): I48.20 - Chronic atrial fibrillation, unspecified (5) Chronic kidney disease, stage 4 (severe): Status: Chronic Code(s): N18.4 - Chronic kidney disease, stage 4 (severe) (6) Diabetes mellitus, type 2: Status: Inactive Code(s): E11.9 - Type 2 diabetes mellitus without complications (7) (HFpEF) heart failure with preserved ejection fraction: Status: Acute Code(s): I50.30 - Unspecified diastolic (congestive) heart failure (8) Severe pulmonary hypertension: Status: Acute Code(s): I27.20 - Pulmonary hypertension, unspecified (9) Iron deficiency anemia: Status: Acute Code(s): D50.9 - Iron deficiency anemia, unspecified (10) Left breast mass: Status: Acute Code(s): N63.20 - Unspecified lump in the left breast, unspecified quadrant (11) Malnutrition: Status: Suspected Code(s): E46 - Unspecified protein-calorie malnutrition (12) Chronic central neuropathic pain: Status: Acute Code(s): M79.2 - Neuralgia and neuritis, unspecified; G89.29 - Other chronic pain Plan: Headaches have resolved with Gabapentin. (13) Pancytopenia: Status: Acute Code(s): D61.818 - Other pancytopenia Plan: This my be due to medication. Or he could have a malignancy in the left breast and have bone involvement. Will need to follow up with hematology post DC. Pantoprazole was recently discontinued because it is known to cause leukopenia and thrombocytopenia. (14) Hyperkalemia: Status: Acute Code(s): E87.5 - Hyperkalemia Plan: Add a potassium restriction to his diet. Credit Control Assistant will teach keren and his about potassium restriction. Give 40 mg Lasix today and recheck the potassium. (15) Cutaneous horn: Status: Acute Code(s): L85.8 - Other specified epidermal thickening Plan: I suspect this is a squamous cell cancer due to the pain and rapid growth. An appt with Dr. Kahn has been scheduled for keren for removel of the lesion. (16) Hypoxia: Status: Resolved Code(s): R09.02 - Hypoxemia (17) Obstructive sleep apnea: Status: Acute Code(s): G47.33 - Obstructive sleep apnea (adult) (pediatric) Plan: He was diagnosed with this is the past and wore CPAP but, he had gastric bypass surgery and quit wearing it. He desaturates at night and is wearing O2 at 2 LPM while sleeping. He will be scheduled for an OP sleep study and then F/U with pulmonary medicine. (18) Dehydration: Status: Resolved Code(s): E86.0 - Dehydration Plan DC home with [facility] who will see him for the first time on 02/18/23 for PT/OT/ST/SN/OJEDA/SW. Follow up with PCP in the next 1-2 weeks Has a follow up appt with Dr. Casey for a left breast biopsy. Has a follow-up appointment with Dr. Kahn to remove the cutaneous horn/suspected squamous cell CA on his left cheek. Has a follow-up appointment with Dr. Fournier for pancytopenia of unknown etiology. This could be related to allopurinol in a patient with stage IV chronic renal failure. He has a follow-up appointment scheduled with Dr. Herrera for stage IV chronic renal failure Formal sleep study will be done on the night of discharge from acute rehab and he will follow-up with the pulmonary medicine department at [facility] to obtain the results. Medications at Discharge Home Medications ferrous gluconate 324 mg (38 mg iron) tablet 324 mg PO DAILY iron supplement 11/29/22 acetaminophen 325 mg tablet (Tylenol) 650 mg PO Q6H PRN PRN Pain 1-10 Or Fever >100.7 #0 tabs 12/12/22 Arthritis Pain Compound 4 click topical TID #2 BOTTLES 01/31/23 ascorbic acid (vitamin C) 500 mg tablet 1,000 mg PO BREAKFAST #60 tabs 01/31/23 atorvastatin 40 mg tablet 40 mg PO QHS cholesterol #30 tabs 01/31/23 fluoxetine 20 mg capsule (Prozac) 20 mg PO DAILY mood #30 caps 01/31/23 furosemide 40 mg tablet 40 mg PO Q48H #30 tabs 01/31/23 gabapentin 100 mg capsule 100 mg PO TIDCM #90 caps 01/31/23 pantoprazole 40 mg tablet,delayed release 40 mg PO DAILY GERD #30 tabs 01/31/23 quetiapine 25 mg tablet (Seroquel) 25 mg PO QHS@2100 mood #30 tabs 01/31/23 tamsulosin 0.4 mg capsule 0.4 mg PO DAILY@1730 prostate #30 caps 01/31/23 trazodone 50 mg tablet 50 mg PO QHS #30 tabs 01/31/23 Hospital Course Operations None Procedures None Summary of Care Provided Minutes Spent on Discharge: 45 Hospital Course: ? LINDA CARLOS, is a 67 YO? M with a PMH of chronic anemia, chronic atrial fibrillation, GERD, chronic kidney disease stage IIIb, hypertension, chronic anticoagulation with warfarin, history of ROSSANA, a solitary lung nodule, severe pulmonary hypertension, a recently discovered left breast mass, RODRIGUEZ, type 2 diabetes mellitus, CAD with history of coronary artery stents and CABG x3 vessels on 12/23/2018, gastric bypass surgery in 2011, left atrial appendage ligation and implantation of a pacemaker on 06/30/2019 who was seen by Dr. Yang on 12/03/22 for c/o SOB and leg swelling. He had gained 40 lbs over the preceding 4 months. He was sent to the ED.? Chest x-ray in the emergency department showed pulmonary vascular congestion.? He was given 40 mg of IV Lasix in the emergency department and the hospitalist service was contacted for admission. Nephrology was consulted and participated in management of diuretics while in the hospital.? Echocardiogram showed a 65% ejection fraction with a severely dilated right ventricle, severely enlarged right atrium, moderately enlarged left atrium and 2+ tricuspid valve insufficiency.? A previous echocardiogram done at [facility] in September 2022 showed an estimated pulmonary artery systolic pressure of 73 consistent with severe pulmonary hypertension.? He has a hx of ROSSANA but, he quit wearing CPAP after the gastric bypass. While in the hospital he required BIPAP for hypoxia with CO2 retention.? He was seen by Dr. Marquez and was to follow up with Dr. Marquez post DC.? Following diuresis and acute on chronic renal failure he had generalized weakness and he was evaluated by PT/OT and admission to TCU was recommended. He was admitted to TCU on 12/12/22.? On 12/14/22 he had a sudden alteration in mental status.? A noncontrast brain CT showed a 4 cm acute parenchymal hematoma in the left temporal lobe with extension into the left lateral ventricle and trace amounts of acute hemorrhage over the high right convexity.? The patient was given Kcentra and vitamin K in the emergency department and the hemorrhagic stroke order set was initiated.? The ER physician was in contact with neurosurgery at [facility] and the patient was excepted for transfer by Dr. Lazar. ?? ? At [facility] he was evaluated by neurosurgery and they chose to treat non-surgically.? His NIHSS score at admission to [facility] was 1 for questions.? CTA was negative for spot sign or AVM.? While at [facility] he has decreased appetite and intake and he lost weight.? His decided against a Dobbhoff feeding tube or PEG.? His weight at discharge from TCU was 250 pounds and his weight at presentation to acute rehab was 175 pounds.? He was further diuresed at [facility] with a Lasix drip/intermittent Metolazone? and a good portion of the wt loss may be due to water wt, although he is cachectic in appearance with temporal wasting at presentation to rehab.? He was treated at [facility] for approximately 1 month.? With aggressive diuresis he developed a metabolic alkalosis as well as acute on chronic kidney disease.? Creatinine peaked at 5.3 but improved to 2.5 at discharge.? A transthoracic echocardiogram at [facility] showed a right ventricular systolic pressure estimated at 73 mmHg with right ventricular enlargement, moderate right ventricular dysfunction and moderate tricuspid regurgitation.? He is presumed to have CAA and AC is contraindicated for the rest of his life due to high risk of recurrent ICH.? While at [facility] he had ST/OT/PT and he significantly improved.? Aphasia is much better and he is able to hold a conversation with me with only occasional difficulty with word finding.? Acute rehab was recommended at [facility].? On 01/12/23 he was transferred to the acute inpt rehab unit at [facility] for 3 hours of therapy daily to restore function as close to his baseline as possible.? Keren did very well in therapy and was cooperative and highly motivated to get home. Initially we had trouble getting him to take in adequate fluids but, as this improved he required occasional Lasix for increases in wt. His lungs remained CTA throughout the duration of his stay in rehab but, he did have peripheral edema. While he was on rehab he and his were educated about how to manage the diuretics as an OP according to daily weights. They were also educated in proper diet with low salt and carb control. He was having difficulty sleeping and he was started on Trazodone which worked very well. He had pain in the Left side of the head including the left forehead and cheek. 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 This was continued at [facility]. He has a cutaneous horn on the left check which is very irritating to him. I explained that the cutaneous horns can be caused by skin cancer such as squamous cell carcinoma. He has had a few skin cancers removed in the past. I recommended he follow-up with Dr. Byron Kahn for removal/possible Moh's if the horn is cancerous. He was agreeable to this and an appt was made for him. He was found to be iron deficient at [facility] and was started on an oral iron supplement but, the HGB was not improving. He was given IV iron while in rehab. Stool was heme +. He is chronically on Pantoprazole. He was discharged on vitamin C and oral iron supplementation however I doubt he will be able to absorb oral iron because of the chronic acid suppression in his stomach with pantoprazole. He will likely need IV iron periodically in the future and he was referred to hematology both for iron deficiency and also for pancytopenia of unknown etiology. He complained that the mass in his left breast was enlarging and had an OP US prior to the hospital stay that was suspicious for malignancy. An appt was made for him to follow up with Dr. Casey as an OP for a breast BX. Keren did very well in rehab. Prior to discharge he was independent with eating, grooming, upper body dressing, lower body dressing, toilet transfer and toileting. He was supervision/set up for tub/shower transfer at least for the first 2 weeks. He was ambulating with a cane at mod I. He was able to do 8 sit to stands in 30 seconds with bilateral upper extremity assistance. He completed the turn up and go test in 15.95 seconds with a straight cane at standby assist which is excellent. He could ascend/descend 20 steps with 1 handrail and a straight cane at standby assist. He was discharged on 01/31/2023 Home with his and will have home Health care with [facility] care starting 02/18/2023. Services included and home health care will include PT/OT/ST/SN/OJEDA/SW. Because of the cerebral amyloid angiopathy Keren is at increased risk for additional cerebral hemorrhages going forward. He should not be anticoagulated for chronic atrial fibrillation going forward. He has had a left atrial appendage ligation in the past and hopefully this will protect him from embolic CVAs. Physical Exam Const alert, oriented x3 and no apparent distress General Appearance: cooperative Orientation / Consciousness: Negative for confused HEENT normocephalic, moist oral mucous membranes and oropharynx normal Eyes PERRL and EOMs intact bilaterally Neck supple General: trachea midline; Negative for lymphadenopathy Resp normal respiratory effort, normal air movement and clear to auscultation bilaterally Resp Narrative: Diminished in the left base likely with no crackles or wheezing. Excellent air exchange in the right base and it is clear. He is not tachypneic and respirations are not labored. Cardio no murmurs, no rub and no gallops Cardio Narrative: Irregular irregular rhythm with controlled ventricular response. No gallop. No rub. GI normal to inspection, nondistended, normoactive bowel sounds, soft to palpation and non-tender GI Narrative: No guarding with palpation. Extremity no calf tenderness and no pedal edema General Extremity: Negative for edema Skin no wounds Skin Narrative: No rashes and no skin breakdown. Neuro CN's II-XII intact bilaterally, no focal motor deficits and no sensory deficits noted Neuro Narrative: He has generalized weakness. Had trouble with the heel martines test because he has had BL hip replacements and can not get his heel up to the knee.....he was only able to get the heel up to approximately mid tibia but had no ataxia. Coordination / Balance: [id number] test normal Speech: speech normal Psych cooperative, affect normal, denies homicidal ideation and denies suicidal ideation Psych Narrative: He is calm. Appearance: appropriate Weight / BMI Weight Weight: 196 lb 10.437 oz Body Mass Index (BMI) 29.1 ABG / Lab / Microbiology Data Result Diagrams: 01/27/23 05:45 01/31/23 10:21 Laboratory: Laboratory Results - last 24 hr 01/30/23 16:05: POC Glucose 98 01/31/23 06:25: POC Glucose 86 01/31/23 10:21: Sodium 137, Potassium 5.0, Chloride 111 H, Carbon Dioxide 22.0, Anion Gap 4 L, BUN 59 H, Creatinine 2.32 H, Estim Creat Clear Calc 30.47, Est GFR (MDRD) Af Amer 36 L, Est GFR (MDRD) Non-Af 30 L, BUN/Creatinine Ratio 25.4 H, Glucose 115 H, Calcium 8.6 D/C Instructions Discharge Diet: - (carbohydrate controlled, low fat, low in potassium and purine restricted. A diet with a lot of purines in it can cause gout and kidney stones. ) Weight Bearing Status: Full weight bearing Keep extremity elevated above heart level: Legs (Keep your legs elevated anytime you are sitting in a chair........it will help prevent/control swelling. ) Additional Activity Instructions: Weigh yourself every morning after urinating with no clothes on and keep a record. Call your doctor if you observe: Fever of 101 or Higher, Inability to urinate, Inability to have a bowel movement, Shortness of breath, Dizziness, Fainting spells, Swelling in the ankles, Chest pain, Increased palpitations (irregular heartbeat), Calf discomfort, Uncontrolled pain and - (weight gain of 5 lbs in 1 week or 3 lbs in 1 day. ) Please Follow Up With: Alina Concepcion, When: 02/18/23 at 2:20 PM. You have many other appts that will be listed at the end of the discharge instructions. Meaningful Use Info Meaningful Use Diagnoses (Choose all that apply): Hemorrhagic CVA CVA Therapy Assessed for PT,OT and/or ST?: Yes Discharge Plan Admission Admit Date/Time: 03/12/23 17:50 Primary Reason for Your Visit: Post stroke debility. Attending Provider: Carol Gibson Primary Care Provider: Mely Lazar Instructions Patient Instructions: Potassium, Hemorrhagic Stroke ..., Symptoms of Stroke, Coping with Kidney Failure, Kidney Disease Fluid Intake, Biopsy Breast Surg, Needle Breast Biopsy, CKD Dc, Hyperkalemia Dc, Discharge Instructions for Stroke, Low Potassium Diet Dc, Stroke Prevention Activity, Pulmonary Hypertension Additional Instructions / Restrictions: 1. Keren, you have a lot of health issues going on and many need to be addressed sooner rather than later. a. You have a mass in the left breast and this needs to be biopsied. You have an appt with Dr. Casey on Friday. She will discuss the best approach with you. The tissue will be sent to the lab and the pathologist will look at it and decide if it is cancerous or if it is benign (non-cancerous). If it is cancerous Dr. Casey (surgeon) and Dr. Fournier (oncology) will decide what will be the proper treatment and they will discuss with you and Heather. b. You have a cutaneous horn on your left cheek. These can be benign (non-cancerous) or they can be caused by a skin cancer. Dr. Kahn will remove the horn and sent it to the lab for pathology. If it it a skin cancer then you may have to have additional treatment. c. You have chronic kidney disease. There are 5 stage of chronic kidney failure, 5 being the worst. You are currently in stage 4 and we want to prevent you from going into stage 5 kidney failure because then we would have to start talking about dialysis, Dr. Herrera will be you kidney doctor (oxygen equipment aide). You will like him......he is not only a good doctor he is a good quang and will explain things to you. Some people with chronic kidney disease start to retain potassium in their blood. You are retaining potassium. When the potassium is too high it can cause problems with the rhythm of the heart, fatigue, numbness, weakness and nausea so it is very important we keep the potassium at 5 or below. The solar system designer has educated you and Heather about foods to avoid and how to read labels.....this is a lot to learn in 1 session and it would be a good idea to follow up with the dieticians as an OP to get further education. I am giving you some instructions to read (you may have to read more than once) that discusses what foods to avoid to keep you potassium from getting too high. d. You have pancytopenia. The bone marrow makes 3 different types of blood cells. White blood cells that fight infection, Red blood cells that carry oxygen and platelets that help clot your blood if you have a cut. All 3 of these cells are low in your blood. There can be many reasons for this.......I suspect that the Allopurinol you take for the high uric acid in your blood is contributing to the pancytopenia. You have an appt with Dr. Fournier next week to find out why your bone marrow is not making enough WBC's, RBC's and platelets. I am going to discontinue the Allopurinol to see if things improve at all. Low white blood cells make it easier for you to get infections so STAY AWAY FROM PEOPLE WHO ARE SICK. e. You have high blood pressure in your lungs and this is called pulmonary hypertension. This contributes greatly to the swelling in your legs. This likely came from the sleep apnea but, sometimes it is due to something else. You are going to have a sleep study and then see the lung doctor. The lung doctor will prescribe CPAP or BIPAP if you need it and will also discuss treatment of the severe pulmonary hypertension with you.......there are drugs that can help to decrease the BP in the lungs. f. Your kidney function actually improved since we gave you the Lasix yesterday. The Potassium also came down to 5. I am going to start you on Lasix 40 mg every other day. I want you to drink between 1,200 and 1,500 cc's of fluid a day. I think between the potassium restricted diet and the Lasix you will be able to maintain a normal potassium. I am going to give you a lab slip to have a potassium checked next Friday when you are at the hospital to see Dr. Fournier and I want you to call me on for the results. 2. Because you have both heart failure and kidney failure it is VERY important for you to keep track of how much fluid you are taking in and how much you are peeing out. I want you to weigh your self Friday morning and then start weighing yourself every morning naked after you pee and I want you to keep a record of the results. Take the urinal home so that you can keep track of your urine output. Take that record to your appt with Dr. Herrera. One of the first signs you are retaining fluid is your weight will start increasing. Before you ever notice swelling in the legs your weight will have increased about 4 and 1/2 pounds. If this is addressed early then you can prevent admissions to the hospital for congestive heart failure. Buy a good digital scale. Weigh yourself daily in the AM after urinating with no clothes on and keep a record. If your weight increases by 5 pounds or more in 1 week or increases by 3 lbs in 1 day then you are retaining fluid . Cut back on salt intake and fluids and increase the Lasix to 2 times a day until your weight is back to baseline. If your weight continues to increase call your PCP or senior project coordinator or Dr. Herrera for instructions. 3. I have given you a lot of information/instructions and you will more likely than not have questions after you go home. I am going to give you my contact numbers and please do not be afraid to call me with questions. 4. You have a lot of appts to keep post Discharge. If you have to miss an appt please give the physician's office a call at least 24-48H prior to the appt that you are going to need to cancel and they can get you another appt. Please try not to miss any appts because you have a lot going on and it is pretty important to get the ball rolling. 5. It has been a pleasure getting to know you and Heather. You have made a lot of progress since you first came to rehab. Office: [phone] CELL: [phone] PS: Make sure to continue to wear the oxygen anytime you are sleeping. You are much more alert and sharp when you wear the oxygen at night and your thought processes are significantly better. Since you are sleeping so much better on the low dose Seroquel and Trazodone I am giving you prescriptions for both. You family doc may want to consider eliminating one or the other in the future to see if you continue to sleep well. If you start having problems again I would go up on the dose of the medication you are taking......you are on very low doses of both medications at this time. PSS: You have a condition called cerebral amyloid angiopathy. This can cause the brain to bleed again. You should NEVER take an anticoagulant such as Warfarin/Coumadin/Eliquis/ Xarelto again. Discharge Orders/Prescriptions Prescriptions: New Arthritis Pain Compound 4 click topical TID Qty: 2 3RF Rx Instructions: apply to the low back 2-3 times a day for low back pain. furosemide 40 mg Tablet 40 mg PO Q48H Qty: 30 0RF ascorbic acid (vitamin C) 500 mg Tablet 1,000 mg PO BREAKFAST Qty: 60 0RF Rx Instructions: Take this medication with a meal and with the ferrous sulfate trazodone 50 mg Tablet 50 mg PO QHS Qty: 30 0RF gabapentin 100 mg Capsule 100 mg PO TIDCM Qty: 90 0RF Rx Instructions: this med is for the back pain and the pain in the left face Continued ferrous gluconate 324 mg (38 mg iron) tablet 324 mg PO DAILY acetaminophen [Tylenol] 325 mg Tablet 650 mg PO Q6H PRN PRN (Reason: Pain 1-10 Or Fever >100.7) Qty: 0 0RF quetiapine [Seroquel] 25 mg Tablet 25 mg PO QHS@2100 Qty: 30 0RF atorvastatin 40 mg tablet 40 mg PO QHS Qty: 30 0RF tamsulosin 0.4 mg capsule 0.4 mg PO DAILY@1730 Qty: 30 0RF pantoprazole 40 mg tablet,delayed release (DR/EC) 40 mg PO DAILY Qty: 30 0RF fluoxetine [Prozac] 20 mg Capsule 20 mg PO DAILY Qty: 30 0RF Discontinued allopurinol 100 mg tablet 100 mg PO DAILY menthol-zinc oxide [Calmoseptine] 0.44-20.6 % ointment 1 applic topical BID@0600,2200 Protocol: *Topical Application Instructions APPLICATION INSTRUCTIONS: Scrotum/buttocks torsemide 20 mg Tablet 20 mg PO DAILY PRN (Reason: sob) lidocaine [Lidocaine Pain Relief] 4 % Adhesive Patch,Medicated 2 patch TOPICAL 0600 PRN (Reason: Pain) potassium chloride 20 mEq Tablet Extended Release 20 meq PO DAILY Referrals / Follow Up: Luis Herrera MD [Med Staff - Consulting] - 02/27/23 9:30 am Eriberto Fournier MD [Med Staff - Active Staff] - 02/06/23 11:00 am Byron Kahn MD [Med Staff - Active Staff] - 02/13/23 11:00 am Alina Concepcion DO [Non-Staff] - 02/18/23 2:20 pm Francisco Shannon MD [Non-Staff -Ordering Privileges] - 05/19/23 9:00 am Tierney Casey MD [Med Staff - Active Staff] - 02/04/23 9:00 am () Disposition Disposition (needs filled in before D/C Order can be placed): Home Health Service Charges/Coding Visit Charges Inpatient E&M: [id number] Disch Hosp >30min
[2023-01-31 13:59] VITALS: BMI 29.1
[2023-01-31 14:00] VITALS: BP 104/66; PULSE 69; RESP 15; TEMP 36.2; O2SAT 100
--- NOTE | 2023-01-31 14:00 | NURSING ---
here with patient and discharge instructions provided with verbalization of treatment set up per . Medications given to from pharmacy. Patient will be dc'd to sleep lab at [address] [facility] for overnight test. Patient in good spirits.
[2023-01-31 16:35] LABS: Bedside Glucose 95 mg/dL (74-106)
[2023-01-31] MEDS: Tamsulosin HCl 0.4 MG Capsule PO (17:06)
[2023-01-31] MEDS: Atorvastatin Calcium 40 MG Tablet PO (19:40)
[2023-01-31] MEDS: QUEtiapine 25 MG Tablet PO (19:40)
[2023-01-31] MEDS: traZODone 50 MG Tablet PO (19:40)
--- NOTE | 2023-01-31 19:53 | NURSING ---
HS meds given early prior to discharge to the sleep lab.
[2023-01-31 20:00] VITALS: BP 110/62; PULSE 72; RESP 16; TEMP 36.5; O2SAT 98
--- NOTE | 2023-01-31 20:10 | NURSING ---
DC to sleep lab at this time.
== END 2023-01-31 20:10 | disposition home health service (06) | DRG 57 ==
PROVIDERS: Admitting Provider Internal Medicine; PCP Family Medicine; Visit Provider Internal Medicine
DX: I69.220 Aphasia following other nontraumatic intracranial hemorrhage (principal); D61.818 Other pancytopenia; I13.0 Hypertensive heart and chronic kidney disease with heart failure and stage 1 through stage 4 chronic kidney disease, or unspecified chronic kidney disease; I48.20 Chronic atrial fibrillation, unspecified; N18.4 Chronic kidney disease, stage 4 (severe); I50.32 Chronic diastolic (congestive) heart failure; I27.20 Pulmonary hypertension, unspecified; E11.22 Type 2 diabetes mellitus with diabetic chronic kidney disease; E11.42 Type 2 diabetes mellitus with diabetic polyneuropathy; D50.9 Iron deficiency anemia, unspecified; Z79.4 Long term (current) use of insulin; I68.0 Cerebral amyloid angiopathy; M10.9 Gout, unspecified; E87.6 Hypokalemia; G47.33 Obstructive sleep apnea (adult) (pediatric); E87.5 Hyperkalemia; K21.9 Gastro-esophageal reflux disease without esophagitis; E78.5 Hyperlipidemia, unspecified; I25.10 Atherosclerotic heart disease of native coronary artery without angina pectoris; N63.20 Unspecified lump in the left breast, unspecified quadrant; Z98.84 Bariatric surgery status; Z95.1 Presence of aortocoronary bypass graft; G47.00 Insomnia, unspecified; G89.29 Other chronic pain; Z79.899 Other long term (current) drug therapy; N40.0 Benign prostatic hyperplasia without lower urinary tract symptoms
CPT/HCPCS: 36415; 80048; 80053; 80069; 82533; 82607; 82728; 82746; 82962; 83540; 83550; 83735; 84100; 84550; 85025; 85027; 92507; 92523; 93005; 94668; 94762; 97110; 97112; 97116; 97129; 97130; 97162; 97166; 97530; 97535; 97802; 97803; J7030; J7050; A4216; J2916

== ENCOUNTER → 2023-01-31 | Outpatient (CLI) | payer MEDICARE, SELFPAY | END | disposition home or self-care (01) | LOC: SL 19:32 | PROVIDERS: PCP Internal Medicine; Referring Provider Internal Medicine; Visit Provider Internal Medicine | DX: G47.30 Sleep apnea, unspecified (principal) | CPT/HCPCS: 95810 ==

== ENCOUNTER → 2023-02-04 | Outpatient (CLI) | payer MEDICARE, SELFPAY ==
--- NOTE | 2023-02-04 | BRBX_PTH ---
PATIENT: LINDA CARLOS LOC: LAB U#:[id number] AGE/SX: 67/M ROOM: RE02/04/[address]: Dr. Carol Gibson DO : 1955 BED: DIS: 02/04/2023 SPEC #: [id number] RECD: 02/04/23 15:23 STATUS: LEROY REQ #: [id number] BAYRON: 02/04/23 00:[address]: Tierney Casey DEPT: SURGICAL PATHOLOGY RECD BY: Harlan Baum ENTERED: 02/05/23 09:20 SP TYPE: BREAST BX OTHR DR: DO Dr. Alina Villeda DO Tissues: Left breast, NOS Procedures: Surgery Specimen Level IV Comments: @ Ordering doctor for SUIV edited from to @ by RGOOD at 02/05/23 1457 @ Submitting doctor edited from to @ by RGOOD at 02/05/23 1453 HEADER OPERATION: Left breast biopsy PRE-OP DIAGNOSIS: Left breast lump TISSUE SUBMITTED: Left breast biopsy tissue retroareolar MICROSCOPIC DIAGNOSIS Left breast tissue, retroareolar, core biopsy: Male breast tissue, negative for atypia or malignancy. See comment. LEONARD:daniel 02/06/2023 COMMENT Correlation with clinical findings and appropriate follow up are necessary. MICROSCOPIC DESCRIPTION Slides are reviewed. GROSS DESCRIPTION Received in fixative is one container labeled with the patient's name and designated left breast tissue. The specimen consists of multiple elongated fragments of blair tissue that in aggregate measure 1.0 x 0.6 x 0.1 cm. The specimen is totally submitted in one cassette. / AM:daniel 02/05/2023 TC:5 CPT: 28249
[2023-02-04 11:06] LABS: Anion Gap 5 (5-15); BUN 52 mg/dL (7-18); BUN/Creat Ratio 21.8 RATIO (10-20); Chloride 108 mmol/L (98-107); Creatinine, Serum 2.38 mg/dL (0.70-1.30); EST Glomerular Filtration Rate 29 mL/min (>60); Est Glom Filt Rate - Afr Amer 35 mL/min (>60); Glucose 95 mg/dL (74-106); Sodium Level 136 mmol/L (136-145); Uric Acid 7.4 mg/dL (3.5-7.2)
== END | disposition home or self-care (01) ==
PROVIDERS: PCP Internal Medicine; Referring Provider Internal Medicine; Visit Provider Internal Medicine
DX: E87.5 Hyperkalemia (principal); N18.4 Chronic kidney disease, stage 4 (severe); E79.0 Hyperuricemia without signs of inflammatory arthritis and tophaceous disease
CPT/HCPCS: 36415; 80048; 84550; 88305

== ENCOUNTER 2023-02-18 05:51 | Day surgery (SDC) | payer MEDICARE, SELFPAY ==
--- NOTE | 2023-02-17 15:58 | SUR.PREOP ---
pacemaker paper has not been received from the office services coordinator at this point in time- if the paperwork is not received per anesthesia/Dr tucker- magnet will be used with cautery and if this is used than pacer will be checked in pacu prior to discharge (medtronic pacemaker) PCU aware that we may need medtronic pacemaker device to check pacemaker.
[2023-02-18] VITALS (8 sets, daily range): BP systolic 99–129; BP diastolic 62–73; PULSE 74–90; RESP 16–18; TEMP 36.5–36.8; O2SAT 92–95; BMI 28.2
--- NOTE | 2023-02-18 | LES_PTH ---
PATIENT: LINDA CARLOS [place] [facility] [place][id number] AGE/SX: 67/M ROOM: RE02/18/[address]: Dr. Byron Kahn MD : 1955 BED: DIS: 02/18/2023 SPEC #: [id number] RECD: 02/18/23 08:03 STATUS: LEROY REVanessa #: [id number] BAYRON: 02/18/23 00:[address]: Byron Kahn DEPT: SURGICAL PATHOLOGY RECD BY: Marbella Marinelli ENTERED: 02/18/23 09:41 SP TYPE: Lesion OTHR DR: Dr. Alina Concepcion DO Tissues: A - Skin of face, NOS B - Skin of face, NOS Procedures: Frozen Section (charge) Frozen Section Add'l ([facility]) Surgery Specimen Level IV HEADER OPERATION: Excision cutaneous horn left medial cheek by melolabial fold PRE-OP DIAGNOSIS: Cutaneous horn left medial cheek by melolabial fold TISSUE SUBMITTED: A - Cutaneous horn left medial cheek by melolabial fold, FS, B ? Squamous cell carcinoma left medial cheek, tag at 12 o?clock FROZEN SECTION DIAGNOSIS A. Left medial cheek lesion by melolabial fold, biopsy: Invasive squamous cell carcinoma. SJ:daniel 02/18/2023 MICROSCOPIC DIAGNOSIS A. Left medial cheek lesion by melolabial fold, biopsy: Well-differentiated invasive squamous cell carcinoma. See comment. B. Left medial cheek squamous cell carcinoma, excision: Negative for residual carcinoma. Solar elastosis. SJ:daniel 02/19/2023 COMMENT A. The tumor measures 0.8 cm in greatest dimension. Perineural invasion is suspected. This case was discussed with Dr. Carver on 03/07/2023. Case has been reviewed in consultation with Dr. Lopez who concurs with the above diagnosis. IDC:AM MICROSCOPIC DESCRIPTION Slides are reviewed. GROSS DESCRIPTION A - Received fresh for frozen section diagnosis labeled with the patient's name is a specimen designated cutaneous horn left medial cheek by melolabial fold. The specimen consists of a gabriela-shaped blair-white skin piece measuring 1.2 x 1.4 x 0.2 cm. The skin surface shows a horn-like lesion measuring 0.7 x 0.5 x 0.2 cm. The specimen is oriented by a suture at 12 o?clock. The specimen is inked as follows: 12 to 3 o'clock - black, 3 to 6 o'clock - blue, 6 to 9 o'clock - green and 9 to 12 o'clock - yellow. The specimen is serially sectioned and submitted entirely for frozen section diagnosis in three cassettes. / SJ:daniel 02/18/2023 B - Received in fixative is one container labeled with the patient's name and designated Squamous cell carcinoma left medial cheek. The specimen consists of a gabriela-shaped piece of skin that measures 3.0 x 2.9 cm and up to 0.3 cm in thickness. A gabriela-shaped piece of defect is noted in the center measuring 1.7 x 1.3 cm, site of specimen A. The specimen is inked as follows: 12 to 3 o'clock - black, 3 to 6 o'clock - blue, 6 to 9 o'clock - green and 9 to 12 o'clock - yellow. The gabriela-shaped defect is inked red. The specimen is serially sectioned and submitted entirely in three cassettes. / SJ:daniel 02/18/2023 TC:0 CPT: 19304 x2, 54193, 94513 x2
[2023-02-18] MEDS: Lactated Ringers 1,000 ML 15 ML IV (06:47)
[2023-02-18 07:05] LABS: Bedside Glucose 111 mg/dL (74-106)
[2023-02-18] MEDS: Clindamycin 900 MG/50 ML BAG 75 MG IV (07:26)
[2023-02-18] MEDS: Lidocaine 1% /Epi 1:100 (20ml) 20 ML Vial (07:52)
[2023-02-18] MEDS: Mupirocin Ointment 22gm Tube 1 APPLIC (07:53)
--- NOTE | 2023-02-18 09:38 | OP.PCM_ITS ---
Problems Associated Problem List Diagnoses (1) Neoplasm of skin of left cheek: (2) Cutaneous horn: (3) Squamous cell carcinoma of skin of left cheek: (4) Diabetes mellitus, type 2: Report of Operation Date of Procedure: 02/18/23 Pre-Operative Diagnosis: 1. 6 mm cutaneous horn lesion left medial cheek near melolabial fold. 2. Diabetes mellitus. Post-Operative Diagnosis: 1. 6 mm squamous cell carcinoma left medial cheek near melolabial fold. 2. Diabetes mellitus. Surgery/Procedure Performed:: Excision 6 mm squamous cell carcinoma left medial cheek near melolabial fold with rhomboid transposition skin flap reconstruction (12.5 cm2). Description of Surgical Findings:: 67 year old man presents for evaluation for TBSE.? He has concerns about a lesion left medial cheek near the melolabial fold that has increased in size over the last few months and has developed a cutaneous horn component.? He has discomfort when the lesion is bumped.? He denies trauma.? He denies fever.? He denies infection.? He denies drainage from this lesion.? He presents today for further evaluation and treatment. Patient was informed of the risks and complications of the procedure including a lternatives to surgery. These were discussed with the patient personally. Patient voices understanding and wishes to proceed. Some of the risks and complications were included in a form from the [place] [employer]. Potential risks and complications included but not inclusive of bleeding, infection, hematoma, bruising, swelling, prolonged need for drains, loss of sensation to skin, wound breakdown, need for wound care, poor scarring, poor aesthetic outcome, intra operative cardiac or neurologic events, DVT, PE, and reaction to anesthesia. Patient has diabetes mellitus. For any elective revision reconstructions that may be needed in the future, his HgbA1c needs to be less than 8. Frozen section cutaneous horn lesion left medial cheek near melolabial fold - squamous cell carcinoma. Surgeon: Byron Kahn MD revenue liaison: Ashanti Mo RNFA Type of Anesthesia: Local MAC (xylocaine with epinephrine and IV sedation.) Anesthesiologist: Arnold Martins MD and Henna James CRNA Specimen's removed: 1. Cutaneous horn lesion left medial cheek near melolabial fold to Pathology as a frozen section. 2. Squamous cell carcinoma left medial cheek near melolabial fold to Pathology. Drains: None. Estimated Blood Loss (mL): 20. Description of Procedure: Patient was taken to OR in supine position and was given IV sedation. The left side of the face was prepped and draped in the usual fashion. SCD's were placed for DVT prophylaxis. Perioperative antibiotics were given intravenously. The cutaneous horn lesion left medial cheek near melolabial fold was infiltrated with xylocaine and epinephrine. After waiting 5 minutes for the anesthetic to take effect, a full thickness excision was done into the subcutaneous tissue with a couple mm margin in all directions. A suture was marked at 12 oclock position for pathology orientation. The cutaneous horn lesion was then sent to Pathology as a frozen section. Frozen section showed a squamous cell carcinoma. Further excision was done in a rhomboid fashion with a 5 mm margin in all directions. A suture was marked at 12 oclock position for pathology orientation. The additional margin tissue was sent to Pathology for analysis to rule out carcinoma at the margins. A rhomboid flap was designed inferiorly adjacent to the wound. These additional markings were infiltrated with xylocaine with epinephrine. Incisions were made and the rhomboid flap was elevated on a subcutaneous pedicle at the level of the underlying muscle. The flap was transposed into the defect with minimal tension and some mild distortion superiorly as there was vertical tension that had an effect on the lower eyelid that could be complicated with an ectropion postoperatively. Therefore, I took the superior skin edge and brought it together with itself so tension in this area was horizontal and not vertical to minimize potential for an ectropion postoperatively. Hemostasis was obtained with electrocautery. After transposing the flap into the wound, I closed the inferior portion with 5- 0 Monocryl interrupted sutures for the deep dermis and subcutaneous tissue. The skin was approximated with 6-0 Prolene simple interrupted sutures. I then closed the superior portion with 4-0 Monocryl interrupted sutures for the deep dermis and subcutaneous tissue. The skin was approximated with 5-0 Prolene simple interrupted sutures. At the end of the procedure, the rhomboid flap incision had an additional vertical incision component superiorly. Antibiotic ointment was applied to the suture lines followed by compression gauze dressing. The size of the wound and the size of the flap needed to close the wound defect was 12.5 cm2. Also at the end of the procedure, there was no vascular compromise noted in the skin flap and there was no evidence of ectropion in the left lower eyelid. Patient tolerated the procedure well and was sent to PACU in satisfactory condition. Patient will be sent home on antibiotics and pain medication. He will keep his head elevated during the initial postoperative period. Patient will followup in a week for a wound check and for discussion of the pathology report and for removal of the sutures. Grafts/Implants Used: None. Procedure Start Time: 07:53 Procedure Stop Time: 09:43 Complications None. Admit VTE Documentation VTE Present on Admission: No VTE Mechan Device Prophylaxis: SCD's VTE Pharm Prophylaxis ordered?: No Addendum Addendum: Surgery Charges CPT - 81869 ICD-10 - C44.329, L85.8, D49.2, E11.9
--- NOTE | 2023-02-18 10:50 | DCINST_ITS ---
Discharge Instructions Diet Discharge Diet: No restrictions and - (encourage nutritional supplementation with protein to help the healing process.) Activity Discharge Activity: May Not Drive, May Shower (in two days) and - (keep head elevated. no heavy lifting.) May shower in (days): 2 Ice area for (Minutes): 5 (as needed for facial swelling.) Weight Bearing Status: Weight bearing as tolerated Lifting Restrictions: 10 lbs. Keep extremity elevated above heart level: - (elevate head.) Dressing / Incision Call your doctor if your incision/area has: Continuous Slow Oozing, Sudden Increased Bleeding, Increased Pain/ Swelling, Increased Redness, Foul Smelling Discharge and Swelling at the incision site Call your doctor if you observe: Fever of 101 or Higher, Coldness, Increased Pain, Shortness of breath, Chest pain, Calf discomfort and Uncontrolled pain Suture Line Care: - (apply antibiotic ointment daily to suture lines left cheek after operative dressing is removed in two days.) Remove Dressing in: 2 days Cleanse incision/area with: Soap & Water (may get incisions wet in the shower in two days.) Follow Up Care Please Follow Up With: Byron Kahn MD When: one week. call [phone] for appt. Test Results: Test results from this visit will be discussed in further detail at your follow- up appointment, if applicable. Discharge Plan Admission Primary Reason for Your Visit: excision cutaneous horn lesion left medial cheek Attending Provider: Byron Kahn Primary Care Provider: Alina Concepcion Discharge Orders/Prescriptions Prescriptions: New clindamycin HCl [Cleocin HCl] 300 mg capsule 300 mg PO TID Qty: 15 0RF L.acidoph,saliva-B.bif-S.therm [Acidophilus Probiotic Blend] 175 mg capsule 1 cap PO DAILY Qty: 20 0RF oxycodone 5 mg tablet 5 mg PO Q6H PRN (Reason: pain (scale score 7-10)) 7 Days Qty: 28 0RF Rx Instructions: 28 tabs (twenty-eight) promethazine 25 mg tablet 25 mg PO Q6H PRN (Reason: nausea and vomiting) Qty: 30 0RF docusate sodium [Colace] 100 mg capsule 100 mg PO BID Qty: 60 0RF Continued ferrous gluconate 324 mg (38 mg iron) tablet 324 mg PO BID acetaminophen [Tylenol] 325 mg Tablet 650 mg PO Q6H PRN PRN (Reason: Pain 1-10 Or Fever >100.7) Qty: 0 0RF furosemide 40 mg Tablet 40 mg PO Q48H Qty: 30 0RF ascorbic acid (vitamin C) 500 mg Tablet 1,000 mg PO BREAKFAST Qty: 60 0RF Rx Instructions: Take this medication with a meal and with the ferrous sulfate trazodone 50 mg Tablet 50 mg PO QHS Qty: 30 0RF gabapentin 100 mg Capsule 100 mg PO TIDCM Qty: 90 0RF Rx Instructions: this med is for the back pain and the pain in the left face quetiapine [Seroquel] 25 mg Tablet 25 mg PO QHS@2100 Qty: 30 0RF atorvastatin 40 mg tablet 40 mg PO QHS Qty: 30 0RF tamsulosin 0.4 mg capsule 0.4 mg PO DAILY@1730 Qty: 30 0RF pantoprazole 40 mg tablet,delayed release (DR/EC) 40 mg PO DAILY Qty: 30 0RF fluoxetine [Prozac] 20 mg Capsule 20 mg PO DAILY Qty: 30 0RF Held Arthritis Pain Compound 4 click topical TID Qty: 2 3RF Hold Instructions: Resume on 02/21/23. Rx Instructions: apply to the low back 2-3 times a day for low back pain. Referrals / Follow Up: Byron Kahn MD [Med Staff - Active Staff] - (followup one week) Alina Concepcion DO [Primary Care Provider] - Disposition Disposition (needs filled in before D/C Order can be placed): Home, Self Care
== END 2023-02-18 11:14 | disposition home or self-care (01) ==
LOC: SDC 05:52 → AC 05:54
PROVIDERS: PCP Internal Medicine; Referring Provider Surgery; Visit Provider Surgery
PROC: (CPT 14041; principal; 2023-02-18 07:20)
DX: C44.329 Squamous cell carcinoma of skin of other parts of face (principal); I13.0 Hypertensive heart and chronic kidney disease with heart failure and stage 1 through stage 4 chronic kidney disease, or unspecified chronic kidney disease; I50.32 Chronic diastolic (congestive) heart failure; I27.20 Pulmonary hypertension, unspecified; E11.22 Type 2 diabetes mellitus with diabetic chronic kidney disease; E11.42 Type 2 diabetes mellitus with diabetic polyneuropathy; N18.4 Chronic kidney disease, stage 4 (severe); I48.20 Chronic atrial fibrillation, unspecified; I25.810 Atherosclerosis of coronary artery bypass graft(s) without angina pectoris; E78.5 Hyperlipidemia, unspecified; K21.9 Gastro-esophageal reflux disease without esophagitis; Z86.73 Personal history of transient ischemic attack (TIA), and cerebral infarction without residual deficits; Z95.1 Presence of aortocoronary bypass graft
CPT/HCPCS: 14041; 00300; 82962; 88305; 88331; 88332; J7120; J2405

== ENCOUNTER 2023-03-27 09:57 | Day surgery (SDC) | payer MEDICARE, SELFPAY ==
[2023-03-27] VITALS (7 sets, daily range): BP systolic 115–141; BP diastolic 66–94; PULSE 67–94; RESP 16–18; TEMP 36.4–36.6; O2SAT 93–100; BMI 27.1
[2023-03-27] MEDS: Lactated Ringers 1,000 ML 15 ML IV (10:28)
--- NOTE | 2023-03-27 10:30 | HP.PCM_ITS ---
History and Physical Date of Admission: 03/27/23 Date of Service:? 03/18/23 MR#: [id number] Acct: [id number] Name:ILNDA PEÑA Rep #: [id number] : 1955 ? ? Provider: Dr. Tierney Casey MD Age/Sex:? 68/M ? ? Location: [facility] Status: Signed Intake Intake Visit Reasons:?DISCUSS SURGERY Chief Complaint: discuss surgery Is patient in pain?: No Allergies hydromorphone [From Dilaudid] Allergy (Intermediate, Verified 03/18/23 11:08) Vomitingmetformin Adverse Reaction (Intermediate, Verified 03/18/23 11:08) Other Medications ferrous gluconate 324 mg (38 mg iron) tablet 324 mg PO BID iron supplement 11/29/22 [History Confirmed 03/18/23] acetaminophen 325 mg tablet (Tylenol) 650 mg PO Q6H PRN PRN Pain 1-10 Or Fever >100.7 #0 tabs 12/12/22 [Rx Confirmed 03/18/23] Arthritis Pain Compound 4 click topical TID #2 BOTTLES 01/31/23 [Rx Confirmed 03/18/23] ascorbic acid (vitamin C) 500 mg tablet 1,000 mg PO BREAKFAST #60 tabs 01/31/23 [Rx Confirmed 03/18/23] atorvastatin 40 mg tablet 40 mg PO QHS cholesterol #30 tabs 01/31/23 [Rx Confirmed 03/18/23] fluoxetine 20 mg capsule (Prozac) 20 mg PO DAILY mood #30 caps 01/31/23 [Rx Confirmed 03/18/23] furosemide 40 mg tablet 40 mg PO Q48H #30 tabs 01/31/23 [Rx Confirmed 03/18/23] gabapentin 100 mg capsule 100 mg PO TIDCM #90 caps 01/31/23 [Rx Confirmed 03/18/23] pantoprazole 40 mg tablet,delayed release 40 mg PO DAILY GERD #30 tabs 01/31/23 [Rx Confirmed 03/18/23] quetiapine 25 mg tablet (Seroquel) 25 mg PO QHS@2100 mood #30 tabs 01/31/23 [Rx Confirmed 03/18/23] tamsulosin 0.4 mg capsule 0.4 mg PO DAILY@1730 prostate #30 caps 01/31/23 [Rx Confirmed 03/18/23] trazodone 50 mg tablet 50 mg PO QHS #30 tabs 01/31/23 [Rx Confirmed 03/18/23] L.acidophil,salivari-Bifido bifidum-Strep thermoph 175 mg capsule (Acidophilus Probiotic Blend) 1 cap PO DAILY #20 caps 02/18/23 [Rx Confirmed 03/18/23] docusate sodium 100 mg capsule (Colace) 100 mg PO BID #60 caps 02/18/23 [Rx Confirmed 03/18/23] oxycodone 5 mg tablet 5 mg PO Q6H PRN pain (scale score 7-10) 7 days #28 tabs 02/18/23 [Rx Confirmed 03/18/23] promethazine 25 mg tablet 25 mg PO Q6H PRN nausea and vomiting #30 tabs 02/18/23 [Rx Confirmed 03/18/23] PFSH Medical History? (HFpEF) heart failure with preserved ejection fraction Anemia Anxiety Arthritis Atherosclerosis of coronary artery bypass graft of [place] heart without angina pectoris Back pain BPH (benign prostatic hyperplasia) BPH with obstruction/lower urinary tract symptoms Cardiology follow-up encounter Chronic anemia Chronic atrial fibrillation Chronic GERD Chronic kidney disease (CKD) Chronic shortness of breath CKD (chronic kidney disease) Coronary artery disease Coronary artery disease Cutaneous horn Depression Diabetes mellitus, type 2 Diabetic polyneuropathy Dietary restriction Easy bruising Essential (primary) hypertension GERD (gastroesophageal reflux disease) Gout Hemorrhagic cerebrovascular accident (CVA) High cholesterol History of atrial fibrillation History of CHF (congestive heart failure) History of echocardiogram History of edema History of heart attack History of stress test Hyperlipidemia Hyperuricemia Insomnia Long-term (current) use of anticoagulants, INR goal 2.0-3.0 Lung nodule, solitary Malnutrition RODRIGUEZ (nonalcoholic steatohepatitis) Neoplasm of skin of left cheek Non-smoker On home oxygen therapy SOB (shortness of breath) Squamous cell carcinoma of skin of left cheek Stroke/cerebrovascular accident Syncope Type 2 diabetes mellitus with other diabetic kidney complication Surgical History? History of bilateral knee replacement History of coronary artery bypass graft x 3 History of coronary artery stent placement (~12/10/10) History of esophagogastroduodenoscopy (EGD) History of laparoscopic cholecystectomy History of squamous cell carcinoma excision Hx of bilateral hip replacements Hx of cardiac catheterization (~12/04/21) Hx of cardiac pacemaker (~06/30/19) Hx of colonoscopy Hx of gastric bypass (~2011) Hx of left cataract extraction Hx of right cataract extraction Hx of shoulder surgery S/P CABG x 3 (~12/23/18) Family History? Mother CHF (congestive heart failure)Other Arthritis Social History? household members:? spouse Smoking Status:? Never smoker alcohol intake:? never substance use type:? does not use caffeine:? Yes (2/wk) Type: coffee HPI HPI HPI: 68-year-old male presenting for follow-up after having a left breast mass biopsy.? Patient states about 2 weeks ago this area became much more tender to palpation to touch which was not previously like.? Patient's biopsy just showed normal breast tissue but on exam there is a noticeable mass retroareolar.? Patient is concerned that this is more tender and also may be a little larger in size.? Patient is interested in having it excised. ROS General General: Yes weight change; No appetite, fatigue, colon cancer, breast cancer or weakness HEENT HEENT: No difficulty swallowing, eye injury, eye surgery, swollen glands or hoarseness Endo Endocrine: Yes diabetes mellitus; No thyroid disease, thyroid cancer, Hair loss, heat intolerance or cold intolerance Skin Skin: Yes changing moles; No rash Breast Breast: Yes left breast lump; No right breast lump, nipple discharge, breast pain, abnormal mammogram, abnormal US or breast enlargement Musc Musculoskeletal: Yes back problems and arthritis; No rheumatoid arthritis, gout or joint pain Cardio Cardiovascular: Yes pacemaker, heart disease and atrial fibrillation; No murmur, high blood pressure, heart attack, heart stent, palpitations, shortness of breat with exertion or chest pain Psych Psychiatric: No depression, anxiety or hearing voices Resp Respiratory: Yes shortness of breath, No sleep apnea, No cough, No COPD, No asthma, No emphysema and No wheezing Gastro Gastrointestinal: No abdominal pain, No nausea or vomiting, No diarrhea, No constipation, No blood in stool, No acid reflux, No hemorrhoids, No ulcers, No gallbladder problem and No black,tarry stools Domenic Hematologic: No blood thinners, No blood disorders, No bleeding, No anemia and No blood clots Neuro Neurologic: No system reviewed and no additional complaints, except as documented, No as per HPI, No abnormal gait, No abnormal hearing, No abnormal movements, No abnormal speech, No behavioral changes, No burning sensations, No confusion, No convulsions, No disequilibrium, No dizziness, No localized weakness, No frequent falls, No headache(s), No lack of coordination, No loss of vision, No memory loss, Yes numbness, No other visual disturbances, No radicular pain, No restless legs, No sensory deficit, No syncope, Yes tingling, No tremor(s), No weakness and No other Exam Const General: cooperative, healthy appearing and no acute distress HENNH Head: normal to inspection (Left cheek incision healing well-from excision of invasive squamous cell) Chest Other: Breast inspection: Symmetric bilaterally Right breast: no masses on exam, no nipple discharge or pain, no change in overlying skin Left breast: Retroareolar mass about 2.5 cm x 2.5 cm, slightly mobile, no change in overlying skin,? tender, no other masses on exam. No axillary or supraclavicular adenopathy bilaterally Resp Effort & Inspection: normal respiratory effort Cardio Rate: regular rate GI Inspection: non-distended Palpation: soft, no guarding and nontender Skin General: no rashes or lesions noted Neuro General: patient oriented x3 Extrem General: no clubbing, cyanosis or edema Psych Affect: normal affect Assessment and Plan Assessment and Plan (1) Left breast mass: ?Status:?Acute Plan Patient's initial biopsy did show mild breast tissue however due to increased pain as well as slightly increased in size plan for excision.? Discussed procedure of excision of left breast mass with the patient including risk including but not limited to bleeding, infection, need for further surgery.? Patient had no further question this time. Tierney Casey M.D. Pager: [phone] [facility] [address] [place] [address], [facility], [address] [place] [address] Office: [phone] Coding Level of Care Code Off vis,est,level 4 Diagnoses Left breast mass? N63.20 03/20/23 0839 <Electronically signed by Tierney Casey MD> Date Tierney Casey MD
[2023-03-27 10:55] LABS: Bedside Glucose 103 mg/dL (74-106)
--- NOTE | 2023-03-27 11:30 | BRBX_PTH ---
PATIENT: LINDA CARLOS LOC: [facility] – [place] U#:[id number] AGE/SX: 68/M ROOM: RE03/27/[address]: Dr. Tierney Casey MD : 1955 BED: DIS: 03/27/2023 SPEC #: [id number] RECD: 03/27/23 12:17 STATUS: LEROY REVanessa #: [id number] BAYRON: 03/27/23 11:[address]: Tierney Casey DEPT: SURGICAL PATHOLOGY RECD BY: Marbella Marinelli ENTERED: 03/27/23 14:41 SP TYPE: BREAST BX OTHR DR: Dr. Alina Concepcion, DO Tissues: Left breast, NOS Procedures: Surgery Specimen Level V HEADER OPERATION: Excisional breast biopsy PRE-OP DIAGNOSIS: Left breast mass TISSUE SUBMITTED: Left breast mass, long suture - lateral, short suture - superior MICROSCOPIC DIAGNOSIS Left breast mass, excisional biopsy: Consistent with gynecomastia. Negative for atypia or malignancy. See comment. LEONARD:daniel 03/28/2023 COMMENT Focal acute and chronic inflammation is noted and may represent biopsy-related changes. Please make reference to previous specimen ([id number]), left breast tissue, retroareolar, core biopsy with diagnosis of ?male breast tissue, negative for atypia or malignancy.? MICROSCOPIC DESCRIPTION Slides are reviewed. GROSS DESCRIPTION Received in fixative is one container labeled with the patient's name and designated left breast, long suture - lateral, short suture - superior. The specimen consists of a piece of fibroadipose tissue measuring 2.8 x 2.5 x 1.0 cm. The specimen is inked as follows: anterior - yellow, posterior - black, superior - blue, inferior - green, medial - red and lateral - orange. The specimen is serially sectioned and reveals blair-yellow fibroadipose cut surfaces. No well-defined mass lesion is identified. The entire specimen is submitted in six cassettes from lateral to medial margin. / LEONARD:daniel 03/27/2023 TC:5 CPT: 95098
[2023-03-27] MEDS: Cefazolin 2 GM in 0.9% Normal Saline 100 ML IV (11:31)
[2023-03-27] MEDS: Bupivacaine 0.25% 30 ML Vial (11:48)
--- NOTE | 2023-03-27 12:04 | PCM.OPRPT ---
Report of Operation Date of Procedure: 03/27/23 Pre-Operative Diagnosis: Left breast mass Post-Operative Diagnosis: Same Surgery/Procedure Performed:: Excisional left breast mass biopsy Surgeon: Tierney Casey glass ribbon machine operator: Shayy Ortiz Type of Anesthesia: General/Supplemental Anesthesiologist: Ajit Alcantar Special Medications: Ancef 2 g IV x1 Specimen's removed: Left breast mass Estimated Blood Loss (mL): < 10 cc Description of Procedure: The patient was taken to the operating room and general anesthesia was induced. The left breast and axilla were prepped and draped in usual sterile fashion. A timeout was completed verifying correct patient, procedure, site, positioning, special equipment prior to beginning procedure. Curvilinear incision was planned overlying the mass at the nipple areolar border. The incision was planned in such a way as to minimize the amount of dissection to reach the mass. Flaps were raised in Allis graspers use to provide traction on the mass during dissection with electrocautery for until grossly normal tissue margin. The specimen was removed. The specimen was oriented and sent to radiology. Confirmation was received that the entire target lesion and clip had been resected. The cavity were irrigated. Hemostasis was checked. The breast and incision was closed with interrupted sutures of 3-0 Vicryl and subcuticular sutures of 4-0 Monocryl. No attempt was made to close the space. Dermabond used at the skin. The patient tolerated procedure well was taken to the postanesthesia care in stable condition Complications None
--- NOTE | 2023-03-27 12:09 | DCINST_ITS ---
Discharge Instructions Diet Discharge Diet: No restrictions Activity Discharge Activity: May Not Drive (if taking narcotics) May shower in (days): 1 Lifting Restrictions: <15 pounds for 1 week with the left arm Dressing / Incision Call your doctor if your incision/area has: Continuous Slow Oozing, Sudden Increased Bleeding, Increased Pain/ Swelling and Increased Redness Call your doctor if you observe: Fever of 101 or Higher Suture Line Care: Avoid Pulling/Pushing and Avoid Pinching/Bending Remove Dressing in: 1 day (Pressure dressing) Additional Dressing/Incision Instructions:: Remove bulky dressing tomorrow. Dermabond (glue) was used at the incision this may start to peel off in about 5 days. Follow Up Care Please Follow Up With: Tierney Casey MD When: Please call [phone] for an appointment to be seen in 2 week. Test Results: Test results from this visit will be discussed in further detail at your follow- up appointment, if applicable. Discharge Plan Admission Attending Provider: Tierney Casey Primary Care Provider: Alina Concepcion Discharge Orders/Prescriptions Prescriptions: Continued ferrous gluconate 324 mg (38 mg iron) tablet 324 mg PO BID acetaminophen [Tylenol] 325 mg Tablet 650 mg PO Q6H PRN PRN (Reason: Pain 1-10 Or Fever >100.7) Qty: 0 0RF Arthritis Pain Compound 4 click topical TID Qty: 2 3RF Hold Instructions: Resume on 02/21/23. Rx Instructions: apply to the low back 2-3 times a day for low back pain. furosemide 40 mg Tablet 40 mg PO Q48H Qty: 30 0RF ascorbic acid (vitamin C) 500 mg Tablet 1,000 mg PO BREAKFAST Qty: 60 0RF Rx Instructions: Take this medication with a meal and with the ferrous sulfate trazodone 50 mg Tablet 50 mg PO QHS Qty: 30 0RF gabapentin 100 mg Capsule 100 mg PO TIDCM Qty: 90 0RF Rx Instructions: this med is for the back pain and the pain in the left face quetiapine [Seroquel] 25 mg Tablet 25 mg PO QHS@2100 Qty: 30 0RF atorvastatin 40 mg tablet 40 mg PO QHS Qty: 30 0RF tamsulosin 0.4 mg capsule 0.4 mg PO DAILY@1730 Qty: 30 0RF pantoprazole 40 mg tablet,delayed release (DR/EC) 40 mg PO DAILY Qty: 30 0RF fluoxetine [Prozac] 20 mg Capsule 20 mg PO DAILY Qty: 30 0RF promethazine 25 mg tablet 25 mg PO Q6H PRN (Reason: nausea and vomiting) Qty: 30 0RF docusate sodium [Colace] 100 mg capsule 100 mg PO BID Qty: 60 0RF Referrals / Follow Up: Alina Concepcion, [Primary Care Provider] - Disposition Disposition (needs filled in before D/C Order can be placed): Home, Self Care
--- NOTE | 2023-03-27 12:12 | BI_ITS ---
SURGICAL BREAST SPECIMEN RADIOGRAPH CLINICAL: Document presence of tissue clip marker in biopsy specimen. FINDINGS: Specimen shows presence of tissue clip marker. Electronically Signed: Shekhar Mccall MD at 12:23 EDT , BI/Breast Biopsy Specimen IMPRESSION: undefined
[2023-03-27 12:50] LABS: Bedside Glucose 103 mg/dL (74-106)
== END 2023-03-27 13:50 | disposition home or self-care (01) ==
LOC: SDC 09:58 → AC 09:58
PROVIDERS: PCP Internal Medicine; Referring Provider Surgery; Visit Provider Surgery
PROC: (CPT 19120; principal; 2023-03-27 11:15)
DX: N63.20 Unspecified lump in the left breast, unspecified quadrant (principal); I13.0 Hypertensive heart and chronic kidney disease with heart failure and stage 1 through stage 4 chronic kidney disease, or unspecified chronic kidney disease; I50.32 Chronic diastolic (congestive) heart failure; E11.42 Type 2 diabetes mellitus with diabetic polyneuropathy; E11.22 Type 2 diabetes mellitus with diabetic chronic kidney disease; N18.4 Chronic kidney disease, stage 4 (severe); I48.20 Chronic atrial fibrillation, unspecified; E78.00 Pure hypercholesterolemia, unspecified; N40.1 Benign prostatic hyperplasia with lower urinary tract symptoms; N13.8 Other obstructive and reflux uropathy; G47.33 Obstructive sleep apnea (adult) (pediatric); Z99.81 Dependence on supplemental oxygen; Z79.899 Other long term (current) drug therapy
CPT/HCPCS: 19120; 00400; 76098; 82962; 88305; 88307; J7120; J2405

== ENCOUNTER 2023-05-05 09:23 | Day surgery (SDC) | payer MEDICARE, SELFPAY ==
[2023-05-05] VITALS (9 sets, daily range): BP systolic 86–130; BP diastolic 58–83; PULSE 74–82; RESP 14–18; TEMP 36.4–36.6; O2SAT 90–98; BMI 25.7
--- NOTE | 2023-05-05 10:01 | PCM.HP.BLA ---
History and Physical Date of Admission: 05/05/23 HISTORY OF PRESENT ILLNESS 68 year old man had a cutaneous horn lesion left medial cheek near melolabial fold that was increasing in size. He went to surgery on 02/18/23 where he underwent excision 6 mm squamous cell carcinoma left medial cheek near melolabial fold with rhomboid transposition skin flap reconstruction (12.5 cm2). Pathology of the lesion left medial cheek near melolabial fold showed a well-differentiated invasive squamous cell carcinoma, negative for residual carcinoma.? Perineural invasion was suspected. I sent him to see Dr. Carver from Radiation Oncology. Dr. Carver called the Pathologist since we both didn't know what suspected perineural invasion means. According to Dr. Carver, the Pathologist didn't see any obvious visualized perineural invasion. ?He did mention the squamous cell carcinoma was well-differentiated with a 3 mm depth of invasion and the deep margin was about 1 mm away from the squamous cell carcinoma. The peripheral margins were adequate as far as the distance from the skin edge to the squamous cell carcinoma. . I discussed this case further with Dr. Carver. Instead of radiation therapy, he recommended taking another deep margin of tissue which would take us into some facial muscle. If that additional deep margin is negative, then there's more confidence that the cancer has been taken care of surgically without the need for any adjuvant radiation therapy. PAST MEDICAL HISTORY (HFpEF) heart failure with preserved ejection fraction Anemia Anxiety Arthritis Atherosclerosis of coronary artery bypass graft of [place] heart without angina pectoris Back pain BPH (benign prostatic hyperplasia) BPH with obstruction/lower urinary tract symptoms Chronic anemia Chronic atrial fibrillation Chronic GERD Chronic kidney disease (CKD) Chronic shortness of breath Coronary artery disease Depression Diabetes mellitus, type 2 Diabetic polyneuropathy Essential (primary) hypertension GERD (gastroesophageal reflux disease) Gout Hemoglobin A1c less than 7.0% Hemorrhagic cerebrovascular accident (CVA) High cholesterol History of CHF (congestive heart failure) History of heart attack History of stress test Hyperlipidemia Hyperuricemia Insomnia Long-term (current) use of anticoagulants, INR goal 2.0-3.0 Lung nodule, solitary Malnutrition RODRIGUEZ (nonalcoholic steatohepatitis) Non-smoker On home oxygen therapy Postoperative stitch abscess SOB (shortness of breath) Squamous cell carcinoma of skin of left cheek Stroke/cerebrovascular accident Syncope PAST SURGICAL HISTORY History of bilateral knee replacement History of coronary artery bypass graft x 3 History of coronary artery stent placement (~12/10/10) History of esophagogastroduodenoscopy (EGD) History of laparoscopic cholecystectomy History of squamous cell carcinoma excision Hx of bilateral hip replacements Hx of cardiac catheterization (~12/04/21) Hx of cardiac pacemaker (~06/30/19) Hx of colonoscopy Hx of excision of mass Hx of gastric bypass (~2011) Hx of left cataract extraction Hx of right cataract extraction Hx of shoulder surgery S/P CABG x 3 (~12/23/18) MEDICATIONS Ferrous gluconate acetaminophen Arthritis Pain Compound ascorbic acid (vitamin C) atorvastatin fluoxetine (Prozac) furosemide gabapentin pantoprazole quetiapine (Seroquel) tamsulosin trazodone docusate sodium (Colace) promethazine ALLERGIES hydromorphone [From Dilaudid] metformin FAMILY HISTORY CHF (congestive heart failure) Other - Arthritis SOCIAL HISTORY Smoking Status: Never smoker alcohol intake: never substance use type: does not use REVIEW OF SYSTEMS General - Denies fever, fatigue, and weight loss. Eyes - Denies cataracts and glaucoma. ENT - Denies nasal congestion and sore throat. Endocrine - Denies excessive thirst and urination. Skin - Denies skin cancer. Has a cutaneous horn lesion left medial cheek near melolabial fold that was biopsied in February, and found to be a squamous cell carcinoma. Musculoskeletal - Has joint pain, joint stiffness, weakness of muscles and joints, back pain. Denies arthritis. Neuro - Denies headaches. Cardiovascular - Denies chest pain, fatigue, and shortness of breath with exertion. Psych - Denies anxiety. Has depression. Respiratory - Denies chronic cough and shortness of breath. Gastrointestinal - Denies nausea, vomiting, diarrhea, and constipation. Hematologic - Denies abnormal bruising and bleeding. Has anemia. Genitourinary - Denies hematuria and urinary frequency. PHYSICAL EXAMINATION General - Alert and Oriented. HEENT - PERRL. EOMI. Throat is clear. His incisions on the left medial cheek near melolabial fold are healed except for one small dry scab at the superior edge of the flap incision. I removed the scab and a small suture came with it. Sounds like it was a localized stitch abscess and drainage is the cure which is what I just did. Antibiotic ointment was applied to be done daily for 3 days Flap is soft and healing satisfactory with good contour. Swelling has resolved. No other suspicious lesions noted. Neck - Supple and nontender. No cervical adenopathy. No suspicious lesions noted. Lungs - Clear to auscultation. Heart - Regular rate and rhythm. Abdomen - Soft and nondistended. Extremities - FROM. No axillary adenopathy. Radial pulses are palpable. No suspicious lesions noted. Neuro - CN II-XII grossly intact. Psych - Normal mood and affect. ASSESSMENT 1. 4 cm squamous cell carcinoma scar left medial cheek near melolabial fold. 2. Diabetes mellitus. 3. HgbA1c is 6.6 on 12/09/22. PLAN I discussed this operative recommendation to the patient and he was in agreement with the surgery as he wasn't thrilled about the possibility of radiation therapy. Because we are just taking the deep margin the size of the wound will not change. Therefore I should be able to re-rotate the same flap into the defect. If the peripheral margins were very close to the cancer, and additional tissue was needed from the sides of the wound, the wound would become larger. The previous skin flap may be too small to re-rotate and close the wound. In that scenario, I would see how much wound is still present after suturing the previous flap into the wound. The extra wound present, would then need a second flap to close the remaining wound. Surgery will be done on an outpatient basis under local anesthesia and IV sedation. By opening up the incisions, I would be able to see if there are any additional localized stitch abscesses that would need to be drained as well as removing the remaining suture. Patient was informed of the risks and complications of the procedure including alternatives to surgery. These were discussed with the patient personally. Patient voices understanding and wishes to proceed. Some of the risks and complications were included in a form from the [employer]. Potential risks and complications included but not inclusive of bleeding, infection, seroma, hematoma, bruising, swelling, loss of sensation to skin, partial or complete loss of skin flap, wound breakdown, need for wound care, poor scarring, poor aesthetic outcome, intra operative cardiac or neurologic events, DVT, PE, and reaction to anesthesia. Surgery can be done on an outpatient basis under local anesthesia and IV sedation. Will schedule this additional surgery later this week or early next week. Patient has diabetes mellitus. His last HgbA1c from 12/09/22 was 6.6. For elective surgery the HgbA1c needs to be less than 8. Assessment & Plan Assessment/Plan (1) Squamous cell carcinoma of skin of left cheek: (2) Diabetes mellitus, type 2: (3) Hemoglobin A1c less than 7.0%:
[2023-05-05 10:03] LABS: Bedside Glucose 108 mg/dL (74-106)
[2023-05-05] MEDS: Lactated Ringers 1,000 ML 15 ML IV ×2 (10:12→12:46)
--- NOTE | 2023-05-05 11:00 | TISS_PTH ---
PATIENT: LINDA CARLOS LOC: [facility] – [place] U#:[id number] AGE/SX: 68/M ROOM: RE05/05/[address]: Dr. Byron Kahn MD : 1955 BED: DIS: 05/05/2023 SPEC #: [id number] RECD: 05/05/23 14:29 STATUS: LEROY BINH #: [id number] BAYRON: 05/05/23 11:[address]: Byron Kahn DEPT: SURGICAL PATHOLOGY RECD BY: Rosalie Taylor ENTERED: 05/06/23 18:22 SP TYPE: Tissue Bx TEREZA DR: Dr. Alina Concepcion DO Tissues: TISSUE SURGICALLY REMOVED Procedures: Surgery Specimen Level IV HEADER OPERATION: Re-excision squamous cell cancer cheek advanced skin flap PRE-OP DIAGNOSIS: Squamous cell carcinoma of skin of left cheek TISSUE SUBMITTED: Deeper margin squamous cell cancer left medial cheek, suture lentz 12 o'clock, present skin represents superficial side, deep side with no skin present MICROSCOPIC DIAGNOSIS Skin and soft tissue of deep medial cheek: Cicatrix. Reparative and reactive change with histiocytic reaction consistent with previous biopsy. No evidence of carcinoma. AM:daniel 05/08/2023 COMMENT Reference is made to the patient's previous left medial cheek lesion biopsy ([id number]) in which well-differentiated invasive squamous cell carcinoma was identified. MICROSCOPIC DESCRIPTION Slides are reviewed. GROSS DESCRIPTION Received in fixative is one container labeled with the patient's name and designated deeper margin squamous cell carcinoma left medial cheek, suture at 12 o'clock, present skin represents superficial side, deep side with no skin present. The specimen consists of a piece of skin with underlying tissue. The skin piece measures 1.5 x 0.5 cm and underlying tissue measures 1.5 x 2.0 x 0.5 cm. The specimen is inked as follows: 12 o'clock margin - black, 6 o'clock margin - blue, deep margin - green, 3 o'clock margin - yellow, 9 o'clock margin - red. The entire specimen is submitted in two cassettes. Cassette 1 contains the 3 and 9 o'clock margin. / LEONARD:daniel 05/07/2023 TC:5 CPT: 38894
[2023-05-05 11:28] LABS: Hemoglobin A1c 6.3 % (3.8-5.6)
[2023-05-05] MEDS: Lidocaine 1% /Epi 1:100 (20ml) 20 ML Vial (11:31)
[2023-05-05] MEDS: Mupirocin Ointment 22gm Tube 1 APPLIC (12:52)
--- NOTE | 2023-05-05 12:58 | PCM.OPRPT ---
Problems Associated Problem List Diagnoses (1) Hemoglobin A1c less than 7.0%: (2) Squamous cell carcinoma of skin of left cheek: (3) Diabetes mellitus, type 2: Report of Operation Date of Procedure: 05/05/23 Pre-Operative Diagnosis: 1. 4 cm squamous cell carcinoma scar left medial cheek near melolabial fold. 2. Diabetes mellitus. 3. HgbA1c is 6.6 on 12/09/22. Post-Operative Diagnosis: Same. Surgery/Procedure Performed:: Excision 4 cm squamous cell carcinoma scar deep margin left medial cheek near melolabial fold with lateral cheek advancement flap reconstruction (32.25 cm2). Description of Surgical Findings:: 68 year old man had a cutaneous horn lesion left medial cheek near melolabial fold that was increasing in size. He went to surgery on 02/18/23 where he underwent excision 6 mm squamous cell carcinoma left medial cheek near melolabial fold with rhomboid transposition skin flap reconstruction (12.5 cm2). Pathology of the lesion left medial cheek near melolabial fold showed a well-differentiated invasive squamous cell carcinoma, negative for residual carcinoma.? Perineural invasion was suspected. I sent him to see Dr. Carver from Radiation Oncology. Dr. Carver called the Pathologist since we both didn't know what suspected perineural invasion means. According to Dr. Carver, the Pathologist didn't see any obvious visualized perineural invasion. ?He did mention the squamous cell carcinoma was well-differentiated with a 3 mm depth of invasion and the deep margin was about 1 mm away from the squamous cell carcinoma. The peripheral margins were adequate as far as the distance from the skin edge to the squamous cell carcinoma. . I discussed this case further with Dr. Carver. Instead of radiation therapy, he recommended taking another deep margin of tissue which would take us into some facial muscle. If that additional deep margin is negative, then there's more confidence that the cancer has been taken care of surgically without the need for any adjuvant radiation therapy. Patient was informed of the risks and complications of the procedure including alternatives to surgery. These were discussed with the patient personally. Patient voices understanding and wishes to proceed. Some of the risks and complications were included in a form from the [employer]. Potential risks and complications included but not inclusive of bleeding, infection, seroma, hematoma, bruising, swelling, loss of sensation to skin, partial or complete loss of skin flap, wound breakdown, need for wound care, poor scarring, poor aesthetic outcome, intra operative cardiac or neurologic events, DVT, PE, and reaction to anesthesia. Surgeon: Byron Kahn MD hydraulic elevator constructor: Shayy Ortiz MD Type of Anesthesia: Local MAC (xylocaine with epinephrine and IV sedation.) Anesthesiologist: Tan Buitrago MD and Bienvenido Nolasco CRNA Specimen's removed: Squamous cell carcinoma scar deep margin left medial cheek near melolabial fold to Pathology. Drains: None. Estimated Blood Loss (mL): 20. Description of Procedure: Patient was taken to OR in supine position and was given IV sedation. The left side of his face was prepped and draped in the usual fashion. SCD's were placed for DVT prophylaxis. Perioperative antibiotics were given intravenously. The squamous cell carcinoma scar was infiltrated with xylocaine and epinephrine. After waiting 5 minutes for the anesthetic to take effect, I proceeded under loupe magnification. Incisions were made and the flap was elevated down to the level of the facial musculature. In the mid-portion of the subcutaneous tissue, there was some dense scarring from the previous surgery in February. That is where I the deeper margin from the flap. At the tip of the initial flap there was a small area of scabbing preop. It looked like a suture abscess that spontaneously drained. Should be self limiting. However when I elevated the flap, in the area of this scabbing was a pocket of fluid that never would have healed this area because of the presence of a shiny capsular tissue. So that portion of the flap was excised and the skin was included on the portion of the deeper margin that represents the superficial side and the side without the skin is the deeper side. A suture was marked at 12 oclock position for pathology orientation. The specimen was sent to Pathology for analysis to rule out carcinoma at the margins. Since the initial flap is now too small to close the defect, I first rotated the initial flap to close the medial portion of the defect. This left the lateral portion of the wound to be closed. I extended the incision from the superior portion of the wound toward the ear with a curve to the incision when I got past the lateral [place] area of the left eye. I also extended the oblique incision on the cheek inferiorly and laterally. I elevated the lateral cheek flap on a subcutaneous pedicle at the level of the facial musculature. I stopped when I had enough advancement of the lateral cheek flap with no distortion and no tension. Hemostasis was obtained with electrocautery. After the lateral cheek flap was advanced into the wound, I closed the wound in a layered fashion with 5-0 Monocryl interrupted sutures for the deep dermis and subcutaneous tissue. The skin was approximated with 6-0 Prolene simple interrupted sutures. At the end of the procedure, I dressed the incisions with antibiotic ointment followed by 2x2 gauze compression dressing. The flap was soft with no evidence of vascular compromise. There was no clinical evidence of hematoma. The size of the wound and the size of the flap needed to close the wound was 5 x 6.5 cm or 32.5 cm2. Patient tolerated the procedure well and was sent to PACU in satisfactory condition. Patient will be sent home on antibiotics and pain medication. He will keep his head elevated during the initial postoperative period and be maintained on a 10 lb lifting restriction. He will followup in a week for a wound check and for discussion of the pathology report and for removal of the sutures. Grafts/Implants Used: None. Procedure Start Time: 11:32 Procedure Stop Time: 13:15 Complications None. Admit VTE Documentation VTE Present on Admission: No VTE Mechan Device Prophylaxis: SCD's VTE Pharm Prophylaxis ordered?: No Addendum Addendum: Surgery Charges CPT - 61963-27 ICD-10 - C44.329, E11.9, R73.09
[2023-05-05 13:47] LABS: Bedside Glucose 113 mg/dL (74-106)
--- NOTE | 2023-05-05 13:50 | DCINST_ITS ---
Discharge Instructions Diet Discharge Diet: Carb Control Diet and - (encourage nutritional supplementation with protein to help the healing process.) Activity Discharge Activity: May Shower (in 2 days.) and - (no heavy lifting. keep head elevated.) May shower in (days): 2 May resume sexual activity in: 10-14 days Ice area for (Minutes): 5 (as needed for periorbital swelling.) Weight Bearing Status: Weight bearing as tolerated Lifting Restrictions: 10 lbs. Keep extremity elevated above heart level: - (elevate head) Dressing / Incision Call your doctor if your incision/area has: Continuous Slow Oozing, Sudden Increased Bleeding, Increased Pain/ Swelling, Increased Redness, Foul Smelling Discharge and Swelling at the incision site Call your doctor if you observe: Fever of 101 or Higher, Coldness, Increased Pain, Shortness of breath, Chest pain, Calf discomfort and Uncontrolled pain Suture Line Care: - (after operative dressing is removed in 2 days, apply antibiotic ointment to suture line daily.) Remove Dressing in: 2 days Cleanse incision/area with: - (may get incisions wet in the shower in 2 days.) Follow Up Care Please Follow Up With: Byron Kahn MD When: one week. call [phone] for appt. Test Results: Test results from this visit will be discussed in further detail at your follow- up appointment, if applicable. Discharge Plan Admission Primary Reason for Your Visit: excision squamous cell carcinoma scar deep margin left medial cheek Attending Provider: Byron Kahn Primary Care Provider: Alina Concepcion Discharge Orders/Prescriptions Prescriptions: New amoxicillin-pot clavulanate 500-125 mg tablet 1 tab PO TID Qty: 12 0RF Continued ferrous gluconate 324 mg (38 mg iron) tablet 324 mg PO BID acetaminophen [Tylenol] 325 mg Tablet 650 mg PO Q6H PRN PRN (Reason: Pain 1-10 Or Fever >100.7) Qty: 0 0RF Arthritis Pain Compound 4 click topical TID Qty: 2 3RF Hold Instructions: Resume on 02/21/23. Rx Instructions: apply to the low back 2-3 times a day for low back pain. furosemide 40 mg Tablet 40 mg PO Q48H Qty: 30 0RF ascorbic acid (vitamin C) 500 mg Tablet 1,000 mg PO BREAKFAST Qty: 60 0RF Rx Instructions: Take this medication with a meal and with the ferrous sulfate trazodone 50 mg Tablet 50 mg PO QHS Qty: 30 0RF gabapentin 100 mg Capsule 100 mg PO TIDCM Qty: 90 0RF Rx Instructions: this med is for the back pain and the pain in the left face quetiapine [Seroquel] 25 mg Tablet 25 mg PO QHS@2100 Qty: 30 0RF atorvastatin 40 mg tablet 40 mg PO QHS Qty: 30 0RF tamsulosin 0.4 mg capsule 0.4 mg PO DAILY@1730 Qty: 30 0RF pantoprazole 40 mg tablet,delayed release (DR/EC) 40 mg PO DAILY Qty: 30 0RF fluoxetine [Prozac] 20 mg Capsule 20 mg PO DAILY Qty: 30 0RF promethazine 25 mg tablet 25 mg PO Q6H PRN (Reason: nausea and vomiting) Qty: 30 0RF docusate sodium [Colace] 100 mg capsule 100 mg PO BID Qty: 60 0RF Referrals / Follow Up: Alina Concepcion, [Primary Care Provider] - Disposition Disposition (needs filled in before D/C Order can be placed): Home, Self Care
== END 2023-05-05 14:54 | disposition home or self-care (01) ==
LOC: SDC 09:25 → AC 09:26
PROVIDERS: PCP Internal Medicine; Referring Provider Surgery; Visit Provider Surgery
PROC: (CPT 14301; principal; 2023-05-05 10:50)
DX: C44.329 Squamous cell carcinoma of skin of other parts of face (principal); I50.32 Chronic diastolic (congestive) heart failure; E11.22 Type 2 diabetes mellitus with diabetic chronic kidney disease; N18.4 Chronic kidney disease, stage 4 (severe); I25.2 Old myocardial infarction; G47.33 Obstructive sleep apnea (adult) (pediatric); F41.9 Anxiety disorder, unspecified; K21.9 Gastro-esophageal reflux disease without esophagitis; F32.A Depression, unspecified; Z79.899 Other long term (current) drug therapy; Z99.81 Dependence on supplemental oxygen; Z86.73 Personal history of transient ischemic attack (TIA), and cerebral infarction without residual deficits
CPT/HCPCS: 14301; 00300; 82962; 83036; 88305; J7120; J0295; J2405

== ENCOUNTER 2023-05-06 07:11 | Emergency (ER) | payer MEDICARE, SELFPAY ==
[2023-05-06 07:13] VITALS: BP 127/86; PULSE 74; RESP 18; TEMP 36.1; O2SAT 90
[2023-05-06 07:21] VITALS: BMI 27.8
--- NOTE | 2023-05-06 07:39 | EX.ED.DYSGE1 ---
HPI History of Present Illness Chief Complaint: Wound Informant: patient Onset/Context/Timing Onset: Today Context: Sudden Onset Timing: Lasts (Approximately 1 hour) Quality: Bleeding, swelling Location: Left cheek Worsened by: Nothing Relieved by: Nothing Narrative Narrative: Patient presents with bleeding from a surgical wound that began this morning. Patient states he woke up and noted some bleeding from the incision. Patient had excision of a squamous cell carcinoma from his left cheek yesterday. Patient states the bleeding lasted for approximately 1 hour. Patient states nothing made it better and nothing made it worse. Patient admits to some subjective chills. Patient denies any purulent drainage. Patient denies any fevers. [facility] Medical History (HFpEF) heart failure with preserved ejection fraction Anemia Anxiety Arthritis Atherosclerosis of coronary artery bypass graft of [place] heart without angina pectoris Back pain BPH (benign prostatic hyperplasia) BPH with obstruction/lower urinary tract symptoms Cardiology follow-up encounter Chronic anemia Chronic atrial fibrillation Chronic GERD Chronic kidney disease (CKD) Chronic shortness of breath CKD (chronic kidney disease) Coronary artery disease Coronary artery disease Cutaneous horn Depression Diabetes mellitus, type 2 Diabetic polyneuropathy Dietary restriction Easy bruising Essential (primary) hypertension GERD (gastroesophageal reflux disease) Gout Hemoglobin A1c less than 7.0% Hemorrhagic cerebrovascular accident (CVA) High cholesterol History of atrial fibrillation History of CHF (congestive heart failure) History of echocardiogram History of edema History of heart attack History of stress test Hyperlipidemia Hyperuricemia Insomnia Long-term (current) use of anticoagulants, INR goal 2.0-3.0 Lung nodule, solitary Malnutrition RODRIGUEZ (nonalcoholic steatohepatitis) Neoplasm of skin of left cheek Non-smoker On home oxygen therapy Postoperative stitch abscess SOB (shortness of breath) Squamous cell carcinoma of skin of left cheek Stroke/cerebrovascular accident Syncope Type 2 diabetes mellitus with other diabetic kidney complication Home Medications ferrous gluconate 324 mg (38 mg iron) tablet 324 mg PO BID iron supplement 11/29/22 [History Last Taken 12/03/22] acetaminophen 325 mg tablet (Tylenol) 650 mg (2 x 325 mg) PO Q6H PRN PRN Pain 1-10 Or Fever >100.7 #0 tabs 12/12/22 [Rx Last Taken Unknown] Arthritis Pain Compound 4 click topical TID #2 BOTTLES 01/31/23 [Rx Last Taken Unknown] ascorbic acid (vitamin C) 500 mg tablet 1,000 mg (2 x 500 mg) PO BREAKFAST #60 tabs 01/31/23 [Rx Last Taken Unknown] atorvastatin 40 mg tablet 40 mg PO QHS cholesterol #30 tabs 01/31/23 [Rx Last Taken Unknown] fluoxetine 20 mg capsule (Prozac) 20 mg PO DAILY mood #30 caps 01/31/23 [Rx Last Taken 03/27/23] furosemide 40 mg tablet 40 mg PO Q48H #30 tabs 01/31/23 [Rx Last Taken Unknown] gabapentin 100 mg capsule 100 mg PO TIDCM #90 caps 01/31/23 [Rx Last Taken 03/27/23] pantoprazole 40 mg tablet,delayed release 40 mg PO DAILY GERD #30 tabs 01/31/23 [Rx Last Taken 03/27/23] quetiapine 25 mg tablet (Seroquel) 25 mg PO QHS@2100 mood #30 tabs 01/31/23 [Rx Last Taken Unknown] tamsulosin 0.4 mg capsule 0.4 mg PO DAILY@1730 prostate #30 caps 01/31/23 [Rx Last Taken Unknown] trazodone 50 mg tablet 50 mg PO QHS #30 tabs 01/31/23 [Rx Last Taken Unknown] docusate sodium 100 mg capsule (Colace) 100 mg PO BID #60 caps 02/18/23 [Rx Last Taken Unknown] promethazine 25 mg tablet 25 mg PO Q6H PRN nausea and vomiting #30 tabs 02/18/23 [Rx Last Taken Unknown] amoxicillin 500 mg-potassium clavulanate 125 mg tablet 1 tab PO TID #12 tabs 05/05/23 [Rx Last Taken Unknown] Allergy/AdvReac Type Severity Reaction Status Date / Time hydromorphone [From Dilaudid] Allergy Intermediate Vomiting Verified 05/06/23 07:16 metformin AdvReac Intermediate Other Verified 05/06/23 07:16 clindamycin AdvReac Vomiting,NA Verified 05/06/23 07:16 USEA,HEARTB URN Lactobacillus acidophilus AdvReac Vomiting Verified 05/06/23 07:16 [From Acidophilus] Family History Mother CHF (congestive heart failure) Other Arthritis Surgical History History of bilateral knee replacement History of coronary artery bypass graft x 3 History of coronary artery stent placement (~12/10/10) History of esophagogastroduodenoscopy (EGD) History of laparoscopic cholecystectomy History of squamous cell carcinoma excision Hx of bilateral hip replacements Hx of cardiac catheterization (~12/04/21) Hx of cardiac pacemaker (~06/30/19) Hx of colonoscopy Hx of excision of mass Hx of gastric bypass (~2011) Hx of left cataract extraction Hx of right cataract extraction Hx of shoulder surgery S/P CABG x 3 (~12/23/18) Social History household members: spouse Smoking Status: Never smoker alcohol intake: never substance use type: does not use caffeine: Yes (2/wk) Type: coffee ROS ROS ED Constitutional Constitutional ED: Reports chills and subjective; Denies fever(s) Eyes Eyes: Denies blurry vision or change in vision ENT ENT ED: Reports rhinorrhea; Denies sore throat Cardiovascular Cardiovascular: Denies chest pain or palpitations Respiratory/Chest Respiratory/Chest: Reports cough; Denies dyspnea Gastrointestinal Gastrointestinal: Denies nausea or vomiting Genitourinary Genitourinary ED: Denies dysuria or hematuria Musculoskeletal Musculoskeletal: Denies back pain or neck pain Integumentary Denies abscess or rash Neurologic Neurologic: Denies headache(s) or weakness Allergic/Immunologic Allergic/Immunologic ED: Denies mouth swelling or urticaria EXAM Physical Exam Const Vital Signs: 05/06/23 07:13 05/06/23 09:12 05/06/23 11:37 Temperature 97 F L Temperature Source Temporal Pulse Rate 74 71 81 Respiratory Rate 18 14 14 Blood Pressure 127/86 H 122/76 H 132/71 H Blood Pressure Mean 99 91 91 Pulse Ox 90 96 98 Oxygen Delivery Method Room Air Room Air Room Air Positive well nourished and well developed General Appearance ED: well developed and NAD HEENT Reports moist mucous membranes HEENT Narrative: There is edema and tenderness over the left cheek. There is a healing surgical wound over the left cheek. Sutures are in place. There is mild erythema. There is no warmth. There is no bony crepitance or step-off. Eyes PERRL and EOMs intact bilaterally Resp normal respiratory effort and clear to auscultation bilaterally Cardio regular rate Rhythm: abnormal rhythm irregularly irregular GI non-tender and non-distended Palpation: soft Neuro oriented x3, CN's II-XII intact bilaterally and no sensory deficits noted Sensorium / Orientation: alert Motor Exam: strength 5/5 throughout Psych mental status grossly normal MDM MDM MDM Narrative Medical decision making narrative: Differential diagnosis includes hematoma, abscess, coagulopathy, cellulitis, and anemia. CT scan of the facial bones will be obtained to assess for abscess/hematoma. CBC will be obtained to assess for leukocytosis and anemia. Basic metabolic profile will be obtained to assess for electrolyte abnormality and renal function. PT with INR and PTT will be obtained to assess for coagulopathy. History & Record Review Additional record(s) reviewed:: Prior labs Lab Data Attestation: I reviewed the patient's lab results. Lab results narrative: CBC was reviewed. There is a mild anemia with a hemoglobin of 11.2 and hematocrit 37.3. Platelets were slightly low at 116. PT with INR and PTT were reviewed and were within normal limits. Basic metabolic profile was reviewed. BUN was 34 and creatinine was 2.10. These are consistent with prior results. Glucose was slightly elevated at 137. Labs: Laboratory Results - last 24 hr 05/06/23 08:10 WBC 6.3 RBC 3.60 L Hgb 11.2 L Hct 37.3 L MCV 103.6 H MCH 31.1 MCHC 30.0 L RDW Std Deviation 57.2 H RDW Coeff of Anders 14.9 H Plt Count 116 L MPV 11.0 Immature Gran % (Auto) 0.500 Neut % (Auto) 90.2 H Lymph % (Auto) 2.2 L Haywood % (Auto) 6.0 Eos % (Auto) 0.8 Baso % (Auto) 0.3 Absolute Neuts (auto) 5.7 Absolute Lymphs (auto) 0.14 L Nucleated RBC % 0 Differential Comment SCANNED PT 15.6 H INR 1.2 APTT 30.6 Sodium 138 Potassium 4.8 Chloride 106 Carbon Dioxide 30.0 Anion Gap 2 L BUN 34 H Creatinine 2.10 H Estim Creat Clear Calc 33.20 Est GFR (MDRD) Af Amer 41 L Est GFR (MDRD) Non-Af 33 L BUN/Creatinine Ratio 16.2 Glucose 137 H Calcium 8.5 Radiography Diagnostic Testing: Clinical Impression(s) from Imaging Studies Facial/Sinus 05/06/23 07:47 IMPRESSION: Left facial soft tissue swelling with a 6.4 cm hematoma containing punctate air from recent procedure or superimposed abscess. Recommend follow-up to resolution to exclude residual or recurrent tumor. Electronically Signed: Rozina Coles MD at 9:16 EDT , .CT scan of the facial bones was obtained. There is left tissue swelling with a 6.4 cm hematoma and small pockets of air. This is likely from the recent surgery. This was interpreted by the radiologist and was also independently reviewed by myself. Treatment and Re-Evaluation :: Patient was advised of his findings. Patient was given a dose of Ancef here. Patient is on amoxicillin. I attempted to contact Dr. Kahn, patient's surgeon, and and still waiting for a call back. Patient did not want to wait any longer for any further instructions by his surgeon. Patient was instructed to use ice to the area to help with the swelling. Patient was instructed to follow-up with his surgeon as scheduled. Patient was instructed return if worse in any way. Patient understood and was agreeable with the plan. All questions were answered. Case was discussed with Dr. Kahn. He will see the patient in the office tomorrow. Discharge Plan Triage Chief Complaint: Wound ED Provider: Arnold Andrade Dx/Rx/DC Orders Clinical Impression: Postoperative hematoma Instructions: ED Hematoma Prescriptions: No Action ferrous gluconate 324 mg (38 mg iron) tablet 324 mg PO BID acetaminophen [Tylenol] 325 mg Tablet 650 mg PO Q6H PRN PRN (Reason: Pain 1-10 Or Fever >100.7) Qty: 0 0RF Arthritis Pain Compound 4 click topical TID Qty: 2 3RF Hold Instructions: Resume on 02/21/23. Rx Instructions: apply to the low back 2-3 times a day for low back pain. furosemide 40 mg Tablet 40 mg PO Q48H Qty: 30 0RF ascorbic acid (vitamin C) 500 mg Tablet 1,000 mg PO BREAKFAST Qty: 60 0RF Rx Instructions: Take this medication with a meal and with the ferrous sulfate trazodone 50 mg Tablet 50 mg PO QHS Qty: 30 0RF gabapentin 100 mg Capsule 100 mg PO TIDCM Qty: 90 0RF Rx Instructions: this med is for the back pain and the pain in the left face quetiapine [Seroquel] 25 mg Tablet 25 mg PO QHS@2100 Qty: 30 0RF atorvastatin 40 mg tablet 40 mg PO QHS Qty: 30 0RF tamsulosin 0.4 mg capsule 0.4 mg PO DAILY@1730 Qty: 30 0RF pantoprazole 40 mg tablet,delayed release (DR/EC) 40 mg PO DAILY Qty: 30 0RF fluoxetine [Prozac] 20 mg Capsule 20 mg PO DAILY Qty: 30 0RF promethazine 25 mg tablet 25 mg PO Q6H PRN (Reason: nausea and vomiting) Qty: 30 0RF docusate sodium [Colace] 100 mg capsule 100 mg PO BID Qty: 60 0RF amoxicillin-pot clavulanate 500-125 mg tablet 1 tab PO TID Qty: 12 0RF Primary Care Provider: Alina Concepcion Referrals: Byron Kahn MD [Med Staff - Active Staff] - Keep Mireya appointment Alina Concepcion DO [Primary Care Provider] - 5-7 Days Disposition Disposition: Home, Self Care Discharge Date/Time: 05/06/23 11:38
--- NOTE | 2023-05-06 07:47 | CT_ITS ---
HISTORY: Squamous cell cancer removed from left cheek yesterday, now with swelling, question facial abscess. TECHNIQUE: Helically acquired images of the sinuses and facial bones were obtained without intravenous contrast. A radiation dose optimization technique was used for this scan. 443 images. COMPARISON: None. FINDINGS: OSSEOUS STRUCTURES: No acute fracture or dislocation identified. No cortical destruction identified. Generative changes of the upper cervical spine. SOFT TISSUES: Subcutaneous and intramuscular edema of the left base with a 1.5 x 6.4 cm hyperdense fluid collection over the maxilla and mandible with punctate foci of air more superiorly at the level of the zygoma. Moderate periorbital edema on the left. PARANASAL SINUSES: No significant air fluid levels. Minimal maxillary sinus mucosal thickening on the right. VISUALIZED MASTOID AIR CELLS: Clear. ORBITAL CONTENTS: Symmetric globes and extraocular muscles. Unremarkable retrobulbar fat. No fluid collection or significant stranding. CT/Sinus/Facial Bone IMPRESSION: Left facial soft tissue swelling with a 6.4 cm hematoma containing punctate air from recent procedure or superimposed abscess. Recommend follow-up to resolution to exclude residual or recurrent tumor. Electronically Signed: Rozina Coles MD at 9:16 EDT ,
[2023-05-06 08:22] LABS: Absolute Lymphocyte Count 0.14 X10^3/uL (0.83-4.51); Absolute Neutrophil Count 5.7 X10^3/uL (2.0-7.7); Basophil# 0.02 X10^3/uL; Basophil% 0.3 % (0-1); Eosinophil# 0.05 X10^3/uL; Eosinophils% 0.8 % (0-5); Hematocrit 37.3 % (40-54); Hemoglobin 11.2 g/dL (13.0-16.5); Lymphocyte # 0.14 X10^3/ul (0.83-4.51); Lymphocyte % 2.2 % (19-41); Mean Corpuscular Hgb 31.1 pg (27.0-32.0); Mean Corpuscular Volume 103.6 fL (80-94); Monocyte# 0.38 X10^3/uL; NRBC Flagged by Analyzer 0 % (0-5); Neutrophil # 5.71 X10^3/uL (2.7-7.7); Neutrophil % 90.2 % (47-70); POSITIVE DIFFERENTIAL YES; Platelet Count 116 K/mm3 (150-450); RBC Distribution Width CV 14.9 % (11.6-14.6); RBC Distribution Width SD 57.2 fl (35.1-43.9); White Blood Count 6.3 K/mm3 (4.4-11.0)
[2023-05-06 08:24] LABS: Differential Indicated SCAN CRITERIA MET
[2023-05-06 08:36] LABS: Anion Gap 2 (5-15); BUN 34 mg/dL (7-18); BUN/Creat Ratio 16.2 RATIO (10-20); Calcium,Total 8.5 mg/dL (8.5-10.1); Chloride 106 mmol/L (98-107); EST Glomerular Filtration Rate 33 mL/min (>60); Est Glom Filt Rate - Afr Amer 41 mL/min (>60); Glucose 137 mg/dL (74-106); Potassium 4.8 mmol/L (3.5-5.1); Sodium Level 138 mmol/L (136-145)
[2023-05-06 08:44] LABS: International Normalized Ratio 1.2; Partial Thromboplast Time 30.6 Seconds (24.1-36.2); Prothrombin Time (Protime)PT. 15.6 SECONDS (11.7-14.9)
[2023-05-06 08:58] LABS: Differential Comment SCANNED
[2023-05-06 09:12] VITALS: BP 122/76; PULSE 71; RESP 14; O2SAT 96
[2023-05-06] MEDS: Cefazolin 1 GM/50 ML BAG IV (09:29)
--- NOTE | 2023-05-06 11:24 | ED.RN ---
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 this rn went in the room and stated that I was going was going to have have the dr come talk to him pt take this out of me, nothing is happening here.
[2023-05-06 11:37] VITALS: BP 132/71; PULSE 81; RESP 14; O2SAT 98
== END 2023-05-06 11:38 | disposition home or self-care (01) ==
PROVIDERS: Emergency Provider Emergency Medicine; PCP Internal Medicine; Visit Provider Emergency Medicine
DX: L76.31 Postprocedural hematoma of skin and subcutaneous tissue following a dermatologic procedure (principal); I13.0 Hypertensive heart and chronic kidney disease with heart failure and stage 1 through stage 4 chronic kidney disease, or unspecified chronic kidney disease; I50.32 Chronic diastolic (congestive) heart failure; E11.42 Type 2 diabetes mellitus with diabetic polyneuropathy; E11.22 Type 2 diabetes mellitus with diabetic chronic kidney disease; I48.20 Chronic atrial fibrillation, unspecified; Y83.8 Other surgical procedures as the cause of abnormal reaction of the patient, or of later complication, without mention of misadventure at the time of the procedure; N18.9 Chronic kidney disease, unspecified; I25.10 Atherosclerotic heart disease of native coronary artery without angina pectoris; E78.00 Pure hypercholesterolemia, unspecified; Z79.01 Long term (current) use of anticoagulants; Z79.899 Other long term (current) drug therapy
CPT/HCPCS: 70486; 80048; 85025; 85610; 85730; 96365; 96366; 99282; A4216

== ENCOUNTER 2023-05-07 19:53 | Emergency (ER) | payer MEDICARE, SELFPAY ==
[2023-05-07 19:55] VITALS: BP 160/100; PULSE 77; RESP 18; TEMP 36.1; O2SAT 91; BMI 27.2
[2023-05-07 20:01] VITALS: BP 153/91; PULSE 81; RESP 18; TEMP 36.1; O2SAT 92
--- NOTE | 2023-05-07 20:29 | EX.ED.DYSGE1 ---
HPI History of Present Illness Chief Complaint: Wound [facility] Medical History (HFpEF) heart failure with preserved ejection fraction Anemia Anxiety Arthritis Atherosclerosis of coronary artery bypass graft of red devil heart without angina pectoris Back pain BPH (benign prostatic hyperplasia) BPH with obstruction/lower urinary tract symptoms Cardiology follow-up encounter Chronic anemia Chronic atrial fibrillation Chronic GERD Chronic kidney disease (CKD) Chronic shortness of breath CKD (chronic kidney disease) Coronary artery disease Coronary artery disease Cutaneous horn Depression Diabetes mellitus, type 2 Diabetic polyneuropathy Dietary restriction Easy bruising Essential (primary) hypertension GERD (gastroesophageal reflux disease) Gout Hemoglobin A1c less than 7.0% Hemorrhagic cerebrovascular accident (CVA) High cholesterol History of atrial fibrillation History of CHF (congestive heart failure) History of echocardiogram History of edema History of heart attack History of stress test Hyperlipidemia Hyperuricemia Insomnia Long-term (current) use of anticoagulants, INR goal 2.0-3.0 Lung nodule, solitary Malnutrition BERRY (nonalcoholic steatohepatitis) Neoplasm of skin of left cheek Non-smoker On home oxygen therapy Postoperative stitch abscess SOB (shortness of breath) Squamous cell carcinoma of skin of left cheek Stroke/cerebrovascular accident Syncope Type 2 diabetes mellitus with other diabetic kidney complication Home Medications ferrous gluconate 324 mg (38 mg iron) tablet 324 mg PO BID iron supplement 11/29/22 [History Last Taken 12/03/22] acetaminophen 325 mg tablet (Tylenol) 650 mg (2 x 325 mg) PO Q6H PRN PRN Pain 1-10 Or Fever >100.7 #0 tabs 12/12/22 [Rx Last Taken Unknown] Arthritis Pain Compound 4 click topical TID #2 BOTTLES 01/31/23 [Rx Last Taken Unknown] ascorbic acid (vitamin C) 500 mg tablet 1,000 mg (2 x 500 mg) PO BREAKFAST #60 tabs 01/31/23 [Rx Last Taken Unknown] atorvastatin 40 mg tablet 40 mg PO QHS cholesterol #30 tabs 01/31/23 [Rx Last Taken Unknown] fluoxetine 20 mg capsule (Prozac) 20 mg PO DAILY mood #30 caps 01/31/23 [Rx Last Taken 03/27/23] furosemide 40 mg tablet 40 mg PO Q48H #30 tabs 01/31/23 [Rx Last Taken Unknown] gabapentin 100 mg capsule 100 mg PO TIDCM #90 caps 01/31/23 [Rx Last Taken 03/27/23] pantoprazole 40 mg tablet,delayed release 40 mg PO DAILY GERD #30 tabs 01/31/23 [Rx Last Taken 03/27/23] quetiapine 25 mg tablet (Seroquel) 25 mg PO QHS@2100 mood #30 tabs 01/31/23 [Rx Last Taken Unknown] tamsulosin 0.4 mg capsule 0.4 mg PO DAILY@1730 prostate #30 caps 01/31/23 [Rx Last Taken Unknown] trazodone 50 mg tablet 50 mg PO QHS #30 tabs 01/31/23 [Rx Last Taken Unknown] docusate sodium 100 mg capsule (Colace) 100 mg PO BID #60 caps 02/18/23 [Rx Last Taken Unknown] promethazine 25 mg tablet 25 mg PO Q6H PRN nausea and vomiting #30 tabs 02/18/23 [Rx Last Taken Unknown] amoxicillin 500 mg-potassium clavulanate 125 mg tablet 1 tab PO TID #12 tabs 05/05/23 [Rx Last Taken Unknown] hydromorphone 2 mg tablet (Dilaudid) 2 mg PO Q4H PRN pain 5 days #30 tabs 05/07/23 [Rx Last Taken Unknown] ondansetron 4 mg disintegrating tablet 4 mg PO Q8H PRN nausea and vomiting 3 days #9 tabs 05/07/23 [Rx Last Taken Unknown] oxycodone 5 mg tablet 5 mg PO Q6H PRN 05/07/23 [History Last Taken Unknown] Allergy/AdvReac Type Severity Reaction Status Date / Time hydromorphone [From Dilaudid] Allergy Intermediate Vomiting Verified 05/07/23 15:13 metformin AdvReac Intermediate Other Verified 05/07/23 15:13 clindamycin AdvReac Vomiting,NA Verified 05/07/23 15:13 USEA,HEARTB URN Lactobacillus acidophilus AdvReac Vomiting Verified 05/07/23 15:13 [From Acidophilus] Family History Mother CHF (congestive heart failure) Other Arthritis Surgical History History of bilateral knee replacement History of coronary artery bypass graft x 3 History of coronary artery stent placement (~12/10/10) History of esophagogastroduodenoscopy (EGD) History of laparoscopic cholecystectomy History of squamous cell carcinoma excision Hx of bilateral hip replacements Hx of cardiac catheterization (~12/04/21) Hx of cardiac pacemaker (~06/30/19) Hx of colonoscopy Hx of excision of mass Hx of gastric bypass (~2011) Hx of left cataract extraction Hx of right cataract extraction Hx of shoulder surgery S/P CABG x 3 (~12/23/18) Social History household members: spouse Smoking Status: Never smoker alcohol intake: never substance use type: does not use caffeine: Yes (2/wk) Type: coffee EXAM Physical Exam Const Vital Signs: 05/07/23 19:55 05/07/23 20:01 05/07/23 20:50 Temperature 97.0 F L 97.0 F L Temperature Source Temporal Temporal Pulse Rate 77 81 Respiratory Rate 18 18 Blood Pressure 160/100 H 153/91 H Blood Pressure Mean 120 111 Pulse Ox 91 92 Oxygen Delivery Method Room Air Room Air Room Air 05/07/23 22:03 05/07/23 22:03 05/07/23 22:27 Temperature 98.0 F Temperature Source Oral Pulse Rate 78 78 78 Respiratory Rate 18 18 Blood Pressure 149/89 H 149/89 H Blood Pressure Mean 109 Pulse Ox 98 94 Oxygen Delivery Method Room Air MDM MDM MDM Narrative Medical decision making narrative: HISTORY OF PRESENT ILLNESS: 68-year-old male here for chest discomfort and wound evaluation. States he had skin cancer with on 05/05. States he was in the ED yesterday and received a dose IV antibiotics. He notes prior to arrival his face began hurting worse specially after having it reevaluated and packed today. He states face pain is rating down to the chest. denies any exertional symptoms. Does note bleeding from left side of face and recent surgery. Denies any lower extremity edema. The patient denies recent surgery in the last 4 weeks or immobilization in the last 3 days, denies previous diagnosis of DVT or PE, hemoptysis, unilateral leg swelling or malignancy with treatment the last 6 months. No estrogen use noted. REVIEW OF SYSTEMS: Pertinent positives: Chest chest pain, left face pain Pertinent negatives: Syncope PHYSICAL EXAM: Nursing triage notes reviewed, Vital signs reviewed Constitutional: please see mdm HENT: MMM, large area of ecchymosis underneath the left eye going to the left cheek. Large area of swelling approximately 6 x 6 cm, there is sutures that are clean dry intact with no obvious fluctuance induration, wound of the left cheek is hemostatic. Eyes: Pupils equal round and reactive to light, Extraocular muscles intact Neck: No stridor, no JVD, full neck ROM Lungs: Clear to auscultation, No wheezing or rales. No increased work of breathing, no conversational dyspnea, no accessory muscle use, no nasal flaring. No respiratory distress noted Heart: Regular rate and rhythm, No murmurs, No rubs and No gallops, 2+ distal pulses (radial, femoral, posterior tibial) in all extremities Abdomen: Soft, there is no tenderness, rigidity, rebound or guarding, no obvious peritoneal signs, no palpable pulsatile abdominal masses, no auscultated abdominal bruit : No CVAT Extremities: No edema Neuro: No focal neurological deficits, cranial nerves II through XII intact, 5/5 strength in all extremities. Intact sensation to light touch in all extremities, 2+ reflexes bilateral patella tendons. Normal gait. No ataxia. Skin: No rash or lesions noted MEDICAL DECISION MAKING: Chief Complaint: Chest pain, facial pain External records reviewed: Seen yesterday obtain a CT scan of the face and labs. CBC without leukocytosis. CT scan showed left facial soft tissue swelling, 6.4 cm hematoma concern for abscess. Got a dose of Ancef. Patient is on amoxicillin Factors affecting care: CKD 4, ROSSANA, anemia, left breast mass, type 2 diabetes, heart failure with preserved ejection fraction, CAD, Berry Social determinants of health: Elderly History obtained from others: EMS Consults: none ALL IMAGES (IF OBTAINED) HAVE BEEN PERSONALLY REVIEWED AND INTERPRETED BY MYSELF. EKG with rate controlled A-fib, right axis deviation, right bundle branch block, no obvious STEMI. Similar to prior EKG on January 13, 2023. CBC without significant leukocytosis or significant anemia, noted mild thrombocytopenia BMP with baseline CKD, no significant [place] normalities, no anion gap to suggest endorgan hypoperfusion Troponin is negative, no evidence of myocardial ischemia MDM Narrative: Patient was hemodynamically stable, afebrile, nontoxic-appearing. No focal cardiopulmonary abnormalities. Left face wound clean dry intact with no obvious evidence of infection or purulence. Sutures in place. No evidence of dehiscence or active bleeding I considered the following differential diagnosis: ACS, arrhythmia, CHF exacerbation, anemia, pneumonia, PE I considered pulmonary embolism however the patient is low risk Wells score and as such there is no indication for CT scan of the chest at this time. Given the patient's age and history of CAD status post NV we will obtain a broad lab and imaging work-up to further elucidate the etiology patient complaints specifically ruling out ACS arrhythmia CHF exacerbation anemia pneumonia. Chest x-ray showed evidence of atelectasis versus pneumonia. Patient was not hypoxic we will give broad-spectrum antibiotics and the ones he is currently on. There is no evidence of arrhythmia, significant anemia, myocardial ischemia, electrolyte abnormalities. Delta troponin deferred at this time. I had a shared decision-making discussion with the patient regards to his heart score being elevated at 4. I discussed my low suspicion for ACS at this time given practically endorsed face pain that radiates to the chest rather than the other way around. In addition to that there is signs of lung inflammation which is likely better explanation for the patient's pain. He did not have any exertional symptoms. Despite his high risk I do not think the patient needs admission at this time. Given his elevated heart score did offer admission. The patient agreed. He was alert and orient x3 and had capacity to make his own medical decisions. He was discharged stable condition with ongoing prescription for Augmentin to cover pneumonia and his facial laceration as well as PO Dilaudid. The patient and/or family, caregivers express understanding. The patient and/or family, caregivers agrees with the plan. Total critical care time today provided was at least 0 minutes. This excludes separately billable procedures. Critical care time (if documented) is secondary to the patient having high probability of clinically significant/life threatening deterioration in the patient's condition which required my urgent intervention. Shared decision making: I will have a discussion with the patient and or visitors regarding risk/benefits of further testing or admission. They will be made aware of of the risk/benefits inherent in this decision they will be given the opportunity to voice understanding. Lab Data Attestation: I reviewed the patient's lab results. Labs: Laboratory Results - last 24 hr 05/07/23 20:50 WBC 5.3 RBC 3.43 L Hgb 10.7 L Hct 35.3 L MCV 102.9 H MCH 31.2 MCHC 30.3 L RDW Std Deviation 57.3 H RDW Coeff of Anders 15.0 H Plt Count 119 L MPV 11.7 Immature Gran % (Auto) 0.600 Neut % (Auto) 82.1 H Lymph % (Auto) 9.6 L Alfalfa % (Auto) 6.4 Eos % (Auto) 0.9 Baso % (Auto) 0.4 Absolute Neuts (auto) 4.4 Absolute Lymphs (auto) 0.51 L Nucleated RBC % 0 Differential Comment SCANNED Sodium 138 Potassium 4.4 Chloride 102 Carbon Dioxide 29.0 Anion Gap 7 BUN 35 H Creatinine 2.23 H Estim Creat Clear Calc 31.26 Est GFR (MDRD) Af Amer 38 L Est GFR (MDRD) Non-Af 31 L BUN/Creatinine Ratio 15.7 Glucose 155 H Calcium 8.8 Troponin I High Sens 21 Radiography Diagnostic Testing: Clinical Impression(s) from Imaging Studies Chest X-Ray 05/07/23 21:04 IMPRESSION: Left lower lobe pneumonia or atelectasis. Electronically Signed: Alonzo Clemens MD at 21:28 EDT , I have personally reviewed the patient's chest x-ray. Chest x-ray is unremarkable for pulmonary edema, pneumothorax, pneumonia or focal cardiopulmonary abnormality. Discharge Plan Triage Chief Complaint: Wound ED Provider: Chris Carreon Dx/Rx/DC Orders Clinical Impression: Abscess of face, CKD (chronic kidney disease), Post-operative pain, Thrombocytopenia, Facial hematoma Instructions: Changing Dressing Dc, ED Chest Pain, Uncertain Cause Prescriptions: New hydromorphone [Dilaudid] 2 mg tablet 2 mg PO Q4H PRN (Reason: pain) 5 Days Qty: 30 0RF ondansetron 4 mg tablet,disintegrating 4 mg PO Q8H PRN (Reason: nausea and vomiting) 3 Days Qty: 9 0RF No Action ferrous gluconate 324 mg (38 mg iron) tablet 324 mg PO BID oxycodone 5 mg tablet 5 mg PO Q6H PRN Patient Comments: 5 mg orally every 6 hours As Needed for pain (scale score 7-10) for 7 days; 28 tabs (twenty-eight) acetaminophen [Tylenol] 325 mg Tablet 650 mg PO Q6H PRN PRN (Reason: Pain 1-10 Or Fever >100.7) Qty: 0 0RF Arthritis Pain Compound 4 click topical TID Qty: 2 3RF Hold Instructions: Resume on 02/21/23. Rx Instructions: apply to the low back 2-3 times a day for low back pain. furosemide 40 mg Tablet 40 mg PO Q48H Qty: 30 0RF ascorbic acid (vitamin C) 500 mg Tablet 1,000 mg PO BREAKFAST Qty: 60 0RF Rx Instructions: Take this medication with a meal and with the ferrous sulfate trazodone 50 mg Tablet 50 mg PO QHS Qty: 30 0RF gabapentin 100 mg Capsule 100 mg PO TIDCM Qty: 90 0RF Rx Instructions: this med is for the back pain and the pain in the left face quetiapine [Seroquel] 25 mg Tablet 25 mg PO QHS@2100 Qty: 30 0RF atorvastatin 40 mg tablet 40 mg PO QHS Qty: 30 0RF tamsulosin 0.4 mg capsule 0.4 mg PO DAILY@1730 Qty: 30 0RF pantoprazole 40 mg tablet,delayed release (DR/EC) 40 mg PO DAILY Qty: 30 0RF fluoxetine [Prozac] 20 mg Capsule 20 mg PO DAILY Qty: 30 0RF promethazine 25 mg tablet 25 mg PO Q6H PRN (Reason: nausea and vomiting) Qty: 30 0RF docusate sodium [Colace] 100 mg capsule 100 mg PO BID Qty: 60 0RF amoxicillin-pot clavulanate 500-125 mg tablet 1 tab PO TID Qty: 12 0RF Primary Care Provider: Alina Concepcion Referrals: Alina Concepcion, [Primary Care Provider] - Activity Restrictions/Additional Instructions: Thank you for trusting us with your care today! Please take Tylenol (2 pills, 650 mg), ibuprofen (2 pills, 400 mg) every 6 hours as needed for pain and fever control. Please return to the emergency department if your symptoms change or worsen. Specifically he cannot tolerate antibiotic mouth. Specific you develop worsening chest pain, shortness of breath if you lose consciousness or if your symptoms change or worsen in any way Please follow with your Surgeon for further outpatient evaluation and management. Disposition Disposition: Home, Self Care
--- NOTE | 2023-05-07 20:50 | EKG12_ITS ---
Test Reason : PAIN Blood Pressure : / mmHG Vent. Rate : 075 BPM Atrial Rate : 000 BPM P-R Int : 000 ms QRS Dur : 152 ms QT Int : 438 ms P-R-T Axes : 000 136 -28 degrees QTc Int : 489 ms Atrial fibrillation Right bundle branch block Abnormal ECG Confirmed by VAUGHN LUCERO, FRANCISCO ([id number]), supervising editor trailer BEVERLEY CHIN ([id number]) on 05/12/2023 12:50:40 P M Referred By: Confirmed By:CL MENDES MD
[2023-05-07] MEDS: HYDROmorphone 0.5 MG/0.5 ML SYRINGE IV (20:59)
[2023-05-07 21:02] LABS: Absolute Lymphocyte Count 0.51 X10^3/uL (0.83-4.51); Absolute Neutrophil Count 4.4 X10^3/uL (2.0-7.7); Basophil# 0.02 X10^3/uL; Basophil% 0.4 % (0-1); Eosinophil# 0.05 X10^3/uL; Eosinophils% 0.9 % (0-5); Hematocrit 35.3 % (40-54); Hemoglobin 10.7 g/dL (13.0-16.5); Lymphocyte # 0.51 X10^3/ul (0.83-4.51); Lymphocyte % 9.6 % (19-41); Mean Corp Hgb Conc 30.3 g/dL (32-36); Mean Corpuscular Hgb 31.2 pg (27.0-32.0); Mean Corpuscular Volume 102.9 fL (80-94); Mean Platelet Vol. 11.7 fl (6.2-12.0); Monocyte# 0.34 X10^3/uL; Monocyte% 6.4 % (0-10); NRBC Flagged by Analyzer 0 % (0-5); Neutrophil # 4.36 X10^3/uL (2.7-7.7); Neutrophil % 82.1 % (47-70); POSITIVE DIFFERENTIAL YES; Platelet Count 119 K/mm3 (150-450); RBC Distribution Width SD 57.3 fl (35.1-43.9); Red Blood Count 3.43 M/mm3 (4.6-6.2); White Blood Count 5.3 K/mm3 (4.4-11.0)
--- NOTE | 2023-05-07 21:04 | RAD_ITS ---
STUDY: X-RAY CHEST REASON FOR EXAM: Male, 68 years old. chest pain TECHNIQUE: Single AP portable view of the chest. COMPARISON: 12/14/2022 FINDINGS: Left subclavian single-lead pacemaker which is unchanged. Status post median sternotomy with a left atrial appendage closure device. Alveolar opacity in the lower left lung consistent left lower lobe pneumonia or atelectasis. There is no demonstrated pleural abnormality. There is moderate cardiac enlargement. Normal mediastinum and lorena. Normal visualized pulmonary arteries. Normal visualized aortic arch and descending thoracic aorta. Normal visualized thoracic spine. Normal visualized ribs, clavicles, and shoulders. There is no demonstrated abnormality of the visualized soft tissue structures of the upper abdomen. RAD/Chest 1 View (Portable) IMPRESSION: Left lower lobe pneumonia or atelectasis. Electronically Signed: Alonzo Clemens MD at 21:28 EDT ,
[2023-05-07 21:05] LABS: Differential Indicated SCAN CRITERIA MET
[2023-05-07 21:21] LABS: Anion Gap 7 (5-15); BUN 35 mg/dL (7-18); BUN/Creat Ratio 15.7 RATIO (10-20); Calcium,Total 8.8 mg/dL (8.5-10.1); Chloride 102 mmol/L (98-107); Creatinine, Serum 2.23 mg/dL (0.70-1.30); EST Glomerular Filtration Rate 31 mL/min (>60); Est Glom Filt Rate - Afr Amer 38 mL/min (>60); Estimated Creatinine Clearance 31.26 ml/min; Glucose 155 mg/dL (74-106); Potassium 4.4 mmol/L (3.5-5.1); Sodium Level 138 mmol/L (136-145); Troponin-I HS (w/2H Reflex) 21 pg/mL (3.0-78.0)
[2023-05-07 21:25] LABS: Differential Comment SCANNED
[2023-05-07 22:03] VITALS: BP 149/89; PULSE 78; RESP 18; TEMP 36.7; O2SAT 98
[2023-05-07 22:27] VITALS: BP 149/89; PULSE 78; RESP 18; O2SAT 94
[2023-05-07 22:59] LABS: Reflex Troponin-HS? (from REC) Y
== END 2023-05-07 23:20 | disposition home or self-care (01) ==
PROVIDERS: Emergency Provider Emergency Medicine; PCP Internal Medicine; Visit Provider Emergency Medicine
DX: L02.01 Cutaneous abscess of face (principal); L76.31 Postprocedural hematoma of skin and subcutaneous tissue following a dermatologic procedure; Y83.8 Other surgical procedures as the cause of abnormal reaction of the patient, or of later complication, without mention of misadventure at the time of the procedure; I13.0 Hypertensive heart and chronic kidney disease with heart failure and stage 1 through stage 4 chronic kidney disease, or unspecified chronic kidney disease; I50.32 Chronic diastolic (congestive) heart failure; E11.22 Type 2 diabetes mellitus with diabetic chronic kidney disease; E11.42 Type 2 diabetes mellitus with diabetic polyneuropathy; N18.4 Chronic kidney disease, stage 4 (severe); D69.6 Thrombocytopenia, unspecified; E78.00 Pure hypercholesterolemia, unspecified; I25.10 Atherosclerotic heart disease of native coronary artery without angina pectoris; I25.2 Old myocardial infarction; Z95.5 Presence of coronary angioplasty implant and graft; Z95.1 Presence of aortocoronary bypass graft; G89.18 Other acute postprocedural pain
CPT/HCPCS: 71045; 80048; 84484; 85025; 93005; 96374; 96375; 99285; A4216; J2405

== ENCOUNTER 2023-05-09 10:06 | Observation (INO) | payer MEDICARE, SELFPAY ==
[2023-05-09] VITALS (12 sets, daily range): BP systolic 103–144; BP diastolic 57–84; PULSE 74–91; RESP 16; TEMP 36.4–37; O2SAT 91–100; BMI 26.2
--- NOTE | 2023-05-09 | TISS_PTH ---
PATIENT: LINDA CARLOS LOC: MS3 U#:[id number] AGE/SX: 68/M ROOM: [facility] [place], [place] RE05/09/[address]: Dr. Byron Kahn MD : 1955 BED: 1 DIS: 05/10/2023 SPEC #: [id number] RECD: 05/09/23 11:40 STATUS: LEROY REVanessa #: [id number] BAYRON: 05/09/23 00:[address]: Byron Kahn DEPT: SURGICAL PATHOLOGY RECD BY: Rosalie Taylor ENTERED: 05/09/23 12:22 SP TYPE: Tissue Bx TEREZA DR: DO Dr. Tate Garcia DO Tissues: TISSUE SURGICALLY REMOVED Procedures: Surgery Specimen Level IV HEADER OPERATION: Incision, drainage hematoma evacuation, left cheek PRE-OP DIAGNOSIS: Squamous cell carcinoma of left cheek; facial hematoma TISSUE SUBMITTED: Soft tissue left cheek MICROSCOPIC DIAGNOSIS Soft tissue left cheek, hematoma evacuation: Fragments of blood clots, clinically hematoma. See comment. SJ: 05/12/2023 COMMENT A fragment of necrotic squamous epithelium is also noted. Please make reference to previous specimens [id number], left medial cheek lesion with diagnosis of invasive squamous cell carcinoma and [id number] skin and soft tissue of deep medial cheek with diagnosis of cicatrix. MICROSCOPIC DESCRIPTION Slides are reviewed. GROSS DESCRIPTION Received in fixative is one container labeled with the patient's name and designated soft tissue left cheek. The specimen consists of multiple blood clots that in aggregate measure 6.0 x 6.0 x 2.5 cm. Crushed Stone Grader specimen is submitted in two cassettes. / Hussain 05/09/2023 TC:5 CPT: 48878
[2023-05-09 06:36] LABS: Bedside Glucose 115 mg/dL (74-106)
[2023-05-09] MEDS: Lactated Ringers 1,000 ML 15 ML IV (06:41)
[2023-05-09] MEDS: 0.9% Normal Saline 1,000 ML 15 ML IV (08:31)
--- NOTE | 2023-05-09 09:53 | OP.PCM_ITS ---
Problems Associated Problem List Diagnoses (1) Squamous cell carcinoma of skin of left cheek: (2) Facial hematoma: (3) Open wound of left cheek with complication: (4) Diabetes mellitus, type 2: (5) Hemoglobin A1c less than 7.0%: Report of Operation Date of Procedure: 05/09/23 Pre-Operative Diagnosis: 1. Squamous cell carcinoma left medial cheek. 2. Left medial cheek hematoma. 3. Diabetes mellitus. 4. HgbA1c is 6.3 on 05/05/23. Post-Operative Diagnosis: 1. Squamous cell carcinoma left medial cheek. 2. Left medial cheek hematoma. 3. Open surgical hematoma wound left medial cheek. 4. Diabetes mellitus. 5. HgbA1c is 6.3 on 05/05/23. Surgery/Procedure Performed:: Surgical preparation left medial cheek with incision and drainage and excisional debridement hematoma wound with partial complex secondary wound closure. Description of Surgical Findings:: 68 year old man had a cutaneous horn lesion left medial cheek near melolabial fold that was increasing in size.? He went to surgery on 02/18/23 where he underwent excision 6 mm squamous cell carcinoma left medial cheek near melolabial fold with rhomboid transposition skin flap reconstruction (12.5 cm2).? Pathology of the lesion left medial cheek near melolabial fold showed a well-differentiated invasive squamous cell carcinoma, negative for residual carcinoma.? Perineural invasion was suspected.? I sent him to see Dr. Carver from Radiation Oncology.? Dr. Carver called the Pathologist since we both didn't know what suspected perineural invasion means.? According to Dr. Carver, the Pathologist didn't see any obvious visualized perineural invasion.? ?He did mention the squamous cell carcinoma was well-differentiated with a 3 mm depth of invasion and the deep margin was about 1 mm away from the squamous cell carcinoma.? The peripheral margins were adequate as far as the distance from the skin edge to the squamous cell carcinoma.? . I discussed this case further with Dr. Carver.? Instead of radiation therapy, he recommended taking another deep margin of tissue which would take us into some facial muscle. If that additional deep margin is negative, then there's more confidence that the cancer has been taken care of surgically without the need for any adjuvant radiation therapy. He went to surgery on 05/05/23 where he underwent excision 4 cm squamous cell carcinoma scar deep margin left medial cheek near melolabial fold with lateral cheek advancement flap reconstruction (32.25 cm2). Postoperatively he developed a hematoma which did not improve with removing a few sutures inferiorly. Recommended to the patient to proceed with incision and drainage of this hematoma and the wound may be left open entirely or only open partway with a partial secondary wound closure. Patient was informed of the risks and complications of the procedure including alternatives to surgery. These were discussed with the patient personally. Patient voices understanding and wishes to proceed. Some of the risks and complications were included in a form from the [employer]. Potential risks and complications included but not inclusive of bleeding, infection, seroma, hematoma, bruising, swelling, prolonged need for drains, loss of sensation to skin, partial or complete loss of skin, wound breakdown, need for wound care, poor scarring, poor aesthetic outcome, intra operative cardiac or neurologic events, DVT, PE, and reaction to anesthesia. I used Damaris absorbable hemostat. Reference Number - [id number]. Lot Number - [id number]. Expiration - September 30, 2027. Surgeon: Byron Kahn MD terminal operations manager: None Type of Anesthesia: MAC (with IV sedation) Anesthesiologist: Ajit Alcantar MD and Tan Buitrago MD Specimen's removed: Hematoma tissue left medial cheek to Pathology and Microbiology. Drains: None. Estimated Blood Loss (mL): 70. Description of Procedure: Patient was taken to OR in supine position and was given IV sedation. The left side of his face was prepped and draped in the usual fashion. SCD's were placed for DVT prophylaxis. Perioperative antibiotics were given intravenously. The left medial cheek wound had packing that was removed. I palpated the inside of the wound. There was residual hematoma that could not be reached manually. So I opened the whole wound by going through the previous incisions. The remaining hematoma was removed manually. About 50 ml of clot was removed. There was one persistent area of bleeding which was the inferior edge. The bleeding was located and hemostasis was obtained with electrocautery. Besides the blood clot, I also debrided the wound using a curette. The soft tissue and blood clot were sent to Pathology for analysis to rule out carcinoma and to Microbiology for culture. A positive culture will necessitate antibiotic therapy. I irrigated out the wound and hemostasis was obtained with electrocautery. I sprayed Damaris absorbable hemostat into the wound to minimize seroma formation. I decided to keep the inferior incision open and loosely suture the more superior flap incisions. The previous flap incisions (minus the inferior flap incision) were closed in a complex fashion using 4-0 Monocryl interrupted sutures for the deep dermis and subcutaneous tissue. The skin was loosely approximated with 4-0 Nylon interrupted suture. The wound was packed with 4x4 gauze and Betadine. A gauze dressing was applied. Patient tolerated the procedure well and was sent to PACU in satisfactory condition. Patient will be sent upstairs for continued postop care. Should be able to discharge him the next day as long as he can tolerated the dressing change. Grafts/Implants Used: None. Procedure Start Time: 08:04 Procedure Stop Time: 09:13 Complications None. Admit VTE Documentation VTE Present on Admission: No VTE Mechan Device Prophylaxis: SCD's VTE Pharm Prophylaxis ordered?: No Reason prophylaxis not ordered:: Medical Contraindication (he had a hemorrhagic stroke.) Addendum Addendum: Surgery Charges CPT - 37809-67 ICD-10 - C44.329, S00.83xA, S01.402A, E11.9, R73.09 [id number] C44.329, S00.83xA, S01.402A, E11.9, R73.09
[2023-05-09] MEDS: Furosemide 40 MG Tablet PO (13:06)
[2023-05-09] MEDS: Gabapentin 100 MG Capsule PO ×2 (13:06→16:37)
[2023-05-09] MEDS: Lactated Ringers 1,000 ML 60 ML IV (13:07)
[2023-05-09] MEDS: Juven (unflavored) Packet 1 PACKET PO (16:37)
[2023-05-09] MEDS: Tamsulosin HCl 0.4 MG Capsule PO (16:38)
--- NOTE | 2023-05-09 17:35 | PN.HOSP_ITS ---
Reason for Visit Reason for Visit: Diagnoses Squamous cell carcinoma of skin of other parts of face (05/09/23) Iron deficiency anemia, unspecified (05/09/23) Other pancytopenia (05/09/23) Thrombocytopenia, unspecified (05/09/23) Decreased white blood cell count, unspecified (05/09/23) Type 2 diabetes mellitus without complications (05/09/23) Pulmonary hypertension, unspecified (05/09/23) Unspecified diastolic (congestive) heart failure (05/09/23) Chronic kidney disease, stage 4 (severe) (05/09/23) Contusion of other part of head, initial encounter (05/09/23) Subjective Subjective Patient was seen in consultation today at the request of plastic surgery, he underwent surgical preparation of the left cheek with incision and drainage and excisional debridement of hematoma wound and partial complex secondary wound closure. 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 At the time my examination, patient is comfortable and does not complain of any severe left cheek pain. Objective Data Objective Data Vital Signs: Vital Signs Temp Pulse Resp BP Pulse Ox O2 Del Method O2 Flow Rate 97.8 F 75 16 144/77 H 100 Room Air 2 05/09/23 16:25 05/09/23 16:25 05/09/23 16:25 05/09/23 16:25 05/09/23 16:25 05/09/23 16:25 05/09/23 12:50 Oxygen Flow Rate (L/min) 2 Oxygen Delivery Method Room Air Weight: 80.6 kg Body Mass Index (BMI) 26.2 Intake & Output: Intake and Output for Last 24 Hours 05/07/23 05/08/23 05/09/23 23:59 23:59 23:59 Intake Total 1000 / 1000 Output Total 350 / 350 Balance 650 / 650 Lab / Micro Data Labs: Laboratory Results - last 24 hr 05/09/23 06:19: POC Glucose 115 H Micro: Microbiology 05/09/23 08:45 Tissue - Face Gram Stain - Final Physical Exam Const alert, oriented x3, no apparent distress and average body habitus General Appearance: cooperative, well kempt and well developed Orientation / Consciousness: awake, oriented to person, oriented to place and oriented to time HEENT normocephalic and moist oral mucous membranes HEENT Narrative: Patient has a bulky surgical dressing over his left cheek area, this was not re moved for examination of the area Head and Scalp: normocephalic Eyes PERRL, EOMs intact bilaterally and conjunctivae normal Neck supple, no JVD, thyroid normal and no carotid bruits General: trachea midline Resp normal respiratory effort, no retractions, no use of accessory muscles and clear to auscultation bilaterally Auscultation: Negative for rales, rhonchi or wheezes Cardio S1 normal heart sound, S2 normal heart sound, no murmurs, no rub and no gallops Cardio Narrative: Heart rate and rhythm is irregular GI normal to inspection, nondistended, normoactive bowel sounds, soft to palpation, non-tender and non-distended Extremity no clubbing, cyanosis or edema Skin no rashes or lesions noted General Skin Exam: no breakdown Neuro oriented x3, CN's II-XII intact bilaterally, moves all extremities, no focal motor deficits and no sensory deficits noted Sensorium / Orientation: awake and alert Speech: speech normal Psych affect normal Assessment & Plan Assessment/Plan (1) Severe pulmonary hypertension: PLAN: Plan 1. Coronary artery disease-patient appears stable at this time, I do not feel he needs to be monitored #2 chronic atrial fibrillation-again, patient appears medically stable at this time I do not think he needs monitored #3 type 2 diabetes-diet controlled-I do not feel the patient needs blood sugar monitoring at this time #4 hyperlipidemia-patient is on a statin #5 chronic diastolic congestive heart failure-patient remains stable at this time, he is to remain on his home medications #6 status post parenchymal hematoma in the left temporal lobe-12/14/2022 #7 squamous cell cancer of the left cheek Patient remains medically stable at this time on his home medications. Total clinical time spent by myself addressing the patient's medical issues, reviewing all of the data, and collaborating with patient's care team: 35 minutes Charges/Coding Visit Charges Office Visits / Consults: [id number] OV L4 Est
[2023-05-09] MEDS: oxyCODONE 5 MG Tablet 10 MG PO (20:22)
[2023-05-09] MEDS: Ferrous Gluconate 324 MG Tablet PO (21:42)
[2023-05-09] MEDS: Docusate Sodium 100 MG Capsule PO (21:42)
[2023-05-09] MEDS: Atorvastatin Calcium 40 MG Tablet PO (21:42)
[2023-05-09] MEDS: traZODone 50 MG Tablet PO (21:43)
[2023-05-09] MEDS: QUEtiapine 25 MG Tablet PO (21:45)
[2023-05-10 03:29] VITALS: BP 102/77; PULSE 75; RESP 16; TEMP 36.6; O2SAT 97
[2023-05-10] MEDS: oxyCODONE 5 MG Tablet 10 MG PO (04:18)
[2023-05-10 06:26] LABS: Absolute Lymphocyte Count 0.39 X10^3/uL (0.83-4.51); Basophil# 0.02 X10^3/uL; Basophil% 0.7 % (0-1); Eosinophil# 0.06 X10^3/uL; Eosinophils% 2.2 % (0-5); Hemoglobin 8.9 g/dL (13.0-16.5); Lymphocyte # 0.39 X10^3/ul (0.83-4.51); Lymphocyte % 14.3 % (19-41); Mean Corp Hgb Conc 29.7 g/dL (32-36); Mean Corpuscular Hgb 31.6 pg (27.0-32.0); Mean Corpuscular Volume 106.4 fL (80-94); Mean Platelet Vol. 11.7 fl (6.2-12.0); Monocyte# 0.26 X10^3/uL; Monocyte% 9.6 % (0-10); NRBC Flagged by Analyzer 0 % (0-5); Neutrophil # 1.98 X10^3/uL (2.7-7.7); Neutrophil % 72.8 % (47-70); POSITIVE COUNT YES; POSITIVE DIFFERENTIAL YES; Platelet Count 83 K/mm3 (150-450); RBC Distribution Width CV 14.9 % (11.6-14.6); RBC Distribution Width SD 58.4 fl (35.1-43.9); Red Blood Count 2.82 M/mm3 (4.6-6.2); White Blood Count 2.7 K/mm3 (4.4-11.0)
[2023-05-10 06:35] LABS: Differential Indicated SCAN CRITERIA MET; International Normalized Ratio 1.2; Prothrombin Time (Protime)PT. 15.5 SECONDS (11.7-14.9)
[2023-05-10] MEDS: Lactated Ringers 1,000 ML 60 ML IV (06:45)
[2023-05-10 07:01] LABS: Anion Gap 3 (5-15); BUN 35 mg/dL (7-18); BUN/Creat Ratio 18.5 RATIO (10-20); Calcium,Total 7.9 mg/dL (8.5-10.1); Chloride 110 mmol/L (98-107); Creatinine, Serum 1.89 mg/dL (0.70-1.30); EST Glomerular Filtration Rate 38 mL/min (>60); Est Glom Filt Rate - Afr Amer 46 mL/min (>60); Estimated Creatinine Clearance 36.89 ml/min; Glucose 133 mg/dL (74-106); Potassium 4.4 mmol/L (3.5-5.1); Prealbumin 8.1 mg/dL (20.0-40.0); Sodium Level 144 mmol/L (136-145)
[2023-05-10 07:07] LABS: Anisocytosis 2+; Differential Comment SCANNED
[2023-05-10 07:08] LABS: Macrocytosis 2+; Microcytosis 1+; Ovalocyte RARE
[2023-05-10 07:50] VITALS: BP 98/65; PULSE 71; RESP 16; TEMP 37.3; O2SAT 99
[2023-05-10] MEDS: Pantoprazole Sodium 40 MG Tablet PO (07:53)
[2023-05-10] MEDS: Juven (unflavored) Packet 1 PACKET PO (07:53)
[2023-05-10] MEDS: FLUoxetine 20 MG Capsule PO (07:54)
[2023-05-10] MEDS: Docusate Sodium 100 MG Capsule PO (07:54)
[2023-05-10] MEDS: Ferrous Gluconate 324 MG Tablet PO (07:54)
[2023-05-10] MEDS: Ascorbic Acid 500 MG Tablet 1000 MG PO (07:54)
[2023-05-10] MEDS: Acetaminophen 325 MG Tablet 650 MG PO (07:55)
[2023-05-10 09:14] LABS: Hemoglobin A1c 6.3 % (3.8-5.6)
--- NOTE | 2023-05-10 09:21 | PN.HOSP_ITS ---
Reason for Visit Reason for Visit: Diagnoses Squamous cell carcinoma of skin of other parts of face (05/09/23) Iron deficiency anemia, unspecified (05/09/23) Other pancytopenia (05/09/23) Thrombocytopenia, unspecified (05/09/23) Decreased white blood cell count, unspecified (05/09/23) Type 2 diabetes mellitus without complications (05/09/23) Pulmonary hypertension, unspecified (05/09/23) Unspecified diastolic (congestive) heart failure (05/09/23) Chronic kidney disease, stage 4 (severe) (05/09/23) Contusion of other part of head, initial encounter (05/09/23) Subjective Subjective Patient was seen and examined today, he appears comfortable on 2 L of oxygen. White blood cell count today was low at 2.7, hemoglobin was 8.9. Objective Data Objective Data Vital Signs: Vital Signs Temp Pulse Resp BP Pulse Ox O2 Del Method O2 Flow Rate 99.1 F 71 16 98/65 99 Nasal Cannula 2 05/10/23 07:50 05/10/23 07:50 05/10/23 07:50 05/10/23 07:50 05/10/23 07:50 05/10/23 07:50 05/10/23 07:50 FiO2 2 05/09/23 20:12 Oxygen Flow Rate (L/min) 2 Oxygen Delivery Method Nasal Cannula Weight: 80.6 kg Body Mass Index (BMI) 26.2 Intake & Output: Intake and Output for Last 24 Hours 05/08/23 05/09/23 05/10/23 23:59 23:59 23:59 Intake Total 1336 / 1336 1912 / 1912 Output Total 350 / 350 800 / 800 Balance 986 / 986 1112 / 1112 Lab / Micro Data 05/10/23 05:53 05/10/23 05:53 Labs: Laboratory Results - last 24 hr 05/10/23 05:53: WBC 2.7 L, RBC 2.82 L, Hgb 8.9 L, Hct 30.0 L, MCV 106.4 H, MCH 31.6, MCHC 29.7 L, RDW Std Deviation 58.4 H, RDW Coeff of Anders 14.9 H, Plt Count 83 L, MPV 11.7, Immature Gran % (Auto) 0.400, Neut % (Auto) 72.8 H, Lymph % (Auto) 14.3 L, Archuleta % (Auto) 9.6, Eos % (Auto) 2.2, Baso % (Auto) 0.7, Absolute Neuts (auto) 2.0, Absolute Lymphs (auto) 0.39 L, Nucleated RBC % 0, Differential Comment SCANNED, Diff Path Review May foll, Anisocytosis 2+, Microcytosis 1+, Macrocytosis 2+, Ovalocytes RARE, PT 15.5 H, INR 1.2, Sodium 144, Potassium 4.4, Chloride 110 H, Carbon Dioxide 31.0, Anion Gap 3 L, BUN 35 H, Creatinine 1.89 H, Estim Creat Clear Calc 36.89, Est GFR (MDRD) Af Amer 46 L, Est GFR (MDRD) Non-Af 38 L, BUN/Creatinine Ratio 18.5, Glucose 133 H, Hemoglobin A1c 6.3 H, Calcium 7.9 L, Prealbumin 8.1 L Micro: Microbiology 05/09/23 08:45 Tissue - Face Gram Stain - Final Physical Exam Narrative alert, oriented x3, no apparent distress and average body habitus General Appearance: cooperative, well kempt and well developed Orientation / Consciousness: awake, oriented to person, oriented to place and oriented to time HEENT normocephalic and moist oral mucous membranes HEENT Narrative: Patient has a bulky surgical dressing over his left cheek area, this was not removed for examination of the area Head and Scalp: normocephalic Eyes PERRL, EOMs intact bilaterally and conjunctivae normal Neck supple, no JVD, thyroid normal and no carotid bruits General: trachea midline Resp normal respiratory effort, no retractions, no use of accessory muscles and clear to auscultation bilaterally Auscultation: Negative for rales, rhonchi or wheezes Cardio S1 normal heart sound, S2 normal heart sound, no murmurs, no rub and no gallops Cardio Narrative: Heart rate and rhythm is irregular GI normal to inspection, nondistended, normoactive bowel sounds, soft to palpation, non-tender and non-distended Extremity no clubbing, cyanosis or edema Skin no rashes or lesions noted General Skin Exam: no breakdown Neuro oriented x3, CN's II-XII intact bilaterally, moves all extremities, no focal motor deficits and no sensory deficits noted Sensorium / Orientation: awake and alert Speech: speech normal Psych affect normal Assessment & Plan Assessment/Plan (1) Severe pulmonary hypertension: PLAN: Plan 1. Coronary artery disease-patient appears stable at this time, I do not feel h e needs to be monitored #2 chronic atrial fibrillation-again, patient appears medically stable at this time I do not think he needs monitored #3 type 2 diabetes-diet controlled-I do not feel the patient needs blood sugar monitoring at this time #4 hyperlipidemia-patient is on a statin #5 chronic diastolic congestive heart failure-patient remains stable at this time, he is to remain on his home medications #6 status post parenchymal hematoma in the left temporal lobe-12/14/2022 #7 squamous cell cancer of the left cheek Patient remains medically stable at this time on his home medications. Total clinical time spent by myself addressing the patient's medical issues, reviewing all of the data, and collaborating with patient's care team: 25 minutes Charges/Coding Visit Charges Office Visits / Consults: [id number] OV L3 Est
[2023-05-10] MEDS: Gabapentin 100 MG Capsule PO (09:42)
--- NOTE | 2023-05-10 10:16 | NURSING ---
spo2 87% on Room air when sitting up in chair with eyes closed resting, upon awakening pt to voice, spo2 93% on room air when awake sitting in chair. o2 1L applied NC while pt is resting and spo2 93% on that.
[2023-05-10 10:31] VITALS: O2SAT 2; O2SAT 85; O2SAT 98
--- NOTE | 2023-05-10 10:32 | NURSING ---
gait unsteady, unable to go out in hallway. pulse ox obtained ambulating briefly at bedside. assisted bach to chair and chair alarm placed.
--- NOTE | 2023-05-10 10:51 | NURSING ---
returned phone call to pt spouse Mery per her request ) and updated on pt status thus far. Mery shares that she has noticed a decline in pt stamina since February 2023 and states he is probably going to get combative, he has been that way in the past when he has been in the hospital. Prozac usually seemed to help him informed he is receiving said med. Mery states that pt wears o2 @ 2L at hs when he sleeps, although she has to remind him to wear it and he is noncompliant at times. States since May of last year he has become agitated and then he was hospitalized and then had his stroke. prior to that, he was normally easy going, just afraid he is going to regress to becoming more weak. There is just no reasoning with him at times, it is like dealing with a teenager. Active listening and support provided.
--- NOTE | 2023-05-10 10:57 | PN.SURG_ITS ---
Subjective Subjective Postop #1 Patient is resting comfortably. Tolerating po analgesia. Tolerated the Silver dressing change. He is steady on his feet with ambulation. Objective Data Objective Data Vital Signs: Vital Signs Temp Pulse Resp BP Pulse Ox O2 Del Method O2 Flow Rate 99.1 F 71 16 98/65 85 Nasal Cannula 87 05/10/23 07:50 05/10/23 07:50 05/10/23 07:50 05/10/23 07:50 05/10/23 10:31 05/10/23 07:50 05/10/23 10:31 FiO2 2 05/09/23 20:12 Oxygen Flow Rate (L/min) [At 2 REST with Oxygen] Oxygen Flow Rate (L/min) [ 87 AMBULATING with Oxygen #1] Oxygen Flow Rate (L/min) 2 Oxygen Delivery Method Nasal Cannula Weight: 177 lb 11.081 oz Body Mass Index (BMI) 26.2 Intake & Output: Intake and Output for Last 24 Hours 05/08/23 05/09/23 05/10/23 23:59 23:59 23:59 Intake Total 1336 / 1336 2152.75 / 2152.75 Output Total 350 / 350 800 / 800 Balance 986 / 986 1352.75 / 1352.75 Prealbumin was 8.1. Encourage nutritional supplementation with protein to help the healing process. Lab / Micro Data Lab results narrative: Hgb was 8.9. Preop it was 10.7. He takes Iron supplementation. Will repeat a Hgb as an outpatient. He had about 70 ml blood loss from drainage of the left medial cheek hematoma. On 12/03/22 his Hgb was 8.9. Between then and now, it has ranged from a low of 7.9 on 12/14/22 to the preop value of 10.7 on 05/07/23. 05/10/23 05:53 05/10/23 05:53 Labs: Laboratory Results - last 24 hr 05/10/23 05:53: WBC 2.7 L, RBC 2.82 L, Hgb 8.9 L, Hct 30.0 L, MCV 106.4 H, MCH 31.6, MCHC 29.7 L, RDW Std Deviation 58.4 H, RDW Coeff of Anders 14.9 H, Plt Count 83 L, MPV 11.7, Immature Gran % (Auto) 0.400, Neut % (Auto) 72.8 H, Lymph % (Auto) 14.3 L, Noble % (Auto) 9.6, Eos % (Auto) 2.2, Baso % (Auto) 0.7, Absolute Neuts (auto) 2.0, Absolute Lymphs (auto) 0.39 L, Nucleated RBC % 0, Differential Comment SCANNED, Diff Path Review May foll, Anisocytosis 2+, Microcytosis 1+, Macrocytosis 2+, Ovalocytes RARE, PT 15.5 H, INR 1.2, Sodium 144, Potassium 4.4, Chloride 110 H, Carbon Dioxide 31.0, Anion Gap 3 L, BUN 35 H, Creatinine 1.89 H, Estim Creat Clear Calc 36.89, Est GFR (MDRD) Af Amer 46 L, Est GFR (MDRD) Non-Af 38 L, BUN/Creatinine Ratio 18.5, Glucose 133 H, Hemoglobin A1c 6.3 H, Calcium 7.9 L, Prealbumin 8.1 L Micro: Microbiology 05/09/23 08:45 Tissue - Face Gram Stain - Final Physical Exam Narrative General - Alert and Oriented HEENT - PERRL. EOMI. On the left medial cheek is a hematoma wound that is stable. No active bleeding seen at this time. I redressed the wound with a Sobia amna dressing. The remaining incision was dry and intact. Skin flap mildly bruised from pressure from the hematoma. Will observe. Anticipate it to resolve now that the hematoma has been drained and the wound is stable without active bleeding. Neck - Supple and nontender. Abdomen - Soft and nondistended. Neuro - CN II-XII grossly intact. Psych - Normal mood and affect. Assessment & Plan Assessment/Plan (1) Squamous cell carcinoma of skin of left cheek: (2) Facial hematoma: (3) Open wound of left cheek with complication: (4) Diabetes mellitus, type 2: (5) Hemoglobin A1c less than 7.0%: (6) Acute on chronic blood loss anemia: PLAN: Plan The hematoma wound is stable with no active bleeding noted. Rest of the incision is dry and intact. There is some bruising on the skin flap. Will observe at this time. Anticipate it to resolve now that the hematoma has been drained. He tolerated the Silver dressing change today. Will have him come to the office three times per week for a Silver dressing change until the family feels comfortable doing it themselves. Hgb 8.9 which is down from 10.7 preop. He takes Iron supplementation. Will repeat a Hgb as an outpatient. He had about 70 ml blood loss from drainage of the left medial cheek hematoma. On 12/03/22 his Hgb was 8.9. Between then and now, it has ranged from a low of 7.9 on 12/14/22 to the preop value of 10.7 on 05/07/23. He has anemia of chronic disease with acute episode due to hematoma from the cancer wound. Prealbumin was 8.1. Encourage nutritional supplementation with protein to help the healing process. * Operative culture negative thus far. Will send him on with Augmentin. When the culture results are finalized, antibiotic modification may be necessary. He is steady on his feet with ambulation. He is tolerating po analgesia. Discharge home today. Followup office Friday05/12/23 for a wound check and a Silver dressing change. He will keep his head elevated during the initial postoperative period. He will be on a lifting restriction (10 lbs).
--- NOTE | 2023-05-10 11:01 | DCINST_ITS ---
Discharge Instructions Diet Discharge Diet: Carb Control Diet and - (encourage nutritional supplementation with protein to help the healing process.) Activity Discharge Activity: May Shower (from the neck down. wash face gently in the sink.) and - (keep head elevated. no heavy lifting.) May resume sexual activity in: 4-6 weeks Weight Bearing Status: Weight bearing as tolerated Lifting Restrictions: 100 lbs Keep extremity elevated above heart level: - (elevate head) Dressing / Incision Call your doctor if your incision/area has: Continuous Slow Oozing, Sudden Increased Bleeding, Increased Pain/ Swelling, Increased Redness, Foul Smelling Discharge and Swelling at the incision site Call your doctor if you observe: Fever of 101 or Higher, Coldness, Increased Pain, Shortness of breath, Chest pain, Calf discomfort and Uncontrolled pain Remove Dressing in: do not remove dressing (i will remove the Silver dressing in the office.) Cleanse incision/area with: - (may shower from the neck down. wash face gently in the sink.) Follow Up Care Please Follow Up With: Byron Kahn MD When: 05/12/23. call [phone] on friday morning for appt. Test Results: Test results from this visit will be discussed in further detail at your follow- up appointment, if applicable. Discharge Plan Admission Admit Date/Time: 05/09/23 10:06 Primary Reason for Your Visit: incision and drainage hematoma left cheek Attending Provider: Byron Kahn Primary Care Provider: Alina Concepcion Consulting Providers: Tate Díaz Discharge Orders/Prescriptions Prescriptions: Continued ferrous gluconate 324 mg (38 mg iron) tablet 324 mg PO BID oxycodone 5 mg tablet 5 mg PO Q6H PRN (Reason: pain) Patient Comments: 5 mg orally every 6 hours As Needed for pain (scale score 7-10) for 7 days; 28 tabs (twenty-eight) acetaminophen [Tylenol] 325 mg Tablet 650 mg PO Q6H PRN PRN (Reason: Pain 1-10 Or Fever >100.7) Qty: 0 0RF Arthritis Pain Compound 4 click topical TID Qty: 2 3RF Hold Instructions: Resume on 02/21/23. Rx Instructions: apply to the low back 2-3 times a day for low back pain. furosemide 40 mg Tablet 40 mg PO Q48H Qty: 30 0RF ascorbic acid (vitamin C) 500 mg Tablet 1,000 mg PO BREAKFAST Qty: 60 0RF Rx Instructions: Take this medication with a meal and with the ferrous sulfate trazodone 50 mg Tablet 50 mg PO QHS Qty: 30 0RF gabapentin 100 mg Capsule 100 mg PO TIDCM Qty: 90 0RF Rx Instructions: this med is for the back pain and the pain in the left face quetiapine [Seroquel] 25 mg Tablet 25 mg PO QHS@2100 Qty: 30 0RF atorvastatin 40 mg tablet 40 mg PO QHS Qty: 30 0RF tamsulosin 0.4 mg capsule 0.4 mg PO DAILY@1730 Qty: 30 0RF pantoprazole 40 mg tablet,delayed release (DR/EC) 40 mg PO DAILY Qty: 30 0RF fluoxetine [Prozac] 20 mg Capsule 20 mg PO DAILY Qty: 30 0RF promethazine 25 mg tablet 25 mg PO Q6H PRN (Reason: nausea and vomiting) Qty: 30 0RF docusate sodium [Colace] 100 mg capsule 100 mg PO BID Qty: 60 0RF amoxicillin-pot clavulanate 500-125 mg tablet 1 tab PO TID Qty: 12 0RF hydromorphone [Dilaudid] 2 mg tablet 2 mg PO Q4H PRN (Reason: pain) 5 Days Qty: 30 0RF ondansetron 4 mg tablet,disintegrating 4 mg PO Q8H PRN (Reason: nausea and vomiting) 3 Days Qty: 9 0RF Referrals / Follow Up: Alina Concepcion DO [Primary Care Provider] - Disposition Disposition (needs filled in before D/C Order can be placed): Home, Self Care
[2023-05-10 11:12] VITALS: O2SAT 88
--- NOTE | 2023-05-10 11:12 | NURSING ---
pt refuses to wear oxygen at all. pt more steady on his feet and able to ambulate with shuffling gait around his room without any assistance occassionally minimally grabls onto bed rail occassionally. argumentative and says he wants to leave. Dr. Kahn at bedside and aware of situation, will call pt spouse and update her.
--- NOTE | 2023-05-10 11:18 | NURSING ---
updated Mery on pt status, MD visit.
--- NOTE | 2023-05-10 11:20 | NURSING ---
pt dressed in his own street clothes, currently cooperative to either sit in chair or rest in bed (instead of standing in room) and is sitting in chair with chair alarm.
--- NOTE | 2023-05-10 11:57 | CASEMGMT ---
RN KAYODE NOTE: RN CM to room. Pt sitting up in chair in room. Alert/oriented at this time. Intro role of CM to patient and [facility] form explained re: Observation status for treatment of hematoma wound left cheek. Explained hospitalization will be paid per?his insurance policy for Outpatient billing?and condition will continue to be evaluated for Inpt necessity. Also let pt know that [facility] sends paper in the billing packet with their phone number if questions arise. Discussed Pharmacy section of [facility] form and self administered medication guideline.? Pt verbalizes understanding and does not have any questions. ?Form signed, copy made and placed in chart, and original given to pt. Anthony LUEVANO RN CM
[2023-05-12 13:58] LABS: Pathologist Review May foll
== END 2023-05-10 12:14 | disposition home or self-care (01) ==
LOC: MS3 10:52 → SDC 10:53 → MS3 10:54
PROVIDERS: Admitting Provider Surgery; PCP Internal Medicine; Referring Provider Surgery; Visit Provider Surgery
PROC: (CPT 10140; principal; 2023-05-09 07:20)
DX: C44.329 Squamous cell carcinoma of skin of other parts of face (principal); I27.20 Pulmonary hypertension, unspecified; I50.32 Chronic diastolic (congestive) heart failure; I13.0 Hypertensive heart and chronic kidney disease with heart failure and stage 1 through stage 4 chronic kidney disease, or unspecified chronic kidney disease; E11.42 Type 2 diabetes mellitus with diabetic polyneuropathy; E11.22 Type 2 diabetes mellitus with diabetic chronic kidney disease; N18.4 Chronic kidney disease, stage 4 (severe); I48.20 Chronic atrial fibrillation, unspecified; S00.83XA Contusion of other part of head, initial encounter; I25.10 Atherosclerotic heart disease of native coronary artery without angina pectoris; E78.5 Hyperlipidemia, unspecified; D64.9 Anemia, unspecified; F32.A Depression, unspecified; I10 Essential (primary) hypertension; Z79.899 Other long term (current) drug therapy; K21.9 Gastro-esophageal reflux disease without esophagitis; Z99.81 Dependence on supplemental oxygen; X58.XXXA Exposure to other specified factors, initial encounter; G89.29 Other chronic pain; Z98.84 Bariatric surgery status
CPT/HCPCS: 10140; 13160; 00300; 36415; 80048; 82962; 83036; 84134; 85025; 85610; 87070; 87075; 87102; 87176; 87205; 87206; 88305; 96365; 96366; 97162; 97165; 99221; J7030; J7120; G0378; J0295; J2405

== ENCOUNTER → 2023-05-19 | Outpatient (CLI) | payer MEDICARE, SELFPAY ==
[2023-05-19 12:12] LABS: Hematocrit 37.2 % (40-54); Hemoglobin 11.6 g/dL (13.0-16.5); Mean Corp Hgb Conc 31.2 g/dL (32-36); Mean Corpuscular Hgb 31.9 pg (27.0-32.0); Mean Corpuscular Volume 102.2 fL (80-94); Mean Platelet Vol. 10.2 fl (6.2-12.0); Platelet Count 135 K/mm3 (150-450); RBC Distribution Width SD 56.3 fl (35.1-43.9); Red Blood Count 3.64 M/mm3 (4.6-6.2); White Blood Count 4.3 K/mm3 (4.4-11.0)
[2023-05-19 13:13] LABS: Vitamin B12 420 pg/mL (211-911)
[2023-05-19 13:17] LABS: ALB/GLOB Ratio 0.8 RATIO (0.9-2.4); AST(SGOT) 25 U/L (15-37); Alanine Aminotransfer ALT/SGPT 45 U/L (16-61); Albumin, Serum 3.1 g/dL (3.2-5.0); Alkaline Phosphatase 449 U/L (45-117); Anion Gap 6 (5-15); BUN 21 mg/dL (7-18); BUN/Creat Ratio 11.2 RATIO (10-20); Calcium,Total 8.8 mg/dL (8.5-10.1); Chloride 105 mmol/L (98-107); Cholesterol 106 mg/dL (200); Creatinine, Serum 1.88 mg/dL (0.70-1.30); EST Glomerular Filtration Rate 38 mL/min (>60); Est Glom Filt Rate - Afr Amer 46 mL/min (>60); Globulin 4.1 g/dL (2.2-4.2); Glucose 124 mg/dL (74-106); High Density Lipoprotein 79 mg/dL; Magnesium 2.3 mg/dL (1.6-2.6); Protein, Total 7.2 g/dL (6.4-8.2); Sodium Level 140 mmol/L (136-145); Thyroid Stim Hormone (TSH) 5.87 uIU/mL (0.358-3.74); Triglycerides 57 mg/dL; Very Low Density Lipoprotein 11 mg/dL (5-40)
[2023-05-21 20:08] LABS: Free Lambda Light Chains 41.1 mg/L (5.7-26.3); Vitamin B1, Thiamine 87.4 nmol/L (66.5-200.0)
== END | disposition home or self-care (01) ==
LOC: LAB 11:41
PROVIDERS: PCP Internal Medicine; Referring Provider Psychiatry & Neurology Neurology; Visit Provider Psychiatry & Neurology Neurology
DX: G62.9 Polyneuropathy, unspecified (principal); I50.30 Unspecified diastolic (congestive) heart failure; I63.9 Cerebral infarction, unspecified; R53.1 Weakness
CPT/HCPCS: 36415; 80053; 80061; 82607; 82746; 83735; 83883; 84425; 84443; 85027

== ENCOUNTER → 2023-05-21 | Outpatient (CLI) | payer MEDICARE, SELFPAY ==
--- NOTE | 2023-05-21 13:09 | CDU_ITS ---
Reason For Study: HARRIETT stenosis Rt. Velocities/BP Lt. Velocities/BP Prox CCA 52/5 cm/sec. Prox CCA 82/11 cm/sec. Mid CCA 49/14 cm/sec. Mid CCA 73/16 cm/sec. Dist CCA 50/10 cm/sec. Dist CCA 54/13 cm/sec. Prox ICA 106/18 cm/sec. Prox ICA 35/10 cm/sec. Mid ICA 72/19 cm/sec. Mid ICA 62/18 cm/sec. Dist ICA 87/23 cm/sec. Dist ICA 70/25 cm/sec. Rt. ICA/CCA = 2.2. Lt. ICA/CCA = 0.9. Prox ECA 72/4 cm/sec. Prox ECA 59/9 cm/sec. Rt. Vert. 36/10 cm/sec. Lt. Vert. 40/13 cm/sec. Right Extracranial There is heterogeneous, irregular atherosclerotic plaque noted in the right common carotid artery. There is heterogeneous, irregular atherosclerotic plaque noted in the right internal carotid artery. There is heterogeneous, irregular atherosclerotic plaque noted in the right external carotid artery. Antegrade flow is noted in the right vertebral artery. Left Extracranial There is heterogeneous, irregular atherosclerotic plaque noted in the left common carotid artery. There is heterogeneous, irregular atherosclerotic plaque noted in the left internal carotid artery. There is no significant atherosclerotic plaque noted in the left external carotid artery. Antegrade flow is noted in the left vertebral artery. Procedure Carotid Duplex 23092. This is a Carotid Duplex examination using B-mode, color flow and specral Doppler. Exam performed in department. VL/Carotid Duplex Ultrasound Interpretation Summary Mild (<50%) stenosis right extracranial internal carotid. Mild (<50%) stenosis left extracranial internal carotid. Patent and antegrade vertebrals bilaterally. Ordering Physician: Francisco Shannon Referring Physician: Alina Concepcion Performed By: Nissa Constantino, CORINNA, RVT
== END | disposition home or self-care (01) ==
LOC: CVS 13:08
PROVIDERS: PCP Internal Medicine; Referring Provider Psychiatry & Neurology Neurology; Visit Provider Psychiatry & Neurology Neurology
DX: I65.21 Occlusion and stenosis of right carotid artery (principal)
CPT/HCPCS: 93880

== ENCOUNTER → 2023-06-06 | Outpatient (CLI) | payer MEDICARE, SELFPAY ==
--- NOTE | 2023-06-06 17:47 | CT_ITS ---
EXAM: CT HEAD WITHOUT INTRAVENOUS CONTRAST CLINICAL INDICATION: Follow-up L temporal ICH + R frontal SAH (Dec 2022 TECHNIQUE: Multiple axial images were obtained of the head without intravenous contrast. This CT exam was performed using one or more of the following dose reduction techniques: automated exposure control, adjustment of the mA and/or kV according to patient size, and/or use of iterative reconstruction technique. RADIATION DOSE: CTDIvol = 44.99 mGy, DLP = 779.24 mGy-cmContrast: COMPARISON: May 06, 20[address] sinus-facial [address], December 14, [address] with right perifalcine subarachnoid hemorrhage, left temporal lobe hemorrhage, and mild adjacent hemorrhage in the posterior left lateral ventricle. FINDINGS: BRAIN AND EXTRA-AXIAL SPACES: No new or residual intracranial hemorrhage. Hypodense focus of encephalomalacia in the region of previous parenchymal hemorrhage in the left temporal lobe, measuring roughly 2.5 cm x 1.6 cm. Slight chronic hypodensity in the right cerebellum similar to prior exam. No midline shift. Patent basilar cisterns. No evidence of acute infarct. There is preservation of the evans/white matter interface. Ventricles are appropriate for age. No hydrocephalus. BONES/JOINTS: Unremarkable. No discrete lytic or blastic abnormalities. SINUSES: Unremarkable as visualized. Clear. MASTOID AIR CELLS: Unremarkable. Clear. ORBITS: Visualized globes, extraocular muscles, optic nerves and retrobulbar fat appear unremarkable. CT/Brain/Head without Contrast IMPRESSION: No acute intracranial abnormality. Resolution of previously seen hemorrhages. Electronically Signed: Princess Ramos MD at 9:48 EDT ,
== END | disposition home or self-care (01) ==
LOC: CT 17:45
PROVIDERS: PCP Internal Medicine; Referring Provider Psychiatry & Neurology Neurology; Visit Provider Psychiatry & Neurology Neurology
DX: I61.9 Nontraumatic intracerebral hemorrhage, unspecified (principal)
CPT/HCPCS: 70450

== ENCOUNTER 2023-08-12 14:33 | Emergency (ER) | payer MEDICARE, SELFPAY ==
[2023-08-12 14:34] VITALS: BP 114/69; PULSE 92; RESP 20; TEMP 36.6; O2SAT 95
--- NOTE | 2023-08-12 16:23 | CT_ITS ---
STUDY: CT BRAIN WITHOUT CONTRAST REASON FOR EXAM: Male, 68 years old. slurred speech RADIATION DOSAGE (If Supplied By Facility): CTDIvol = ( 47.06 ) mGy, DLP = ( 872.68 ) mGycm TECHNIQUE: Transaxial CT imaging of the brain was performed without administration of intravenous contrast material. Individualized dose optimization techniques were used for this CT. COMPARISON: June 06, 2023. FINDINGS: Normal soft tissue structures. Normal calvarium. Calcific plaquing of the cavernous carotids Mild atrophy and periventricular white matter ischemic changes.. Hypodensity in the left temporal lobe secondary to prior hemorrhage unchanged since previous exam Normal basal ganglia and thalami. Normal brainstem. Normal cerebellum. There is no intracranial hemorrhage. There are no findings of an acute ischemic infarction. Empty sella deformity likely of no significance Normal visualized paranasal sinuses. Postsurgical changes of the orbits CT/Brain/Head without Contrast IMPRESSION: Mild atrophy and periventricular white matter ischemic changes. . Chronic changes in the left temporal lobe. No acute bleed. If concern for acute infarct MRI recommended Electronically Signed: Zak Melvin MD at 17:23 EDT ,
--- NOTE | 2023-08-12 16:23 | EKG12_ITS ---
Test Reason : Blood Pressure : / mmHG Vent. Rate : 095 BPM Atrial Rate : 000 BPM P-R Int : 000 ms QRS Dur : 150 ms QT Int : 408 ms P-R-T Axes : 000 136 -19 degrees QTc Int : 512 ms Atrial fibrillation Right bundle branch block Abnormal ECG Confirmed by DENAE LUCERO, LINETTE ([id number]), deputy editor in chief GONZALES MERLOS ([id number]) on 08/18/2023 2:06:36 PM Referred By: Confirmed By:LINETTE PHILIPPE MD
--- NOTE | 2023-08-12 16:40 | EDS_ITS ---
HPI History of Present Illness Chief Complaint: Syncope Informant: patient and family Narrative Narrative: Patient presents after a possible syncopal episode on August 07. Patient states he was outside when he woke up on the ground. He is not sure if he just got dizzy and sat down hard or if he actually passed out. He complains of pain to his right hip with significant bruising since that time. He has had a prior right hip replacement. He also reports increased shortness of breath since his fall with some right-sided chest pain. feels that his speech is slurred and his voice is raspy which is symptoms he had developed when he had a hemorrhagic stroke earlier this year. [facility] Medical History (HFpEF) heart failure with preserved ejection fraction Abdominal panniculus Acquired scleral show due to eyelid deformity Acute on chronic blood loss anemia Anemia Anxiety Arthritis Atherosclerosis of coronary artery bypass graft of [place] heart without angina pectoris Back pain BPH (benign prostatic hyperplasia) BPH with obstruction/lower urinary tract symptoms Cardiology follow-up encounter Chronic anemia Chronic atrial fibrillation Chronic GERD Chronic kidney disease (CKD) Chronic shortness of breath Chronic skin ulcer with fat layer exposed CKD (chronic kidney disease) Coronary artery disease Coronary artery disease Cutaneous horn Depression Diabetes mellitus, type 2 Diabetic polyneuropathy Dietary restriction Easy bruising Essential (primary) hypertension Excessive and redundant skin and subcutaneous tissue Facial hematoma GERD (gastroesophageal reflux disease) Gout Hemoglobin A1c less than 7.0% Hemorrhagic cerebrovascular accident (CVA) High cholesterol History of atrial fibrillation History of CHF (congestive heart failure) History of echocardiogram History of edema History of heart attack History of stress test Hyperlipidemia Hyperuricemia Insomnia Intertrigo Intracerebral hemorrhage Long-term (current) use of anticoagulants, INR goal 2.0-3.0 Lung nodule, solitary Malnutrition RODRIGUEZ (nonalcoholic steatohepatitis) Neoplasm of skin of left cheek Non-smoker On home oxygen therapy Open wound of left cheek with complication Postoperative stitch abscess Recent weight loss Severe pulmonary hypertension Skin laxity SOB (shortness of breath) Squamous cell carcinoma of skin of left cheek Stroke/cerebrovascular accident Syncope Type 2 diabetes mellitus with other diabetic kidney complication Home Medications ferrous gluconate 324 mg (38 mg iron) tablet 324 mg PO BID iron supplement 11/29/22 [History Last Taken 12/03/22] acetaminophen 325 mg tablet (Tylenol) 650 mg (2 x 325 mg) PO Q6H PRN PRN Pain 1- 10 Or Fever >100.7 #0 tabs 12/12/22 [Rx Last Taken Unknown] Arthritis Pain Compound 4 click topical TID #2 BOTTLES 01/31/23 [Rx Last Taken Unknown] atorvastatin 40 mg tablet 40 mg PO QHS cholesterol #30 tabs 01/31/23 [Rx Last Taken Unknown] furosemide 40 mg tablet 40 mg PO Q48H #30 tabs 01/31/23 [Rx Last Taken Unknown] gabapentin 100 mg capsule 100 mg PO TIDCM #90 caps 01/31/23 [Rx Last Taken 03/27/23] pantoprazole 40 mg tablet,delayed release 40 mg PO DAILY GERD #30 tabs 01/31/23 [Rx Last Taken 03/27/23] quetiapine 25 mg tablet (Seroquel) 25 mg PO QHS@2100 mood #30 tabs 01/31/23 [Rx Last Taken Unknown] trazodone 50 mg tablet 50 mg PO QHS #30 tabs 01/31/23 [Rx Last Taken Unknown] promethazine 25 mg tablet 25 mg PO Q6H PRN nausea and vomiting #30 tabs 02/18/23 [Rx Last Taken Unknown] ondansetron 4 mg disintegrating tablet 4 mg PO Q8H PRN nausea and vomiting 3 days #9 tabs 05/07/23 [Rx Last Taken Unknown] mirtazapine 15 mg tablet 15 mg PO QHS #30 tabs 05/19/23 [Rx Last Taken Unknown] Allergy/AdvReac Type Severity Reaction Status Date / Time metformin Allergy Intermediate Other Verified 08/12/23 14:34 clindamycin AdvReac Severe Vomiting,NA Verified 08/12/23 14:34 USEA,HEARTB URN Lactobacillus acidophilus AdvReac Severe Vomiting Verified 08/12/23 14:34 [From Acidophilus] hydromorphone [From Dilaudid] AdvReac Intermediate Vomiting Verified 08/12/23 14:34 Family History Mother CHF (congestive heart failure) Other Arthritis Surgical History History of bilateral knee replacement History of coronary artery bypass graft x 3 History of coronary artery stent placement (~12/10/10) History of esophagogastroduodenoscopy (EGD) History of evacuation of hematoma History of laparoscopic cholecystectomy History of squamous cell carcinoma excision Hx of bilateral hip replacements Hx of cardiac catheterization (~12/04/21) Hx of cardiac pacemaker (~06/30/19) Hx of colonoscopy Hx of excision of mass Hx of gastric bypass (~2011) Hx of left cataract extraction Hx of right cataract extraction Hx of shoulder surgery S/P CABG x 3 (~12/23/18) Social History household members: spouse Smoking Status: Never smoker alcohol intake: never substance use type: does not use caffeine: Yes (2/wk) Type: coffee ROS ROS ED Constitutional Constitutional ED: Denies chills or fever(s) Eyes Eyes: Denies change in vision ENT ENT ED: Denies rhinorrhea or sore throat Cardiovascular Cardiovascular: Reports chest pain; Denies palpitations Respiratory/Chest Respiratory/Chest: Reports dyspnea; Denies cough Gastrointestinal Gastrointestinal: Denies abdominal pain, diarrhea, nausea or vomiting Genitourinary Genitourinary ED: Denies difficulty urinating or dysuria Musculoskeletal Musculoskeletal: Reports extremity pain; Denies back pain Integumentary Reports Abrasions and other Details: Ecchymosis right hip ; Denies rash Neurologic Neurologic: Denies headache(s) or weakness Psychiatric Psychiatric: Denies anxiety or depression Allergic/Immunologic Allergic/Immunologic ED: Denies lip swelling or urticaria EXAM Physical Exam Const Vital Signs: 08/12/23 14:34 08/12/23 16:34 08/12/23 16:39 Temperature 97.9 F Temperature Source Temporal Pulse Rate 92 Respiratory Rate 20 H Respiratory Effort Normal Short of Breath Respiratory Depth Shallow Respiratory Pattern Normal Normal Blood Pressure 114/69 Blood Pressure Mean 84 Pulse Ox 95 Oxygen Delivery Method Room Air Room Air Positive well nourished and well developed General Appearance ED: well developed HEENT Reports moist mucous membranes HEENT Narrative: Abrasion left maxilla. Eyes EOMs intact bilaterally Chest Wall inspection of chest normal and palpation of chest normal Resp normal respiratory effort and clear to auscultation bilaterally Cardio regular rate and regular rhythm GI non-tender Palpation: soft Extremity Extremity Narrative: Tenderness palpation of the right hip with significant ecchymosis around the hip and proximal medial thigh. 3+ edema noted to the right lower extremity. 2+ esequiel ma noted to the left lower extremity. Neuro oriented x3 Neuro Narrative: Slight decrease sensation to light touch on the right side of the face. Psych mental status grossly normal MDM MDM MDM Narrative Medical decision making narrative: Patient sent for CT scan of the head to evaluate for possible stroke. Chest x- ray obtained to evaluate for acute lung pathology, cardiac size, or mediastinal abnormality. Right hip and pelvis x-rays obtained to evaluate for fracture, dislocation. Labwork obtained to evaluate for leukocytosis, anemia, and electrolyte derangement. EKG obtained to evaluate for cardiac arrhythmia/ischemia. History & Record Review Discussion w/independent historian: Patient and Significant other Additional record(s) reviewed:: Prior labs Lab Data Attestation: I reviewed the patient's lab results. Labs: Laboratory Results - last 24 hr 08/12/23 08/12/23 16:50 17:33 WBC 3.1 L RBC 2.84 L Hgb 8.6 L Hct 29.7 L MCV 104.6 H MCH 30.3 MCHC 29.0 L RDW Std Deviation 61.4 H RDW Coeff of Anders 15.9 H Plt Count 96 L MPV 10.6 Immature Gran % (Auto) 0.000 Neut % (Auto) 76.5 H Lymph % (Auto) 12.9 L Carlton % (Auto) 8.1 Eos % (Auto) 1.9 Baso % (Auto) 0.6 Absolute Neuts (auto) 2.4 Absolute Lymphs (auto) 0.40 L Nucleated RBC % 0 Differential Comment SCANNED Diff Path Review May foll PT Cancelled 15.4 H INR Cancelled 1.2 APTT Cancelled 32.3 Sodium 140 Potassium 4.4 Chloride 105 Carbon Dioxide 33.0 H Anion Gap 2 L BUN 35 H Creatinine 2.05 H Est GFR (MDRD) Af Amer 42 L Est GFR (MDRD) Non-Af 34 L BUN/Creatinine Ratio 17.1 Glucose 142 H Calcium 8.6 Total Bilirubin 0.80 Direct Bilirubin 0.49 H AST 8 L ALT 21 Alkaline Phosphatase 215 H Troponin I High Sens 18 B-Natriuretic Peptide 273.9 H Total Protein 6.6 Albumin 2.9 L Globulin 3.7 Radiography Chest X-Ray - ED: 1 View, Cardiomegaly and - (Bilateral pleural effusions) Diagnostic Testing: Clinical Impression(s) from Imaging Studies Brain CT 08/12/23 16:23 IMPRESSION: Mild atrophy and periventricular white matter ischemic changes. . Chronic changes in the left temporal lobe. No acute bleed. If concern for acute infarct MRI recommended Electronically Signed: Zak Melvin MD at 17:23 EDT , Chest X-Ray 08/12/23 17:10 IMPRESSION: Small bilateral pleural effusions slightly larger right with bibasilar atelectasis more pronounced on the right.. Electronically Signed: Zak Melvin MD at 18:06 EDT , Hip/Pelvis X-Ray 08/12/23 17:10 IMPRESSION: Stable appearance to right hip prosthesis. No evidence for acute fracture of the right hip or pelvis Probable large hematoma lateral to the greater trochanter Electronically Signed: Zak Melvin MD at 17:49 EDT , EKG Initial EKG: Attestation: I personally reviewed and interpreted this EKG as follows: Interpretation: Atrial Fibrillation (Atrial fibrillation 95 bpm. Right bundle branch block noted no acute ischemia.) Treatment and Re-Evaluation :: CBC was in the low white count at 3.1. This is consistent with his prior values. Hemoglobin is 8.6. It appears his hemoglobin varies between 7.9 and 11.6. Chemistry studies reveal normal potassium of 4.4. His BUN is 35 and creatinine 2.305. This is consistent with his prior values as well. LFTs significant only for an alk phos of 215. BNP is 273. Coags are unremarkable. Chest x-ray per my interpretation was cardiomegaly and bilateral pleural effusions. Radiology interpretation is reviewed and agrees. Pelvis and right hip x-ray per my interpretation reveals hardware to be intact with no evidence of fracture. Radiology interpretation is reviewed. They agree that there is no evidence of fracture or dislocation but also feel there is a hematoma noted. CT scan of the head reveals chronic changes with no evidence of bleed. On repeat evaluation patient's O2 sat is 99% on 2 L. Test results are discussed with patient and his . They have oxygen at home and his Lasix was recently increased to 40 mg daily. They feel comfortable with continuing this at home and were given return instructions if they have any concerns. Discharge Plan Triage Chief Complaint: Syncope Other Complaint: Shortness of Breath ED Provider: Tierra Chandler Dx/Rx/DC Orders Clinical Impression: Contusion of hip, Hematoma, Pleural effusion, Fall Instructions: ED Hematoma, ED Hip Contusion, ED Pleural Effusion, ED Fainting, Uncertain Cause Prescriptions: No Action ferrous gluconate 324 mg (38 mg iron) tablet 324 mg PO BID mirtazapine 15 mg tablet 15 mg PO QHS Qty: 30 5RF acetaminophen [Tylenol] 325 mg Tablet 650 mg PO Q6H PRN PRN (Reason: Pain 1-10 Or Fever >100.7) Qty: 0 0RF Arthritis Pain Compound 4 click topical TID Qty: 2 3RF Hold Instructions: Resume on 02/21/23. Rx Instructions: apply to the low back 2-3 times a day for low back pain. furosemide 40 mg Tablet 40 mg PO Q48H Qty: 30 0RF trazodone 50 mg Tablet 50 mg PO QHS Qty: 30 0RF gabapentin 100 mg Capsule 100 mg PO TIDCM Qty: 90 0RF Rx Instructions: this med is for the back pain and the pain in the left face quetiapine [Seroquel] 25 mg Tablet 25 mg PO QHS@2100 Qty: 30 0RF atorvastatin 40 mg tablet 40 mg PO QHS Qty: 30 0RF pantoprazole 40 mg tablet,delayed release (DR/EC) 40 mg PO DAILY Qty: 30 0RF promethazine 25 mg tablet 25 mg PO Q6H PRN (Reason: nausea and vomiting) Qty: 30 0RF ondansetron 4 mg tablet,disintegrating 4 mg PO Q8H PRN (Reason: nausea and vomiting) 3 Days Qty: 9 0RF Primary Care Provider: Alina Concepcion Referrals: Alina Concepcion DO [Primary Care Provider] - 1 Week Disposition Disposition: Home, Self Care
--- NOTE | 2023-08-12 16:57 | NURSING ---
NEEDS PT, PTT [facility]. TOO SHORT
--- NOTE | 2023-08-12 17:10 | RAD_ITS ---
STUDY: X-RAY CHEST REASON FOR EXAM: Male, 68 years old. sob TECHNIQUE: AP portable COMPARISON: May 07, 2023 FINDINGS: There are small bilateral pleural effusions slightly larger right with bibasilar consolidation Postop change status post median sternotomy and CABG with left atrial appendage clip Heart is enlarged. Normal mediastinum and lorena. Normal visualized pulmonary arteries. Normal visualized aortic arch and descending thoracic aorta. Dorsal spine and shoulders demonstrate degenerative change. Normal visualized and clavicles AICD noted on the left with tip in the left ventricle There is no demonstrated abnormality of the visualized soft tissue structures of the upper abdomen. RAD/Chest 1 View (Portable) IMPRESSION: Small bilateral pleural effusions slightly larger right with bibasilar atelectasis more pronounced on the right.. Electronically Signed: Zak Melvin MD at 18:06 EDT ,
--- NOTE | 2023-08-12 17:10 | RAD_ITS ---
STUDY: X-RAY - PELVIS AND RIGHT HIP REASON FOR EXAM: Male, 68 years old. injury TECHNIQUE: 3 views of the pelvis and hip. COMPARISON: None. FINDINGS: There is a non-specific bowel gas pattern. Normal visualized soft tissue structures. Normal bilateral iliac wings, sacroiliac joints and visualized sacrum. Normal bilateral superior and inferior pubic rami. Normal pubic symphysis. Normal bilateral ischial tuberosities. Right hip prosthesis is noted in anatomic alignment and position.. Lateral to the greater trochanter is very large focal soft tissue density possibly representing hematoma. This may be further assessed with ultrasound or other cross section imaging modality if clinically warranted RAD/HIP, UNI W/ Pelvis 2-3 Views IMPRESSION: Stable appearance to right hip prosthesis. No evidence for acute fracture of the right hip or pelvis Probable large hematoma lateral to the greater trochanter Electronically Signed: Zak Melvin MD at 17:49 EDT ,
[2023-08-12 17:13] LABS: Absolute Neutrophil Count 2.4 X10^3/uL (2.0-7.7); Basophil# 0.02 X10^3/uL; Basophil% 0.6 % (0-1); Eosinophil# 0.06 X10^3/uL; Eosinophils% 1.9 % (0-5); Hematocrit 29.7 % (40-54); Hemoglobin 8.6 g/dL (13.0-16.5); Lymphocyte % 12.9 % (19-41); Mean Corpuscular Hgb 30.3 pg (27.0-32.0); Mean Corpuscular Volume 104.6 fL (80-94); Mean Platelet Vol. 10.6 fl (6.2-12.0); Monocyte# 0.25 X10^3/uL; Monocyte% 8.1 % (0-10); NRBC Flagged by Analyzer 0 % (0-5); Neutrophil # 2.37 X10^3/uL (2.7-7.7); Neutrophil % 76.5 % (47-70); POSITIVE COUNT YES; POSITIVE DIFFERENTIAL YES; Platelet Count 96 K/mm3 (150-450); RBC Distribution Width CV 15.9 % (11.6-14.6); RBC Distribution Width SD 61.4 fl (35.1-43.9); Red Blood Count 2.84 M/mm3 (4.6-6.2); White Blood Count 3.1 K/mm3 (4.4-11.0)
[2023-08-12 17:14] LABS: Differential Indicated SCAN CRITERIA MET
[2023-08-12 17:17] LABS: AST(SGOT) 8 U/L (15-37); Alanine Aminotransfer ALT/SGPT 21 U/L (16-61); Albumin, Serum 2.9 g/dL (3.2-5.0); Alkaline Phosphatase 215 U/L (45-117); Anion Gap 2 (5-15); BUN 35 mg/dL (7-18); BUN/Creat Ratio 17.1 RATIO (10-20); Bilirubin, Direct 0.49 mg/dL (0.00-0.30); Calcium,Total 8.6 mg/dL (8.5-10.1); Chloride 105 mmol/L (98-107); Creatinine, Serum 2.05 mg/dL (0.70-1.30); EST Glomerular Filtration Rate 34 mL/min (>60); Est Glom Filt Rate - Afr Amer 42 mL/min (>60); Globulin 3.7 g/dL (2.2-4.2); Glucose 142 mg/dL (74-106); Potassium 4.4 mmol/L (3.5-5.1); Protein, Total 6.6 g/dL (6.4-8.2); Sodium Level 140 mmol/L (136-145); Troponin-I HS 18 pg/mL (3.0-78.0)
[2023-08-12 17:40] LABS: Differential Comment SCANNED
[2023-08-12 17:42] LABS: BNP,B-Type NATRIURETIC PEPTIDE 273.9 pg/mL (0-100)
[2023-08-12 18:00] LABS: International Normalized Ratio 1.2; Prothrombin Time (Protime)PT. 15.4 SECONDS (11.7-14.9)
[2023-08-12 18:01] LABS: Partial Thromboplast Time 32.3 Seconds (24.1-36.2)
[2023-08-12 19:02] VITALS: BP 114/78; PULSE 76; RESP 14; O2SAT 94
[2023-08-13 13:42] LABS: Pathologist Review Reviewed
== END 2023-08-12 19:04 | disposition home or self-care (01) ==
PROVIDERS: Emergency Provider Emergency Medicine; PCP Internal Medicine; Visit Provider Emergency Medicine
DX: I13.0 Hypertensive heart and chronic kidney disease with heart failure and stage 1 through stage 4 chronic kidney disease, or unspecified chronic kidney disease (principal); I50.32 Chronic diastolic (congestive) heart failure; E11.42 Type 2 diabetes mellitus with diabetic polyneuropathy; E11.22 Type 2 diabetes mellitus with diabetic chronic kidney disease; E78.00 Pure hypercholesterolemia, unspecified; R47.81 Slurred speech; S70.01XA Contusion of right hip, initial encounter; N18.9 Chronic kidney disease, unspecified; R55 Syncope and collapse; I25.10 Atherosclerotic heart disease of native coronary artery without angina pectoris; M25.551 Pain in right hip; Z96.641 Presence of right artificial hip joint; J90 Pleural effusion, not elsewhere classified; W19.XXXA Unspecified fall, initial encounter
CPT/HCPCS: 70450; 71045; 73502; 80048; 80076; 83880; 84484; 85025; 85610; 85730; 93005; 99285; A4216

== ENCOUNTER 2023-08-18 13:44 | Inpatient (IN) | payer MEDICARE, SELFPAY ==
[2023-08-18] VITALS (17 sets, daily range): BP systolic 77–111; BP diastolic 40–68; PULSE 64–91; RESP 9–22; TEMP 35.5–36.4; O2SAT 98–100; BMI 27.3; BMI 26.4
--- NOTE | 2023-08-18 14:11 | CT_ITS ---
STUDY: CT CERVICAL SPINE WITHOUT CONTRAST REASON FOR EXAM: Male, 68 years old. Trauma RADIATION DOSAGE (If Supplied By Facility): CTDIvol = ( 21.64 ) mGy, DLP = ( 493.16 ) mGycm TECHNIQUE: High resolution transaxial imaging was performed without contrast material. Sagittal and coronal images were reconstructed. Individualized dose optimization techniques were used for this CT. COMPARISON: None FINDINGS: No definite acute fracture/dislocation. The cervical junction is intact. C1-C2 articulation is intact. Curvature is within normal limits. There is normal alignment. Facet joints are intact at all levels bilaterally. No jumped facets. There is multilevel spondyloarthropathy. Multilevel degenerative disc disease seen. Multilevel loss of disc height. Multilevel posterior marginal osteophytes and disc bulges. Multilevel neural foraminal narrowing. Multilevel narrowing of the spinal canal. There is a right pleural effusion seen. CT/Spine Cervical without Contras IMPRESSION: There is no definite acute fracture/dislocation. Degenerative changes. Electronically Signed: Derik Pabon MD at 16:51 EDT ,
--- NOTE | 2023-08-18 14:11 | CT_ITS ---
STUDY: CT BRAIN WITHOUT CONTRAST REASON FOR EXAM: Male, 68 years old. Trauma RADIATION DOSAGE (If Supplied By Facility): CTDIvol = ( 37.35 ) mGy, DLP = ( 1378.80 ) mGycm TECHNIQUE: Transaxial CT imaging of the brain was performed without administration of intravenous contrast material. Individualized dose optimization techniques were used for this CT. COMPARISON: 08/12/2023 FINDINGS: Normal soft tissue structures. Normal calvarium. There is mild cerebral atrophy with widening of the extra-axial spaces and ventricular dilatation. There are areas of decreased attenuation within the white matter tracts of the supratentorial brain, consistent with microvascular disease changes. Normal basal ganglia and thalami. Normal brainstem. Normal cerebellum. There is no intracranial hemorrhage. There are no findings of an acute ischemic infarction. Normal visualized paranasal sinuses. CT/Brain/Head without Contrast IMPRESSION: No change or acute abnormality. Involutional changes, stable. Electronically Signed: Derik Pabon MD at 16:30 EDT ,
--- NOTE | 2023-08-18 14:11 | EKG12_ITS ---
Test Reason : SHOULDER PAIN Blood Pressure : / mmHG Vent. Rate : 087 BPM Atrial Rate : 000 BPM P-R Int : 000 ms QRS Dur : 166 ms QT Int : 430 ms P-R-T Axes : 000 140 -20 degrees QTc Int : 517 ms Atrial fibrillation Right bundle branch block Abnormal ECG Confirmed by DENAE LUCERO, LINETTE ([id number]), script editor BEVERLEY CHIN ([id number]) on 09/04/2023 9:49:31 AM Referred By: Confirmed By:LINETTE PHILIPPE MD
--- NOTE | 2023-08-18 14:14 | EX.ED.DYSGE1 ---
HPI History of Present Illness Chief Complaint: Weakness Informant: spouse/S.O. Narrative Narrative: Patient comes in with new weakness and significant change in baseline functioning. Almost all the history is through the patient's . He will state where he hurts but really does not give me any other details. This patient fell on the fifth of this month. Was seen after that. He had extensive work-up. He went home. But since going home over the next 1 to 2 days he markedly decreased function. He essentially is not getting up hardly at all. She was able to get him up to a shower this morning but some days he does not get up at all. He is hardly eating or drinking. Using her fingers, patient's demonstrates about 2 inches of urine output in the bottom of a urinal this entire weekend. I also note that he saw his turning lathe tender a little over a week ago and because of some increased edema they did bump his Lasix up to 40 every day rather than every other day. But after that he started also not drinking fluids. There is been some diarrhea. No known antibiotics recently. Subjective fever but none here. Patient complains that his neck is broken. Of note, patient does have a history of intracranial bleed earlier this year due to being on blood thinners from atrial fibrillation. He is not to be on blood thinners again. But he had return fully to normal function. His states that he was up painting the house before all this happened. He is normally totally awake alert functional and really had no residuals that she mentions from that bleed. [facility] Medical History (HFpEF) heart failure with preserved ejection fraction Abdominal panniculus Acquired scleral show due to eyelid deformity Acute on chronic blood loss anemia Anemia Anxiety Arthritis Atherosclerosis of coronary artery bypass graft of [place] heart without angina pectoris Back pain BPH (benign prostatic hyperplasia) BPH with obstruction/lower urinary tract symptoms Cardiology follow-up encounter Chronic anemia Chronic atrial fibrillation Chronic GERD Chronic kidney disease (CKD) Chronic shortness of breath Chronic skin ulcer with fat layer exposed CKD (chronic kidney disease) Coronary artery disease Coronary artery disease Cutaneous horn Depression Diabetes mellitus, type 2 Diabetic polyneuropathy Dietary restriction Easy bruising Essential (primary) hypertension Excessive and redundant skin and subcutaneous tissue Facial hematoma GERD (gastroesophageal reflux disease) Gout Hemoglobin A1c less than 7.0% Hemorrhagic cerebrovascular accident (CVA) High cholesterol History of atrial fibrillation History of CHF (congestive heart failure) History of echocardiogram History of edema History of heart attack History of stress test Hyperlipidemia Hyperuricemia Insomnia Intertrigo Intracerebral hemorrhage Long-term (current) use of anticoagulants, INR goal 2.0-3.0 Lung nodule, solitary Malnutrition RODRIGUEZ (nonalcoholic steatohepatitis) Neoplasm of skin of left cheek Non-smoker On home oxygen therapy Open wound of left cheek with complication Postoperative stitch abscess Recent weight loss Severe pulmonary hypertension Skin laxity SOB (shortness of breath) Squamous cell carcinoma of skin of left cheek Stroke/cerebrovascular accident Syncope Type 2 diabetes mellitus with other diabetic kidney complication Home Medications ferrous gluconate 324 mg (38 mg iron) tablet 324 mg PO BID iron supplement 11/29/22 [History Last Taken 12/03/22] acetaminophen 325 mg tablet (Tylenol) 650 mg (2 x 325 mg) PO Q6H PRN PRN Pain 1-10 Or Fever >100.7 #0 tabs 12/12/22 [Rx Last Taken Unknown] Arthritis Pain Compound 4 click topical TID #2 BOTTLES 01/31/23 [Rx Last Taken Unknown] atorvastatin 40 mg tablet 40 mg PO QHS cholesterol #30 tabs 01/31/23 [Rx Last Taken Unknown] furosemide 40 mg tablet 40 mg PO Q48H #30 tabs 01/31/23 [Rx Last Taken Unknown] gabapentin 100 mg capsule 100 mg PO TIDCM #90 caps 01/31/23 [Rx Last Taken 03/27/23] pantoprazole 40 mg tablet,delayed release 40 mg PO DAILY GERD #30 tabs 01/31/23 [Rx Last Taken 03/27/23] quetiapine 25 mg tablet (Seroquel) 25 mg PO QHS@2100 mood #30 tabs 01/31/23 [Rx Last Taken Unknown] trazodone 50 mg tablet 50 mg PO QHS #30 tabs 01/31/23 [Rx Last Taken Unknown] promethazine 25 mg tablet 25 mg PO Q6H PRN nausea and vomiting #30 tabs 02/18/23 [Rx Last Taken Unknown] ondansetron 4 mg disintegrating tablet 4 mg PO Q8H PRN nausea and vomiting 3 days #9 tabs 05/07/23 [Rx Last Taken Unknown] mirtazapine 15 mg tablet 15 mg PO QHS #30 tabs 05/19/23 [Rx Last Taken Unknown] Allergy/AdvReac Type Severity Reaction Status Date / Time metformin Allergy Intermediate Other Verified 08/18/23 13:45 clindamycin AdvReac Severe Vomiting,NA Verified 08/18/23 13:45 USEA,HEARTB URN Lactobacillus acidophilus AdvReac Severe Vomiting Verified 08/18/23 13:45 [From Acidophilus] hydromorphone [From Dilaudid] AdvReac Intermediate Vomiting Verified 08/18/23 13:45 Family History Mother CHF (congestive heart failure) Arthritis Heart disease Father Arthritis CHF (congestive heart failure) Heart disease Surgical History History of bilateral knee replacement History of coronary artery bypass graft x 3 History of coronary artery stent placement (~12/10/10) History of esophagogastroduodenoscopy (EGD) History of evacuation of hematoma History of laparoscopic cholecystectomy History of squamous cell carcinoma excision Hx of bilateral hip replacements Hx of cardiac catheterization (~12/04/21) Hx of cardiac pacemaker (~06/30/19) Hx of colonoscopy Hx of excision of mass Hx of gastric bypass (~2011) Hx of left cataract extraction Hx of right cataract extraction Hx of shoulder surgery S/P CABG x 3 (~12/23/18) Social History household members: spouse Smoking Status: Never smoker alcohol intake: never substance use type: does not use caffeine: Yes (2/wk) Type: coffee ROS ROS ED ROS Narrative Review of systems is extremely limited. All of it is really through his . He does not add much to this at all. Constitutional Constitutional ED: Reports subjective Cardiovascular Cardiovascular: Reports chest pain and other Details: Pain on the right side of the chest which he has been complaining about ever since he had his fall. Respiratory/Chest Respiratory/Chest: Denies cough Gastrointestinal Gastrointestinal: Reports diarrhea Musculoskeletal Musculoskeletal: Reports neck pain Integumentary Reports other Details: Bruising right hip but it has been stable. Neurologic Neurologic: Reports other Details: See HPI Hematologic/Lymphatic Hematologic/Lymphatic: Denies easy bleeding or easy bruising EXAM Physical Exam Narrative Exam Narrative: CONSTITUTIONAL: Patient has a very flat affect. Speaks little. He does not look toxic but he does look ill. HEENT: No notable trauma. Mucous membranes are quite dry. No sinus tenderness. EYES: No conjunctival injection. No proptosis. NECK:No JVD. No stridor. CARDIOVASCULAR: Regular rate. He does have irregularly irregular rhythm consistent with his history of atrial fibrillation. RESPIRATORY: No respiratory distress. Breathing is unlabored. Patient states he has some soreness on the right chest. It hurts kind of diffusely when I press there but no focal tenderness. Breath sounds are quiet but he really will not take deep breaths for me. Saturations are 100% on 2 L while I am in the room. Patient is normally on 2 L at night but not during the day. GASTROINTESTINAL: Not distended. Bowel sounds are normal. No tenderness. No guarding. No rebound. No palpable mass. No bruit is heard. GENITOURINARY: No tenderness over the bladder nor do I feel like his bladder is distended. No CVA tenderness. MUSCULOSKELETAL: Patient has a large hematoma by the right hip/proximal thigh laterally. But no pain with range of motion. He does have bilateral +1?2 peripheral edema. This evidently has not worsened or changed notably in the last week or 10 days. NEUROLOGICAL: Patient is alert but really does not answer a lot of questions. SKIN: No noted rashes. No diaphoresis. No significant pallor. PSYCHIATRIC: Patient is calm. Const Vital Signs: 08/18/23 13:46 08/18/23 13:50 08/18/23 15:26 Temperature 97.5 F L 97.5 F L 97.4 F L Temperature Source Temporal Temporal Temporal Pulse Rate 89 91 84 Respiratory Rate 16 12 19 H Respiratory Effort Respiratory Pattern Blood Pressure 111/62 111/62 93/68 Blood Pressure Mean 78 78 76 Pulse Ox 98 98 99 Oxygen Delivery Method Nasal Cannula Nasal Cannula Nasal Cannula Oxygen Flow Rate (L/min) 2 2 2 08/18/23 15:29 08/18/23 16:00 Temperature 96.8 F L Temperature Source Temporal Pulse Rate 86 Respiratory Rate 19 H Respiratory Effort Normal Non-Labored Respiratory Pattern Normal Blood Pressure 105/64 Blood Pressure Mean 77 Pulse Ox 99 Oxygen Delivery Method Nasal Cannula Oxygen Flow Rate (L/min) 2 MDM MDM MDM Narrative Medical decision making narrative: Patient's white count is a bit low and he is a bit anemic but this is not new. Electrolytes show an acute kidney injury with creatinine up to 3.36 and elevated BUN of 63. Glucose is slightly up at 206. Liver function test show slight elevation of alkaline phosphatase but no other marked abnormalities. Urinalysis does show some suspicion for UTI. Plus bacteria and white cells. He is treated with antibiotics. My independent interpretation of his x-ray shows marked increase changes of the right base. Although this could be CHF, by his history exam and labs he is acutely dehydrated. He is also needing more oxygen than normal. Concern of possible aspiration. He is also here treated with antibiotics. COVID was negative. My independent interpretation of 4 view x-ray of his right hip shows prior surgeries but no sign of acute process this is consistent with final reading My independent interpretation of the CT scan of his head and spine show arthritic changes and chronic changes but no acute process and this is consistent with final. With the patient's profound weakness, not taking p.o., his cannot get him up and care for him he needs to come in the hospital. He has an acute kidney injury. Because of his x-ray findings I will add a BNP. This was added later because I could not access the actual images to see what they look like initially. I did discuss the case with hospitalist. Lab Data Labs: Laboratory Results - last 24 hr 08/18/23 08/18/23 14:45 15:00 WBC 3.6 L RBC 2.85 L Hgb 9.2 L Hct 30.1 L MCV 105.6 H MCH 32.3 H MCHC 30.6 L RDW Std Deviation 62.0 H RDW Coeff of Anders 16.0 H Plt Count 104 L MPV 10.2 Immature Gran % (Auto) 0.600 Neut % (Auto) 84.2 H Lymph % (Auto) 7.6 L [place] % (Auto) 6.7 Eos % (Auto) 0.3 Baso % (Auto) 0.6 Absolute Neuts (auto) 3.0 Absolute Lymphs (auto) 0.27 L Nucleated RBC % 0 Differential Comment COMMENT Diff Path Review May foll Sodium 142 Potassium 4.2 Chloride 105 Carbon Dioxide 32.0 Anion Gap 5 BUN 63 H Creatinine 3.36 H Estim Creat Clear Calc 20.75 Est GFR (MDRD) Af Amer 24 L Est GFR (MDRD) Non-Af 19 L BUN/Creatinine Ratio 18.8 Glucose 206 H Lactic Acid 0.8 Calcium 8.5 Magnesium 2.5 Total Bilirubin 0.90 AST 9 L ALT 15 L Alkaline Phosphatase 207 H Total Protein 6.8 Albumin 3.1 L Globulin 3.7 Albumin/Globulin Ratio 0.8 L Urine Color Yellow Urine Clarity Clear Urine pH 5.0 Ur Specific [place] 1.015 Urine Protein 30 H Urine Glucose (UA) Normal Urine Ketones Negative Urine Occult Blood 150 H Urine Nitrite Negative Urine Bilirubin 1 H Urine Urobilinogen Normal Ur Leukocyte Esterase 500 H Urine RBC 0 SEEN Urine WBC 10-25 SEEN Ur Squamous Epith Cells 0-5 SEEN Urine Bacteria 2+ Urine Mucus 0 SEEN Radiography Diagnostic Testing: Clinical Impression(s) from Imaging Studies Brain CT 08/18/23 14:11 IMPRESSION: No change or acute abnormality. Involutional changes, stable. Electronically Signed: Derik Pabon MD at 16:30 EDT Reading Location ID and State: [facility] / CT , Service support , Cervical Spine CT 08/18/23 14:11 IMPRESSION: There is no definite acute fracture/dislocation. Degenerative changes. Electronically Signed: Derik Pabon MD at 16:51 EDT Reading Location ID and State: [facility] / CT , Service support , Chest X-Ray 08/18/23 15:30 IMPRESSION: Worsening of atelectasis or infiltrate especially in the mid and lower right lung. Bilateral pleural effusions worse on the right. Electronically Signed: Derik Pabon MD at 16:55 EDT Reading Location ID and State: [facility] / [place] , Service support , Hip/Pelvis X-Ray 08/18/23 15:30 IMPRESSION: No change and no acute abnormality. Electronically Signed: Derik Pabon MD at 16:57 EDT , EKG Initial EKG: Comments: My independent interpretation the patient's EKG shows atrial fibrillation with controlled rate at 87. No other ectopy. No acute ST elevation or depression but there are diffuse nonspecific changes likely related to a right bundle branch block. QRS duration and QTc are long. Discharge Plan Dx/Rx/DC Orders Clinical Impression: Acute kidney injury, Anemia, Declining functional status, Acute UTI, Pneumonia, Dehydration Disposition Disposition: Acute Care Hospital [facility]
[2023-08-18] MEDS: 0.9% Normal Saline (500mL Bag) 500 ML 1000 ML IV (14:30)
[2023-08-18 14:58] LABS: Absolute Lymphocyte Count 0.27 X10^3/uL (0.83-4.51); Basophil# 0.02 X10^3/uL; Basophil% 0.6 % (0-1); Eosinophil# 0.01 X10^3/uL; Eosinophils% 0.3 % (0-5); Hematocrit 30.1 % (40-54); Hemoglobin 9.2 g/dL (13.0-16.5); Lymphocyte # 0.27 X10^3/ul (0.83-4.51); Lymphocyte % 7.6 % (19-41); Mean Corp Hgb Conc 30.6 g/dL (32-36); Mean Corpuscular Hgb 32.3 pg (27.0-32.0); Mean Corpuscular Volume 105.6 fL (80-94); Mean Platelet Vol. 10.2 fl (6.2-12.0); Monocyte# 0.24 X10^3/uL; Monocyte% 6.7 % (0-10); NRBC Flagged by Analyzer 0 % (0-5); Neutrophil % 84.2 % (47-70); POSITIVE DIFFERENTIAL YES; Platelet Count 104 K/mm3 (150-450); Red Blood Count 2.85 M/mm3 (4.6-6.2); White Blood Count 3.6 K/mm3 (4.4-11.0)
[2023-08-18 15:08] LABS: Differential Indicated SCAN CRITERIA MET
[2023-08-18 15:10] LABS: Mucous, Urine 0 SEEN /hpf (<or=2+); Red Blood Cells-Urine 0 SEEN /hpf (0-5)
[2023-08-18 15:13] LABS: ALB/GLOB Ratio 0.8 RATIO (0.9-2.4); AST(SGOT) 9 U/L (15-37); Alanine Aminotransfer ALT/SGPT 15 U/L (16-61); Albumin, Serum 3.1 g/dL (3.2-5.0); Alkaline Phosphatase 207 U/L (45-117); Anion Gap 5 (5-15); BUN 63 mg/dL (7-18); BUN/Creat Ratio 18.8 RATIO (10-20); Calcium,Total 8.5 mg/dL (8.5-10.1); Chloride 105 mmol/L (98-107); Creatinine, Serum 3.36 mg/dL (0.70-1.30); EST Glomerular Filtration Rate 19 mL/min (>60); Est Glom Filt Rate - Afr Amer 24 mL/min (>60); Estimated Creatinine Clearance 20.75 ml/min; Globulin 3.7 g/dL (2.2-4.2); Glucose 206 mg/dL (74-106); Magnesium 2.5 mg/dL (1.6-2.6); Potassium 4.2 mmol/L (3.5-5.1); Protein, Total 6.8 g/dL (6.4-8.2); Sodium Level 142 mmol/L (136-145)
[2023-08-18 15:22] LABS: Color, Urine Yellow (Yellow); Glucose, Dipstick Normal (Normal); Ketone-Dipstick Negative (Negative); Leukocyte Esterase-Dipstick 500 /ul (Negative); Nitrite-Dipstick Negative (Negative); Occult Blood-Urine 150 /ul (Negative); Protein-Dipstick 30 mg/dl (Negative); Specific Gravity, Urine 1.015 (1.002-1.030); Urine Clarity Clear (Clear); Urine Urobilinogen Normal (Normal)
[2023-08-18 15:24] LABS: Urine Bilirubin Dipstick 1 mg/dL (Negative)
[2023-08-18 15:29] LABS: Squamous Epithelial Cells - UA 0-5 SEEN /hpf (0-5); White Blood Cells 10-25 SEEN /hpf (0-5)
[2023-08-18 15:30] LABS: Bacteria 2+ /hpf (None Seen)
--- NOTE | 2023-08-18 15:30 | RAD_ITS ---
STUDY: X-RAY - PELVIS AND RIGHT HIP REASON FOR EXAM: Male, 68 years old. Trauma TECHNIQUE: 4 views of the pelvis and hip. COMPARISON: 08/12/2023. FINDINGS: No definite change. No acute fracture or dislocation. Stable appearance of bilateral hip arthroplasties with no evidence for dislocation, loosening, or complication. RAD/HIP, UNI W/ Pelvis 2-3 Views IMPRESSION: No change and no acute abnormality. Electronically Signed: Derik Pabon MD at 16:57 EDT ,
--- NOTE | 2023-08-18 15:30 | RAD_ITS ---
STUDY: X-RAY CHEST REASON FOR EXAM: Male, 68 years old. Trauma TECHNIQUE: Single AP portable view of the chest. COMPARISON: 08/12/2023. FINDINGS: Significant worsening of bilateral opacities, in the mid and lower right lung and in the left lung base. Findings are consistent with worsening atelectasis or infiltrate along with pleural effusions especially on the right. There is mild to moderate cardiomegaly, status post median sternotomy. Single lead pacemaker lead terminates in the right ventricle. RAD/Chest 1 View (Portable) IMPRESSION: Worsening of atelectasis or infiltrate especially in the mid and lower right lung. Bilateral pleural effusions worse on the right. Electronically Signed: Derik Pabon MD at 16:55 EDT ,
--- NOTE | 2023-08-18 15:31 | CM.ED ---
Social Work SW performed chart review; ADs not on file. SW met with patient and patient's and introduced self and role as [facility] SW. Patient is sleeping, but patient's is agreeable to speak with SW. SW inquired about completion of advanced directives. Patient's verified patient has completed a LW and HCPOA naming patient's as HCPOA with no alternates. SW encouraged patient's to provide a copy to be added to patient's chart when able. Patient's voiced understanding and inquired about reenrolling in Palliative services as she feels the patient needs to resume. Patient's also reviewed recent events and reports decreased ability to assist the patient around their home. Patient's recalls patient going to TCU previously and feels he would benefit from going back to TCU for SN. SW provided emotional support and discussed resuming palliative services as well as assisting with d/c needs once the patient has been evaluated by ED MD. Patient's voiced understanding. SW remains available if needs arise. Plan: TBD, if patient admits to [facility], patient's interested in TCU for skilled level of care [facility]
[2023-08-18 15:43] LABS: Lactic Acid 0.8 mmol/L (0.4-1.9)
--- NOTE | 2023-08-18 17:21 | PCM.HP.STD ---
HPI - General General Date of Admission: 08/18/23 Date of Service: 08/18/23 Chief Complaint: Weakness, debility, subjective chills. HPI Narrative The patient is a 68 y/o M w/ PMHx: HFpEF, HTN, HLD, Chronic pancytopenia, Chronic anemia/AOCD, CKD stage IV, Chronic AF, GERD, Diabetes mellitus type II with chronic neuropathy, Hx ICH, Severe Pulmonary HTN, CAD s/p CABG and PCI, Hx gastric bypass who presents to the [facility] ED on 08/18/23 with history of significant increased weakness above his baseline with at least the fifth fall this month with several extensive work-ups but returned to home however the last 1 to 2 days he has been unable to ambulate or take care of himself at all noted to be hardly eating or drinking with recent evaluation per his rn l and d secondary to decreased urine output and increased edema to the legs with increase of his Lasix regimen as well as loose stools and subjective fever with no chills prompting eventual ED evaluation. does report that he frequently coughs with any oral intake. Since he has been sick and worsening he has barely eaten or drinking. Work-up in the ED included T97.5, heart rate 89, BP 111/62, respiratory rate 16, 98% on 2 L nasal cannula, CBC with WBC 3.6, hemoglobin 9.2, MCV 105.6, platelet 104 with lymphopenia, CMP with BUN/creatinine 63/3.36, glucose 206, lactic acid 0.8, magnesium 2.5, alk phos 207 otherwise hepatic profile not marked appearing, urinalysis with specific gravity 1.015, protein 30, occult blood 150, negative nitrite, leukocyte Estrace 500 with urine WBCs 10-25 with 2+ urine bacteria, urine culture pending per ED, blood culture x2 pending per ED, rapid SARS COVID and influenza antigens negative, CT of the brain with no acute intracranial findings, CT cervical spine with no definitive acute fracture or dislocation with degenerative changes, chest x-ray with worsening of atelectasis or infiltrate especially in the mid and lower right lung with bilateral pleural effusions worse on the right, plain film of the right hip and pelvis with no acute change or abnormality, BNP pending per ED. in the ED patient ministered IV Zosyn given concern for aspiration pneumonia as well as evidence UTI. FOR[facility]LY [facility] Medical History (HFpEF) heart failure with preserved ejection fraction Abdominal panniculus Acquired scleral show due to eyelid deformity Acute on chronic blood loss anemia Anemia Anxiety Arthritis Atherosclerosis of coronary artery bypass graft of [place] heart without angina pectoris Back pain BPH (benign prostatic hyperplasia) BPH with obstruction/lower urinary tract symptoms Cardiology follow-up encounter Chronic anemia Chronic atrial fibrillation Chronic GERD Chronic kidney disease (CKD) Chronic shortness of breath Chronic skin ulcer with fat layer exposed CKD (chronic kidney disease) Coronary artery disease Coronary artery disease Cutaneous horn Depression Diabetes mellitus, type 2 Diabetic polyneuropathy Dietary restriction Easy bruising Essential (primary) hypertension Excessive and redundant skin and subcutaneous tissue Facial hematoma GERD (gastroesophageal reflux disease) Gout Hemoglobin A1c less than 7.0% Hemorrhagic cerebrovascular accident (CVA) High cholesterol History of atrial fibrillation History of CHF (congestive heart failure) History of echocardiogram History of edema History of heart attack History of stress test Hyperlipidemia Hyperuricemia Insomnia Intertrigo Intracerebral hemorrhage Long-term (current) use of anticoagulants, INR goal 2.0-3.0 Lung nodule, solitary Malnutrition RODRIGUEZ (nonalcoholic steatohepatitis) Neoplasm of skin of left cheek Non-smoker On home oxygen therapy Open wound of left cheek with complication Postoperative stitch abscess Recent weight loss Severe pulmonary hypertension Skin laxity SOB (shortness of breath) Squamous cell carcinoma of skin of left cheek Stroke/cerebrovascular accident Syncope Type 2 diabetes mellitus with other diabetic kidney complication Home Medications ferrous gluconate 324 mg (38 mg iron) tablet 324 mg PO BID iron supplement 11/29/22 [History Last Taken 12/03/22] acetaminophen 325 mg tablet (Tylenol) 650 mg (2 x 325 mg) PO Q6H PRN PRN Pain 1-10 Or Fever >100.7 #0 tabs 12/12/22 [Rx Last Taken Unknown] Arthritis Pain Compound 4 click topical TID #2 BOTTLES 01/31/23 [Rx Last Taken Unknown] atorvastatin 40 mg tablet 40 mg PO QHS cholesterol #30 tabs 01/31/23 [Rx Last Taken Unknown] furosemide 40 mg tablet 40 mg PO Q48H #30 tabs 01/31/23 [Rx Last Taken Unknown] gabapentin 100 mg capsule 100 mg PO TIDCM #90 caps 01/31/23 [Rx Last Taken 03/27/23] pantoprazole 40 mg tablet,delayed release 40 mg PO DAILY GERD #30 tabs 01/31/23 [Rx Last Taken 03/27/23] quetiapine 25 mg tablet (Seroquel) 25 mg PO QHS@2100 mood #30 tabs 01/31/23 [Rx Last Taken Unknown] trazodone 50 mg tablet 50 mg PO QHS #30 tabs 01/31/23 [Rx Last Taken Unknown] promethazine 25 mg tablet 25 mg PO Q6H PRN nausea and vomiting #30 tabs 02/18/23 [Rx Last Taken Unknown] ondansetron 4 mg disintegrating tablet 4 mg PO Q8H PRN nausea and vomiting 3 days #9 tabs 05/07/23 [Rx Last Taken Unknown] mirtazapine 15 mg tablet 15 mg PO QHS #30 tabs 05/19/23 [Rx Last Taken Unknown] Allergy/AdvReac Type Severity Reaction Status Date / Time metformin Allergy Intermediate Other Verified 08/18/23 13:45 clindamycin AdvReac Severe Vomiting,NA Verified 08/18/23 13:45 USEA,HEARTB URN Lactobacillus acidophilus AdvReac Severe Vomiting Verified 08/18/23 13:45 [From Acidophilus] hydromorphone [From Dilaudid] AdvReac Intermediate Vomiting Verified 08/18/23 13:45 Family History Mother CHF (congestive heart failure) Arthritis Heart disease Father Arthritis CHF (congestive heart failure) Heart disease Surgical History History of bilateral knee replacement History of coronary artery bypass graft x 3 History of coronary artery stent placement (~12/10/10) History of esophagogastroduodenoscopy (EGD) History of evacuation of hematoma History of laparoscopic cholecystectomy History of squamous cell carcinoma excision Hx of bilateral hip replacements Hx of cardiac catheterization (~12/04/21) Hx of cardiac pacemaker (~06/30/19) Hx of colonoscopy Hx of excision of mass Hx of gastric bypass (~2011) Hx of left cataract extraction Hx of right cataract extraction Hx of shoulder surgery S/P CABG x 3 (~12/23/18) Social History household members: spouse Smoking Status: Never smoker alcohol intake: never substance use type: does not use caffeine: Yes (2/wk) Type: coffee ROS Review of Systems ROS Unobtainable: due to encephalopathy Vital Signs Vital Signs Vital Signs: 08/18/23 13:46 08/18/23 13:50 08/18/23 15:26 Temperature 97.5 F L 97.5 F L 97.4 F L Temperature Source Temporal Temporal Temporal Pulse Rate 89 91 84 Respiratory Rate 16 12 19 H Respiratory Effort Respiratory Pattern Blood Pressure 111/62 111/62 93/68 Blood Pressure Mean 78 78 76 Pulse Ox 98 98 99 Oxygen Delivery Method Nasal Cannula Nasal Cannula Nasal Cannula Oxygen Flow Rate (L/min) 2 2 2 08/18/23 15:29 08/18/23 16:00 Temperature 96.8 F L Temperature Source Temporal Pulse Rate 86 Respiratory Rate 19 H Respiratory Effort Normal Non-Labored Respiratory Pattern Normal Blood Pressure 105/64 Blood Pressure Mean 77 Pulse Ox 99 Oxygen Delivery Method Nasal Cannula Oxygen Flow Rate (L/min) 2 Weight Weight: 184 lb 15.485 oz Body Mass Index (BMI) 27.3 Physical Exam Narrative Physical Examination: General: Patient encephalopathic, not alert, unable to answer orientation questions, not following commands, seated upright in the ED bed, flat affect, ill-appearing. Skin: Normal color, normal turgor, no icterus, no cyanosis except various staged ecchymoses, bilateral lower extremity chronic venous stasis skin changes. HEENT: AT/NC, EOMI, PERRLA, dry MM, no carotid bruits or JVD noted. Lungs: Diminished, greater bases, right greater than left, mildly increased respiratory rate but no distress, no significant rales, rhonchi or wheezing, more diminished than anything. Heart: Irregular; no gallop, rub audible, + SM. Abdomen: Soft, no grimacing with palpation, hyperactive BS, no marked obvious distention or severe HSM appreciated. Extremities: No cyanosis, no clubbing, bilateral lower extremity notable edema with chronic venous stasis skin changes, pitting 3+ Neurological: Patient encephalopathic, not alert, unable to answer orientation questions, not following commands, seated upright in the ED bed, flat affect, ill-appearing, cognitive function not baseline intact; pupils equally reactive to light and accommodation, cranial nerves difficult to discern given significant encephalopathy, moving all 4 extremities spontaneously but not following commands, difficult to assess any focal deficits, does have underlying expressive aphasia following ICH, strength severely globally decreased secondary to acute presentation and compounded by underlying comorbidities. Psychiatric: Affect appears flat, fatigued, ill-appearing, no acute evidence of depressive or anxiety feelings. Results Lab / Micro Data 08/18/23 14:45 08/18/23 14:45 Labs: Laboratory Results - last 24 hr 08/18/23 14:45: WBC 3.6 L, RBC 2.85 L, Hgb 9.2 L, Hct 30.1 L, MCV 105.6 H, MCH 32.3 H, MCHC 30.6 L, RDW Std Deviation 62.0 H, RDW Coeff of Anders 16.0 H, Plt Count 104 L, MPV 10.2, Immature Gran % (Auto) 0.600, Neut % (Auto) 84.2 H, Lymph % (Auto) 7.6 L, [place] % (Auto) 6.7, Eos % (Auto) 0.3, Baso % (Auto) 0.6, Absolute Neuts (auto) 3.0, Absolute Lymphs (auto) 0.27 L, Nucleated RBC % 0, Differential Comment COMMENT, Diff Path Review March, Sodium 142, Potassium 4.2, Chloride 105, Carbon Dioxide 32.0, Anion Gap 5, BUN 63 H, Creatinine 3.36 H, Estim Creat Clear Calc 20.75, Est GFR (MDRD) Af Amer 24 L, Est GFR (MDRD) Non-Af 19 L, BUN/Creatinine Ratio 18.8, Glucose 206 H, Lactic Acid 0.8, Calcium 8.5, Magnesium 2.5, Total Bilirubin 0.90, AST 9 L, ALT 15 L, Alkaline Phosphatase 207 H, Total Protein 6.8, Albumin 3.1 L, Globulin 3.7, Albumin/Globulin Ratio 0.8 L 08/18/23 15:00: Urine Color Yellow, Urine Clarity Clear, Urine pH 5.0, Ur Specific [place] 1.015, Urine Protein 30 H, Urine Glucose (UA) Normal, Urine Ketones Negative, Urine Occult Blood 150 H, Urine Nitrite Negative, Urine Bilirubin 1 H, Urine Urobilinogen Normal, Ur Leukocyte Esterase 500 H, Urine RBC 0 SEEN, Urine WBC 10-25 SEEN, Ur Squamous Epith Cells 0-5 SEEN, Urine Bacteria 2+, Urine Mucus 0 SEEN Micro: Microbiology 08/18/23 15:07 Nasal Secretion SARS-CoV-2 & FLU Antigen (Rapid) - Final Radiology Impression Brain CT 08/18/23 14:11 IMPRESSION: No change or acute abnormality. Involutional changes, stable. Electronically Signed: Derik Pabon MD at 16:30 EDT , Cervical Spine CT 08/18/23 14:11 IMPRESSION: There is no definite acute fracture/dislocation. Degenerative changes. Electronically Signed: Derik Pabon MD at 16:51 EDT , Chest X-Ray 08/18/23 15:30 IMPRESSION: Worsening of atelectasis or infiltrate especially in the mid and lower right lung. Bilateral pleural effusions worse on the right. Electronically Signed: Derik Pabon MD at 16:55 EDT , Hip/Pelvis X-Ray 08/18/23 15:30 IMPRESSION: No change and no acute abnormality. Electronically Signed: Derik Pabon MD at 16:57 EDT , Assessment & Plan Assessment/Plan (1) Acute UTI: PLAN: Plan The patient is a 68 y/o M w/ PMHx: HFpEF, HTN, HLD, Chronic pancytopenia, Chronic anemia/AOCD, CKD stage IV, Chronic AF, GERD, Diabetes mellitus type II with chronic neuropathy, Hx ICH, Severe Pulmonary HTN, CAD s/p CABG and PCI, Hx gastric bypass who presents to the [facility] ED on 08/18/23 with history of significant increased weakness above his baseline with at least the fifth fall this month with several extensive work-ups but returned to home however the last 1 to 2 days he has been unable to ambulate or take care of himself at all noted to be hardly eating or drinking with recent evaluation per his rn l and d secondary to decreased urine output and increased edema to the legs with increase of his Lasix regimen as well as loose stools and subjective fever with no chills prompting eventual ED evaluation. shreya with bilateral pleural effusions worse on the right, plain film of the right hip and pelvis with no acute change or abnormality, BNP pending per ED. #1. Acute Encephalopathy, Adult FTT, multifactorial, secondary to Right Sided Pneumonia, Possibly aspiration compounded by BL pleural effusions (patient does report chronic lung changes following CABG) as well as #2, #3: Will admit to [facility], maintain on oxygen with wean as tolerated to room air, continue ATC budesonide, PRN albuterol, maintain on IV Zosyn w/ MRSA screen requested, HOB, IS parameters w/ pending sputum cultures, procalcitonin and urine antigens, will plan repeat CXR in AM to be cautious, BNP pending per ED. Bld cx x 2 obtained in the ED. PT/OT/ST/CM consulted for discharge planning. #2. Acute Urinary Tract Infection: UA upon ED evaluation remarkable, pending UCx, continue IVFs, monitor I/Os, continue IV Zosyn given #1 also concerns w/ transition as able pending sensitivities and speciation. Bld cx x 2 obtained in the ED. #3. Acute kidney injury on CKD stage IV: Secondary to acute presentation as noted. Admission BUN/Cr 63/3.36, prior baseline creatinine noted to be primarily 1.8-2.3 more recently although has vacillated and was previously more elevated at the beginning of the year but improved likely with an acute presentation. Will judiciously hydrate, hold nephrotoxic medications and repeat chemistry in AM. Will obtain FeNa, if function not improving low threshold to obtain renal ultrasound assessment. Continue treatment of UTI as noted. Following with Dr. Herrera, if not improving may also consider involving. #4. Chronic macrocytic anemia/iron deficiency anemia/AOCD: Admission CBC with hemoglobin 9.2, MCV 105.6, baseline hemoglobin noted most recently 08/12/2023 hemoglobin 8.6 but has vacillated and appears to be primarily in the 8 range, vitamin B12 and folic acid levels requested also especially given gastric bypass status and from current meds not on supplementation, will continue to trend. Holding iron supplementation given uncertainty of oral intake, resume once clinically appropriate. #5. HFpEF: Current he appears more dry especially with recent diuresis attempts, will hold oral regimen including Lasix, judiciously hydrating, monitor I's and O's, may certainly pulse dose with diuretic if necessary but patient with low BP and again evidence of dehydration, not on beta-angie therapy nor KOSTA inhibitor/ARB of note. Most recent echocardiogram noted 12/07/2022 with EF 65%, severely dilated RV, severely enlarged RA, moderately enlarged LA, trivial MVI, moderate TVI, trivial BEBETO, mildly dilated aortic root. #6. Hypertension: Patient with upon presentation low BP, holding Lasix, judiciously hydrating, add back regimen once necessary with as needed IV hydralazine in interim. #7. Hyperlipidemia: Not on regimen, defer to outpatient. #8. Chronic pancytopenia: Admission CBC with WBC 3.6, hemoglobin 9.2, platelet 104 similar to previous, will trend CBC. #9. Chronic AF: Not on any rate or rhythm agent or anticoagulation secondary to history of ICH. #10. Hx ICH: Patient with history of unfortunately ICH early 2022, still does have some mild expressive aphasia which intermittently worsens per spouse report, CT head upon ED presentation with no acute concerning findings, will maintain on fall precautions. PT/OT/ST consulted for discharge planning. #11. CAD: S/p CABG and PCI, not on any antiplatelet or anticoagulant therapy secondary to ICH, not on beta-angie nor KOSTA inhibitor/ARB likely secondary to underlying renal disease also, will continue to monitor, encourage early follow-up outpatient. #12. Severe protein calorie malnutrition: Patient despite BMI 27 with significant poor oral intake, obvious muscle and fat loss, significant underlying comorbidities with nearly 1 week of decreased intake, nutrition consulted. #13. Diabetes mellitus type II with chronic neuropathy: Current list in the regimen, hemoglobin A1c requested, n.p.o. status currently, holding gabapentin also, will maintain on every 6 hours accu checks w/ ISS. #14. Anxiety and depression: Patient normally on mirtazapine, trazodone, quetiapine however will hold these given concern for oral intake, resume once appropriate and also encephalopathy resolves. #15. GERD with history of previous GI bleed: We will maintain on IV PPI. #16. DVT prophylaxis: Heparin cautiously, CT head with no overt findings, ICH was early in 2022. #17. CODE status: Patient ADDIE is his who is present and living will is currently in place. Discussed CODE status at length including difference between FULL code, DNR-CCA and DNR-CC status. Following discussions about the differences in these status, requested DNR-CCA, no intubation status. Patient certainly would be a good candidate for palliative care and if he clinically worsens he may even be appropriate for hospice given his significant underlying history. Advanced Care Planning Face to Face Time: 16 minutes. Charges/Coding Visit Charges Inpatient E&M: 78666 Init Hosp L3 Procedures Hospitalists Procedures: 51388 Advncd Care Plan 30 Min
[2023-08-18] MEDS: Piperacil/Tazobactam 4.5 GM in 0.9% Normal Saline (100mL MB+) 100 ML IV (17:42)
[2023-08-18 18:31] LABS: Procalcitonin 0.06 ng/mL (0.00-0.09)
[2023-08-18 18:51] LABS: Urine Sodium 49 mmol/L (Not Establ.)
[2023-08-18 19:25] LABS: BNP,B-Type NATRIURETIC PEPTIDE 351.7 pg/mL (0-100)
--- NOTE | 2023-08-18 20:16 | NURSING ---
Spoke with Heather Pt's to obtain admission information, pt is unresponsive. Unable to complete the history intervention, Dr Ibarra in chart, passed this onto Trupti RITTER the primary nurse.
[2023-08-18] MEDS: 0.9% Normal Saline (250mL Bag) 250 ML 999 ML IV (20:45)
[2023-08-18] MEDS: Budesonide Respules 0.5 MG/2 ML AMPUL.NEB. INHALATION (20:48)
[2023-08-18] MEDS: 0.9% Normal Saline (1000mL) 1,000 ML 75 ML IV (21:00)
[2023-08-18] MEDS: Pantoprazole Sodium 40 MG in 0.9% Normal Saline (100mL MB+) 100 ML 330 MG IV (22:22)
[2023-08-18] MEDS: Menthol/Lanolin/Calamine/Znox 113 GM Tube 1 APPLIC TOPICAL (22:22)
[2023-08-18 22:50] LABS: Bedside Glucose 189 mg/dL (74-106)
[2023-08-18] MEDS: Piperacil/Tazobactam 3.375 GM in 0.9% Normal Saline (50mL MB+) 50 ML IV (23:00)
--- NOTE | 2023-08-18 23:12 | NURSING ---
Messaged Dr Santamaria to clarify if he is safe to get heparin. Physician states as long as it was resulted prior to the admitting physician seeing it that it is ok to be given.
[2023-08-18] MEDS: Heparin Injection (Vial) 5,000 UNIT/ML VIAL 5000 UNIT SC (23:47)
[2023-08-19] VITALS (20 sets, daily range): BP systolic 74–107; BP diastolic 50–73; PULSE 61–95; RESP 12–22; TEMP 35.6–36.4; O2SAT 94–100; BMI 26.4
[2023-08-19] MEDS: 0.9% Normal Saline (1000mL) 1,000 ML 999 ML IV (00:13)
[2023-08-19 02:03] LABS: Probe Check PASS
[2023-08-19 02:04] LABS: M R Staph aureus DNA By PCR POSITIVE (Negative)
--- NOTE | 2023-08-19 02:26 | PCM.PN.BLA ---
Progress Note With Pneumonia and positive MRSA in the setting of [facility] will add linezolid to Zosyn.
[2023-08-19] MEDS: Linezolid 600 MG 600 MG/300 ML BAG 200 MG IV ×3 (03:56→22:22)
[2023-08-19] MEDS: Albuterol 2.5 MG/3 ML VIAL.NEB. INHALATION ×2 (05:25→20:30)
[2023-08-19] MEDS: Piperacil/Tazobactam 3.375 GM in 0.9% Normal Saline (50mL MB+) 50 ML IV ×2 (05:40→14:16)
[2023-08-19 06:47] LABS: Bedside Glucose 184 mg/dL (74-106)
[2023-08-19] MEDS: Budesonide Respules 0.5 MG/2 ML AMPUL.NEB. INHALATION ×2 (06:51→20:30)
[2023-08-19 07:52] LABS: Absolute Lymphocyte Count 0.23 X10^3/uL (0.83-4.51); Absolute Neutrophil Count 3.7 X10^3/uL (2.0-7.7); Hematocrit 34.3 % (40-54); Hemoglobin 9.5 g/dL (13.0-16.5); Lymphocyte # 0.23 X10^3/ul (0.83-4.51); Lymphocyte % 5.4 % (19-41); Mean Corp Hgb Conc 27.7 g/dL (32-36); Mean Corpuscular Hgb 30.6 pg (27.0-32.0); Mean Corpuscular Volume 110.6 fL (80-94); Mean Platelet Vol. 10.4 fl (6.2-12.0); Monocyte# 0.29 X10^3/uL; Monocyte% 6.8 % (0-10); NRBC Flagged by Analyzer 0 % (0-5); Neutrophil # 3.69 X10^3/uL (2.7-7.7); Neutrophil % 87.1 % (47-70); POSITIVE DIFFERENTIAL YES; POSITIVE MORPHOLOGY YES; Platelet Count 112 K/mm3 (150-450); RBC Distribution Width CV 16.3 % (11.6-14.6); RBC Distribution Width SD 66.2 fl (35.1-43.9); White Blood Count 4.2 K/mm3 (4.4-11.0)
[2023-08-19 07:53] LABS: Differential Indicated SCAN CRITERIA MET
[2023-08-19 08:27] LABS: Vitamin B12 756 pg/mL (211-911)
[2023-08-19 08:29] LABS: ALB/GLOB Ratio 0.8 RATIO (0.9-2.4); AST(SGOT) 6 U/L (15-37); Alanine Aminotransfer ALT/SGPT 15 U/L (16-61); Albumin, Serum 2.9 g/dL (3.2-5.0); Alkaline Phosphatase 197 U/L (45-117); Anion Gap 4 (5-15); BUN 61 mg/dL (7-18); BUN/Creat Ratio 17.1 RATIO (10-20); Calcium,Total 8.3 mg/dL (8.5-10.1); Chloride 108 mmol/L (98-107); Creatinine, Serum 3.57 mg/dL (0.70-1.30); EST Glomerular Filtration Rate 18 mL/min (>60); Est Glom Filt Rate - Afr Amer 22 mL/min (>60); Estimated Creatinine Clearance 19.53 ml/min; Globulin 3.8 g/dL (2.2-4.2); Glucose 190 mg/dL (74-106); Potassium 4.5 mmol/L (3.5-5.1); Protein, Total 6.7 g/dL (6.4-8.2); Sodium Level 142 mmol/L (136-145)
[2023-08-19 08:40] LABS: Anisocytosis 1+
--- NOTE | 2023-08-19 09:33 | CASEMGMT ---
Assessment- SW called patient's to complete an assessment as patient is not alert and oriented X3. SW introduced self and role at [facility]. Care providers, pharmacy, and demographics verified. Patient's wishes for patient to discharge to [facility] Acute Rehab and if not Rehab then [facility] TCU. Patient's declines a list. Living situation- Patient lives with his in a 1 story home with a couple entry steps. PCP: Alina Mays Specialists: Javier-Nephrology, Matt-Neurolgy, and Trey-Cardiology Pharmacy: [facility] or [facility] DME:? Walker, cane, grabber, sock aide, raised toilet seat, and O2 through [employer]. ADL's/IADL's: Patient was not using any assistive devices prior to this last week. This last week patient has been weak and needing more assist. Prior to this week patient was independent with bathing and dressing. Patient's manages patient's medications, cooks, and cleans. Patient does drive, but has not driven since 07-31. Past SNF/rehab: Patient has been to [facility] Acute Rehab Unit and [facility] Past HH: Patient has had [facility] LW: Yes. Patient's will bring in a copy POA:? Yes. Patient's will bring in a copy Plan: Pending PT/OT evaluations, acceptance, and insurance approval plan is [facility] Acute Rehab Unit vs TCU. Julee MACHUCA
[2023-08-19] MEDS: Menthol/Lanolin/Calamine/Znox 113 GM Tube 1 APPLIC TOPICAL ×3 (10:08→22:21)
[2023-08-19] MEDS: Pantoprazole Sodium 40 MG in 0.9% Normal Saline (100mL MB+) 100 ML 330 MG IV ×2 (10:08→21:19)
[2023-08-19] MEDS: Heparin Injection (Vial) 5,000 UNIT/ML VIAL 5000 UNIT SC ×2 (10:12→22:22)
[2023-08-19] MEDS: 0.9% Normal Saline (1000mL) 1,000 ML 150 ML IV ×2 (10:52→17:48)
[2023-08-19 12:03] LABS: Hemoglobin A1c 6.4 % (3.8-5.6)
[2023-08-19 12:10] LABS: Bedside Glucose 155 mg/dL (74-106)
--- NOTE | 2023-08-19 16:13 | PCM.PROGNOTE ---
Subjective Subjective Patient seen and examined. He was quite lethargic and not very responsive. Unable to do review of systems. He is hemodynamically stable. Objective Data Objective Data Vital Signs: Vital Signs Temp Pulse Resp BP Pulse Ox O2 Del Method O2 Flow Rate 96.1 F L 61 14 101/64 100 Nasal Cannula 2 08/19/23 14:00 08/19/23 14:00 08/19/23 14:00 08/19/23 14:00 08/19/23 14:00 08/19/23 14:00 08/19/23 14:00 Oxygen Flow Rate (L/min) 2 Oxygen Delivery Method Nasal Cannula Weight: 178 lb 9.191 oz Body Mass Index (BMI) 26.4 Intake & Output: Intake and Output for Last 24 Hours 08/17/23 08/18/23 08/19/23 23:59 23:59 23:59 Intake Total 960 / 960 2810 / 2810 Output Total 0 / 0 Balance 960 / 960 2810 / 2810 Medical Nutrition Assessment Dietitian: Malnutrition Criteria Met Start: 08/19/23 12:49 Freq: Status: Active Protocol: Document 08/19/23 12:49 RMA (Rec: 08/19/23 12:49 RMA [id number]) Nutrition Malnutrition Evidence of Malnutrition Exists Yes Malnutrition (severe): Chronic Evidenced By Suboptimal Energy Intake ( Severe),Weight Loss (Severe) Intake Problem Inadequate Oral Intake Etiology likely related to difficulty swallowing Signs/Symptoms as evidenced by NPO; 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 Status Active Problem Clinical Problem Chronic Disease or Condition Related Malnutrition Etiology Severe protein-calorie malnutrition in the context of chronic disease related to inadequate oral intake and difficulty swallowing Signs/Symptoms as evidenced by ~9-10% unintentional weight loss x 6 months, NPO currently and PO meeting less than 50% estimated nutrition needs x past 6 months Status Active Problem Recommendation Dietitian Recommendations/Changes Recommend liberalized regular diet with sodium-restriction as needed given CKD stage 4; consistency/texture as per 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 Consistent protein and carbohydrates as indicated if PO advanced. Will need ONS as PO diet advanced from NPO. If pt deemed unsafe for PO diet, will need enteral nutrition support to prevent further unintentional weight loss/energy and protein depletion. Lab / Micro Data 08/19/23 07:11 08/19/23 07:11 Labs: Laboratory Results - last 24 hr 08/18/23 14:45: B-Natriuretic Peptide 351.7 H, Procalcitonin 0.06 08/18/23 15:00: Ur Random Sodium 49, Urine Creatinine 91.50 08/18/23 20:55: MRSA (PCR) POSITIVE H 08/18/23 22:27: POC Glucose 189 H 08/19/23 05:37: POC Glucose 184 H 08/19/23 07:11: WBC 4.2 L, RBC 3.10 L, Hgb 9.5 L, Hct 34.3 L, MCV 110.6 H, MCH 30.6, MCHC 27.7 L D, RDW Std Deviation 66.2 H, RDW Coeff of Anders 16.3 H, Plt Count 112 L, MPV 10.4, Immature Gran % (Auto) 0.700, Neut % (Auto) 87.1 H, Lymph % (Auto) 5.4 L, [place] % (Auto) 6.8, Eos % (Auto) 0.0, Baso % (Auto) 0.0, Absolute Neuts (auto) 3.7, Absolute Lymphs (auto) 0.23 L, Nucleated RBC % 0, Differential Comment COMMENT, Diff Path Review May foll, Anisocytosis 1+, Sodium 142, Potassium 4.5, Chloride 108 H, Carbon Dioxide 30.0, Anion Gap 4 L, BUN 61 H, Creatinine 3.57 H, Estim Creat Clear Calc 19.53, Est GFR (MDRD) Af Amer 22 L, Est GFR (MDRD) Non-Af 18 L, BUN/Creatinine Ratio 17.1, Glucose 190 H, Hemoglobin A1c 6.4 H, Calcium 8.3 L, Total Bilirubin 0.80, AST 6 L, ALT 15 L, Alkaline Phosphatase 197 H, Total Protein 6.7, Albumin 2.9 L, Globulin 3.8, Albumin/Globulin Ratio 0.8 L, Vitamin B12 756, Folate 10.20 08/19/23 10:50: POC Glucose 155 H Micro: Microbiology 08/18/23 15:00 Urine, Catheterized Urine Culture - 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 Involutional changes, stable. Electronically Signed: Derik Pabon MD at 16:30 EDT Reading Location ID and State: [facility] / [place] , Service support , Cervical Spine CT 08/18/23 14:11 IMPRESSION: There is no definite acute fracture/dislocation. Degenerative changes. Electronically Signed: Derik Pabon MD at 16:51 EDT Reading Location ID and State: [facility] / [place] , Service support , Chest X-Ray 08/18/23 15:30 IMPRESSION: Worsening of atelectasis or infiltrate especially in the mid and lower right lung. Bilateral pleural effusions worse on the right. Electronically Signed: Derik Pabon MD at 16:55 EDT Reading Location ID and State: [facility] / [place] , Service support , Hip/Pelvis X-Ray 08/18/23 15:30 IMPRESSION: No change and no acute abnormality. Electronically Signed: Derik Pabon MD at 16:57 EDT Reading Location ID and State: [facility] / [place] , Service support , Physical Exam Const Constitutional Narrative: very weak and lethargic. Unable to do review of systems. Orientation / Consciousness: lethargic HEENT normocephalic, head/scalp atraumatic, moist oral mucous membranes and oropharynx normal Eyes PERRL and EOMs intact bilaterally Neck no lymphadenopathy and supple Lymph Lymphatic: no lymphadenopathy noted and no lymphedema noted Resp Resp Narrative: diminished breath sounds bibasally, no wheezes or crackles. On 2L of oxygen. Cardio regular rate, regular rhythm, S1 normal heart sound, S2 normal heart sound, no murmurs and no rub GI normal to inspection, nondistended, normoactive bowel sounds, soft to palpation and non-tender Extremity normal capillary refill, no clubbing, cyanosis or edema and no calf tenderness Skin Skin Narrative: gown soaked in blood because he pulled his IV line General Skin Exam: no breakdown Neuro Neuro Narrative: patient weak, lethargic, minimally responsive. Assessment & Plan Assessment/Plan (1) Pneumonia: (2) Acute UTI: (3) Declining functional status: PLAN: Plan #Acute encephalopathy Likely infectious, due to probable aspiration pneumonia. Patient lethargic and not able to communicate much. On breathing treatments bronchodilators. Sputum cultures pending. On IV Zosyn. Blood cultures ordered. Titrate oxygen to maintain saturation above 90%. Breathing treatments with bronchodilators. #UTI: on IV zosyn and linezolid. Urine cultures pending. #EVELYN on CKD IV: Cr is 3.57. Baseline Cr is ~ 2.7. Cr is trending upwards. Continue gentle hydration with IVF and trend Cr Check FeUrea. Consult nephrology is HR is still trending upwards. #Anemia: seems to be a combination of iron deficiency anemia and anemia of chronic disease. Hb is 9.5. #CAD: s/p CABG and PCI. stable. #Diabetes mellitus with neuropathy ISS. Accuchecks ACHS #Anxiety and depression: on mirtazapine and trazodone as well as seroquel. #History of intracranial hemorrhage: stable. This happened in early 2022. DVT prophylaxis; heparin. Charges/Coding Visit Charges Inpatient E&M: 88636 [facility] Hosp L3
--- NOTE | 2023-08-19 16:39 | US_ITS ---
STUDY: RENAL ULTRASOUND - COMPLETE REASON FOR EXAM: Male, 68 years old. EVELYN on CKD TECHNIQUE: Ultrasound evaluation of the kidneys was performed with real-time and static randall-scale imaging. COMPARISON: None. FINDINGS: RIGHT KIDNEY: Normal location of the right kidney, which is normal in size. The right kidney measures 9.2 x 4.6 x 5.4 cm. There is a normal cortex of the right kidney. The renal cortex measures 1.3 cm. There is no right renal mass or cyst. There is one nonobstructing stone. There is no right hydronephrosis. DISTAL RIGHT URETER: There is non-visualization of the distal right ureter. There is no demonstrated right ureterovesical junction calculus. There is a visualized right ureteral jet. LEFT KIDNEY: Normal location of the left kidney, which is normal in size. The left kidney measures 8.9 x 4.7 x 4.4 cm. There is a normal cortex of the left kidney. The renal cortex measures 1.1 cm. There is no left renal mass or cyst. There is one nonobstructing calculus. There is no left hydronephrosis. DISTAL LEFT URETER: There is non-visualization of the distal left ureter. There is no demonstrated left ureterovesical junction calculus. There is a visualized left ureteral jet. Increased cortical echoes and prominence of the renal pyramids bilaterally consistent with nonspecific renal parenchymal disease BLADDER: The distended urinary bladder has a volume of 154.15 ml. ml. There is a normal wall thickness of the distended urinary bladder. There is no demonstrated mass within the urinary bladder. There are no demonstrated bladder calculi. There is nonspecific enlargement of prostate and layering of debris within the bladder possibly due to hemorrhage or inflammatory debris. Incidental finding of ascites in all 4 quadrants. US/Kidney and Bladder IMPRESSION: Findings consistent with nonspecific renal parenchymal disease. Bilateral nonobstructing calculi Apparent layering of debris within the bladder possibly hemorrhagic or inflammatory. Electronically Signed: Zak Melvin MD at 17:46 EDT ,
[2023-08-19 18:13] LABS: Bedside Glucose 168 mg/dL (74-106)
[2023-08-19 18:15] LABS: Urea Nitrogen, Urine 338 mg/dL (NO RANGE EST.)
--- NOTE | 2023-08-19 23:35 | RAD_ITS ---
INDICATION: sob EXAMINATION/TECHNIQUE: X-RAY - XR Chest 1 View COMPARISON: Chest radiograph previous day. Findings: Single frontal view of the chest. LUNG PARENCHYMA/PLEURA: Large right pleural effusion and [id number] left pleural effusion with bilateral lower lung streaky atelectasis versus other airspace disease. No pneumothorax. HEART/GREAT VESSELS: Cardiomediastinal silhouette is obscured. Atrial appendage clip. Left chest single lead pacemaker device in place. BONES: Median sternotomy wires and closure device. RAD/Chest 1 View (Portable) IMPRESSION: Stable large right pleural effusion and [id number]-py-[id number] left pleural effusion with bilateral lower lung streaky atelectasis versus other airspace disease, to include pneumonia or pulmonary edema. Recommend follow-up to resolution. Electronically Signed: Dick Nunez MD at 0:38 EDT ,
[2023-08-20] VITALS (20 sets, daily range): BP systolic 76–121; BP diastolic 50–78; PULSE 67–113; RESP 12–32; TEMP 35.8–36.4; O2SAT 90–100; BMI 26.4
--- NOTE | 2023-08-20 | FLU_PTH ---
PATIENT: LINDA CARLOS LOC: ICU U#:[id number] AGE/SX: 68/M ROOM: ICU05 RE08/18/[address]: Dr. Mouna Nielsen MD : 1955 BED: 1 DIS: 08/20/2023 SPEC #: [id number] RECD: 08/20/23 13:09 STATUS: LEROY REQ #: [id number] BARYON: 08/20/23 00:[address]: Magda Galan DEPT: CYTOLOGY RECD BY: Teresita Reed ENTERED: 08/21/23 08:42 SP TYPE: Fluid OTHR DR: MD Dr. Emery Arias MD Dr. Derek Brown, MD Dr. Suzan Jimenez Dr., MD Dr. Lee Ann Baggott, MD Dr. Megan Oberhauser, MD Dr. Orion Cote Dr., MD Christina Muller, THEATER MANAGER-C Magda Galan, THEATER MANAGER-C Tissues: Pleural fluid, NOS Procedures: Special Stain Group II Surgery Specimen Level IV Cytospin Fluid Comments: @ Ordering doctor for SSII edited from to [email or web address] @ by ANGY at 08/21/23 0844 @ Ordering doctor for SUIV edited from to [facility] @ by PEGGYAGNER at 08/21/23 0844 @ Ordering doctor for CYSPIN edited from to [facility] @ by PEGGYAGNER at 08/21/23 0844 @ Submitting doctor edited from to [facility] @ by ANGY at 08/21/2344 HEADER OPERATION: Ultrasound-guided right thoracentesis PRE-OP DIAGNOSIS: Right pleural effusion TISSUE SUBMITTED: Thoracentesis fluid for cytology DIAGNOSIS CYTOLOGY Thoracentesis fluid for cytology (cytospin and cell block): Negative for malignant cells. See comment. LEONARD:daniel 08/22/2023 COMMENT Clinical correlation and appropriate follow up are necessary. CYTOLOGY STUDY Slides are reviewed. CYTOLOGY GROSS Received is 100 ml of yellow cloudy fluid labeled with the patient's name and and designated per the requisition as thoracentesis. Submitted for cytology preparation including cell block. / daniel 08/21/2023 TC:5 CPT: 61417, 07620
[2023-08-20] MEDS: 0.9% Normal Saline (1000mL) 1,000 ML 150 ML IV (00:03)
[2023-08-20] MEDS: Piperacil/Tazobactam 3.375 GM in 0.9% Normal Saline (50mL MB+) 50 ML IV ×2 (00:03→06:04)
[2023-08-20 00:09] LABS: Bedside Glucose 174 mg/dL (74-106)
--- NOTE | 2023-08-20 01:25 | PCM.HOSP.N ---
Hospitalist Note Seen and examined. Patient blood pressure is low /5976/50. Patient is n.p.o. running IV fluid 150 mill per hour. His breathing is also very slow and shallow. Chest x-ray ordered which shows stable right large pleural effusion and small to moderate left pleural effusion with bilateral lower lung atelectasis. Patient is being transferred to ICU for Levophed drip. Earlier patient was admitted for acute encephalopathy UTI EVELYN on CKD stage IV with concern of possible aspiration pneumonia. Clinical Genetics Laboratory Chief consult.
--- NOTE | 2023-08-20 01:54 | NURSING ---
This nurse spoke with Heather and let her know that patient was transferred to ICU for medication to increase his blood pressure. Heather thanked this nurse
[2023-08-20] MEDS: Norepinephrine 8 MG in 0.9% Normal Saline (250mL Bag) 242 ML 9.4 MG CONT INF (02:00)
[2023-08-20 03:25] LABS: Absolute Lymphocyte Count 0.27 X10^3/uL (0.83-4.51); Basophil# 0.01 X10^3/uL; Basophil% 0.1 % (0-1); Hematocrit 35.6 % (40-54); Hemoglobin 9.8 g/dL (13.0-16.5); Lymphocyte # 0.27 X10^3/ul (0.83-4.51); Lymphocyte % 3.9 % (19-41); Mean Corp Hgb Conc 27.5 g/dL (32-36); Mean Corpuscular Volume 112.7 fL (80-94); Mean Platelet Vol. 10.9 fl (6.2-12.0); Monocyte# 0.57 X10^3/uL; Monocyte% 8.2 % (0-10); NRBC Flagged by Analyzer 0.4 % (0-5); Neutrophil # 6.04 X10^3/uL (2.7-7.7); Neutrophil % 86.7 % (47-70); POSITIVE DIFFERENTIAL YES; POSITIVE MORPHOLOGY YES; Platelet Count 123 K/mm3 (150-450); RBC Distribution Width CV 16.2 % (11.6-14.6); RBC Distribution Width SD 66.3 fl (35.1-43.9); Red Blood Count 3.16 M/mm3 (4.6-6.2)
[2023-08-20 03:30] LABS: Differential Indicated SCAN CRITERIA MET
[2023-08-20 04:20] LABS: Anion Gap 5 (5-15); BUN 60 mg/dL (7-18); BUN/Creat Ratio 15.1 RATIO (10-20); Calcium,Total 8.2 mg/dL (8.5-10.1); Chloride 109 mmol/L (98-107); Creatinine, Serum 3.97 mg/dL (0.70-1.30); EST Glomerular Filtration Rate 16 mL/min (>60); Est Glom Filt Rate - Afr Amer 19 mL/min (>60); Estimated Creatinine Clearance 17.56 ml/min; Glucose 187 mg/dL (74-106); Potassium 5.4 mmol/L (3.5-5.1); Sodium Level 142 mmol/L (136-145)
[2023-08-20 05:09] LABS: Anisocytosis 1+; Macrocytosis 2+; Platelet Estimate SLT DEC (ADEQ)
[2023-08-20 06:40] LABS: Bedside Glucose 148 mg/dL (74-106)
[2023-08-20] MEDS: Budesonide Respules 0.5 MG/2 ML AMPUL.NEB. INHALATION (07:06)
[2023-08-20] MEDS: Ipratropium/Albuterol Sulfate 3 ML AMPUL.NEB INHALATION (07:06)
--- NOTE | 2023-08-20 07:12 | CON.PCM.CC_ITS ---
Assessment & Plan Assessment/Plan (1) Septic shock: PLAN: Plan RECOMMENDATIONS: 1. Continue empiric broad-spectrum antimicrobials, pending culture results. 2. Continue Levophed to maintain a mean arterial pressure at or above 65 mmHg. 3. Obtain nephrology consultation. 4. Continue breathing treatments as ordered. 5. Continue PPI therapy. 6. Maintain n.p.o. status, pending evaluation by speech therapy. 7. Continue to hold sedating medications. IMPRESSIONS: 1. Septic shock The patient presented to the hospital with sepsis due to possible pneumonia and/or urinary tract source of infection with acute sepsis related organ dysfunction as evidenced by encephalopathy, acute kidney injury and fluid refractory hypotension, necessitating vasopressor support. The patient will be continued on empiric broad-spectrum antimicrobials, pending finalized culture results. Levophed will be continued to maintain a mean arterial pressure at or above 65 mmHg. 2. Acute on chronic kidney disease Most likely prerenal in etiology in the setting of #1. Continue current supportive measures with Levophed to maintain hemodynamic stability. In light of the patient's worsening creatinine, will obtain nephrology consultation. Continue to monitor urine output for now. 3. Encephalopathy Most likely secondary to underlying infectious etiology. The patient remains on empiric broad-spectrum antimicrobials, which will be continued without change. Continue to avoid sedating medications, if feasible. 4. Chronic anemia and thrombocytopenia/pulmonary hypertension/heart failure with preserved ejection fraction/chronic atrial fibrillation Complicates care, management, recovery and prognosis. Continue supportive care as noted above. Await evaluation by speech therapy prior to advancement of diet. The patient will require eventual PT/OT evaluations, once medically stabilized. TIME: 38 minutes of critical care time, independent of procedures, was spent addressing the patient's septic shock, acute on chronic kidney disease, encephalopathy, review of all data and collaboration with the care team. HPI Consult Data Date of Consult: 08/20/23 HPI Narrative Reason for Consultation: Hypotension HPI Narrative: The patient is a 68-year-old male, with a history as outlined below, who presented to the emergency department via EMS on August 18 with generalized weakness and failure to thrive. The patient had been recently evaluated in the emergency department on August 12 with syncope. The patient's work-up at that time was largely unremarkable. He was ultimately discharged back home. 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 No significant history could be obtained from the patient himself due to significant confusion. On presentation to the emergency department, the patient was noted to be afebrile with a presenting blood pressure of 111/62 mmHg. He was maintaining appropriate oxygen saturations on 2 L/min via nasal cannula. Initial laboratory evaluation revealed evidence of pancytopenia. Chemistry profile was notable for a BUN of 63 and creatinine of 3.36. Lactate was normal at 0.8. BNP was elevated at 351. Urine analysis was positive for leukocyte esterase and 2+ urine bacteria. MRSA screen was positive. Head CT revealed chronic involutional changes of the brain. Chest x-ray demonstrated bilateral pleural effusions, right greater than left along with right lower lobe atelectasis versus infiltrate. Renal ultrasound demonstrated bilateral nonobstructing calculi. The patient ultimately received supplemental IV fluid hydration and was started on antimicrobials. He was admitted to the hospital for further management. Overnight, the patient was transferred to the medical intensive care unit with refractory hypotension, which required the initiation of vasopressor support. [facility] Medical History (HFpEF) heart failure with preserved ejection fraction Abdominal panniculus Acquired scleral show due to eyelid deformity Acute on chronic blood loss anemia Anemia Anxiety Arthritis Atherosclerosis of coronary artery bypass graft of [place] heart without angina pectoris Back pain BPH (benign prostatic hyperplasia) BPH with obstruction/lower urinary tract symptoms Cardiology follow-up encounter Chronic anemia Chronic atrial fibrillation Chronic GERD Chronic kidney disease (CKD) Chronic shortness of breath Chronic skin ulcer with fat layer exposed CKD (chronic kidney disease) Coronary artery disease Coronary artery disease Cutaneous horn Depression Diabetes mellitus, type 2 Diabetic polyneuropathy Dietary restriction Easy bruising Essential (primary) hypertension Excessive and redundant skin and subcutaneous tissue Facial hematoma GERD (gastroesophageal reflux disease) Gout Hemoglobin A1c less than 7.0% Hemorrhagic cerebrovascular accident (CVA) High cholesterol History of atrial fibrillation History of CHF (congestive heart failure) History of echocardiogram History of edema History of heart attack History of stress test Hyperlipidemia Hyperuricemia Insomnia Intertrigo Intracerebral hemorrhage Long-term (current) use of anticoagulants, INR goal 2.0-3.0 Lung nodule, solitary Malnutrition RODRIGUEZ (nonalcoholic steatohepatitis) Neoplasm of skin of left cheek Non-smoker On home oxygen therapy Open wound of left cheek with complication Postoperative stitch abscess Recent weight loss Severe pulmonary hypertension Skin laxity SOB (shortness of breath) Squamous cell carcinoma of skin of left cheek Stroke/cerebrovascular accident Syncope Type 2 diabetes mellitus with other diabetic kidney complication Home Medications ferrous gluconate 324 mg (38 mg iron) tablet 324 mg PO BID iron supplement 11/29/22 [History Last Taken 12/03/22] acetaminophen 325 mg tablet (Tylenol) 650 mg (2 x 325 mg) PO Q6H PRN PRN Pain 1- 10 Or Fever >100.7 #0 tabs 12/12/22 [Rx Last Taken Unknown] Arthritis Pain Compound 4 click topical TID #2 BOTTLES 01/31/23 [Rx Last Taken Unknown] atorvastatin 40 mg tablet 40 mg PO QHS cholesterol #30 tabs 01/31/23 [Rx Last Taken Unknown] furosemide 40 mg tablet 40 mg PO Q48H #30 tabs 01/31/23 [Rx Last Taken Unknown] gabapentin 100 mg capsule 100 mg PO TIDCM #90 caps 01/31/23 [Rx Last Taken 03/27/23] pantoprazole 40 mg tablet,delayed release 40 mg PO DAILY GERD #30 tabs 01/31/23 [Rx Last Taken 03/27/23] quetiapine 25 mg tablet (Seroquel) 25 mg PO QHS@2100 mood #30 tabs 01/31/23 [Rx Last Taken Unknown] trazodone 50 mg tablet 50 mg PO QHS #30 tabs 01/31/23 [Rx Last Taken Unknown] promethazine 25 mg tablet 25 mg PO Q6H PRN nausea and vomiting #30 tabs 02/18/23 [Rx Last Taken Unknown] ondansetron 4 mg disintegrating tablet 4 mg PO Q8H PRN nausea and vomiting 3 days #9 tabs 05/07/23 [Rx Last Taken Unknown] mirtazapine 15 mg tablet 15 mg PO QHS #30 tabs 05/19/23 [Rx Last Taken Unknown] Allergy/AdvReac Type Severity Reaction Status Date / Time metformin Allergy Intermediate Other Verified 08/18/23 13:45 clindamycin AdvReac Severe Vomiting,NA Verified 08/18/23 13:45 USEA,HEARTB URN Lactobacillus acidophilus AdvReac Severe Vomiting Verified 08/18/23 13:45 [From Acidophilus] hydromorphone [From Dilaudid] AdvReac Intermediate Vomiting Verified 08/18/23 13:45 Family History Mother CHF (congestive heart failure) Arthritis Heart disease Father Arthritis CHF (congestive heart failure) Heart disease Surgical History History of bilateral knee replacement History of coronary artery bypass graft x 3 History of coronary artery stent placement (~12/10/10) History of esophagogastroduodenoscopy (EGD) History of evacuation of hematoma History of laparoscopic cholecystectomy History of squamous cell carcinoma excision Hx of bilateral hip replacements Hx of cardiac catheterization (~12/04/21) Hx of cardiac pacemaker (~06/30/19) Hx of colonoscopy Hx of excision of mass Hx of gastric bypass (~2011) Hx of left cataract extraction Hx of right cataract extraction Hx of shoulder surgery S/P CABG x 3 (~12/23/18) Social History (Updated 08/19/23 @ 00:28 by Trupti Avalos) household members: spouse Smoking Status: Never smoker alcohol intake: never substance use type: does not use caffeine: Yes (2/wk) Type: coffee ROS Review of Systems ROS Unobtainable: due to mental status Physical Exam Const alert and no apparent distress Constitutional Narrative: Confused and disoriented. HEENT normocephalic and head/scalp atraumatic Eyes PERRL, EOMs intact bilaterally and conjunctivae normal Neck supple General: trachea midline Chest inspection of chest normal Resp Auscultation: diminished lung sounds Cardio Rate: tachycardic Rhythm: abnormal rhythm Heart Sounds: murmur GI normal to inspection, nondistended, normoactive bowel sounds Extremity General Extremity: Negative for clubbing Skin no rashes or lesions noted Neuro no focal motor deficits Psych Mood & Affect: flat affect Medical Records Data Medical Nutrition Assessment Dietitian: Malnutrition Criteria Met Start: 08/19/23 12 :49 Freq: Status: Active Protocol: Document 08/19/23 12:49 RMA (Rec: 08/19/23 12:49 RMA [id number]) Nutrition Malnutrition Evidence of Malnutrition Exists Yes Malnutrition (severe): Chronic Evidenced By Suboptimal Energy Intake ( Severe),Weight Loss (Severe) Intake Problem Inadequate Oral Intake Etiology likely related to difficulty swallowing Signs/Symptoms as evidenced by NPO; pending [employer] evaulation Status Active Problem Clinical Problem Chronic Disease or Condition Related Malnutrition Etiology Severe protein-calorie malnutrition in the context of chronic disease related to inadequate oral intake and difficulty swallowing Signs/Symptoms as evidenced by ~9-10% unintentional weight loss x 6 months, NPO currently and PO meeting less than 50% estimated nutrition needs x past 6 months Status Active Problem Recommendation Dietitian Recommendations/Changes Recommend liberalized regular diet with sodium-restriction as needed given CKD stage 4; consistency/texture as per [employer] . Consistent protein and carbohydrates as indicated if PO advanced. Will need ONS as PO diet advanced from NPO. If pt deemed unsafe for PO diet, will need enteral nutrition support to prevent further unintentional weight loss/energy and protein depletion. Lab / Micro Data 08/20/23 03:15 08/20/23 03:15 Labs: Laboratory Results - last 24 hr 08/19/23 07:11: WBC 4.2 L, RBC 3.10 L, Hgb 9.5 L, Hct 34.3 L, MCV 110.6 H, MCH 30.6, MCHC 27.7 L D, RDW Std Deviation 66.2 H, RDW Coeff of Anders 16.3 H, Plt Count 112 L, MPV 10.4, Immature Gran % (Auto) 0.700, Neut % (Auto) 87.1 H, Lymph % (Auto) 5.4 L, [place] % (Auto) 6.8, Eos % (Auto) 0.0, Baso % (Auto) 0.0, Absolute Neuts (auto) 3.7, Absolute Lymphs (auto) 0.23 L, Nucleated RBC % 0, Differential Comment COMMENT, Diff Path Review May foll, Anisocytosis 1+, Sodium 142, Potassium 4.5, Chloride 108 H, Carbon Dioxide 30.0, Anion Gap 4 L, BUN 61 H, Creatinine 3.57 H, Estim Creat Clear Calc 19.53, Est GFR (MDRD) Af Amer 22 L, Est GFR (MDRD) Non-Af 18 L, BUN/Creatinine Ratio 17.1, Glucose 190 H, Hemoglobin A1c 6.4 H, Calcium 8.3 L, Total Bilirubin 0.80, AST 6 L, ALT 15 L, Alkaline Phosphatase 197 H, Total Protein 6.7, Albumin 2.9 L, Globulin 3.8, Albumin/Globulin Ratio 0.8 L, Vitamin B12 756, Folate 10.20 08/19/23 10:50: POC Glucose 155 H 08/19/23 17:30: Urine Creatinine 113.00, Urine Urea Nitrogen 338 08/19/23 17:51: POC Glucose 168 H 08/19/23 23:18: POC Glucose 174 H 08/20/23 03:15: WBC 7.0, RBC 3.16 L, Hgb 9.8 L, Hct 35.6 L, MCV 112.7 H, MCH 31.0, MCHC 27.5 L, RDW Std Deviation 66.3 H, RDW Coeff of Anders 16.2 H, Plt Count 123 L, MPV 10.9, Immature Gran % (Auto) 1.100 H, Neut % (Auto) 86.7 H, Lymph % (Auto) 3.9 L, [place] % (Auto) 8.2, Eos % (Auto) 0.0, Baso % (Auto) 0.1, Absolute Neuts (auto) 6.0, Absolute Lymphs (auto) 0.27 L, Nucleated RBC % 0.4, Platelet Estimate SLT DEC, Anisocytosis 1+, Macrocytosis 2+, Sodium 142, Potassium 5.4 H, Chloride 109 H, Carbon Dioxide 28.0, Anion Gap 5, BUN 60 H, Creatinine 3.97 H, Estim Creat Clear Calc 17.56, Est GFR (MDRD) Af Amer 19 L, Est GFR (MDRD) Non-Af 16 L, BUN/Creatinine Ratio 15.1, Glucose 187 H, Calcium 8.2 L 08/20/23 06:22: POC Glucose 148 H Micro: Microbiology 08/18/23 15:00 Urine, Catheterized Urine Culture - Preliminary GNR lactose seaman Radiology Impression Renal Ultrasound 08/19/23 16:39 IMPRESSION: Findings consistent with nonspecific renal parenchymal disease. Bilateral nonobstructing calculi Apparent layering of debris within the bladder possibly hemorrhagic or inflammatory. Electronically Signed: Zak Melvin MD at 17:46 EDT , Chest X-Ray 08/19/23 23:35 IMPRESSION: Stable large right pleural effusion and [id number] left pleural effusion with bilateral lower lung streaky atelectasis versus other airspace disease, to include pneumonia or pulmonary edema. Recommend follow-up to resolution. Electronically Signed: Dick Nunez MD at 0:38 EDT , Charges/Coding Procedures Hospitalists Procedures: [id number] [facility] H[facility]
[2023-08-20] MEDS: Pantoprazole Sodium 40 MG in 0.9% Normal Saline (100mL MB+) 100 ML 330 MG IV (09:49)
[2023-08-20] MEDS: Heparin Injection (Vial) 5,000 UNIT/ML VIAL 5000 UNIT SC (09:49)
--- NOTE | 2023-08-20 09:58 | US_ITS ---
PROCEDURE: ULTRASOUND GUIDED THORACENTESIS. DATE: August 20, 2023.. INDICATION: Male, 68 years old. Right pleural effusion. PHYSICIAN: Magda Galan SLITTING MACHINE OPERATOR PROCEDURE: The risks, benefits, and alternatives to the procedure were explained to the patient. The specific risks of bleeding, infection, and pneumothorax requiring chest tube insertion were discussed and accepted. Written informed consent was obtained. Ultrasonographic evaluation of the right lower pleural space was carried out. An adequate pocket was identified. The patient was placed in the sitting, upright position. The overlying skin was prepped and draped in sterile fashion. 1% lidocaine was administered subcutaneously for local anesthesia. Under ultrasound guidance, a 5 Wolof thoracentesis needle/catheter system was advanced into the right posterior lower pleural fluid collection. Approximately 1470 mL of victor hugo-colored fluid was drained. The catheter was removed, and a sterile dressing was applied. A specimen was collected and sent to the laboratory for analysis, as requested by the referring clinician. The patient tolerated the procedure well. A chest x-ray was ordered. US/Thoracentesis W US IMPRESSION: Ultrasound-guided right thoracentesis. Electronically Signed: Shekhar Mccall MD at 8:29 EDT ,
[2023-08-20 10:42] LABS: ALB/GLOB Ratio 0.7 RATIO (0.9-2.4); Globulin 4.1 g/dL (2.2-4.2); LDH 318 U/L (87-241)
[2023-08-20] MEDS: Linezolid 600 MG 600 MG/300 ML BAG 200 MG IV (10:45)
--- NOTE | 2023-08-20 11:28 | PCM.CONS.R ---
Assessment & Plan Assessment/Plan (1) Acute kidney injury: (2) Chronic kidney disease, stage 4 (severe): (3) Pneumonia: (4) Acute UTI: PLAN: Plan This is a 68 M with past medical history significant for diabetes mellitus type 2 with neuropathy, severe pulmonary hypertension, heart failure preserved EF, coronary artery disease status post CABG and PCI, history of gastric bypass, GERD, chronic A-fib, chronic pancytopenia and anemia and history of CKD stage IV admitted to the hospital for septic shock, pneumonia, possible UTI. Patient was transferred overnight to ICU for hypotension and now on Levophed drip. Nephrology consulted as patient has history of CKD, now presenting with acute kidney injury. Information is gathered from the chart, patient follows with rip/mould operator in [place], Dr. Warren. Apparently he was recently seen by his rip/mould operator and Lasix was increased due to worsening lower extremity edema. Also at home apparently patient had decreased oral intake with failure to thrive. On admission serum creatinine 3.36 and today his creatinine is up to 3.97 mg/dL. Patient did receive IV fluids upon admission but IV fluid stopped early this morning. He is now on Levophed drip. Blood pressures have improved. Prerenal EVELYN multifactorial from ATN secondary to septic shock, hypotension with decreased renal perfusion and possible component from volume depletion which seemed to be starting at home before presentation to hospital. Reviewed patient's home medication list and it does not appear that he had been on any KI or ARB's. Continue holding Lasix for now. Reviewing patient's weights, earlier this year in December patient was weighing around 113 kg, current weight about 80 kg. Renal ultrasound did not show any hydronephrosis, findings consistent with nonspecific renal parenchymal disease, bilateral nonobstructing calculi. At this time there is no acute indication for RETIREMENT BENEFITS SPECIALIST; no overt fluid overload, patient has urine output, bicarb is normal however potassium slightly elevated at 5.4. Patient is n.p.o. as concern for aspiration pneumonia and to undergo swallow eval. Patient is still requiring oxygen however he is scheduled for thoracentesis today. Patient is receiving IV antibiotics, urine cultures pending. Patient has underlying chronic kidney disease stage III/IV with baseline creatinine seems to be ranging around low 2 range. We will continue to follow patient along with you, thank you for allowing us to participate in the care of Mr. Carlos. HPI Consult Data Date of Consult: 08/20/23 HPI Narrative HPI Narrative: LINDA CARLOS, is a 68 M with past medical history significant for diabetes mellitus type 2 with neuropathy, severe pulmonary hypertension, heart failure preserved EF, coronary artery disease status post CABG and PCI, history of gastric bypass, GERD, chronic A-fib, chronic pancytopenia and anemia and history of CKD stage IV who presented to emergency room with weakness, debility, failure to thrive. Work-up in the emergency room concern for aspiration pneumonia as well as UTI; CT of brain did not show any acute findings, CT spine no acute findings, chest x-ray showing infiltrate and bilateral pleural effusions. Nephrology consulted for EVELYN. Patient has been seen by our group at [facility] in consult for EVELYN. This morning patient is not oriented therefore information is gathered from the chart and patient's nurse. Patient was transferred to ICU overnight for hypotension and is now on Levophed drip. [facility] Medical History (HFpEF) heart failure with preserved ejection fraction Abdominal panniculus Acquired scleral show due to eyelid deformity Acute on chronic blood loss anemia Anemia Anxiety Arthritis Atherosclerosis of coronary artery bypass graft of [place] heart without angina pectoris Back pain BPH (benign prostatic hyperplasia) BPH with obstruction/lower urinary tract symptoms Cardiology follow-up encounter Chronic anemia Chronic atrial fibrillation Chronic GERD Chronic kidney disease (CKD) Chronic shortness of breath Chronic skin ulcer with fat layer exposed CKD (chronic kidney disease) Coronary artery disease Coronary artery disease Cutaneous horn Depression Diabetes mellitus, type 2 Diabetic polyneuropathy Dietary restriction Easy bruising Essential (primary) hypertension Excessive and redundant skin and subcutaneous tissue Facial hematoma GERD (gastroesophageal reflux disease) Gout Hemoglobin A1c less than 7.0% Hemorrhagic cerebrovascular accident (CVA) High cholesterol History of atrial fibrillation History of CHF (congestive heart failure) History of echocardiogram History of edema History of heart attack History of stress test Hyperlipidemia Hyperuricemia Insomnia Intertrigo Intracerebral hemorrhage Long-term (current) use of anticoagulants, INR goal 2.0-3.0 Lung nodule, solitary Malnutrition RODRIGUEZ (nonalcoholic steatohepatitis) Neoplasm of skin of left cheek Non-smoker On home oxygen therapy Open wound of left cheek with complication Postoperative stitch abscess Recent weight loss Severe pulmonary hypertension Skin laxity SOB (shortness of breath) Squamous cell carcinoma of skin of left cheek Stroke/cerebrovascular accident Syncope Type 2 diabetes mellitus with other diabetic kidney complication Home Medications ferrous gluconate 324 mg (38 mg iron) tablet 324 mg PO BID iron supplement 11/29/22 [History Last Taken 12/03/22] acetaminophen 325 mg tablet (Tylenol) 650 mg (2 x 325 mg) PO Q6H PRN PRN Pain 1-10 Or Fever >100.7 #0 tabs 12/12/22 [Rx Last Taken Unknown] Arthritis Pain Compound 4 click topical TID #2 BOTTLES 01/31/23 [Rx Last Taken Unknown] atorvastatin 40 mg tablet 40 mg PO QHS cholesterol #30 tabs 01/31/23 [Rx Last Taken Unknown] furosemide 40 mg tablet 40 mg PO Q48H #30 tabs 01/31/23 [Rx Last Taken Unknown] gabapentin 100 mg capsule 100 mg PO TIDCM #90 caps 01/31/23 [Rx Last Taken 03/27/23] pantoprazole 40 mg tablet,delayed release 40 mg PO DAILY GERD #30 tabs 01/31/23 [Rx Last Taken 03/27/23] quetiapine 25 mg tablet (Seroquel) 25 mg PO QHS@2100 mood #30 tabs 01/31/23 [Rx Last Taken Unknown] trazodone 50 mg tablet 50 mg PO QHS #30 tabs 01/31/23 [Rx Last Taken Unknown] promethazine 25 mg tablet 25 mg PO Q6H PRN nausea and vomiting #30 tabs 02/18/23 [Rx Last Taken Unknown] ondansetron 4 mg disintegrating tablet 4 mg PO Q8H PRN nausea and vomiting 3 days #9 tabs 05/07/23 [Rx Last Taken Unknown] mirtazapine 15 mg tablet 15 mg PO QHS #30 tabs 05/19/23 [Rx Last Taken Unknown] Allergy/AdvReac Type Severity Reaction Status Date / Time metformin Allergy Intermediate Other Verified 08/18/23 13:45 clindamycin AdvReac Severe Vomiting,NA Verified 08/18/23 13:45 USEA,HEARTB URN Lactobacillus acidophilus AdvReac Severe Vomiting Verified 08/18/23 13:45 [From Acidophilus] hydromorphone [From Dilaudid] AdvReac Intermediate Vomiting Verified 08/18/23 13:45 Family History Mother CHF (congestive heart failure) Arthritis Heart disease Father Arthritis CHF (congestive heart failure) Heart disease Surgical History History of bilateral knee replacement History of coronary artery bypass graft x 3 History of coronary artery stent placement (~12/10/10) History of esophagogastroduodenoscopy (EGD) History of evacuation of hematoma History of laparoscopic cholecystectomy History of squamous cell carcinoma excision Hx of bilateral hip replacements Hx of cardiac catheterization (~12/04/21) Hx of cardiac pacemaker (~06/30/19) Hx of colonoscopy Hx of excision of mass Hx of gastric bypass (~2011) Hx of left cataract extraction Hx of right cataract extraction Hx of shoulder surgery S/P CABG x 3 (~12/23/18) Social History (Updated 08/19/23 @ 00:28 by Trupti Avalos) household members: spouse Smoking Status: Never smoker alcohol intake: never substance use type: does not use caffeine: Yes (2/wk) Type: coffee ROS ROS Narrative Unable to obtain Physical Exam Narrative Alert to name, not oriented. No apparent distress S1, S2, rhythm irregular, rate controlled Lung sounds diminished posterior bases. On O2 Abdomen soft, nontender Ki wrap intact to bilateral legs. No pitting edema to bilateral thighs Indwelling Hernandez with around 100 mL urine in bag Medical Records Data Medical Nutrition Assessment Dietitian: Malnutrition Criteria Met Start: 08/19/23 12:49 Freq: Status: Active Protocol: Document 08/19/23 12:49 RMA (Rec: 08/19/23 12:49 RMA [id number]) Nutrition Malnutrition Evidence of Malnutrition Exists Yes Malnutrition (severe): Chronic Evidenced By Suboptimal Energy Intake ( Severe),Weight Loss (Severe) Intake Problem Inadequate Oral Intake Etiology likely related to difficulty swallowing Signs/Symptoms as evidenced by NPO; pending CONSTRUCTION PROJECT MGR evaulation Status Active Problem Clinical Problem Chronic Disease or Condition Related Malnutrition Etiology Severe protein-calorie malnutrition in the context of chronic disease related to inadequate oral intake and difficulty swallowing Signs/Symptoms as evidenced by ~9-10% unintentional weight loss x 6 months, NPO currently and PO meeting less than 50% estimated nutrition needs x past 6 months Status Active Problem Recommendation Dietitian Recommendations/Changes Recommend liberalized regular diet with sodium-restriction as needed given CKD stage 4; consistency/texture as per CONSTRUCTION PROJECT MGR . Consistent protein and carbohydrates as indicated if PO advanced. Will need ONS as PO diet advanced from NPO. If pt deemed unsafe for PO diet, will need enteral nutrition support to prevent further unintentional weight loss/energy and protein depletion. Lab / Micro Data 08/20/23 03:15 08/20/23 03:15 Labs: Laboratory Results - last 24 hr 08/19/23 07:11: Hemoglobin A1c 6.4 H 08/19/23 10:50: POC Glucose 155 H 08/19/23 17:30: Urine Creatinine 113.00, Urine Urea Nitrogen 338 08/19/23 17:51: POC Glucose 168 H 08/19/23 23:18: POC Glucose 174 H 08/20/23 03:15: WBC 7.0, RBC 3.16 L, Hgb 9.8 L, Hct 35.6 L, MCV 112.7 H, MCH 31.0, MCHC 27.5 L, RDW Std Deviation 66.3 H, RDW Coeff of Anders 16.2 H, Plt Count 123 L, MPV 10.9, Immature Gran % (Auto) 1.100 H, Neut % (Auto) 86.7 H, Lymph % (Auto) 3.9 L, [place] % (Auto) 8.2, Eos % (Auto) 0.0, Baso % (Auto) 0.1, Absolute Neuts (auto) 6.0, Absolute Lymphs (auto) 0.27 L, Nucleated RBC % 0.4, Platelet Estimate SLT DEC, Anisocytosis 1+, Macrocytosis 2+, Sodium 142, Potassium 5.4 H, Chloride 109 H, Carbon Dioxide 28.0, Anion Gap 5, BUN 60 H, Creatinine 3.97 H, Estim Creat Clear Calc 17.56, Est GFR (MDRD) Af Amer 19 L, Est GFR (MDRD) Non-Af 16 L, BUN/Creatinine Ratio 15.1, Glucose 187 H, Calcium 8.2 L, Lactate Dehydrogenase 318 H, Total Protein 7.0, Globulin 4.1, Albumin/Globulin Ratio 0.7 L 08/20/23 06:22: POC Glucose 148 H Micro: Microbiology 08/18/23 15:00 Urine, Catheterized Urine Culture - Final Klebsiella pneumoniae sp pneum Radiology Impression Renal Ultrasound 08/19/23 16:39 IMPRESSION: Findings consistent with nonspecific renal parenchymal disease. Bilateral nonobstructing calculi Apparent layering of debris within the bladder possibly hemorrhagic or inflammatory. Electronically Signed: Zak Melvin MD at 17:46 EDT , Chest X-Ray 08/19/23 23:35 IMPRESSION: Stable large right pleural effusion and [id number] left pleural effusion with bilateral lower lung streaky atelectasis versus other airspace disease, to include pneumonia or pulmonary edema. Recommend follow-up to resolution. Electronically Signed: Dick Nunez MD at 0:38 EDT ,
[2023-08-20 11:39] LABS: Bedside Glucose 139 mg/dL (74-106)
--- NOTE | 2023-08-20 11:56 | CHAPLAIN ---
Type of Pastoral Visit _x__ Initial Visit ___ Follow-up Visit ___ On-call Visit ___ General Patient Visit ___ Spiritual Assessment ___ Family Conference ___ Bereavement ___ Rapid Response ___ Code Blue ___ Other (describe below) Pastoral Care Referral From _x__ Patient ___ Family ___ Nurse ___ Physician ___ Capacitor Pack Press Operator ___ Sock Lining Examiner ___ Other (describe below) Sacrament/Intervention ___ Active listening ___ Anointing ___ Protestant ___ Bereavement ___ Communion ___ Shawanda exploration ___ ___ Life review _x__ Prayer ___ Reconciliation ___ Sacrament of Sick _x__ Supportive presence ___ Wedding ___ Other (describe below) Pastoral Comments patient expresses desire for repositioning and even getting up out of bed; RN and then DIRECT SUPPORT STAFF come into room to assist patient with his needs and concerns; pt continues with discomfort; calming presence is main intervention; pt is reminded that procedure will be done soon and purpose is to give relief; this metal casting trades worker attempts to redirect pt's thoughts to the sunshine outside, to music on TV channel, to remembrance of how God can hold us in difficult times; pt accepts presence and prayer for support;
[2023-08-20] MEDS: Lidocaine 2% (20 ml mdv) 20 ML Vial INFILT (12:20)
[2023-08-20 12:51] LABS: Pathologist Review Reviewed
[2023-08-20 12:59] LABS: Pathologist Review Reviewed
--- NOTE | 2023-08-20 12:59 | PCM.CODE.SUM ---
Code Blue Report Code Blue Summary Code Blue Summary: Responded to overhead page for CODE BLUE in radiology. The patient had just had a thoracentesis and became unresponsive and pulseless. The patient appeared to be in PEA cardiac arrest. ACLS was initially instituted. However, shortly after my arrival, the patient's CODE STATUS was again confirmed to be DNR CCA. Therefore, resuscitative efforts were terminated.
--- NOTE | 2023-08-20 13:00 | PRO.PCM_ITS ---
Procedure Report Date of Procedure: 08/20/23 Assessment & Plan Assessment/Plan (1) Pleural effusion: PLAN: PROCEDURE: Ultrasound Guided Thoracentesis DATE: August 20 2023 INDICATION: Male, 68 years old. Large right pleural effusion. PROVIDER: LANNY Garcia PROCEDURE: The risks, benefits, and alternatives to the procedure were explained to the . The specific risks of bleeding, infection, and pneumothorax requiring chest tube insertion were discussed and accepted. Written informed consent was obtained. The patient was transported to the ultrasound room from ICU by the radiology nurse. Ultrasonographic evaluation of the bilateral lower pleural spaces was carried out. An adequate pocket was identified in the right pleural space. The patient was placed in the sitting, upright position. The overlying skin was prepped and draped in sterile fashion. 2% lidocaine was administered subcutaneously for local anesthesia, with note made of depth of needle when pleural fluid was aspirated. Under ultrasound guidance, a 5-Slovenian thoracentesis needle/catheter system was advanced into the right posterior lower pleural fluid collection without difficulty. A total of 1470 ml of clear yellow colored fluid was drained, with 100 mL of that collected for laboratory analysis. The patient began to complain of nonspecific pain, so despite fluid remaining on ultrasound survey, the catheter was removed. The patient became unresponsive and a pulse was unable to be palpated. A CODE BLUE was called; see CODE BLUE summary for further documentation. IMPRESSION: Thoracentesis of large right pleural effusion. Procedures Radiology Radiology US Procedures: 34171 Thoracentesis
[2023-08-20 13:03] LABS: Cytology, Body Fluid / CSF SEE PATHOLOGY REPORT
--- NOTE | 2023-08-20 13:03 | PCM.CODE.SUM ---
Code Blue Report Code Blue Summary Code Blue Summary: The patient had been transported to [facility] from ICU by the radiology nurse for a thoracentesis. The thoracentesis was performed. The patient remained on the central monitor throughout the duration of the procedure, as well as levophed gtt. Vital signs remained stable; however, the patient began to complain of pain, nonspecific, towards the end of the drainage. Ultrasound was used to determine if fluid remained, and despite the fact that there was remaining fluid, the catheter was removed for patient comfort. At this time, the patient became unresponsive and changes were noted on the monitor including a decreasing pulse ox. I was unable to palpate a carotid pulse and a CODE BLUE was called at 1236. The patient was noted to be in PEA and CPR was started. At 1237 1 mg of epinephrine was given IV. CPR continued. During this time, it was also confirmed by ICU staff that the patient had a CODE STATUS of DNR CCA, no intubation. Again with no pulses palpated and a rhythm check revealing again PEA, the code was called at 1239. Dr. Maurice Marquez was present for this, as was hospitalist, Dr. Nielsen. The patient's was notified of CODE by staff member.
--- NOTE | 2023-08-20 13:25 | PCM.DEATH ---
Preliminary Cause of Preliminary Cause of Preliminary Cause of : acute cardiopulmonary arrest due to septic shock from aspiration pneumonia and bilateral pleural effusion Date of Admission: 08/18/23 Date of : 08/20/23 Principle Diagnosis Problem List: Active and Suspected Problems (Updated 08/20/23 @ 09:[address] Maurice Marquez, DO) Septic shock (Acute) Dehydration (Acute) Pneumonia (Acute) Acute UTI (Acute) Declining functional status (Acute) Anemia (Acute) Acute kidney injury (Acute) Hospital Course Patient is a 68-year-old male with an extensive past medical history as outlined was admitted through the ED with weakness and frequent falls. He has been unable to ambulate or take care of himself at home and had not been eating or drinking well. therefore brought him into the ED. In the ED, WBC was 3.6 hemoglobin was 9.2. MCV was 105.6 and platelets were 104. Chest x-ray showed worsening atelectasis or infiltrates with bilateral pleural effusions worse on the right. He was admitted with a complaint of debility and concern for aspiration pneumonia as well as UTI. He was started on IV Zosyn. Patient was subsequently transferred to the ICU on account of refractory hypotension and was started on vasopressors. Thoracentesis was ordered and he was sent down to radiology for the paracentesis.. Patient had the thoracentesis done and he had 1.3 L removed. However whilst in the radiology suite, patient became unresponsive. ROMEL PEDRAZA was called and CPR was started. However patient was noted to be DNR CCA and so CPR was stopped. Patient's Mery Cash was called at [phone] and informed about patient going into cardiac arrest. She stated that patient had been sick for a while and had not been improving and was accepting of his demise. Romel pedraza was called at 12:35pm and declared at 12:39pm. Cause of is acute cardiopulmonary arrest due to septic shock and aspiration pneumonia. Contributing conditions were EVELYN on CKD. Visit Charges Inpatient E&M: [id number] Disch Hosp
[2023-08-20 13:27] LABS: Body Fluid Mononuclear WBC # 0.224 10^3/uL; Body Fluid Polynuclear WBC # 0.025 10^3/uL; Body Fluid Total Cells Counted 0.306 10^3/ul; White Blood Count/Body Fluid 0.249 10^3/uL
[2023-08-20 13:52] LABS: Glucose, Body Fluid 181 mg/dL (40-70); LDH,Body Fluid 106 Units/L (Not Establ.); Protein, Body Fluid 3.1 g/dL (Not Establ.)
--- NOTE | 2023-08-20 14:01 | CHAPLAIN ---
Type of Pastoral Visit ___ Initial Visit ___ Follow-up Visit ___ On-call Visit ___ General Patient Visit ___ Spiritual Assessment ___ Family Conference ___ Bereavement ___ Rapid Response _x__ Code Blue ___ Other (describe below) Pastoral Care Referral From ___ Patient ___ Family ___ Nurse ___ Physician ___ Assembly Line Brazer ___ Film Editor Supervisor _x__ Other (describe below) Sacrament/Intervention ___ Active listening ___ Anointing ___ Cheondoism _x__ Bereavement ___ Communion ___ Shawanda exploration ___ ___ Life review _x__ Prayer ___ Reconciliation ___ Sacrament of Sick ___ Supportive presence ___ Wedding ___ Other (describe below) Pastoral Comments patient was in ultrasound when he became unresponsive and a code blue was called; responded to code blue and found many medical staff members gathered; patient confirmed by medical team; this pyrotechnician asked for a moment of silence; family is not present at this time; notified spouse by phone of of patient; will remain available if spouse decides to come to hospital but initially it is understand that she may not come; offered support and words of appreciation to staff members that were present as pt
[2023-08-20 14:16] LABS: Appearance/Body Fluid CLEAR; Auto B Fluid Analyzer BKGD Ct COUNTS W/IN LIMITS (W/IN LIMITS); Color/Body Fluid YELLOW; Source- Body Fluid THORACENTESIS
[2023-08-20 14:46] LABS: Red Cell Count/Body Fluid 11 /mm3
[2023-08-20 15:11] LABS: Body Fluid QC Type(s) BF1Q; Lymphocytes 81 %; Mesothelial Cells 4 %; Monocytes 2 %; Neutrophil (Segs) 13 %
[2023-08-22 10:42] LABS: Pathologist Comment/Body Fluid Reviewed
== END 2023-08-20 12:39 | DRG 177 ==
LOC: ED 17:54 → PCU 17:58 → ICU 08-20 01:37
PROVIDERS: Internal Medicine Critical Care Medicine; Admitting Provider Family Medicine; Emergency Provider Emergency Medicine; PCP Internal Medicine; Visit Provider Student in an Organized Health Care Education/Training Program
DX: J69.0 Pneumonitis due to inhalation of food and vomit (principal); N17.0 Acute kidney failure with tubular necrosis; R65.21 Severe sepsis with septic shock; A41.9 Sepsis, unspecified organism; E43 Unspecified severe protein-calorie malnutrition; G93.49 Other encephalopathy; D61.818 Other pancytopenia; I13.0 Hypertensive heart and chronic kidney disease with heart failure and stage 1 through stage 4 chronic kidney disease, or unspecified chronic kidney disease; N18.4 Chronic kidney disease, stage 4 (severe); I50.32 Chronic diastolic (congestive) heart failure; I48.20 Chronic atrial fibrillation, unspecified; I25.810 Atherosclerosis of coronary artery bypass graft(s) without angina pectoris; J91.8 Pleural effusion in other conditions classified elsewhere; N39.0 Urinary tract infection, site not specified; I27.20 Pulmonary hypertension, unspecified; E11.22 Type 2 diabetes mellitus with diabetic chronic kidney disease; I46.9 Cardiac arrest, cause unspecified; E11.42 Type 2 diabetes mellitus with diabetic polyneuropathy; D63.8 Anemia in other chronic diseases classified elsewhere; F32.A Depression, unspecified; E86.0 Dehydration; D50.9 Iron deficiency anemia, unspecified; E78.00 Pure hypercholesterolemia, unspecified; I25.10 Atherosclerotic heart disease of native coronary artery without angina pectoris; K21.9 Gastro-esophageal reflux disease without esophagitis; I69.220 Aphasia following other nontraumatic intracranial hemorrhage; R62.7 Adult failure to thrive; R53.81 Other malaise; Z11.52 Encounter for screening for COVID-19; Z79.2 Long term (current) use of antibiotics; Z95.5 Presence of coronary angioplasty implant and graft; Z95.1 Presence of aortocoronary bypass graft; Z98.84 Bariatric surgery status; Z68.27 Body mass index [BMI] 27.0-27.9, adult; Z66 Do not resuscitate
CPT/HCPCS: 32555; 36415; 70450; 71045; 72125; 73502; 76770; 80048; 80053; 81001; 82570; 82607; 82746; 82945; 82962; 83036; 83605; 83615; 83735; 83880; 84145; 84156; 84157; 84300; 84540; 85025; 87040; 87070; 87075; 87077; 87086; 87088; 87186; 87205; 87428; 87449; 87633; 87641; 88108; 88305; 88313; 89050; 92610; 93005; 94640; 94668; 94762; 97162; 97166; 97802; 97803; 99252; 99285; J2020; J7030; J7050; A4216; G0463